=== PATIENT | male | born 1955 | race Caucasian/White ===

== ENCOUNTER 2023-09-10 14:43 | Outpatient (CLI) | payer MEDICARE, SELFPAY ==
[2023-09-10 15:08] LABS: Basophils Percent Auto 0.3 % (0.2-1.2); Eosinophils Absolute Auto 0.1 K/mm3 (0-0.3); Eosinophils Percent Auto 0.9 % (0-4.4); Hematocrit 44.5 % (42.0-52.0); Hemoglobin 13.8 g/dL (14.0-18.0); Immature Granulocyte Absolute 0.01 K/mm3 (0.00-0.031); Immature Granulocyte Percent A 0.1 % (0-0.5); Lymphocytes Absolute Auto 1.35 K/mm3 (0.9-3.2); Lymphocytes Percent Auto 20.2 % (18.3-44.2); Mean Corpuscular Hemoglobin 29.1 pg (26-34); Mean Corpuscular Volume 93.9 fl (80-100); Mean Platelet Volume 9.3 fl (7.4-10.4); Monocytes Absolute Auto 0.6 K/mm3 (0.1-0.6); Monocytes Percent Auto 9.6 % (2.6-8.5); Neutrophils Absolute Auto 4.6 K/mm3 (1.3-6.7); Neutrophils Percent Auto 68.9 % (45.5-73.1); Platelet Count Result 222 k/mm3 (150-375); Red Blood Count 4.74 M/mm3 (4.6-6.20); Red Cell Distribution Width 12.3 % (11.5-14.5); White Blood Count 6.7 K/mm3 (4.5-10.0)
[2023-09-10 17:04] LABS: Alanine Aminotransferase 23 U/L (6-50); Albumin Level 4.8 g/dL (3.5-5.1); Alkaline Phosphatase 83 U/L (38-126); Anion Gap 10 mmol/L (8-16); Aspartate Amino Transferase 23 U/L (17-59); Bilirubin,Total 0.6 mg/dL (0.2-1.3); Blood Urea Nitrogen 23 mg/dL (9-20); Calcium 9.6 mg/dL (8.4-10.2); Carbon Dioxide 36 mmol/L (22-30); Chloride 92 mmol/L (98-107); Cholesterol 255 mg/dL (0-200); Estimated Glomerular Filt Rate 60; Glucose 109 mg/dL (65-110); HDL Direct 47 mg/dL; Potassium 3.9 mmol/L (3.4-5.0); Sodium 138 mmol/L (137-145); Triglycerides 116 mg/dL (<150)
[2023-09-10 17:15] LABS: LDL Cholesterol Direct 166 mg/dL
[2023-09-10 17:29] LABS: Free T4 Free Thyroxine 0.94 ng/mL (0.78-2.19)
[2023-09-10 17:37] LABS: Prostate Specific Antigen 2.4 ng/mL (< OR = 4.0); Total Triiodothyronine (T3) 1.56 NG/ML (0.97-1.69)
[2023-09-10 21:04] LABS: Vitamin D 25 Hydroxy < 12.8 ng/mL
== END 2023-09-10 14:44 | disposition home or self-care (01) ==
PROVIDERS: PCP Family Medicine; Visit Provider Internal Medicine Hematology & Oncology
DX: Z12.5 Encounter for screening for malignant neoplasm of prostate (principal); I10 Essential (primary) hypertension; R73.01 Impaired fasting glucose; E78.2 Mixed hyperlipidemia; R80.9 Proteinuria, unspecified; E55.9 Vitamin D deficiency, unspecified; R53.83 Other fatigue; Z13.0 Encounter for screening for diseases of the blood and blood-forming organs and certain disorders involving the immune mechanism; Z13.6 Encounter for screening for cardiovascular disorders; Z13.220 Encounter for screening for lipoid disorders; Z13.29 Encounter for screening for other suspected endocrine disorder; Z13.1 Encounter for screening for diabetes mellitus
CPT/HCPCS: 36415; 80053; 80061; 82306; 83036; 84153; 84439; 84443; 84480; 85025; G0103

== ENCOUNTER 2023-09-17 09:10 | Outpatient (CLI) | payer MEDICARE, SELFPAY ==
--- NOTE | 2023-09-17 17:08 | WPDPFTINT ---
PFT Procedure Performed PFT Procedure Performed Spirometry w/o Bronchodil PFT Interpretation This is a pulmonary function test with spirometry. The test was performed and results interpreted in accordance with the 2019 and 2005 ATS/ERS Task Force guidelines respectively using the Global Lung Function Initiative-2012 reference equations. Patient demonstrated good effort and cooperation. Reproducibility criteria were met. The quality of the spirometry maneuver was Grade A. Findings: Spirometry: There is decreased maximal expiratory airflow at all lung volumes with concave expiratory flow tracing. The FVC is 3.34 L, 72% predicted. The FEV1 is 0.92 L, 26% predicted. The FEV1: FVC ratio is 27%. Impression: There is a very severe obstructive abnormality. A concurrent restrictive ventilatory abnormality cannot be excluded as lung volumes were not measured. There are no prior studies for comparison
== END 2023-09-17 09:11 | disposition home or self-care (01) ==
LOC: ANHPFT 09:11
PROVIDERS: PCP Family Medicine; Visit Provider Family Medicine
DX: R06.00 Dyspnea, unspecified (principal); J44.9 Chronic obstructive pulmonary disease, unspecified; Z99.81 Dependence on supplemental oxygen; R94.2 Abnormal results of pulmonary function studies
CPT/HCPCS: 94375

== ENCOUNTER 2025-01-10 15:59 | Inpatient (IN) | payer MEDICARE, SELFPAY ==
[2025-01-10] VITALS (13 sets, daily range): BP systolic 108–152; BP diastolic 67–89; PULSE 90–103; RESP 20–32; TEMP 36.3–36.7; O2SAT 97–100; BMI 24.7
--- NOTE | ~2025-01-10 | CT_ITS ---
EXAMINATION: CTA chest PE protocol DATE: 01/10/2025 18:32 TRACTOR CRANE ENGINEER INDICATION: Shortness of breath TECHNIQUE: Computed tomographic angiography (CTA) of the chest was performed with 100 mL Omnipaque-35 0 intravenous contrast. The dose-length product was 534.89 mGy-cm. Maximum intensity projection 3D-re constructions of the aorta and other arteries were constructed by the technologist on a separate work station. COMPARISON: None. FINDINGS/OBSERVATIONS: PULMONARY ARTERIES: No filling defect is identified within the main or proximal pulmonary artery. The main pulmonary artery is borderline enlarged. THORACIC AORTA: No aneurysmal dilatation or dissection is present. The great vessels are intact LUNGS: Panlobular emphysematous disease is detected bilaterally with large bulla formation within the bilateral upper lobes, left greater than right. MEDIASTINUM: No morphologically suspicious or pathologically enlarged lymph nodes are identified with in the mediastinum or bilateral axilla. BONES OF THE CHEST: No acute fracture. No significant degenerative disease. No lytic or blastic lesions. HEART: The heart is of normal size, without pericardial effusion. IMPRESSION: No pulmonary embolus. No thoracic aortic dissection. Borderline enlargement of the main pulmonary artery. Severe panlobular emphysematous disease with large bulla formation within the bilateral upper lobes, left greater than right. Reviewed, dictated and finalized at location A. TOR CRANE ENGINEER IMPRESSION: No pulmonary embolus. No thoracic aortic dissection. Borderline enlargement of the main pulmonary artery. Severe panlobular emphysematous disease with large bulla formation within the b ilateral upper lobes, left greater than right.
--- NOTE | ~2025-01-10 | XR_ITS ---
CHEST RADIOGRAPH CLINICAL HISTORY: CP and SOB . COMPARISON: None available TECHNIQUE: Single portable view of the chest. FINDINGS The cardiomediastinal silhouette is unremarkable. Increased interstitial markings are identified within the left mid to lower lung field. The remainder of the lungs are clear. IMPRESSION: Left mid to lower lung scarring. No focal infiltrate or effusion. Reviewed, dictated and finalized at location A. VERIFICATION ENGINEER
--- OUTSIDE RECORDS SUMMARY | 2025-01-10 16:01 | XMS_ITS | Referral Summary ---
Author Organization [facility] Address [address] [place] [address] Care Team Providers Care Snow Remover Name Role Phone Unavailable Primary Care Provider Unavailabl e Source Comments [facility],non-owned Affiliates and Associated Physician Practices is amultiple site organization consisting of ambulatory clinics and hospital sitesin [place], [place], [place] and [place]. This disclosure is being madepursuant to the Care Everywhere program and may not contain all information available regarding this patient. Last updated 18.[facility] [employer] Allergies No known active allergies Medications * Be aware that medications may not be up to date on this document. Alwaysverify current medications with the patient. Medication Sig Dispensed Refills Start Date End Date Status HYDROcodone-acetami nophen ([place]) 10-325 MG tablet Take 1 (one) tablet to 2 (two) tablets by mouth every 4 hours as needed for Pain Active albuterol HFA (Proventil; Ventolin; Proair) 108 (90 Base) MCG/ACT inhaler Inhale 2 (two) puffs by mouth every 4 hours as needed for Shortness of Breath or Wheezing 05/19/2024 Active budesonide-formoter ol (Symbicort) 160-4.5 MCG/ACT inhaler Inhale 2 (two) puffs by mouth 2 times daily 05/19/2024 Active umeclidinium (Incruse Ellipta) 62.5 MCG/ACT inhaler Inhale 1 (one) puff by mouth once daily 05/20/2024 Active lidocaine (Lidoderm) 5 % patch Apply 1 (one) patch to skin every 24 hours Apply patch to most painful area and remove after 12 hours. May reapply a new patch 12 hours later. 05/20/2024 Active apixaban (Eliquis) 5 MG tablet TAKE ONE TABLET BY MOUTH 2 TIMES A DAY 180 tablet 3 05/19/2024 05/19/2025 Active atorvastatin (Lipitor) 80 MG tablet TAKE ONE TABLET BY MOUTH EVERY NIGHT AT BEDTIME 90 tablet 3 05/19/2024 05/19/2025 Active carvedilol (Coreg) 6.25 MG tablet TAKE ONE TABLET BY MOUTH TWO TIMES A DAY WITH MORNING AND EVENING MEAL 180 tablet 3 05/19/2024 05/19/2025 Active losartan (Cozaar) 25 MG tablet TAKE ONE TABLET BY MOUTH ONCE DAILY 90 tablet 3 05/19/2024 05/19/2025 Active clopidogrel (plaVIX) 75 MG tablet TAKE ONE TABLET BY MOUTH ONCE DAILY 90 tablet 2 05/19/2024 05/19/2025 Active aspirin (Aspirin) 81 MG chew tablet CHEW AND SWALLOW 1 TABLET BY MOUTH ONCE DAILY 90 tablet 3 05/19/2024 05/19/2025 Active isosorbide mononitrate CR 24hr (Imdur) 60 MG tablet TAKE ONE TABLET BY MOUTH ONCE DAILY 90 tablet 3 05/19/2024 05/19/2025 Active Active Problems Problem Noted Date Diagnosed Date CAD, multiple vessel 05/12/2024 Social History Tobacco Use Types Packs/Day Years Used Date Smoking Tobacco: Former Cigarettes 3 30 Smokeless Tobacco: Never Tobacco Cessation:Counseling Given: Not Answered Alcohol Use Standard Drinks/Week Comments Not Currently 0 (1 standard drink = 0.6 oz pur e alcohol) AUDIT-C Answer Date Recorded Q1: How often do you have a drink containing alcohol? Never 05/14/2024 Q2: How many drinks containi ng alcohol do you have on a typical day when you are drinking? Patient does not drink Q3: How often do you have si x or more drinks on one occasion? Never 05/14/2024 Overall Financial Resource Strain (CARDIA) Answe r Date Recorded How hard is it for you to pa y for the very basics like food, housing, medical care, and heating? Somewhat hard 05/14/2024 [facility] of Occupat ional Health - Occupational Stress Questionnaire Answer Date Recorded Do you feel stress - tense, restless, nervous, or anxious, or unable to sleep at night because your mind is troubled all the time - these days? Not at all 05/14/2024 Hunger Vital Sign Answer Date Recorded Within the past 12 months, y ou worried that your food would run out before you got the money to buy more. Never true 05/14/20 24 Within the past 12 months, t he food you bought just didn't last and you didn't have money to get more. Never true 05/14/2024 PRAPARE - Transportation Answer Date Re corded In the past 12 months, has l ack of transportation kept you from medical appointments or from getting medications? No 04/19 In the past 12 months, has l ack of transportation kept you from meetings, work, or from getting things needed for daily living? No 05/14/2024 Housing Stability Vital Sign Answer Rodrigo e Recorded In the last 12 months, was t here a time when you were not able to pay the mortgage or rent on time? No 05/14/2024 In the last 12 months, how many places have you lived? 1 05/14/2024 In the last 12 months, was t here a time when you did not have a steady place to sleep or slept in a longterm (including now)? No 05/14/2024 Sex and Gender Information Value Date Recorded Sex Assigned at Not on file Gender Identity Not on file Sexual Orientation Not on file Last Filed Vital Signs Vital Sign Reading Time Taken Comments Blood Pressure 144/86 05/20/2024 7:19 AM CDT Pulse 74 05/20/2024 9:30 AM CDT Temperature 36.8 C (98.2 F) 05/20/2024 7:19 AM CDT Respiratory Rate 16 05/20/2024 9:30 AM CDT Oxygen Saturation 100% 05/20/2024 9:30 AM CDT Inhaled Oxygen Concentration - - Weight 89.4 kg (197 lb) 05/15/2024 8:55 AM CDT Height 185.4 cm (6' 1 ) 05/15/2024 8:55 AM CDT Body Mass Index 25.99 05/15/2024 8:55 AM CDT Functional Status Functional Status Response Date of Assess ment Is person deaf or have serious hearing difficult y? Yes 05/14/2024 Is person blind or have serious difficulty seein g? No 05/14/2024 Does person have serious dif ficulty walking/climbing stairs? Yes 05/14/2024 Does person have difficulty dressing/bathing? No 05/14/2024 Does person have difficulty doing errands alone? No 05/14/2024 Cognitive Status Response Date of Assess ent Does person have difficulty concentrating/remembering/making decisions? No 05/14/2024 Plan of Treatment Not on file Medical Devices Implanted Type Area Draw Frame Operator Device Identifier Shelf Expiration Date Model / Serial / Lot Sys Cor Stent Sng Xd Mr 3mm 20mm Dlv Sys - [id number] Implanted:Qty: 1 on 05/18/2024 by Michaela Reddy MD at [facility] [employer] [id number] 01/01/2026 [id number] / [id number] / [id number] Sys Cor Stent Sng Xd Mr 3mm 16mm Dlv Sys - [id number] Implanted:Qty: 1 on 05/18/2024 by Michaela Reddy MD at [facility] [employer] [id number] 08/19/2024 [id number] / [id number] / [id number] Sys Cor Stent Sng Xd Mr 3.5mm 38mm Dlv - [id number] Implanted:Qty: 1 on 05/18/2024 by Michaela Reddy MD at [facility] [employer] [id number] 10/06/2025 [id number] / [id number] / [id number] Procedures Procedure Name Priority Date/Time Associated Diagnosis Comments RENAL FUNCTION PANEL Routine 05/20/2024 3:38 AM CDT from Last 3 Months or Most Recently Relevant to Health Maintenance Results * (ABNORMAL) RENAL FUNCTION PANEL (05/20/2024 3:38 AM CDT) BUN 14 7 - 26 mg/dL 05/20/2024 4:49 AM CDT [facility] Creatinine 0.91 0.71 - 1.16 mg/dL 05/20/2024 4:49 AM CDT [facility] Sodium 142 136 - 145 mmol/L 05/20/2024 4:49 AM CDT [facility] Potassium 5.0(H) 3.5 - 4.5 mmol/L 05/20/2024 4:49 AM [facility] Chloride 100 98 - 107 mmol/L 05/20/2024 4:49 AM [facility] CO2 35(H) 22 - 29 mmol/L 05/20/2024 4:49 AM [facility] Glucose 106 70 - 115 mg/dL 05/20/2024 4:49 AM [facility] Albumin 2.8(L) 3.4 - 5.0 g/dL 05/20/2024 4:49 AM [facility] Calcium 8.8 8.4 - 10.2 mg/dL 05/20/2024 4:49 AM [facility] Phosphorus 3.8 2.8 - 5.1 mg/dL 05/20/2024 4:49 AM [facility] Anion Gap 7 6 - 16 05/20/2024 4:49 AM [facility] BUN/Creatinine Ratio 15 7 - 23 05/20/2024 4:49 AM [facility] Osmolality Calculated 295 275 - 295 mOsm/kg 05/20/2024 4:49 AM [facility] eGFR by CKD-EPI >90 >=90 mL/min/1.7 3 m2 05/20/2024 4:49 AM [facility] Blood BLOOD SPECIMEN / Unknown Lab Venipuncture / Unknown 05/20/2024 3:38 AM CDT 05/20/2024 4:16 AM [facility] Woo Aj MD LAB - CHEMISTRY YT BHAGAT [facility] Organization Address [facility]/State/ZIP Co de Phone Number [facility] [address] [place] [address], [facility] [phone] from Last 3 Months or Most Recently Relevant to Health Maintenance Advance Directives * Full Code (Latest Code Status on File) Date Activated Date Inactivated Comments 05/14/2024 4:44 PM 05/20/2024 3:42 PM
--- OUTSIDE RECORDS SUMMARY | 2025-01-10 16:01 | XMS_ITS | Patient Health Summary ---
Author Organization [facility] Address [address] [place] [address] Care Team Providers Care Appetizer Packer Name Role Phone Unavailable Primary Care Provider Unavailabl e Note from [facility] [place][note 2],non-owned Affiliates and Associated Physician Practices is amultiple site organization consisting of ambulatory clinics and hospital sitesin [place], [place], [place] and [place]. This disclosure is being madepursuant to the Care Everywhere program and may not contain all information available regarding this patient. Last updated 18.[facility] Allergies No known active allergies Medications * Be aware that medications may not be up to date on this document. Alwaysverify current medications with the patient. * HYDROcodone-acetaminophen (Goodwin) 10-325 MG tablet Take 1 (one) tablet to 2 (two) tablets by mouth every 4 hours as needed for Pain * albuterol HFA (Proventil; Ventolin; Proair) 108 (90 Base) MCG/ACT inhaler (Started 05/19/2024) Inhale 2 (two) puffs by mouth every 4 hours as needed for Shortness of Breath or Wheezing * budesonide-formoterol (Symbicort) 160-4.5 MCG/ACT inhaler(Started 05/19/2024) Inhale 2 (two) puffs by mouth 2 times daily * umeclidinium (Incruse Ellipta) 62.5 MCG/ACT inhaler(Started 05/20/2024) Inhale 1 (one) puff by mouth once daily * lidocaine (Lidoderm) 5 % patch(Started 05/20/2024) Apply 1 (one) patch to skin every 24 hours Apply patch to most painful area and remove after 12 hours. May reapply a new patch 12 hours later. * apixaban (Eliquis) 5 MG tablet(Started 05/19/2024) TAKE ONE TABLET BY MOUTH 2 TIMES A DAY 3 refills by 05/19/2025 * atorvastatin (Lipitor) 80 MG tablet(Started 05/19/2024) TAKE ONE TABLET BY MOUTH EVERY NIGHT AT BEDTIME 3 refills by 05/19/2025 * carvedilol (Coreg) 6.25 MG tablet(Started 05/19/2024) TAKE ONE TABLET BY MOUTH TWO TIMES A DAY WITH MORNING AND EVENING MEAL 3 refills by 05/19/2025 * losartan (Cozaar) 25 MG tablet(Started 05/19/2024) TAKE ONE TABLET BY MOUTH ONCE DAILY 3 refills by 05/19/2025 * clopidogrel (plaVIX) 75 MG tablet(Started 05/19/2024) TAKE ONE TABLET BY MOUTH ONCE DAILY 3 refills by 05/19/2025 * aspirin (Aspirin) 81 MG chew tablet(Started 05/19/2024) CHEW AND SWALLOW 1 TABLET BY MOUTH ONCE DAILY 3 refills by 05/19/2025 * isosorbide mononitrate CR 24hr (Imdur) 60 MG tablet(Started 05/19/2024) TAKE ONE TABLET BY MOUTH ONCE DAILY 3 refills by 05/19/2025 Active Problems Problem Noted Date Diagnosed Date [...] medical care, and heating? Somewhat hard 05/14/2024 [facility] [facility] Occup[facility] - Occupational Stress [...] place to sleep or slept in a fdc (including now)? No 05/14/2024 Sex and Gender [...] Mass Index 25.99 05/15/2024 8:55 AM CDT Medical Devices Implanted Type Area Academy Director Device Identifier Shelf Expiration Date Model / Serial / Lot Sys Cor Stent Sng Xd Mr 3mm 20mm Dlv Sys - [id number] Implanted:Qty: 1 on 05/18/2024 by Michaela Reddy MD at [facility] [employer] [id number] 01/01/2026 [id number] / [id number] / [id number] Sys Cor Stent Sng Xd Mr 3mm 16mm Dlv Sys - [id number] Implanted:Qty: 1 on 05/18/2024 by Michaela Reddy MD at [facility] [employer] [id number] 08/19/2024 [id number] / [id number] / [id number] Sys Cor Stent Sng Xd Mr 3.5mm 38mm Dlv - [id number] Implanted:Qty: 1 on 05/18/2024 by Michaela Reddy MD at [facility] [employer] [id number] 10/06/2025 [id number] / [id number] / [id number] Procedures * BASIC METABOLIC PANEL (CALCIUM TOTAL)(Performed 05/20/2024) Performed for CAD, multiple vessel, Hyperkalemia * MAGNESIUM BLOOD(Performed 05/20/2024) * RENAL FUNCTION PANEL(Performed 05/20/2024) * CBC W/O DIFFERENTIAL(Performed 05/20/2024) * MAGNESIUM BLOOD(Performed 05/19/2024) * RENAL FUNCTION PANEL(Performed 05/19/2024) * CBC W/O DIFFERENTIAL(Performed 05/19/2024) * CCL CORONARY IVUS(Performed 05/18/2024) Performed for CAD, multiple vessel * CCL CORONARY STENT(Performed 05/18/2024) Performed for CAD, multiple vessel * CORONARY ANGIOGRAPHY(Performed 05/18/2024) Performed for CAD, multiple vessel * ACT LR - POCT ([facility])(Performed 05/18/2024) * ACT LR - POCT ([facility])(Performed 05/18/2024) * ACT LR - POCT ([facility])(Performed 05/18/2024) * ACT LR - POCT ([facility])(Performed 05/18/2024) * ACT LR - POCT ([facility])(Performed 05/18/2024) * ACT LR - POCT ([facility])(Performed 05/18/2024) * PERCUTANEOUS CORONARY INTERVENTION (PCI)(Performed 05/18/2024) Performed for CAD, multiple vessel * MAGNESIUM BLOOD(Performed 05/18/2024) * RENAL FUNCTION PANEL(Performed 05/18/2024) * CBC W/O DIFFERENTIAL(Performed 05/18/2024) * MAGNESIUM BLOOD(Performed 05/17/2024) * RENAL FUNCTION PANEL(Performed 05/17/2024) * CBC W/O DIFFERENTIAL(Performed 05/17/2024) * COMPLETE PFT W/WO BRONCHODILATOR(Performed 05/15/2024) * ECHO COMPLETE W CONTRAST(Performed 05/15/2024) Performed for CAD, multiple vessel * VAS BILATERAL VENOUS MAPPING(Performed 05/15/2024) Performed for CAD, multiple vessel * VAS CAROTID DUPLEX BILATERAL(Performed 05/15/2024) Performed for CAD, multiple vessel * CT CHEST WO CONTRAST(Performed 05/15/2024) Performed for CAD, multiple vessel * CULTURE MRSA(Performed 05/15/2024) * XR CHEST 1VW PORTABLE(Performed 05/15/2024) Performed for CAD, multiple vessel * TSH REFLEX FREE T4(Performed 05/15/2024) * HEMOGLOBIN A1C(Performed 05/15/2024) * MAGNESIUM BLOOD(Performed 05/15/2024) * RENAL FUNCTION PANEL(Performed 05/15/2024) * CBC W/O DIFFERENTIAL(Performed 05/15/2024) * EKG 12-LEAD(Performed 05/14/2024) Performed for CAD, multiple vessel * TROPONIN-I HIGH SENSITIVE(Performed 05/14/2024) * PHOSPHORUS BLOOD(Performed 05/14/2024) * MAGNESIUM BLOOD(Performed 05/14/2024) * COMPREHENSIVE METABOLIC PANEL(Performed 05/14/2024) * CBC W/O DIFFERENTIAL(Performed 05/14/2024) * CATH OUTSIDE STUDY(Performed 05/12/2024) Performed for CAD, multiple vessel Results * (ABNORMAL) BASIC METABOLIC PANEL (CALCIUM TOTAL) (05/20/2024 11:14 AM [facility]) BUN 12 7 - 26 mg/dL 05/20/2024 11:54 AM [facility] Creatinine 0.76 0.71 - 1.16 mg/dL 05/20/2024 11:54 AM [facility] Sodium 140 136 - 145 mmol/L 05/20/2024 11:54 AM [facility] Potassium 4.3 3.5 - 4.5 mmol/L 05/20/2024 11:54 AM [facility] Chloride 102 98 - 107 mmol/L 05/20/2024 11:54 AM [facility] CO2 32(H) 22 - 29 mmol/L 05/20/2024 11:54 AM [facility] Glucose 317(H) 70 - 115 mg/dL 05/20/2024 11:54 AM [facility] Calcium 8.7 8.4 - 10.2 mg/dL 05/20/2024 11:54 AM [facility] Anion Gap 6 6 - 16 05/20/2024 11:54 AM [facility] BUN/Creatinine Ratio 16 7 - 23 05/20/2024 11:54 AM [facility] Osmolality Calculated 302(H) 275 - 295 mOsm/kg 05/20/2024 11:54 AM [facility] eGFR by CKD-EPI >90 >=90 mL/min/1.7 3 m2 05/20/2024 11:54 AM [facility] Blood BLOOD SPECIMEN / Unknown Venipuncture / Unknown 05/20/2024 11:14 AM CDT 05/20/2024 11:23 AM CDT Monique Ray ELASTIC TAPE INSERTER-DOG OR HORSE RACING OFFICIAL LAB - CHEMIS TRY ORDERABLES [facility] [address] [place] [phone], [facility] [phone] * (ABNORMAL) CBC W/O DIFFERENTIAL (05/20/2024 3:38 AM CDT) Only the most recent of6 resultswithin the time period is included. WBC 9.4 4.0 - 10.7 x10E9/L 05/20/2024 4:30 AM [facility] RBC Count 4.18(L) 4.30 - 5.80 x10E12/L 05/20/2024 4:30 AM [facility] Hemoglobin 11.8(L) 13.3 - 17.5 g/dL 05/20/2024 4:30 AM [facility] Hematocrit 38.8 38.7 - 51.1 % 05/20/2024 4:30 AM [facility] MCV 92.8 80.0 - 98.0 fL 05/20/2024 4:30 AM [facility] MCH 28.2 26.7 - 33.6 pg 05/20/2024 4:30 AM [facility] MCHC 30.4(L) 31.7 - 36.3 g/dL 05/20/2024 4:30 AM [facility] RDW-CV 14.1 11.3 - 14.8 % 05/20/2024 4:30 AM [facility] Platelet Count 287 150 - 420 x10E9/L 05/20/2024 4:30 AM [facility] MPV 9.8 7.8 - 11.4 fL 05/20/2024 4:30 AM [facility] Blood BLOOD SPECIMEN / Unknown Lab Venipuncture / Unknown 05/20/2024 3:38 AM CDT 05/20/2024 4:16 AM CDT Woo Aj MD LAB - HEMATOLOGY ORD ERABLES [facility] [address] [place] [address], [facility] [phone] * (ABNORMAL) RENAL FUNCTION PANEL (05/20/2024 3:38 AM CDT) Only the most recent of5 resultswithin the time period is included. BUN 14 7 - 26 mg/dL 05/20/2024 4:49 AM [facility] Creatinine 0.91 0.71 - 1.16 mg/dL 05/20/2024 4:49 AM [facility] Sodium 142 136 - 145 mmol/L 05/20/2024 4:49 AM [facility] Potassium 5.0(H) 3.5 - 4.5 mmol/L 05/20/2024 4:49 AM [facility] Chloride 100 98 - 107 mmol/L 05/20/2024 4:49 AM [facility] CO2 35(H) 22 - 29 mmol/L 05/20/2024 4:49 AM [facility] Glucose 106 70 - 115 mg/dL 05/20/2024 4:49 AM [facility] Albumin 2.8(L) 3.4 - 5.0 g/dL 05/20/2024 4:49 AM [facility] Calcium 8.8 8.4 - 10.2 mg/dL 05/20/2024 4:49 AM [facility] Phosphorus 3.8 2.8 - 5.1 mg/dL 05/20/2024 4:49 AM [facility] Anion Gap 7 6 - 16 05/20/2024 4:49 AM [facility] BUN/Creatinine Ratio 15 7 - 23 05/20/2024 4:49 AM [facility] Osmolality Calculated 295 275 - 295 mOsm/kg 05/20/2024 4:49 AM [facility] eGFR by CKD-EPI >90 >=90 mL/min/1.7 3 m2 05/20/2024 4:49 AM [facility] Blood BLOOD SPECIMEN / Unknown Lab Venipuncture / Unknown 05/20/2024 3:38 AM CDT 05/20/2024 4:16 AM CDT Woo Aj MD LAB - CHEMISTRY TY [facility] Organization Address City/State/ZIP Co de Phone Number [facility] [address] [place] [phone], [facility] [phone] * MAGNESIUM BLOOD (05/20/2024 3:38 AM CDT) Only the most recent of6 resultswithin the time period is included. Magnesium 2.1 1.6 - 2.6 mg/dL 05/20/2024 4:49 AM [facility] Blood BLOOD SPECIMEN / Unknown Lab Venipuncture / Unknown 05/20/2024 3:38 AM CDT 05/20/2024 4:16 AM CDT Woo Aj MD LAB - CHEMISTRY TY [facility] [address] [place] [address], [facility] [phone] * CORONARY ANGIOGRAPHY, CCL CORONARY STENT, CCL CORONARY IVUS (05/18/2024 1:40 PM CDT) Anatomical Region Laterality Modality X-Ray Angiograph y Narrative 05/18/2024 10:56 PM CDT 70% left main stenosis contiguous with 90% proximal/mid LAD in-stent/klaudia-stent stenosis status post successful IVUS guided implant of 3.5 x 30 mm Synergy HUY (proximally dilated to 4.5 mm); SUSHMA-3 flow 0% residual stenosis. 70% proximal LCx stenosis status post IVUS guided implant of 3 x 16 mm Synergy HUY using DK crush technique; 0% residual stenosis SUSHMA-3 flow. Prox Cx to Mid Cx lesion is 40% stenosed . Residual 80% stenosis in branch of OM2 as well as 95% stenosis in a small OM1 Known RCA mild/moderate stenosis, not injected Right radial artery access; hemostasis by TR band. Reason for Procedure 68 male with HTN, HLD, CAD s/p PCI (RCA & LAD, 2019), pAFib, COPD (on 4L), HTN, HLD. Initially presented to [facility] in [place], [place] due to symptomatology of exertional chest pain or shortness of breath. Underwent cardiac catheterization there which demonstrated severe left main stenosis and LAD ISR. He was transferred to [facility] for cardiac surgery evaluation. After evaluation, he turndown surgery. Therefore, presents today for PCI. Procedure Details Estimated Blood Loss: 20 mL Procedure Details and Comments: Informed consent was obtained after discussion with the patient regarding indication, risks, benefits, and alternatives. Patient was brought to the cardiac catheterization lab, placed on the table, prepped and draped in usual sterile fashion. Timeout was performed. IV sedation given including fentanyl and midazolam. See MAR for details. 1% lidocaine given subcutaneously for local anesthesia. Access was obtained using ultrasound guidance, micro-puncture needle and modified Seldinger technique. A 7 Cymro sheath inserted to right radial artery. Intra-arterial nicardipine and nitroglycerin given to prevent spasm. Intravenous heparin given to prevent occlusion and for therapeutic anticoagulation with ACT monitored 250-350. A 7 Cymro EBU 3.75 guide catheter used to cannulate the left coronary artery. Initial angiography taken in orthogonal views redemonstrated known distal left main bifurcation stenosis. Additionally, there is a small OM1 that is subtotally occluded. In a branch of OM2 which is a reasonably sized vessel there was 80% stenosis. In proximal/mid LAD, there was 90% in-stent restenosis as well as klaudia-stent stenosis. Intervention ensued. A 0.014 inch Terumo run-through guidewire was advanced into circumflex with mild difficulty. A 0.014 inch [employer] guidewire was advanced into distal LAD with mild difficulty. Initially, we thought we will be able to get away with provisional stenting strategy from left main to LAD. Therefore, we performed predilation of in-stent restenosis using a 2.5 x 20 mm AngioSculpt Silverio scoring balloon, at 20- 22 mima for multiple inflations from mid LAD back to proximal LAD. The expanded reasonably well. We performed IVUS using [place] eye catheter down the left main/LAD. Beyond the existing stent, vessel diameter was 2.75 mm. Therefore, the existing 2.5 mm stent appears to be somewhat undersized. Additionally, in the body of the stent there was some underexpansion. In the proximal part of the stent, there was neointima formation concordant with angiographic in-stent restenosis. The proximal LAD is fairly disease-free although further proximally in the distal left main, the MLA was 6 mm , therefore needs to be treated. It would be prudent to stent from LAD all the way back to the left main. Therefore, a plaque free proximal landing zone identified in proximal left main with diameter 4.5 mm. We then performed IVUS down the LCx. There was impressive bulky plaque, mostly fatty, in the proximal vessel despite angiographically it appears not as severe as it was on IVUS. The proximal/mid LCx is diffusely diseased without a clear plaque free landing zone. Therefore we decided to angiographically lended. Vessel diameter was 3 mm throughout. Given the IVUS finding, we decided to switch to an upfront 2-stent strategy using the DK crush method. Predilation of proximal LCx performed with a 3 mm NC Emerge balloon, at 14 mima. This expanded well. We attempted to deliver a 3 x 20 mm Synergy HUY to LCx alongside a 4 mm NC Emerge balloon in the left main/LAD, but the stent was slightly too long. Therefore, we removed the 3 x 20 mm Synergy HUY and inserted a 3 x 16 mm Synergy HUY instead. The stent was positioned in the ostium with slight protrusion into the left main, and deployed at 14 mima. After stent balloon removal, the 4 mm NC Emerge balloon was inflated to crush the stent at 14 mima. Another run-through guidewire was advanced into LCx with mild difficulty. The the first run-through guidewire, which was now jailed, was removed. A 1.2 mm Emerge balloon was used to open up the struts. A 3 x 15 mm NC Emerge balloon was positioned in the LCx alongside a 4 x 15 mm NC Emerge balloon in the left main/LAD. Using the [id number] sequence, the balloons were inflated to 20 mima individually followed by 12 mima for kissing balloon inflation. Both balloons were removed. The run-through guidewire was removed from LCx. Given the IVUS finding of LAD, further dilation of the existing LAD stent performed with a 3 x 30 mm NC Emerge balloon, at 15-22 mima throughout proximal/mid LAD. This expanded reasonably well. A 3.5 x 38 mm Synergy HUY was positioned from proximal left main into mid LAD with slight overlap of the existing 2.5 mm stent, and deployed at 10 mima. Proximal optimization performed with a 4.5 x 15 mm NC Emerge balloon, at 12-14 mysterious throughout the left main especially on the LCx bifurcation. With great difficulty, another run-through guidewire was maneuvered into LCx. To confirm the LCx wire was within left main stent, repeat IVUS performed down IVUS/LAD. This confirmed the LCx wire was indeed within the left main stent. IVUS also found the left main stent to be adequately expanded and apposed. A 1.2 x 15 mm Emerge balloon was used to struts into LCx. A 3 x 15 mm NC Emerge balloon was placed in the LCx alongside a 4.0 x 15 mm NC Emerge balloon in the LM/LAD. Using the [id number] sequence, the balloons were inflated to 20 mm individually, followed by kissing balloon inflation at 12 mima. Final proximal optimization performed with a 4.5 x 8 mm NC Emerge balloon, at 12 mima. Final angiogram now demonstrated 0% residual stenosis, SUSHMA-3 flow, no dissection, no no reflow phenomenon. The coronary wires were removed. The guide catheter removed over a J-wire. Right radial artery sheath removed with hemostasis by TR band. Patient transported to hospital room in stable condition. Referring physician updated. Lesions treated: Left main. 70% pre-, 0% post. 15 mm pre and post. SUSHMA-3 pre and post. ACC/AHA type C. Not culprit. Proximal/mid LAD. 90% pre-, 0% post. 25 mm pre and post. SUSHMA-3 pre and post. ACC/AHA type C. Not culprit. Proximal LCx. 70% pre-, 0% post. 15 mm pre and post. SUSHMA-3 pre and post. ACC/AHA type B2. Not cooperative. Residual syntax score low. Coronary Findings Diagnostic Dominance: Right Left Main: Ost LM to Dist LM lesion is 70% stenosed. Not the culprit lesion. Lesion length: 15 mm. SUSHMA flow is 0. Ultrasound (IVUS) was performed. Minimum lumen area: 6 mm . Dist LM to Mid LAD lesion is 90% stenosed. SUSHMA flow is 3. The lesion is type C. Ultrasound (IVUS) was performed. Left Anterior Descending: Mid LAD lesion is 90% stenosed. SUSHMA flow is 3. The lesion was previously treated using a stent of unknown type. The lesion has in-stent restenosis. Left Circumflex: Ost Cx to Prox Cx lesion is 70% stenosed. Not the culprit lesion. Lesion length: 15 mm. SUSHMA flow is 3. The lesion is not complex (non high-C). Ultrasound (IVUS) was performed. Prox Cx to Mid Cx lesion is 40% stenosed. First Obtuse Marginal Branch: 1st Mrg lesion is 95% stenosed. SUSHMA flow is 1. Lateral Second Obtuse Marginal Branch: Lat 2nd Mrg lesion is 80% stenosed. SUSHMA flow is 3. Right Coronary Artery: The vessel was not injected. Intervention Ost LM to Dist LM lesion: Angioplasty: Angioplasty was performed using a standard balloon prior to stent deployment. The balloon used was a Cath Balln Dil Nc Emerge Monrl 3Mm 143Cm. Stent: Drug-eluting stent was successfully placed. The stent used was a Sys Cor Stent Sng Xd Mr 3.5Mm 38Mm Dlv. Angioplasty: Angioplasty was performed using a standard balloon following stent deployment. The balloon used was a Cath Balln Dil Nc Emerge Monrl 4.5Mm 143. Angioplasty: Angioplasty was performed using a standard balloon following stent deployment. The balloon used was a Cath Balln Dil Nc Emerge Monrl 4Mm 143Cm. Angioplasty: Angioplasty was performed using a standard balloon following stent deployment. The balloon used was a Cath Balln Dil Nc Emerge Monrl 4.5Mm 143. Stent (Also treats lesions: Dist LM to Mid LAD, Mid LAD): Drug-eluting stent was successfully placed. The stent used was a Sys Cor Stent Sng Xd Mr 3.5Mm 38Mm Dlv. Post-Intervention Lesion Assessment: The intervention was successful. The guidewire crossed the lesion. Device was deployed. Post- intervention SUSHMA flow is 3. Lesion had 15 mm of its length treated. There were no complications. Post-PCI ultrasound (IVUS) was performed. The stent is fully expanded. The stent is fully opposed to the vessel wall. There is a 0% residual stenosis post intervention. Dist LM to Mid LAD lesion: Angioplasty: Angioplasty was performed using a scoring balloon prior to stent deployment. The balloon used was a Cath Balln Angiosculpt Silverio 2.5Mm 20Mm. Angioplasty: Angioplasty was performed using a standard balloon prior to stent deployment. The balloon used was a Cath Balln Dil Nc Emerge Monrl 3Mm 143Cm. Stent (Also treats lesions: Ost LM to Dist LM, Mid LAD): Drug-eluting stent was successfully placed. The stent used was a Sys Cor Stent Sng Xd Mr 3.5Mm 38Mm Dlv. Angioplasty: Angioplasty was performed using a standard balloon following stent deployment. The balloon used was a Cath Balln Dil Nc Emerge Monrl 3Mm 143Cm. Post-Intervention Lesion Assessment: The intervention was successful. The guidewire crossed the lesion. Device was deployed. Post-intervention SUSHMA flow is 3. Lesion had 38 mm of its length treated. There were no complications. Post-PCI ultrasound (IVUS) was performed. There is a 0% residual stenosis post intervention. Mid LAD lesion: Angioplasty: Angioplasty was performed using a scoring balloon without stent deployment. The balloon used was a Cath Balln Angiosculpt Silverio 2.5Mm 20Mm. Angioplasty: Angioplasty was performed using a standard balloon without stent deployment. The balloon used was a Cath Balln Dil Nc Emerge Monrl 3Mm 143Cm. Stent (Also treats lesions: Ost LM to Dist LM, Dist LM to Mid LAD): Drug-eluting stent was successfully placed. The stent used was a Sys Cor Stent Sng Xd Mr 3.5Mm 38Mm Dlv. Post-Intervention Lesion Assessment: The intervention was successful. The guidewire crossed the lesion. Device was not deployed. Post-intervention SUSHMA flow is 3. There is a 0% residual stenosis post intervention. Ost Cx to Prox Cx lesion: Angioplasty: Angioplasty was performed using a standard balloon prior to stent deployment. The balloon used was a Cath Balln Dil Nc Emerge Monrl 3Mm 143Cm. Stent: Stent: Drug-eluting stent was successfully placed. The stent used was a Sys Cor Stent Sng Xd Mr 3Mm 16Mm Dlv Sys. Angioplasty: Angioplasty was performed using a standard balloon following stent deployment. The balloon used was a Cath Balln Dil Emerge Monrl 1.2Mm 144Cm. Angioplasty: Angioplasty was performed using a standard balloon following stent deployment. The balloon used was a Cath Balln Dil Nc Emerge Monrl 3Mm 143Cm. Post-Intervention Lesion Assessment: The intervention was successful. The guidewire crossed the lesion. Device was deployed. Post- intervention SUSHMA flow is 3. Lesion had 15 mm of its length treated. There were no complications. There is a 0% residual stenosis post intervention. Recommendations - Follow maximal guideline directed medical therapy for stable coronary artery disease. - Recommend dual anti platelet therapy for at least 6 months. - Recommend high dose statin therapy and aspirin 81 mg by mouth daily indefinitely. - Consult cardiac rehab. - Plan for lifestyle intervention with diet, exercise, and weight loss. - If patient remains symptomatic, can consider PCI of OM 2 lateral branch. Woo Aj MD CV CARDIAC CATH CUPI D PROCS * ACT LR - POCT ([facility]) (05/18/2024 1:37 PM CDT) Only the most recent of6 resultswithin the time period is included. [facility] ACT LR 269 See result comments sec 05/25/2024 7:04 AM CDT [facility] Blood BLOOD SPECIMEN / Unknown 05/18/2024 1:37 PM CDT 05/25/2024 7:04 AM CDT Narrative [facility] - 05/25/2024 7:04 AM CDT ACT-LR Therapeutics ranges are: Cardiac shop laborer = 200-300 seconds Sheath pull = ACT less than 170 seconds EPS lab = 200-240 seconds Sheath pull = ACT less than 140 seconds Radiology : CT/Angio lab = 200-300 seconds Sheath pull = ACT less than 200 seconds Expected range of normal volunteers: ACT-LR = 113-149 seconds Expected range of a Non-heparin patients: ACT-LR = 89-169 seconds From established ranges from the company manual Woo Aj MD LAB - COAGULATION OR DERABLES [facility] [address] [place] [address], [facility] [phone] * COMPLETE PFT W/WO BRONCHODILATOR (05/15/2024 4:45 PM CDT) Impressions Guille Ramos MD - 05/15/2024 4:45 PM CDT [facility] DEPARTMENT OF PULMONARY, CRITICAL CARE, AND SLEEP MEDICINE PULMONARY FUNCTION TEST Please see technologist's comments mentioned in the report. TECHNIQUE LIMITED STUDY INTERPRETATION: SPIROMETRY: FVC: decreased. FEV1: decreased . FEV1/FVC ratio is decreased. BRONCHODILATOR RESPONSE: Not performed. FLOW-VOLUME LOOPS: Inspection of the flow-volume loops shows scooping of the expiratory limbs. IMPRESSION: TECHNIQUE LIMITED STUDY 1. Severe obstructive ventilatory limitation. 2. There is no previous study available for comparison. Celena Gil MD Pulmonary & Critical Care Fellow Division of Pulmonary, Critical Care and Sleep Medicine [facility] I have personally reviewed the fellow's interpretation of the test and made any necessary changes when needed. Guille Ramos MD Digital Marketing Coordinator of Internal Medicine Division of Pulmonary, Critical Care and Sleep Medicine [facility] Pager: [phone] Narrative Guille Ramos MD - 05/15/2024 4:45 PM CDT Celena Gil MD 05/15/2024 4:54 PM Procedure Note Celena Gil MD - 05/15/2024 4:45 PM CDT Images from the original note were not included. [facility] RESPIRATORY THERAPY ORDERABLES * ECHO COMPLETE W CONTRAST (05/15/2024 1:28 PM CDT) LA vol index 0.028 l/m SSM CV FUJI PACS IVSd 2D 0.915 cm SSM CV FUJ I PACS IVSd 2D 0.915 cm SSM CV FUJ I PACS LVIDd 4.442 cm SSM CV FUJ I PACS LVIDd 4.442 cm SSM CV FUJ I PACS LVIDs 3.309 cm SSM CV FUJ I PACS LVIDs 3.309 cm SSM CV FUJ I PACS LVOT diam 2.13 cm SSM CV FUJ I PACS LVOT diam 2.13 cm SSM CV FUJ I PACS LVPWd 0.836 cm SSM CV FUJ I PACS LVPWd 0.836 cm SSM CV FUJ I PACS LV biplane EF 55.86 % SSM CV FUJI PACS LV biplane EF 55.86 % SSM CV FUJI PACS LV biplane EF 55.86 % SSM CV FUJI PACS LV A2C EF 65.699 % SSM CV FUJ I PACS LV A2C EF 65.699 % SSM CV FUJ I PACS LV A2C EF 65.699 % SSM CV FUJ I PACS LV A4C EF 68.166 % SSM CV FUJ I PACS LV A4C EF 54.718 % SSM CV FUJ I PACS LV A4C EF 41.271 % SSM CV FUJ I PACS LV EDV A2C 56.916 ml SSM CV FU JI PACS LV EDV A2C 56.916 ml SSM CV FU JI PACS LV EDV A4C 77.263 ml SSM CV FU JI PACS LV EDV A4C 77.263 ml SSM CV FU JI PACS LV ESV A2C 19.523 ml SSM CV FU JI PACS LV ESV A2C 19.523 ml SSM CV FU JI PACS LV ESV A4C 34.986 ml SSM CV FU JI PACS LV ESV A4C 45.376 ml SSM CV FU JI PACS LV ESV A4C 24.596 ml SSM CV FU JI PACS LVOT pk lul 103.48 cm/s SSM CV F UJI PACS LVOT pk lul 103.48 cm/s SSM CV F UJI PACS LVOT VTI 20.209 cm SSM CV FUJ I PACS LVOT VTI 20.209 cm SSM CV FUJ I PACS RV-de basal diam 4.225 cm SSM CV FUJI PACS RV-de basal diam 4.225 cm SSM CV FUJI PACS RVIDd 3.249 cm SSM CV [facility] I PACS RVIDd 3.249 cm SSM CV [facility] I PACS RVOT diam Doppler 1.998 cm SSM CV FUJI PACS RVOT diam Doppler 1.998 cm SSM CV FUJI PACS RVOT pk lul 106.498 cm/s SSM CV F UJI PACS RVOT pk lul 106.498 cm/s SSM CV F UJI PACS RVOT VTI 19.652 cm SSM CV [facility] I PACS RVOT VTI 19.652 cm SSM CV [facility] I PACS LA size 4.03 cm SSM CV [facility] I PACS LA size 4.03 cm SSM CV [facility] I PACS LA vol BP 59.908 ml SSM CV [facility] I PACS LA vol BP 59.908 ml SSM CV [facility] I PACS RA area 19.381 cm S[facility] RA area 19.381 cm [facility] P[facility] AV mn grad 6.362 mmHg SSM CV FU JI PACS AV mn grad 6.362 mmHg SSM CV FU JI PACS AV pk lul 169.987 cm/s SSM CV [facility] I PACS AV pk lul 169.987 cm/s SSM CV [facility] I PACS AV VTI 26.197 cm SSM CV [facility] I PACS AV VTI 26.197 cm SSM CV [facility] I PACS MV A pk lul 73.998 cm/s SSM CV F UJI PACS MV A pk lul 73.998 cm/s SSM CV F UJI PACS MV decel slope 231.389 cm/s2 SSM C V FUJI PACS MV decel slope 231.389 cm/s2 SSM C V FUJI PACS MV E pk lul 61.305 cm/s SSM CV F UJI PACS MV E pk lul 61.305 cm/s SSM CV F UJI PACS MV E' lateral lul 6.244 cm/s SSM CV FUJI PACS MV E' lateral lul 6.244 cm/s SSM CV FUJI PACS MV mn grad 1.001 mmHg SSM CV FU JI PACS MV mn grad 1.001 mmHg SSM CV FU JI PACS MV VTI 28.452 cm SSM CV FUJ I PACS MV VTI 28.452 cm SSM CV FUJ I PACS PV pk lul 119.13 cm/s SSM CV FUJ I PACS PV pk lul 119.13 cm/s SSM CV FUJ I PACS PV VTI 21.04 cm SSM CV FUJ I PACS PV VTI 21.04 cm SSM CV FUJ I PACS TAPSE 2.061 cm SSM CV FUJ I PACS TAPSE 2.061 cm SSM CV FUJ I PACS TR pk lul 211.887 cm/s SSM CV FUJ I PACS TR pk lul 211.887 cm/s SSM CV FUJ I PACS IVC Diam Expiration 2.489 cm SSM CV FUJI PACS IVC Diam Expiration 2.489 cm SSM CV FUJI PACS Anatomical Region Laterality Modality Ultrasound 05/15/2024 11:5 4 AM CDT Narrative 05/15/2024 5:00 PM CDT Summary * Technically very difficult study. * Left ventricular systolic function is normal with an estimated ejection fraction of 56% by biplane method of disks. * There is normal geometry of the left ventricle. * Left ventricular segmental wall motion is normal. * Right ventricle is not well visualized. Likely normal in size and function on limited views. Patient Info Name: Robson Farr Age: 68 years : 1955 Gender: Male Ht: 73 in Wt: 197 lb BSA: 2.15 m2 HR: 212 bpm BP: 128 / 83 mmHg Heart Rhythm: Sinus Rhythm Exam Date: 05/15/2024 11:54 AM Patient Status: I/P Study Site: [facility] Primary Location: [facility] EStudy Info Technical Quality: Technically Difficult Exam Type: ECHO COMPLETE W CONTRAST Indications I25.10 - CAD, multiple vessel Procedure(s) * Complete color, Doppler, M-Mode and 2D transthoracic echocardiogram is performed. Contrast/Agitated Saline Contrast / Saline: Definity Amount: 2.00 ml Reason for Technically Difficult Study: lung interference Staff Referring Physician: Woo Aj Ordering Provider: Woo Aj Attending Physician: Woo Aj Security Operations Analyst: Hans De Oliveira Left Ventricle Left ventricular systolic function is normal with an estimated ejection fraction of 56% by biplane method of disks. There is normal geometry of the left ventricle. Left ventricular segmental wall motion is normal. The left ventricular diastolic function is indeterminate. Right Ventricle Right ventricle is not well visualized. Likely normal in size and function on limited views. Left Atrium The left atrium is likely normal in size. Left atrium was not well visualized. Right Atrium Right atrium was not well visualized. Aortic Valve The aortic valve is not well visualized. Pulmonic Valve The pulmonic valve is not well visualized. Mitral Valve The mitral valve is not well visualized. Tricuspid Valve The tricuspid valve is normal. Unable to assess pulmonary pressures due to a lack of tricuspid and pulmonic regurgitation. Inferior Vena Cava The inferior vena cava is dilated (> 2.1 cm). Not able to evaluate collapsibility. Pericardium/Pleural There is no pericardial effusion. Aorta The aortic root at the sinus of Valsalva is not well visualized. The ascending aorta is not well visualized. Measurements Left Ventricular Outflow Tract Name Value Normal LVOT 2D LVOT Diameter 2.1 cm LVOT Area 3.6 cm2 LVOT Doppler LVOT Peak Velocity 1.0 m/s LVOT Peak Gradient 4 mmHg LVOT Mean Velocity 71.52 cm/s LVOT Mean Gradient 2 mmHg LVOT VTI 20.2 cm LVOT VTI/AV VTI Ratio 0.8 LVOT Stroke Volume 72 ml LVOT Stroke Volume Index 33 ml/m2 35-58 LVOT CO 15.3 l/min LVOT CI 7.1 l/min/m2 Pulmonic Valve Name Value Normal PV 2D RVOT Diameter (2D) 2.0 cm 1.7-2.7 RVOT Doppler RVOT Peak Velocity 1.1 m/s RVOT Peak Gradient 5 mmHg RVOT Mean Gradient 3 mmHg PV Doppler PV Peak Velocity 1.2 m/s PV Peak Gradient 6 mmHg PV Mean Gradient 3 mmHg PV Area (Cont Eq VTI) 2.93 cm2 PV Area Index (Cont Eq VTI) 1.36 cm2/m2 PV Area (Cont Eq Lul) 2.8 cm2 PV Area Index (Cont Eq Lul) 1.30 cm2/m2 Mitral Valve Name Value Normal MV Doppler MV Peak Gradient 3 mmHg MV Mean Gradient 1 mmHg MV DI (VTI) 1.41 MV PHT 93 ms MV Area (PHT) 2.37 cm2 4.00-5.00 MV Area (Cont Eq VTI) 2.53 cm2 MV Diastolic Function MV E Peak Velocity 0.6 m/sec MV A Peak Velocity 0.7 m/sec MV E/A 0.8 MV Decel Time (PW) 265 ms MV A Wave Duration 143 ms MV Annular TDI MV Septal e' Velocity 7 cm/s >=8 MV E/e' (Septal) 9 <=8 MV Lateral e' Velocity 6 cm/s >=10 MV E/e' (Lateral) 10 <=8 MV e' Average 7 cm/s MV E/e' (Average) 9 Tricuspid Valve Name Value Normal TV Regurgitation Doppler TR Peak Velocity 2.1 m/s TR Peak Gradient 18 mmHg TV Annular TDI TV Lateral Sofía s' Velocity 14 cm/s 10-19 Septae/Shunt/Generic Name Value Normal Qp/Qs Qp/Qs 0.9 Venous Name Value Normal IVC/SVC IVC Diameter 2.5 cm <=2.1 Aortic Valve Name Value Normal AV Doppler AV Peak Velocity 1.70 m/s AV Peak Gradient 12 mmHg AV Mean Gradient 6 mmHg AV VTI 26 cm AV Area (Cont Eq VTI) 2.75 cm2 >=3.00 AV Area (Cont Eq Lul) 2.17 cm2 AV DI (Lul) 0.61 AV Regurgitation 2D LVOT Area 3.56 cm2 Ventricles Name Value Normal LV Dimensions 2D/MM IVS Diastolic Thickness (2D) 0.9 cm 0.6-1.0 LVID Diastole (2D) 4.4 cm 4.2-5.8 LVPW Diastolic Thickness (2D) 0.8 cm 0.6-1.0 IVS Systolic Thickness (2D) 1.2 cm LVID Systole (2D) 3.3 cm 2.5-4.0 LVPW Systolic Thickness (2D) 0.9 cm LV Mass (2D Cubed) 109 g 88-224 LV Mass Index (2D Cubed) 50 g/m2 49-115 Relative Wall Thickness (2D) 0.38 <=0.42 LV Fractional Shortening/Ejection Fraction 2D/MM LV Fractional Shortening (2D) 26 % 25-43 LV EF (2D Teicholz) 50 % 52-72 LV Diastolic Volume (4C MOD) 77 ml LV EF (4C MOD) 68 % LV Diastolic Volume (2C MOD) 57 ml LV EF (2C MOD) 66 % LV Diastolic Volume (BP MOD) 71 ml 62-150 LV Diastolic Volume Index (BP MOD) 33 ml/m2 34-74 LV Systolic Volume (BP MOD) 31 ml 21-61 LV Systolic Volume Index (BP MOD) 15 ml/m2 11-31 LV EF (BP MOD) 56 % 52-72 LV Diastolic Length (4C) 8.5 cm LV Systolic Length (4C) 6.4 cm LV Stroke Volume (4C MOD) 53 ml RV Dimensions 2D/MM RVID Diastole (2D) 3.2 cm 2.5-3.5 RVID Systole (2D) 2.9 cm RV Basal Diastolic Dimension 4.2 cm 2.5-4.1 RV Diastolic Length (4C) 4.9 cm 5.9-8.3 TAPSE 2.1 cm >=1.7 Atria Name Value Normal LA Dimensions LA Dimension (2D) 4.0 cm 3.0-4.1 LA Dimen Index (2D) 1.9 cm/m2 LA Volume (BP MOD) 60 ml LA Volume Index (BP MOD) 28 ml/m2 16-34 RA Dimensions RA Area (4C) 19 cm2 <=18 RA Area (4C) Index 9 cm2/m2 Report Signatures Finalized by Amita Isaac on 05/15/2024 05:00 PM Procedure Note Amita Isaac MD - 05/15/2024 Summary * Technically very difficult study. * Left ventricular systolic function is normal with an estimatedejection fraction of 56% by biplane method of disks. * There is normal geometry of the left ventricle. * Left ventricular segmental wall motion is normal. * Right ventricle is not well visualized. Likely normal in size and function on limited views. Patient Info Name: Robson Farr Age: 68 years : 1955 Gender: Male Ht: 73 in Wt: 197 lb BSA: 2.15 m2 HR: 212 bpm BP: 128 / 83 mmHg Heart Rhythm: Sinus Rhythm Exam Date: 05/15/2024 11:54 AM Patient Status: I/P Study Site: [facility] Primary Location: [facility] EStud Info Technical Quality: Technically Difficult Exam Type: ECHO COMPLETE W CONTRAST Indications I25.10 - CAD, multiple vessel Procedure(s) * Complete color, Doppler, M-Mode and 2D transthoracic echocardiogramis performed. Contrast/Agitated Saline Contrast / Saline: Definity Amount: 2.00 ml Reason for Technically Difficult Study: lung interference Staff Referring Physician: Woo Aj Ordering Provider: Woo Aj Attending Physician: Woo Aj Security Operations Analyst: Hans De Oliveira Left Ventricle Left ventricular systolic function is normal with an estimatedejection fraction of 56% by biplane method of disks. There is normal geometry ofthe left ventricle. Left ventricular segmental wall motion is normal. Theleft ventricular diastolic function is indeterminate. Right Ventricle Right ventricle is not well visualized. Likely normal in size andfunction on limited views. Left Atrium The left atrium is likely normal in size. Left atrium was not well visualized. Right Atrium Right atrium was not well visualized. Aortic Valve The aortic valve is not well visualized. Pulmonic Valve The pulmonic valve is not well visualized. Mitral Valve The mitral valve is not well visualized. Tricuspid Valve The tricuspid valve is normal. Unable to assess pulmonary pressures dueto a lack of tricuspid and pulmonic regurgitation. Inferior Vena Cava The inferior vena cava is dilated (> 2.1 cm). Not able to evaluate collapsibility. Pericardium/Pleural There is no pericardial effusion. Aorta The aortic root at the sinus of Valsalva is not well visualized. The ascending aorta is not well visualized. Measurements Left Ventricular Outflow Tract Name Value Normal LVOT 2D LVOT Diameter 2.1 cm LVOT Area 3.6 cm2 LVOT Doppler LVOT Peak Velocity 1.0 m/s LVOT Peak Gradient 4 mmHg LVOT Mean Velocity 71.52 cm/s LVOT Mean Gradient 2 mmHg LVOT VTI 20.2 cm LVOT VTI/AV VTI Ratio 0.8 LVOT Stroke Volume 72 ml LVOT Stroke Volume Index 33 ml/m2 35-58 LVOT CO 15.3 l/min LVOT CI 7.1 l/min/m2 Pulmonic Valve Name Value Normal PV 2D RVOT Diameter (2D) 2.0 cm 1.7-2.7 RVOT Doppler RVOT Peak Velocity 1.1 m/s RVOT Peak Gradient 5 mmHg RVOT Mean Gradient 3 mmHg PV Doppler PV Peak Velocity 1.2 m/s PV Peak Gradient 6 mmHg PV Mean Gradient 3 mmHg PV Area (Cont Eq VTI) 2.93 cm2 PV Area Index (Cont Eq VTI) 1.36 cm2/m2 PV Area (Cont Eq Lul) 2.8 cm2 PV Area Index (Cont Eq Lul) 1.30 cm2/m2 Mitral Valve Name Value Normal MV Doppler MV Peak Gradient 3 mmHg MV Mean Gradient 1 mmHg MV DI (VTI) 1.41 MV PHT 93 ms MV Area (PHT) 2.37 cm2 4.00-5.00 MV Area (Cont Eq VTI) 2.53 cm2 MV Diastolic Function MV E Peak Velocity 0.6 m/sec MV A Peak Velocity 0.7 m/sec MV E/A 0.8 MV Decel Time (PW) 265 ms MV A Wave Duration 143 ms MV Annular TDI MV Septal e' Velocity 7 cm/s >=8 MV E/e' (Septal) 9 <=8 MV Lateral e' Velocity 6 cm/s >=10 MV E/e' (Lateral) 10 <=8 MV e' Average 7 cm/s MV E/e' (Average) 9 Tricuspid Valve Name Value Normal TV Regurgitation Doppler TR Peak Velocity 2.1 m/s TR Peak Gradient 18 mmHg TV Annular TDI TV Lateral Sofía s' Velocity 14 cm/s 10-19 Septae/Shunt/Generic Name Value Normal Qp/Qs Qp/Qs 0.9 Venous Name Value Normal IVC/SVC IVC Diameter 2.5 cm <=2.1 Aortic Valve Name Value Normal AV Doppler AV Peak Velocity 1.70 m/s AV Peak Gradient 12 mmHg AV Mean Gradient 6 mmHg AV VTI 26 cm AV Area (Cont Eq VTI) 2.75 cm2 >=3.00 AV Area (Cont Eq Lul) 2.17 cm2 AV DI (Lul) 0.61 AV Regurgitation 2D LVOT Area 3.56 cm2 Ventricles Name Value Normal LV Dimensions 2D/MM IVS Diastolic Thickness (2D) 0.9 cm 0.6-1.0 LVID Diastole (2D) 4.4 cm 4.2-5.8 LVPW Diastolic Thickness (2D) 0.8 cm 0.6-1.0 IVS Systolic Thickness (2D) 1.2 cm LVID Systole (2D) 3.3 cm 2.5-4.0 LVPW Systolic Thickness (2D) 0.9 cm LV Mass (2D Cubed) 109 g 88-224 LV Mass Index (2D Cubed) 50 g/m2 49-115 Relative Wall Thickness (2D) 0.38 <=0.42 LV Fractional Shortening/Ejection Fraction 2D/MM LV Fractional Shortening (2D) 26 % 25-43 LV EF (2D Teicholz) 50 % 52-72 LV Diastolic Volume (4C MOD) 77 ml LV EF (4C MOD) 68 % LV Diastolic Volume (2C MOD) 57 ml LV EF (2C MOD) 66 % LV Diastolic Volume (BP MOD) 71 ml 62-150 LV Diastolic Volume Index (BP MOD) 33 ml/m2 34-74 LV Systolic Volume (BP MOD) 31 ml 21-61 LV Systolic Volume Index (BP MOD) 15 ml/m2 11-31 LV EF (BP MOD) 56 % 52-72 LV Diastolic Length (4C) 8.5 cm LV Systolic Length (4C) 6.4 cm LV Stroke Volume (4C MOD) 53 ml RV Dimensions 2D/MM RVID Diastole (2D) 3.2 cm 2.5-3.5 RVID Systole (2D) 2.9 cm RV Basal Diastolic Dimension 4.2 cm 2.5-4.1 RV Diastolic Length (4C) 4.9 cm 5.9-8.3 TAPSE 2.1 cm >=1.7 Atria Name Value Normal LA Dimensions LA Dimension (2D) 4.0 cm 3.0-4.1 LA Dimen Index (2D) 1.9 cm/m2 LA Volume (BP MOD) 60 ml LA Volume Index (BP MOD) 28 ml/m2 16-34 RA Dimensions RA Area (4C) 19 cm2 <=18 RA Area (4C) Index 9 cm2/m2 Report Signatures Finalized by Amita Isaac on 05/15/2024 05:00 PM Woo Aj MD ECHO CUPID * VAS BILATERAL VENOUS MAPPING (05/15/2024 1:25 PM CDT) Anatomical Region Laterality Modality Upper Extremity, Lower Extremity Intravascular Ultrasound 05/15/2024 12:1 1 PM CDT Narrative Procedure Note Rocio Camp MD - 05/15/2024 [facility] ORDERAB LES * VAS CAROTID DUPLEX BILATERAL (05/15/2024 1:25 PM CDT) Anatomical Region Laterality Modality Neck Intravascular Ul trasound 05/15/2024 11:5 3 AM CDT Narrative Procedure Note Rocio Camp MD - 05/15/2024 [facility] ORDERAB LES * CT CHEST WO CONTRAST (05/15/2024 11:37 AM CDT) Anatomical Region Laterality Modality Chest Computed Tomogra phy 05/15/2024 3:43 PM CDT Impressions 05/15/2024 3:49 PM CDT IMPRESSION: 1. Advanced emphysema in both lungs with bullous formation and aspiration in both lungs, right worse on left. 2. Multivessel coronary artery disease with no vascular structures directly abutting the sternum. > Interpreting Provider: Brian Sheth MD on 05/15/2024 3:49 PM Narrative 05/15/2024 3:49 PM CDT PROCEDURE: CT CHEST WO CONTRAST DATE/TIME OF EXAM: 05/15/2024 11:38 AM CLINICAL INFORMATION: None relevant/not provided if blank. Indication: I25.10: CAD, multiple vessel Additional History: COMPARISON: None. TECHNIQUE: CT of the chest was performed without intravenous contrast utilizing standard protocol. CT dose reduction technique was used, including Automated Exposure Control. FINDINGS: There is advanced emphysema in both lungs with bullous change. Tree-in-bud nodularity in the lung bases consistent with aspiration, right worse than left. Additional tree-in-bud nodularity in the lingula and the right upper lobe also likely infectious. No pneumothorax. No pleural effusion. Heart is normal in size. There is no pericardial effusion. Thoracic aorta is normal in caliber with calcification. There is multivessel coronary artery calcification. The left brachiocephalic vein is 3 cm posterior to the mid manubrium. The ascending thoracic aorta is 5 cm posterior to the sternomanubrial junction. The right ventricular free wall is 3.8 cm posterior to the mid sternal body. No chest lymphadenopathy. Visualized liver, spleen, adrenal glands and pancreas are normal. There is a nonobstructive 3 mm stone in the right kidney. The gallbladder is decompressed. There are chronic left rib deformities. Procedure Note Brian hSeth MD - 05/15/2024 PROCEDURE: CT CHEST WO CONTRAST DATE/TIME OF EXAM: 05/15/2024 11:38 AM CLINICAL INFORMATION: None relevant/not provided if blank. Indication: I25.10: CAD, multiple vessel Additional History: COMPARISON: None. TECHNIQUE: CT of the chest was performed without intravenous contrast utilizing standard protocol. CT dose reduction technique was used, including Automated ExposureControl. FINDINGS: There is advanced emphysema in both lungs with bullous change.Tree-in-bud nodularity in the lung bases consistent with aspiration, right worsethan left. Additional tree-in-bud nodularity in the lingula and the rightupper lobe also likely infectious. No pneumothorax. No pleural effusion. Heart is normal in size. There is no pericardial effusion. Thoracicaorta is normal in caliber with calcification. There is multivessel coronary artery calcification. The left brachiocephalic vein is 3 cm posterior to the mid manubrium.The ascending thoracic aorta is 5 cm posterior to the sternomanubrialjunction. The right ventricular free wall is 3.8 cm posterior to the mid sternal body. No chest lymphadenopathy. Visualized liver, spleen, adrenal glands and pancreas are normal. Thereis a nonobstructive 3 mm stone in the right kidney. The gallbladder is decompressed. There are chronic left rib deformities. IMPRESSION: 1. Advanced emphysema in both lungs with bullous formation andaspiration in both lungs, right worse on left. 2. Multivessel coronary artery disease with no vascular structuresdirectly abutting the sternum. > Interpreting Provider: Brian Sheth MD on 05/15/2024 3:[address] ORDERABLES * CULTURE MRSA (05/15/2024 11:24 AM CDT) Culture Negative for methicillin-resist ant Staphylococcus aureus (MRSA) TREY 05/16/2024 3:50 PM CDT [facility] MICROBIOLOGY Microbiology SPECIMEN FROM NASAL FOSSAE / Unknown Collection / Unknown 05/15/2024 11:24 AM CDT 05/15/2024 11:35 AM CDT [facility] - MICROBIOLOGY O RDERABLES [facility] MICROBIOLOGY [address] [place], [place] [address], [facility] [phone] * XR CHEST 1VW PORTABLE (05/15/2024 9:25 AM CDT) Anatomical Region Laterality Modality Chest Radiographic Arianna ging 05/16/2024 12:4 9 AM CDT Impressions 05/16/2024 12:49 AM CDT IMPRESSION: There is bullous emphysema in both lungs. No pleural effusion or pneumothorax. Heart size is normal. > Interpreting Provider: Brian Sheth MD on 05/16/2024 12:49 AM Narrative 05/16/2024 12:49 AM CDT PROCEDURE: XR CHEST 1VW PORTABLE DATE/TIME OF EXAM: 05/15/2024 9:26 AM CLINICAL INFORMATION: None relevant/not provided if blank. Indication: I25.10: CAD, multiple vessel Additional History: COMPARISON: None. Procedure Note Brian Sheth MD - 05/16/2024 PROCEDURE: XR CHEST 1VW PORTABLE DATE/TIME OF EXAM: 05/15/2024 9:26 AM CLINICAL INFORMATION: None relevant/not provided if blank. Indication: I25.10: CAD, multiple vessel Additional History: COMPARISON: None. IMPRESSION: There is bullous emphysema in both lungs. No pleural effusion or pneumothorax. Heart size is normal. > Interpreting Provider: Brian Sheth MD on 05/16/2024 12:49 AM [facility] O RDERABLES * TSH REFLEX FREE T4 (05/15/2024 4:32 AM CDT) Pathologist [facility] TSH 1.464 0.350 - 4.940 uIU/mL 05/15/2024 6:05 AM CDT [facility] Blood BLOOD SPECIMEN / Unknown Lab Venipuncture / Unknown 05/15/2024 4:32 AM CDT 05/15/2024 5:16 AM CDT Woo Aj MD LAB - CHEMISTRY TY BHAGAT [facility] [address] [place] [id number], [facility] [phone] * (ABNORMAL) HEMOGLOBIN A1C (05/15/2024 4:32 AM CDT) Hemoglobin A1c 6.0(H) <=5.6 % 05/15/2024 9:27 AM CDT [facility] Estimated Average Glucose 126 mg/dL 05/15/2024 9:27 AM CDT [facility] Comment: HbA1c Interpretation: Normal : < 5.7% Pre-diabetes: 5.7-6.4% Diabetes: Equal to or greater than 6.5% Test results diagnostic of diabetes should be repeated for confirmation. Treatment target values recommended by ADA and other clinical organizations should be used to evaluate metabolic control in patients. Reference: [place] [employer], Standards of Care in Diabetes -2020 In patients 70 years and older consider HbA1c target range of 7.0-7.5% (Reference: Mario Dee et al. JAMDA. 2012) The Sebia assay for the measurement of HbA1c is a National Glycohemoglobin Standardization Program (NGSP) certified method. Blood BLOOD SPECIMEN / Unknown Lab Venipuncture / Unknown 05/15/2024 4:32 AM CDT 05/15/2024 5:16 AM CDT Woo Aj MD LAB - CHEMISTRY ORDNancy BHAGAT Performing Organization Address [facility]/ZIP Co de Phone Number [address] [id number] [phone] * EKG 12-LEAD (05/14/2024 7:48 PM CDT) [facility] Ventricular Rate 73 BPM [facility] MUSE Atrial Rate 73 BPM [facility] MUSE P-R Interval 112 ms [facility] MUSE QRS Duration ms 100 ms [facility]USE Q-T Interval ms 388 ms [facility] MUSE QTC Calculation (Bezet) 427 ms [facility] MUSE Calculated P [place] 48 degrees SL MUSE Calculated R [place] 42 degrees SL MUSE Calculated T [place] 69 degrees [facility] MUSE Interpretation EKG NORMAL SINUS RHYTHM NORMAL ECG NO PREVIOUS ECGS AVAILABLE Confirmed by ALEXANDRA FREEMAN MD ([id number]) on 05/15/2024 11:15:56 AM [facility] MUSE 05/14/2024 7:48 PM CDT 05/15/2024 11:15 AM CDT Woo Aj MD ECG ORDERABLES Performing Organization Address [facility] Co de Phone Number [facility] * TROPONIN-I HIGH SENSITIVE (05/14/2024 6:49 PM CDT) [facility] Troponin I High Sensitive 6 <=35 ng/L 05/14/2024 7:49 PM [facility] Blood BLOOD SPECIMEN / Unknown Lab Venipuncture / Unknown 05/14/2024 6:49 PM CDT 05/14/2024 7:15 PM CDT Woo Aj MD LAB - CHEMISTRY TY BHAGAT [facility] Organization Address City/State/ZIP Co de Phone Number [facility] [address] [place] [address], [facility] [phone] * (ABNORMAL) COMPREHENSIVE METABOLIC PANEL (05/14/2024 4:47 PM CDT) [facility] BUN 17 7 - 26 mg/dL 05/14/2024 5:22 PM [facility] Creatinine 0.95 0.71 - 1.16 mg/dL 05/14/2024 5:22 PM [facility] Sodium 144 136 - 145 mmol/L 05/14/2024 5:22 PM [facility] Potassium 4.5 3.5 - 4.5 mmol/L 05/14/2024 5:22 PM [facility] Chloride 106 98 - 107 mmol/L 05/14/2024 5:22 PM [facility] CO2 33(H) 22 - 29 mmol/L 05/14/2024 5:22 PM [facility] Glucose 123(H) 70 - 115 mg/dL 05/14/2024 5:22 PM [facility] Calcium 8.9 8.4 - 10.2 mg/dL 05/14/2024 5:22 PM [facility] Protein Total 6.3 6.0 - 8.3 g/dL 05/14/2024 5:22 PM [facility] Albumin 2.6(L) 3.4 - 5.0 g/dL 05/14/2024 5:22 PM [facility] Bilirubin Total 0.2 0.2 - 1.2 mg/dL 05/14/2024 5:22 PM [facility] Alkaline Phosphatase 90 40 - 150 U/L 05/14/2024 5:22 PM CDT [facility] ALT 23 5 - 55 U/L 05/14/2024 5:22 PM T [facility] AST 12 5 - 34 U/L 05/14/2024 5:22 PM [facility] Anion Gap 5(L) 6 - 16 05/14/2024 5:22 PM [facility] BUN/Creatinine Ratio 18 7 - 23 05/14/2024 5:22 PM [facility] Osmolality Calculated 301(H) 275 - 295 mOsm/kg 05/14/2024 5:22 PM [facility] Albumin/Globulin Ratio 0.7(L) 1.1 - 2.3 05/14/2024 5:22 PM [facility] eGFR by CKD-EPI 87(L) >=90 mL/min/1.7 3 m2 05/14/2024 5:22 PM T [facility] Blood BLOOD SPECIMEN / Unknown Lab Venipuncture / Unknown 05/14/2024 4:47 PM CDT 05/14/2024 4:54 PM CDT Woo Aj MD LAB - CHEMISTRY TY BHAGAT [address] [address], [facility] [phone] * PHOSPHORUS BLOOD (05/14/2024 4:47 PM CDT) Phosphorus 3.5 2.8 - 5.1 mg/dL 05/14/2024 5:22 PM CDT [facility] Blood BLOOD SPECIMEN / Unknown Lab Venipuncture / Unknown 05/14/2024 4:47 PM CDT 05/14/2024 4:54 PM CDT Woo Aj MD LAB - CHEMISTRY TY BHAGAT [address] [address], [place] [phone] * CATH OUTSIDE STUDY (05/12/2024 12:00 AM CDT) Narrative [facility] PACS - 05/14/2024 3:25 PM CDT This is a study from an outside facility that has been uploaded into PACS. [facility] PACS
--- OUTSIDE RECORDS SUMMARY | 2025-01-10 16:01 | XMS_ITS | Clinical Summary ---
Author Organization [facility] Address [address] [place] [address] Care Team Providers Care Funeral Director/Embalmer Name Role Phone Unavailable Primary Care Provider Unavailabl e Source Comments [facility],non-owned Affiliates and Associated Physician Practices is amultiple site organization consisting of ambulatory clinics and hospital sitesin [place], [place], [place] and [place]. This disclosure is being madepursuant to the Care Everywhere program and may not contain all information available regarding this patient. Last updated 18.[facility] [employer] Allergies No known active allergies Medications * Be aware that medications may not be up to date on this document. Alwaysverify current medications with the patient. 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 Somewhat hard 05/14/2024 [facility] Occupat ional Health - Occupational Stress [...] place to sleep or slept in a alf (including now)? No 05/14/2024 Sex and Gender [...] Mass Index 25.99 05/15/2024 8:55 AM CDT Plan of Treatment Health Maintenance Due Date Last Done Comments COLOGUARD (AGES 45-75) - COLON CA SCREENING 1954 COLON MONITORING 1954 COLONOSCOPY - COLON CA SCREENING 1954 CT COLONOGRAPHY - COLON CA SCREENING 1954 Colorectal Cancer Screening 1954 FIT - COLON CA SCREENING 1954 FLEX SIG - COLON CA SCREENING 1954 HEPATITIS C SCREENING 10/29/1972 DTAP/TDAP/TD VACCINES (1 - Tdap) 1973 PNEUMOCOCCAL VACCINE 50+ (1 of 2 - PCV) 1973 ZOSTER VACCINE (1 of 2) 2004 Respiratory Syncytial Virus (RSV) Vaccine Pt: or over 60 yrs (1 - Risk 60-74 years 1-dose series) 2014 AAA SCREENING 2019 COVID-19 VACCINE ( - 2023- season) 2024 INFLUENZA VACCINE (#1) 2024 DEPRESSION SCREENING 11/18/2024 MEDICARE AWV CALENDAR YEAR 2024 SCREENING FOR DIABETES 05/20/2027 , 05/20/2024, 05/19/2024, Additional history exists HEPATITIS B VACCINE Aged Out No longe r eligible based on patient's age to complete this topic HIB VACCINE Aged Out No longer eligi ble based on patient's age to complete this topic HPV VACCINE Aged Out No longer eligi ble based on patient's age to complete this topic MENINGOCOCCAL (Group B) VACCINE Aged Out No longer eligible based on patient's age to complete this topic MENINGOCOCCAL VACCINE Aged Out No [place] eligible based on patient's age to complete this topic Medical Devices Implanted Type Area Active Directory Systems Administrator Device Identifier Shelf Expiration Date Model / Serial / Lot Sys Cor Stent Sng Xd Mr 3mm 20mm Dlv Sys - [id number] Implanted:Qty: 1 on 05/18/2024 by Michaela Reddy MD at [facility] [employer] [id number] 01/01/2026 [id number] / [id number] / [id number] Sys Cor Stent Sng Xd Mr 3mm 16mm Dlv Sys - [id number] Implanted:Qty: 1 on 05/18/2024 by Michaela Reddy MD at [facility] [employer] [id number] 08/19/2024 [id number] / [id number] / [id number] Sys Cor Stent Sng Xd Mr 3.5mm 38mm [facility] - [id number] Implanted:Qty: 1 on 05/18/2024 by Michaela Reddy MD at [facility] [employer] [facility] [id number] 10/06/2025 [id number] / [id number] / [id number] Procedures Procedure Name Priority Date/Time Associated Diagnosis Comments RENAL FUNCTION PANEL Routine 05/20/2024 3:38 AM CDT from Last 3 Months or Most Recently Relevant to Health Maintenance Results * (ABNORMAL) RENAL FUNCTION PANEL (05/20/2024 3:38 AM CDT) BUN 14 7 - 26 mg/dL 05/20/2024 4:[address] [facility] Creatinine 0.91 0.71 - 1.16 mg/dL 05/20/2024 4:[address] [facility] Sodium 142 136 - 145 mmol/L 05/20/2024 4:[address] [facility] Potassium 5.0(H) 3.5 - 4.5 mmol/L 05/20/2024 4:[address] [facility] Chloride 100 98 - 107 mmol/L 05/20/2024 4:[address] [facility] CO2 35(H) 22 - 29 mmol/L 05/20/2024 4:[address] [facility] Glucose 106 70 - 115 mg/dL 05/20/2024 4:[address] [facility] Albumin 2.8(L) 3.4 - 5.0 g/dL 05/20/2024 4:[address] [facility] Calcium 8.8 8.4 - 10.2 mg/dL 05/20/2024 4:[address] [facility] Phosphorus 3.8 2.8 - 5.1 mg/dL 05/20/2024 4:[address] [facility] Anion Gap 7 6 - 16 05/20/2024 4:[address] [facility] BUN/Creatinine Ratio 15 7 - 23 05/20/2024 4:49 AM [facility] Osmolality Calculated 295 275 - 295 mOsm/kg 05/20/2024 4:49 AM CDT [facility] eGFR by CKD-EPI >90 >=90 mL/min/1.7 3 m2 05/20/2024 4:49 AM CDT [facility] Blood BLOOD SPECIMEN / Unknown Lab Venipuncture / Unknown 05/20/2024 3:38 AM CDT 05/20/2024 4:16 AM CDT Woo Aj MD LAB - CHEMISTRY TY BHAGAT [facility] [address] [place] [address], [facility] [phone] from Last 3 Months or Most Recently Relevant to Health Maintenance Advance Directives * Full Code (Latest Code Status on File) Date Activated Date Inactivated Comments 05/14/2024 4:44 PM 05/20/2024 3:42 PM
--- OUTSIDE RECORDS SUMMARY | 2025-01-10 16:02 | XMS_ITS | Clinical Summary ---
Author Organization [facility] Address [address] [place] [address] Phone Care Team Providers Care Personal Care Assistant Name Role Phone Manny Martines MD Primary Care Provider [phone] Allergies No known active allergies Medications albuterol (PROVENTIL HFA, VENTOLIN HFA) 108 (90 BASE) MCG/ACT Aerosol Solution take 2 Puffs by inhalation every 4 hours as needed for Wheezing. Active HYDROcodone-ac etaminophen (NORCO) 10-325 MG Tablet Take 1-2 Tablets by mouth every 4 hours as needed for Moderate pain or more severe pain if patient requests. Active nitroGLYCERIN (NITROSTAT) 0.4 MG SL Tablet 1 Tab by Sublingual route every 5 minutes as needed for Chest pain. 10 Tab 9 Active Additional Information Patient not taking.Reported on 12/13/2024 atorvastatin (LIPITOR) 80 MG Tablet Take 1 Tab by mouth nightly. 90 Tab 3 9 Active Additional Information Patient not taking.Reported on 12/13/2024 losartan (COZAAR) 25 MG Tablet Take 1 Tab by mouth daily. 90 Tab 3 9 Active Additional Information Patient not taking.Reported on 12/13/2024 naloxone HCl (Narcan) 4 MG/0.1ML Liquid 1 [place] by Nasal route as needed for Opioid Reversal. Administer in one nostril for symptoms of overdose (severe sleepiness, breathing problems, not responsive). Call 911. May repeat 1 spray in alternate nostril in 2-3 minutes if needed. 2 Each 4 Active Additional Information Patient not taking.Reported on 12/13/2024 Budeson-Glycop yrrol-Formoter ol (Breztri Aerosphere) 160-9-4.8 MCG/ACT Aerosol take 2 Puffs by inhalation 2 times daily. Active Eliquis 5 MG Tablet Take 5 mg by mouth 2 times daily. 4 Active metoprolol Succinate (TOPROL-XL) 50 MG TABLET SR 24 HR Take 1 Tablet by mouth daily. 90 Tablet 4 Active Additional Information Patient not taking.Reported on 12/13/2024 clopidogrel (PLAVIX) 75 MG Tablet Take 1 Tablet by mouth daily. 90 Tablet 4 Active Additional Information Patient not taking.Reported on 12/13/2024 HYDROcodone Bitartrate ER 10 MG CAPSULE SR 12 HR Take 2 Tablets by mouth every 6 hours. Active ipratropium (ATROVENT) 0.02 % Solution 0.5 mg by Nebulization route every 6 hours. Active doxycycline hyclate (VIBRA-TABS) 100 MG TabletIndicati ons:COPD Take 1 Tablet by mouth 2 times daily for 4 days. Indications: COPD 8 Tablet 5 12/19/19 25 predniSONE (DELTASONE) 5 MG Tablet Take by mouth: 4 tabs on day 1, 3 tabs on day 2, 2 tabs on day 3, 1 tabs on day 4 10 Tablet 5 12/21/19 25 benzonatate (TESSALON) 100 MG Capsule Take 1 Capsule by mouth every 8 hours as needed for Cough for up to 10 days. 30 Capsule 5 12/25/19 25 Active Problems Problem Noted Date Diagnosed Date Acute metabolic encephalopathy 08/24/2024 Acute on chronic respiratory failure with hypoxia and hypercapnia 08/23/2024 Coronary artery disease 08/23/2024 History of coronary artery stent placement 08/23 Paroxysmal atrial fibrillation 08/23/2024 Tobacco dependence 08/23/2024 CAD in [place] artery 05/12/2024 Atrial flutter 04/15/2024 NSTEMI (non-ST elevated myocardial infarction) 0 11/24/2018 COPD without exacerbation 11/24/2018 Hypernatremia 11/24/2018 Elevated d-dimer 11/24/2018 Acute on chronic respiratory failure 11/24/2018 Noncompliance 03/11/2016 Chronic bilateral low back pain with sciatica Essential hypertension 12/29/2015 Tobacco abuse disorder 12/29/2015 On home O2 3L 12/29/2015 Supplemental oxygen dependent 12/06/2015 Resolved Problems Problem Noted Date Diagnosed Date Resolved Date Atrial flutter with rapid ve ntricular response 04/13/2024 04/13/2024 Respiratory distress 04/11/2024 024 COPD exacerbation 12/29/2015 12/15/2024 Encounters Date Type Department Care Team Description 12/16/2024 Post Discharge Follow[facility]up [facility] Nursing Services [address] [place] [address] Jessy Kate RN 12/13/2024 5:24 AM DRY JANITOR - 12/15/2024 11:44 AM DRY JANITOR Emergency [facility] Med Surg [address] [place] [phone] Evelyn Lackey MD Patel, Satyen V, MD COPD exacerbation ([facility]) Discharge Disposition: Home Health Care Svc 12/13/2024 Travel from Last 3 Months Immunizations Immunization Administration Dates Next Due Influenza, Trivalent, Adjuvanted, PF 08/26/2024( ) Pneumococcal Vaccine Adult - 23 Valent 5 Pneumococcal conjugate PCV20 , polysaccharide CLH628 conjugate, adjuvant, PF 08/26/2024() Family History Medical History Relation Name Comments Asthma Father Cancer Father throat? Chronic Obstructive Pulmonary Disease Father Emphysema Father Cancer Mother colon and liver Osteoarthritis Mother Relation Name Status Comments Father Mother Social History Tobacco Use Types Packs/Day Years Used Date Smoking Tobacco: Some Days Cigarettes Smokeless Tobacco: Never Tobacco Cessation:Ready to Q uit: Not Asked; Counseling Given: Not Answered Comments:Patient states that he smokes 1 cigarette a week. Alcohol Use Standard Drinks/Week Comments Yes 1 (1 standard drink = 0.6 oz pur e alcohol) occassionally [facility] Utilities Answer Date Recorded In the past 12 months has e electric, gas, oil, or water company threatened to shut off services in your home? Patient declined 12/13/2024 Social Connection and Isolation Panel [NHANES] A nswer Date Recorded In a typical week, how many times do you talk on the phone with family, friends, or neighbors? Patient declined 12/13/2024 How often do you get togethe r with friends or relatives? Patient declined 12/13/2024 How often do you attend orthodox or caodaism serv ices? Patient declined 12/13/2024 Do you belong to any clubs o r organizations such as orthodox groups, unions, fraternal or athletic groups, or school groups? Patient declined 12/13/2024 How often do you attend meet ings of the clubs or organizations you belong to? Patient declined 12/13/2024 Are you , , di vorced, , never , or living with a partner? Patient declined 12/13/2024 AUDIT-C Answer Date Recorded Q1: How often do you have a drink containing alc ohol? Patient declined 12/13/2024 Q2: How many drinks containi ng alcohol do you have on a typical day when you are drinking? Patient declined 12/13/2024 Q3: How often do you have si x or more drinks on one occasion? Patient declined 12/13/2024 Overall Financial Resource Strain (CARDIA) Answe r Date Recorded How hard is it for you to pa y for the very basics like food, housing, medical care, and heating? Patient declined 12/13/2024 [facility] - Occupational Stress Questionnaire Answer Date Recorded Do you feel stress - tense, restless, nervous, or anxious, or unable to sleep at night because your mind is troubled all the time - these days? Patient declined 12/13/2024 Exercise Vital Sign Answer Date Recorde d On average, how many days pe r week do you engage in moderate to strenuous exercise (like a brisk walk)? Patient declined On average, how many minutes do you engage in exercise at this level? Patient declined 12/13/2024 Hunger Vital Sign Answer Date Recorded Within the past 12 months, y ou worried that your food would run out before you got the money to buy more. Patient declined Within the past 12 months, t he food you bought just didn't last and you didn't have money to get more. Patient declined PRAPARE - Transportation Answer Date Re corded In the past 12 months, has l ack of transportation kept you from medical appointments or from getting medications? Patient declined 12/13/2024 In the past 12 months, has l ack of transportation kept you from meetings, work, or from getting things needed for daily living? Patient declined 12/13/2024 Housing Stability Vital Sign Answer Rodrigo e Recorded In the last 12 months, was t here a time when you were not able to pay the mortgage or rent on time? Yes 04/11/2024 In the last 12 months, how many places have you lived? 1 04/11/2024 In the last 12 months, was t here a time when you did not have a steady place to sleep or slept in a jail (including now)? No 04/11/2024 Housing Stability Vital Sign Answer Rodrigo e Recorded In the last 12 months, was t here a time when you were not able to pay the mortgage or rent on time? Patient declined 12/13/19 In the past 12 months, how m any times have you moved where you were living? 1 12/13/2024 At any time in the past 12 m [facility], were you homeless or living in a jail (including now)? Patient declined 12/13/2024 Sexually Active Control Partners Comments Yes Male Sex and Gender Information Value Date Recorded Sex Assigned at Not on file Legal Sex Male 9:09 PM CDT Gender Identity Not on file Sexual Orientation Not on file Last Filed Vital Signs Vital Sign Reading Time Taken Comments Blood Pressure 150/69 12/15/2024 8:12 AM DRY JANITOR Pulse 81 12/15/2024 8:12 AM DRY JANITOR Temperature 36.9 C (98.5 F) 12/15/2024 5:08 AM DRY JANITOR Respiratory Rate 18 12/15/2024 7:43 AM DRY JANITOR Oxygen Saturation 100% 12/15/2024 8:12 AM DRY JANITOR Inhaled Oxygen Concentration - - Weight 90.7 kg (200 lb) 12/13/2024 5:27 AM DRY JANITOR Height 182.9 cm (6') 12/13/2024 5:27 AM DRY JANITOR Body Mass Index 27.12 12/13/2024 5:27 AM DRY JANITOR Plan of Treatment Health Maintenance Due Date Last Done Comments Hepatitis C Virus (HCV) Screening 1954 Colonoscopy 1999 Colorectal Cancer Screening 1999 Cologuard 2004 Immunochemical Fecal Occult Blood 2004 Hepatitis B Immunization (1 of 3 - Risk 3-dose series) 2014 Respiratory Syncytial Virus (RSV) Immunization (Adult) (1 - Risk 60-74 years 1-dose series) 2014 Pneumococcal Immunization (5 0+ years) (2 of 2 - PCV) 11/13/2016 11/13/2015 Zoster Immunization (2 of 3) 12/10/2016 10/15/2016 AAA Screening Ultrasound 2019 Influenza Immunization (#1) 07/19/202409/19, 10/15/2016 SARS-COV-2 Immunization ( season) 2024 04/11/2021, 03/14/2021 DTaP/Tdap/Td Immunization Discontinued 10/05/2015 TdaP Immunization Completed 10/05/2015 Pneumococcal Immunization Combined Discontinued 11/13/2015 Meningococcal Immunization (ACWY) Aged Out No longer eligible based on patient's age to complete this topic Rotavirus Immunization Aged Out No lo nger eligible based on patient's age to complete this topic Interventions Community Resource Recommendations Community Resource Services Recommended Domains Addressed Status Status Reason/Outcome Date/Time [facility] Financial Resource Needs Financial Resource Strain Recommended 11/23/2024 12:28 PM DRY JANITOR [facility] Food Pantry Food Insecurity Recommended 11/23/2024 12:28 PM DRY JANITOR [facility] [employer] Detoxification, Substance Use Recovery Home, Substance Use Counseling, Substance Use Services Tobacco Use Recommended 11/23/2024 12:28 PM DRY JANITOR from Last 12 Months Medical Devices Implanted Type Area Cargo Agent Device Identifier Shelf Expiration Date Model / Serial / Lot Stent Coronary Faustina Xience Everolimus Eluting [id number] - [id number] Implanted:Qty: 1 on 11/25/2018 by Tiffanie Pimentel MD at [facility] IMPLANT N/A: Coronary [employer] 04/16/2019 [id number] Stent Coronary Faustina Xience Everolimus Eluting [id number] - [id number] Implanted:Qty: 1 on 11/25/2018 by Tiffanie Pimentel MD at [facility] IMPLANT N/A: Coronary [employer] 07/08/2019 [id number] / / [id number] Device Clsr 70cm 6fr Angio-Seal Vip .035in Vasc Collagen Valuelink Gw Insertion Jessica Gann - [id number] Implanted:Qty: 1 on 11/25/2018 by Tiffanie Pimentel MD at [facility] IMPLANT N/A: [employer] 08/17/2019 [id number] / / [id number] Procedures Procedure Name Priority Date/Time Associated Diagnosis Comments CBC WITH AUTO DIFFERENTIAL Routine 12/15/2024 5:43 AM DRY JANITOR BASIC METABOLIC PANEL W/ CALCIUM TOTAL Routine 12/15/2024 5:43 AM DRY JANITOR COMPLETE BLOOD COUNT (CBC) WITH DIFF Routine 12/15/2024 5:43 AM DRY JANITOR CBC WITH AUTO DIFFERENTIAL Routine 12/14/2024 4:02 AM DRY JANITOR BASIC METABOLIC PANEL W/ CALCIUM TOTAL Routine 12/14/2024 4:02 AM DRY JANITOR COMPLETE BLOOD COUNT (CBC) WITH DIFF Routine 12/14/2024 4:02 AM DRY JANITOR AEROSOL NEBULIZER-INITIAL Routine 12/13/2024 2:[address] ANGIO CHEST W/WO CONTRAST WITH PP (POST PROCESSING) Stat with Interpretation 12/13/2024 11:52 AM DRY JANITOR BLOOD GASES, ARTERIAL W/ O2 SATURATION STAT 12/13/2024 11:24 AM DRY JANITOR MAGNESIUM (MG) STAT 12/13/2024 6:35 AM DRY JANITOR BLOOD GASES, VENOUS W/ O2 SATURATION STAT 12/13/2024 6:35 AM DRY JANITOR TROPONIN I, HIGH SENSITIVITY (HSTRP) STAT 12/13/2024 6:35 AM DRY JANITOR XR CHEST SINGLE VIEW PORTABLE STAT 12/13/2024 6:29 AM DRY JANITOR RSV,SARS-COV-2,INF LUENZA A&B BY PCR STAT 12/13/2024 6:29 AM DRY JANITOR CBC WITH AUTO DIFFERENTIAL STAT 12/13/2024 5:38 AM DRY JANITOR B-TYPE NATRIURETIC PEPTIDE (BNP) STAT 12/13/2024 5:38 AM DRY JANITOR MAGNESIUM (MG) STAT 12/13/2024 5:38 AM DRY JANITOR TROPONIN I, HIGH SENSITIVITY (HSTRP) STAT 12/13/2024 5:38 AM DRY JANITOR CMP (COMPREHENSIVE METABOLIC PANEL) STAT 12/13/2024 5:38 AM DRY JANITOR COMPLETE BLOOD COUNT (CBC) WITH DIFF STAT 12/13/2024 5:38 AM DRY JANITOR EKG 12 LEAD STAT 12/13/2024 5:30 AM DRY JANITOR EKG SCAN 12/13/2024 12:00 AM DRY JANITOR from Last 3 Months Results * (ABNORMAL) CBC with Auto Differential (12/15/2024 5:43 AM DRY JANITOR) Only the most recent of3 resultswithin the time period is included. WBC 9.91 4.00 - 12.00 10(3)/mcL 12/15/2024 6:03 AM DRY JANITOR [facility] RBC 4.21(L) 4.40 - 5.80 10(6)/mcL 12/15/2024 6:03 AM DRY JANITOR [facility] HEMOGLOBIN (HGB) 12.1(L) 13.0 - 16.5 g/dL 12/15/2024 6:03 AM DRY JANITOR [facility] HEMATOCRIT (HCT) 39.5 38.0 - 50.0 % 12/15/2024 6:03 AM DRY JANITOR [facility] MCV 93.8 82.0 - 96.0 fL 12/15/2024 6:03 AM [facility] MCH 28.7 26.0 - 32.0 pg 12/15/2024 6:03 AM [facility] MCHC 30.6(L) 31.0 - 36.0 g/dL 12/15/2024 6:03 AM [facility] PLATELET COUNT 241 140 - 440 10(3)/mcL 12/15/2024 6:03 AM [facility] RDW 12.8 11.8 - 15.5 % 12/15/2024 6:03 AM [facility] MPV 9.8 8.0 - 12.6 fL 12/15/2024 6:03 AM [facility] NEUTROPHILS 75.9(H) 40.0 - 68.0 % 12/15/2024 6:03 AM [facility] LYMPHOCYTES 16.1(L) 19.0 - 49.0 % 12/15/2024 6:03 AM [facility] MONOCYTES 7.7 3.0 - 13.0 % 12/15/2024 6:03 AM [facility] EOSINOPHILS 0.1 0.0 - 8.0 % 12/15/2024 6:03 AM [facility] BASOPHILS 0.2 0.0 - 1.0 % 12/15/2024 6:03 AM [facility] ABSOLUTE NEUTROPHILS 7.52(H) 1.40 - 5.30 10(3)/mcL 12/15/2024 6:03 AM [facility] ABSOLUTE LYMPHOCYTES 1.60 0.90 - 3.30 10(3)/mcL 12/15/2024 6:03 AM [facility] ABSOLUTE MONOCYTES 0.76 0.10 - 0.90 10(3)/mcL 12/15/2024 6:03 AM [facility] ABSOLUTE EOSINOPHIL 0.01 0.00 - 0.50 10(3)/mcL 12/15/2024 6:03 AM [facility] ABSOLUTE BASOPHILS 0.02 0.00 - 0.10 10(3)/mcL 12/15/2024 6:03 AM [facility] NRBC PER 100 WBC 0 12/15/19 6:03 AM [facility] Blood Venipuncture / Unknown 12/15/2024 5:43 AM DRY JANITOR 12/15/2024 5:52 AM DRY JANITOR Erin Masterson DIE TECHNICIAN, MILLER APPRENTICE HEMATOLOGY ORDERABLES Final Result [facility] [address] [place] [address] * (ABNORMAL) Basic Metabolic Panel w/ Calcium Total (12/15/2024 5:43 AM DRY JANITOR) Only the most recent of2 resultswithin the time period is included. SODIUM 145 136 - 145 mmol/L 12/15/2024 6:18 AM [facility] POTASSIUM 4.1 3.5 - 5.1 mmol/L 12/15/2024 6:18 AM [facility] CHLORIDE 102 98 - 107 mmol/L 12/15/2024 6:18 AM [facility] CO2, VENOUS 35(H) 22 - 30 mmol/L 12/15/2024 6:18 AM [facility] ANION GAP 12.1 <18.0 mmol/L 12/15/2024 6:18 AM [facility] GLUCOSE 94 70 - 99 mg/dL 12/15/2024 6:18 AM [facility] BUN 21 8 - 26 mg/dL 12/15/2024 6:18 AM [facility] CREATININE, BLOOD 0.85 0.70 - 1.30 mg/dL 12/15/2024 6:18 AM [facility] BUN/CREATININE RATIO 25(H) 12 - 20 ratio 12/15/2024 6:18 AM [facility] CALCIUM 8.9 8.7 - 10.5 mg/dL 12/15/2024 6:18 AM DRY JANITOR [facility] GFR, ESTIMATED >60 >=60 12/15/2024 6:18 AM DRY JANITOR [facility] Comment: Creatinine Clearance is the preferred criteria for selecting drug dose adjustments in renally impaired patients. The GFR is provided as additional pertinent clinical information. GFR is reported in mL/min/1.73 sq m. Calculation based on the Chronic Kidney Disease Epidemiology Collaboration (CKD- EPI) equation refit without adjustment for race. GFR, EST. >60 >=60 025 6:18 AM DRY JANITOR [facility] GFR, EST. NONAFRICAN >60 >=60 12/15/2024 6:18 AM DRY JANITOR [facility] Blood Venipuncture / Unknown 12/15/2024 5:43 AM DRY JANITOR 12/15/2024 5:52 AM DRY JANITOR us Erin Masterson APRN, MILLER APPRENTICE CHEMISTRY ORDERABLES Final Result [facility] [place] [address] * CT ANGIO CHEST W/WO CONTRAST WITH PP (POST PROCESSING) (12/13/2024 11:52 AM DRY JANITOR) Anatomical Region Laterality Modality vascular N/A Computed Tomogra phy 12/13/2024 1:12 PM DRY JANITOR Impressions 12/13/2024 1:14 PM DRY JANITOR IMPRESSION: 1. No CT evidence of pulmonary embolism to segmental level. 2. Marked upper lobe predominant bilateral pulmonary emphysema with scattered regions of pulmonary parenchymal scarring as well as pulmonary bulla and blebs. Narrative 12/13/2024 1:14 PM DRY JANITOR EXAM DESCRIPTION: CT ANGIO CHEST W/WO CONTRAST WITH PP (POST PROCESSING) REASON FOR STUDY: Admitted 12/13/24 for SOB, mild cough x 1 day. Pt uses 5L of O2. Hx of Asthma, COPD, CAD, HTN, Afib TECHNIQUE: CT angiogram of the chest performed with intravenous contrast using helical scanning technique with dynamic intravenous contrast injection. Reconstructed coronal and sagittal MPR images reviewed. All images stored on PACS. 3D MIP images rendered on scanning unit and reviewed at time of interpretation. Automated exposure control was used as a dose optimization technique for this examination. CONTRAST TYPE/DOSE: 100mL of IOPAMIDOL 76 % IV SOLN injected COMPARISON: Radiographs 12/13/2024 and 11/25/2023 FINDINGS: VASCULATURE: No CT evidence of pulmonary embolism to segmental level. Evaluation for subsegmental pulmonary arteries is degraded due to phase of contrast opacification of pulmonary arterial system as well as motion artifact. No aortic aneurysm or aortic dissection. LUNGS: There is biapical pleuroparenchymal scarring. Marked upper lobe predominant bilateral pulmonary emphysema with scattered regions of pulmonary parenchymal scarring as well as pulmonary bulla and blebs. Bilateral bronchial wall thickening which could reflect chronic bronchitis in the setting of COPD. No suspicious pulmonary nodules. No pulmonary parenchymal consolidation or pulmonary edema. Left Nini fissural lymph nodes are present measuring up to 5 mm. PLEURA: No pleural effusion. No pneumothorax. MEDIASTINUM/MARSHAL: No identified masses or lymphadenopathy. No supraclavicular lymphadenopathy. The esophagus is within normal limits. HEART: Heart size is normal with no pericardial effusion. AXILLA: No adenopathy. CHEST WALL: No masses. No subcutaneous air. HARDWARE/LINES/TUBES: None. UPPER ABDOMEN: Reflux of contrast into the IVC and hepatic veins can be seen with tricuspid regurgitation or right heart dysfunction. There is a 3 mm nonobstructive right renal calculus. MUSCULOSKELETAL: No acute fractures or aggressive osseous lesions. Healed left rib fractures. THIS IS AN ELECTRONICALLY VERIFIED FINAL REPORT 12/13/2024 1:12 PM - Electronically signed by Kiki Suero M.D. AT: AT Report ID: [id number] Reading Location: [id number] Procedure Note Kiki Suero MD - 12/13/2024 EXAM DESCRIPTION: CT ANGIO CHEST W/WO CONTRAST WITH PP (POST PROCESSING) REASON FOR STUDY: Admitted 12/13/24 for SOB, mild cough x 1 day. Pt uses 5L of O2. Hx of Asthma, COPD, CAD, HTN, Afib TECHNIQUE: CT angiogram of the chest performed with intravenous contrast using helical scanning technique with dynamic intravenous contrast injection. Reconstructed coronal and sagittal MPR images reviewed. All images stored on PACS. 3D MIP images rendered on scanning unit and reviewed at time of interpretation. Automated exposure control was used as a dose optimization technique for this examination. CONTRAST TYPE/DOSE: 100mL of IOPAMIDOL 76 % IV SOLN injected COMPARISON: Radiographs 12/13/2024 and 11/25/2023 FINDINGS: VASCULATURE: No CT evidence of pulmonary embolism to segmental level. Evaluation for subsegmental pulmonary arteries is degraded due to phase of contrast opacification of pulmonary arterial system as well as motion artifact. No aortic aneurysm or aortic dissection. LUNGS: There is biapical pleuroparenchymal scarring. Marked upper lobe predominant bilateral pulmonary emphysema with scattered regions of pulmonary parenchymal scarring as well as pulmonary bulla and blebs. Bilateral bronchial wall thickening which could reflect chronic bronchitis in the setting of COPD. No suspicious pulmonary nodules. No pulmonary parenchymal consolidation or pulmonary edema. Left Nini fissural lymph nodes are present measuring up to 5 mm. PLEURA: No pleural effusion. No pneumothorax. MEDIASTINUM/MARSHAL: No identified masses or lymphadenopathy. No supraclavicular lymphadenopathy. The esophagus is within normal limits. HEART: Heart size is normal with no pericardial effusion. AXILLA: No adenopathy. CHEST WALL: No masses. No subcutaneous air. HARDWARE/LINES/TUBES: None. UPPER ABDOMEN: Reflux of contrast into the IVC and hepatic veins can be seen with tricuspid regurgitation or right heart dysfunction. There is a 3 mm nonobstructive right renal calculus. MUSCULOSKELETAL: No acute fractures or aggressive osseous lesions. Healed left rib fractures. THIS IS AN ELECTRONICALLY VERIFIED FINAL REPORT 12/13/2024 1:12 PM - Electronically signed by Kiki Suero M.D. AT: AT Report ID: [id number] Reading Location: [id number] IMPRESSION: 1. No CT evidence of pulmonary embolism to segmental level. 2. Marked upper lobe predominant bilateral pulmonary emphysema with scattered regions of pulmonary parenchymal scarring as well as pulmonary bulla and blebs. Gayle Munoz MD IMUlisses CT ORDERABLES Final Resul t * (ABNORMAL) Blood Gases, Arterial w/ O2 Saturation (12/13/2024 11:24 AM DRY JANITOR) O2 STATUS 3L 12/13/2024 11:31 AM DRY JANITOR [facility] PH ARTERIAL 7.45 7.35 - 7.45 12/13/2024 11:31 AM [facility] PC02 (ARTERIAL) 63(H) 35 - 45 mmHg 12/13/2024 11:31 AM [facility] PO2 (ARTERIAL) 86 75 - 100 mmHg 12/13/2024 11:31 AM [facility] O2 SAT ART, MEASURED 97 94 - 100 % 12/13/2024 11:31 AM [facility] BASE ARTERIAL 17.5(H) -2.0 - 2.0 mmol/L 12/13/2024 11:31 AM [facility] BICARBONATE 44.4(H) 22.0 - 26.0 mmol/L 12/13/2024 11:31 AM [facility] RENÉ'S TEST RESULTS Positive - Right Radial 12/13/2024 11:31 AM [facility] CARBOXYHEMOGLOBIN 1.6 0.0 - 5.0 % 12/13/2024 11:31 AM [facility] METHEMOGLOBIN 0.3 0.0 - 1.5 % 12/13/2024 11:31 AM [facility] ART Blood Gas Arterial Punctur e / Unknown 12/13/2024 11:24 AM DRY JANITOR 12/13/2024 11:24 AM [facility] [[email or web address]] us Gayle Munoz MD CHEMISTRY ORDERABLES Final Re sult [facility] [place] [address] * TROPONIN I, HIGH SENSITIVITY (HSTRP) (12/13/2024 6:35 AM DRY JANITOR) Only the most recent of2 resultswithin the time period is included. TROPONIN I, HIGH SENSITIVITY- [facility] 29 <=35 ng/L 12/13/2024 7:14 AM [facility] Comment: High-sensitivity troponin I results are reported in ng/L making the result appear to be 1,000 times higher than the contemporary troponin I value which is reported in ng/ml. Results from [facility]. Blood Venipuncture / Unknown 12/13/2024 6:35 AM DRY JANITOR 12/13/2024 6:47 AM DRY JANITOR us Mariano Soares MD CHEMISTRY ORDERABLES Mariam l Result [facility] [place] [address] * (ABNORMAL) Blood Gases, Venous w/ O2 Saturation (12/13/2024 6:35 AM DRY JANITOR) O2 STATUS 4lnc 12/13/2024 6:57 AM [facility] PH VENOUS 7.33(L) 7.34 - 7.43 12/13/2024 6:57 AM [facility] PCO2 (VENOUS) 89(H) 41 - 51 mmHg 12/13/2024 6:57 AM [facility] PO2 VENOUS 26(L) 30 - 50 mmHg 12/13/2024 6:57 AM [facility] O2 SAT DAV, MEASURED 36(L) 60 - 85 % 11/19 6:57 AM [facility] BICARBONATE 47.9(H) 22.0 - 26.0 mmol/L 12/13/2024 6:57 AM [facility] BASE VENOUS 17.7(H) -2.0 - 3.0 mmol/L 12/13/2024 6:57 AM [facility] CARBOXYHEMOGLOBIN 1.5 0.0 - 5.0 % 12/13/2024 6:57 AM [facility] METHEMOGLOBIN 0.4 0.0 - 1.5 % 12/13/2024 6:57 AM [facility] DAV Blood Gas Venipuncture / Unknown 12/13/2024 6:35 AM DRY JANITOR 12/13/2024 6:52 AM DRY JANITOR Narrative [facility] - 12/13/2024 6:57 AM DRY JANITOR Interpretation - The usual approach to interpreting a VBG consists of using the venous measurements to estimate the corresponding arterial values, then using these estimated values for clinical decision-making exactly as if an ABG had been performed. The difference between the venous measurements and the arterial measurements depends upon the site of venous sampling and varies among laboratories. Correlation with arterial blood gases - Although arterial blood gas analysis is more accurate than venous analysis for the assessment of oxygenation, measurement of PCO2, pH, and HCO3 are similar with some minor adjustments: The central venous pH is usually 0.03 to 0.05 pH units lower than the arterial pH and the PCO2 is usually 4 to 5 mmHg higher, with little or no increase in HCO3. Mixed venous blood (ie, SvO2 drawn from a pulmonary artery catheter) gives results similar to central venous blood (ie, ScvO2 drawn from a central venous catheter). The peripheral venous pH is approximately 0.02 to 0.04 pH units lower than the arterial pH, the venous serum HCO3 concentration is approximately 1 to 2 meq/L higher, and the venous PCO2 is approximately 3 to 8 mmHg higher. There are no venous to arterial conversions for ScvO2, SvO2, or peripheral venous oxyhemoglobin saturation (PvO2). Importantly, sufficient variability between arterial and venous blood gas values may exist such that periodic correlation between arterial and venous blood gas values is always prudent. Evelyn Lackey MD CHEMISTRY ORDERABLES Final Re sult [facility] [place] [address] * Magnesium (Mg) [id number] (12/13/2024 6:35 AM DRY JANITOR) Only the most recent of2 resultswithin the time period is included. MAGNESIUM 2.5 1.6 - 2.6 mg/dL 12/13/2024 7:08 AM DRY JANITOR [facility] Blood Venipuncture / Unknown 12/13/2024 6:35 AM DRY JANITOR 12/13/2024 6:47 AM DRY JANITOR Evelyn Lackey MD CHEMISTRY ORDERABLES Final Re sult [facility] [place] [address] * XR CHEST SINGLE VIEW PORTABLE (12/13/2024 6:29 AM DRY JANITOR) Anatomical Region Laterality Modality Chest N/A Digital Radiogra phy 12/13/2024 6:40 AM DRY JANITOR Impressions 12/13/2024 6:42 AM DRY JANITOR IMPRESSION: Chronic interstitial disease with new left pleural effusion. Narrative 12/13/2024 6:42 AM DRY JANITOR EXAM DESCRIPTION: XR CHEST SINGLE VIEW PORTABLE REASON FOR STUDY: short of breath and cough x 2 days. HX: Smoker, Asthma, CAD, COPD, HTN, Cardiac stent TECHNIQUE: Single radiographic view of the chest. COMPARISON: Chest x-ray of August 25, 2024. FINDINGS: LUNGS/PLEURA: Lungs are hypoventilatory with left lower lobe atelectasis and a small left pleural effusion, new from previous. Chronic interstitial changes are seen through out the lungs bilaterally. HEART/MEDIASTINUM: Cardiac silhouette is within normal limits. Remaining mediastinal silhouettes are unremarkable. HARDWARE/LINES/TUBES: None. BONES: No acute findings. THIS IS AN ELECTRONICALLY VERIFIED FINAL REPORT 12/13/2024 6:40 AM - Electronically signed by Hazel Mondragon M.D. SN: Report ID: [id number] Reading Location: [id number] Procedure Note Hazel Mondragon MD - 12/13/2024 EXAM DESCRIPTION: XR CHEST SINGLE VIEW PORTABLE REASON FOR STUDY: short of breath and cough x 2 days. HX: Smoker, Asthma, CAD, COPD, HTN, Cardiac stent TECHNIQUE: Single radiographic view of the chest. COMPARISON: Chest x-ray of August 25, 2024. FINDINGS: LUNGS/PLEURA: Lungs are hypoventilatory with left lower lobe atelectasis and a small left pleural effusion, new from previous. Chronic interstitial changes are seen through out the lungs bilaterally. HEART/MEDIASTINUM: Cardiac silhouette is within normal limits. Remaining mediastinal silhouettes are unremarkable. HARDWARE/LINES/TUBES: None. BONES: No acute findings. THIS IS AN ELECTRONICALLY VERIFIED FINAL REPORT 12/13/2024 6:40 AM - Electronically signed by Hazel Mondragon M.D. SN: SN Report ID: [id number] Reading Location: [id number] IMPRESSION: Chronic interstitial disease with new left pleural effusion. Evelyn Lackey MD IMG DIAGNOSTIC ORDERABLES Fin al Result * RSV,SARS-COV-2,INFLUENZA A&B BY PCR (12/13/2024 6:29 AM DRY JANITOR) FLU A Negative Negative, Error 12/13/2024 7:31 AM DRY JANITOR [facility] FLU B Negative Negative 12/13/2024 7:31 AM DRY JANITOR [facility] RESP SYNC VIRUS Negative Negative 7:31 AM DRY JANITOR [facility] SARSCOV2 NOT DETECTED (Reference Range for this test is Not Detected) 12/13/2024 7:31 AM DRY JANITOR [facility] Comment:This test was perfor med by a Reverse Baker Second PCR Method. Swab NASOPHARYNGEAL SWAB / Unknown Non-Phlebotomy Collection / Unknown 12/13/2024 6:29 AM DRY JANITOR 12/13/2024 6:47 AM DRY JANITOR Evelyn Lackey MD MICROBIOLOGY - GENERAL ORDERA BLES Final Result [facility] [place] [address] * (ABNORMAL) Comprehensive Metabolic Panel (Cmp) [id number] (12/13/2024 5:38 AM DRY JANITOR) Pathologist [facility] SODIUM 140 136 - 145 mmol/L 12/13/2024 6:06 AM [facility] POTASSIUM 4.4 3.5 - 5.1 mmol/L 12/13/2024 6:06 AM [facility] CHLORIDE 90(L) 98 - 107 mmol/L 12/13/2024 6:06 AM [facility] CO2, VENOUS 36(H) 22 - 30 mmol/L 12/13/2024 6:06 AM [facility] ANION GAP 18.4(H) <18.0 mmol/L 12/13/2024 6:06 AM [facility] GLUCOSE 107(H) 70 - 99 mg/dL 12/13/2024 6:06 AM [facility] BUN 14 8 - 26 mg/dL 12/13/2024 6:06 AM [facility] CREATININE, BLOOD 0.74 0.70 - 1.30 mg/dL 12/13/2024 6:06 AM [facility] BUN/CREATININE RATIO 19 12 - 20 ratio 12/13/2024 6:06 AM [facility] TOTAL PROTEIN 6.8 6.0 - 8.0 g/dL 12/13/2024 6:06 AM [facility] ALBUMIN 3.9 3.5 - 5.0 g/dL 12/13/2024 6:06 AM [facility] A/G RATIO 1.3 1.0 - 2.2 12/13/2024 6:06 AM [facility] CALCIUM 8.9 8.7 - 10.5 mg/dL 12/13/2024 6:06 AM [facility] T BILI 0.5 0.2 - 1.2 mg/dL 12/13/2024 6:06 AM [facility] SGOT (AST) 23 6 - 42 U/L 12/13/2024 6:06 AM [facility] SGPT (ALT) 12 6 - 55 U/L 12/13/2024 6:06 AM DRY JANITOR [facility] ALKALINE PHOSPHATASE 79 40 - 150 U/L 12/13/2024 6:06 AM DRY JANITOR [facility] GFR, ESTIMATED >60 >=60 12/13/2024 6:06 AM DRY JANITOR [facility] Comment: Creatinine Clearance is the preferred criteria for selecting drug dose adjustments in renally impaired patients. The GFR is provided as additional pertinent clinical information. GFR is reported in mL/min/1.73 sq m. Calculation based on the Chronic Kidney Disease Epidemiology Collaboration (CKD- EPI) equation refit without adjustment for race. GFR, EST. >60 >=60 025 6:06 AM DRY JANITOR [facility] GFR, EST. NONAFRICAN >60 >=60 12/13/2024 6:06 AM DRY JANITOR [facility] Blood Venipuncture / Unknown 12/13/2024 5:38 AM DRY JANITOR 12/13/2024 5:44 AM DRY JANITOR us Mariano Soares MD CHEMISTRY ORDERABLES Mariam l Result Performing Organization Address City/[facility]/ZIP Co de Phone Number [facility] [place] [address] * B-Type Natriuretic Peptide (BNP) (12/13/2024 5:38 AM DRY JANITOR) [facility] B TYPE NATRIURETIC PEPTIDE 92 <100 pg/mL 12/13/2024 8:35 AM DRY JANITOR [facility] Blood Venipuncture / Unknown 12/13/2024 5:38 AM DRY JANITOR 12/13/2024 5:44 AM DRY JANITOR Gayle Munoz MD CHEMISTRY ORDERABLES Final Re sult [facility] [place] [address] * EKG 12 LEAD (12/13/2024 5:30 AM DRY JANITOR) Ventricular Rate 93 BPM EXTERNAL EKG Atrial Rate 93 BPM EXTERNAL EKG P-R Interval 124 ms EXTERNAL EKG QRS Duration 94 ms EXTERNAL EKG Q-T Duration 360 ms EXTERNAL EKG QTC CALCULATION 447 ms EXTERNAL EKG P Loving 88 degrees EXTERNAL EKG R Loving 70 degrees EXTERNAL EKG T Loving 71 degrees EXTERNAL EKG 12/13/2024 5:30 AM DRY JANITOR Impressions EXTERNAL EKG - 12/14/2024 11:45 AM DRY JANITOR Normal sinus rhythm Normal ECG When compared with ECG of 25-AUG-2024 05:38, Sinus rhythm has replaced Atrial fibrillation Vent. rate has decreased BY 70 BPM QRS axis shifted right Borderline criteria for Inferior infarct are no longer present ST no longer depressed in Inferior leads ST no longer depressed in Anterolateral leads Confirmed by Chi Rodgers ([id number]) on 12/14/2024 11:45:44 AM Narrative Procedure Note Chi Rodgers MD - 12/14/2024 IMPRESSION: Normal sinus rhythm Normal ECG When compared with ECG of 25-AUG-2024 05:38, Sinus rhythm has replaced Atrial fibrillation Vent. rate has decreased BY 70 BPM QRS axis shifted right Borderline criteria for Inferior infarct are no longer present ST no longer depressed in Inferior leads ST no longer depressed in Anterolateral leads Confirmed by Chi Rodgers ([id number]) on 12/14/2024 11:45:44 AM Mariano Soares MD IMG ECG ORDERABLES Final Result Performing Organization Address City/[facility]/ZIP Co de Phone Number EXTERNAL EKG * EKG SCAN (12/13/2024 12:00 AM DRY JANITOR) 12/13/2024 us Provider Scan IMG ECG ORDERABLES Final Result RESULTING AGENCY from Last 3 Months Insurance MEDICARE C [employer] Advance Directives * Full Code (Latest Code Status on File) Date Activated Date Inactivated Comments 12/13/2024 10:54 AM CPR-Full Skyla tment: FULL ARREST: Attempt Resuscitation/CPR wit intubation and mechanical ventilation. PRE-ARREST: Use entire range of life support measures to stabilize the patient. * Full Code Date Activated Date Inactivated Comments 08/23/2024 10:31 PM 12/13/2024 10:54 AM CPR-Full T reatment: FULL ARREST: Attempt Resuscitation/CPR wit intubation and mechanical ventilation. PRE-ARREST: Use entire range of life support measures to stabilize the patient. * Full Code Date Activated Date Inactivated Comments 05/13/2024 6:59 PM 05/14/2024 4:03 PM CPR-Full Josef atment: FULL ARREST: Attempt Resuscitation/CPR wit intubation and mechanical ventilation. PRE-ARREST: Use entire range of life support measures to stabilize the patient. * No CPR-Selective Treatment Date Activated Date Inactivated Comments 04/11/2024 1:06 PM 04/13/2024 3:19 PM No CPR - Kira ective Treatment: FULL ARREST: Do Not Attempt Resuscitation. PRE-ARREST: DO NOT USE INTUBATION OR MECHANICAL VENTILATION, but may use basic medical treatment like CPAP or BiPAP, antibiotics, IV fluids, oxygen, etc. Avoid care in ICU setting. Question Answer Comments Physician documentation made in notes? Yes * Full Code Date Activated Date Inactivated Comments 11/24/2018 9:54 AM 11/26/2018 7:39 PM CPR-Full Treat ment: FULL ARREST: Attempt Resuscitation/CPR wit intubation and mechanical ventilation. PRE-ARREST: Use entire range of life support measures to stabilize the patient. Care Teams Personal Care Assistant Relationship Specialty Start Date End Date Manny Martines MD [id number] [place] [address] PCP - General Family Medicine 10/01/15
--- OUTSIDE RECORDS SUMMARY | 2025-01-10 16:02 | XMS_ITS | Referral Summary ---
Author Organization [facility] Address [address] [place] [id number] Care Team Providers Care High Pressure Firer Name Role Phone No, Physician Primary Care Provider [phone] Manny Martines MD Unavailable [phone] Fariba Lozoya MD Unavailable Encounters Date Type Department Care Team Description 12/20/2024 2:47 PM CORE PASTER - 12/23/2024 1:49 PM CORE PASTER Hospital Encounter [facility] [address] [place] [address] Alexei Lambert MD Sargsyan, Narine, MD Masetti, Paolo, MD Nations, Matthew Austin, Disorientation (Primary Dx); Tachycardia; Acute respiratory failure with hypercapnia (CMS/HCC) (HCC) Discharge Disposition: Discharge to home or self care 12/20/2024 2:30 PM CORE PASTER - 12/20/2024 11:59 PM CORE PASTER Hospital Encounter [facility] Emergency, Room R Discharge Disposition: Discharge to home or self care 12/13/2024 5:09 AM CORE PASTER - 12/13/2024 11:59 PM CORE PASTER Hospital Encounter [facility] Emergency, Room R Discharge Disposition: Discharge to home or self care from Last 3 Months Allergies No known active allergies Medications albuterol HFA (PROVENTIL HFA,VENTOLIN HFA,PROAIR HFA) 90 mcg/actuation inhaler Inhale 2 puffs every 6 (six) hours as needed for wheezing or shortness of breath 12/07/19 25 Active Breztri Aerosphere 160-9-4.8 mcg/actuation inhaler Inhale 2 puffs 2 (two) times a day 12/07/19 25 Active HYDROcodone-acet aminophen (NORCO) 10-325 mg per tablet Take 2 tablets by mouth every 6 (six) hours as needed for pain 12/07/19 25 Active ipratropium-albu teroL (DUO-NEB) 0.5-2.5 mg/3 mL nebulizer solution Take 3 mL by nebulization 4 (four) times a day 12/07/19 25 Active traMADoL (ULTRAM) 50 mg tablet Take 1-2 tablets (50-100 mg total) by mouth every 8 (eight) hours as needed (for breakthrough pain) 12/11/19 25 Active amiodarone (PACERONE) 200 mg tablet Take 1 tablet (200 mg total) by mouth 2 (two) times a day for 26 doses 26 tablet 12/23/19 25 Active amiodarone (PACERONE) 200 mg tablet Take 1 tablet (200 mg total) by mouth daily 30 tablet 01/06/20 25 026 Active apixaban (ELIQUIS) 5 mg tabletIndication s:atrial fibrillation Take 1 tablet (5 mg total) by mouth every 12 (twelve) hours 60 tablet 12/23/19 25 026 Active atorvastatin (LIPITOR) 40 mg tablet Take 1 tablet (40 mg total) by mouth daily 30 tablet 12/24/19 25 026 Active dilTIAZem XR (CARDIZEM CD,DILACOR XR) 240 mg 24 hr capsule Take 1 capsule (240 mg total) by mouth daily 30 capsule 12/24/19 25 026 Active methylPREDNISolo ne (MEDROL DOSEPACK) 4 mg Dosepack follow package directions 21 tablet 12/24/19 25 Active cefdinir (OMNICEF) 300 mg capsule Take 1 capsule (300 mg total) by mouth 2 (two) times a day for 2 days 4 capsule 12/23/19 25 025 Active Problems Problem Noted Date Diagnosed Date Disorientation 12/20/2024 Chronic obstructive pulmonary disease 10/21/2015 Overview (02/21/2017): COPD Social History Tobacco Use Types Packs/Day Years Used Date Smoking Tobacco: Never Smokeless Tobacco: Never Tobacco Cessation:Counseling Given: Not Answered [facility] Utilities Answer Date Recorded In the past 12 months has th e electric, gas, oil, or water [email or web address] threatened to shut off services in your home? No 12/22/2024 Social Connection and Isolation Panel [NHANES] A nswer Date Recorded In a typical week, how many times do you talk on the phone with family, friends, or neighbors? Twice a week 12/22/2024 How often do you get together with friends or re latives? Never 12/22/2024 How often do you attend muslim or scientologist serv ices? Never 12/22/2024 Do you belong to any clubs o r organizations such as muslim groups, unions, fraternal or athletic groups, or school groups? No 12/22/2024 How often do you attend meet ings of the clubs or organizations you belong to? Never 12/22/2024 Are you , , di vorced, , never , or living with a partner? Never 12/22/2024 Overall Financial Resource Strain (CARDIA) Answe r Date Recorded How hard is it for you to pa y for the very basics like food, housing, medical care, and heating? Very hard 12/22/2024 Hunger Vital Sign Answer Date Recorded Within the past 12 months, y ou worried that your food would run out before you got the money to buy more. Often true 12/22/19 25 Within the past 12 months, t he food you bought just didn't last and you didn't have money to get more. Often true 12/22/2024 PRAPARE - Transportation Answer Date Re corded In the past 12 months, has l ack of transportation kept you from medical appointments or from getting medications? No 02/2025 In the past 12 months, has l ack of transportation kept you from meetings, work, or from getting things needed for daily living? No 12/22/2024 Housing Stability Vital Sign Answer Rodrigo e Recorded In the last 12 months, was t here a time when you were not able to pay the mortgage or rent on time? Yes 12/22/2024 In the past 12 months, how m any times have you moved where you were living? 0 12/22/2024 At any time in the past 12 m [facility], were you homeless or living in a long-term (including now)? No 12/22/2024 Personal Safety Answer Date Recorded Have you ever been in or are you currently in a harmful physical or emotional relationship or is someone making you feel afraid or unsafe? Denies 12/20/2024 Sex and Gender Information Value Date Recorded Sex Assigned at Not on file Legal Sex Male 9:00 AM CDT Gender Identity Not on file Sexual Orientation Not on file Last Filed Vital Signs Vital Sign Reading Time Taken Comments Blood Pressure 139/77 12/23/2024 7:10 AM CORE PASTER Pulse 63 12/23/2024 7:50 AM CORE PASTER Temperature 36.4 C (97.5 F) 12/23/2024 7:10 AM CORE PASTER Respiratory Rate 18 12/23/2024 7:10 AM CORE PASTER Oxygen Saturation 100% 12/23/2024 7:40 AM CORE PASTER Inhaled Oxygen Concentration - - Weight 85.3 kg (188 lb) 12/22/2024 4:08 PM CORE PASTER Height 185.4 cm (6' 1 ) 12/22/2024 4:08 PM CORE PASTER Body Mass Index 24.8 12/22/2024 4:08 PM CORE PASTER Plan of Treatment Not on file Procedures Procedure Name Priority Date/Time Associated Diagnosis Comments POCT GLUCOSE DEVICE Routine 12/23/2024 1 2:04 PM CORE PASTER POCT GLUCOSE DEVICE Routine 12/23/2024 8 :00 AM CORE PASTER MD CRITICAL CARE ILL/INJURED PATIENT INIT 30-74 MIN Routine 12/23/2024 2:34 AM CORE PASTER POCT GLUCOSE DEVICE Routine 12/23/2024 2 :25 AM CORE PASTER EGFR Routine 12/23/2024 1:39 AM CORE PASTER COMPREHENSIVE METABOLIC PANEL Routine 12/23/2024 1:39 AM CORE PASTER POCT GLUCOSE DEVICE Routine 12/22/2024 8 :09 PM CORE PASTER POCT GLUCOSE DEVICE Routine 12/22/2024 4 :43 PM CORE PASTER POCT GLUCOSE DEVICE Routine 12/22/2024 1 2:[address] CHEST PE W CONTRAST IP Routine 12/22/2024 11:56 AM CORE PASTER POCT GLUCOSE DEVICE Routine 12/22/2024 8 :14 AM CORE PASTER EGFR Routine 12/22/2024 4:55 AM CORE PASTER MAGNESIUM Routine 12/22/2024 4:55 AM CORE PASTER COMPREHENSIVE METABOLIC PANEL Routine 12/22/2024 4:55 AM CORE PASTER POCT GLUCOSE DEVICE Routine 12/21/2024 8 :52 PM CORE PASTER INFECTION PREVENTION MRSA ONLY (STAPHYLOCOCCUS AUREUS) PCR Routine 12/21/2024 6:09 PM CORE PASTER TRANSTHORACIC ECHO (TTE) COMPLETE W DOPPLER/CF W CONTRAST Routine 12/21/2024 10:06 AM CORE PASTER EGFR Routine 12/21/2024 6:10 AM CORE PASTER DIFFERENTIAL AUTO Routine 12/21/2024 6:1 0 AM CORE PASTER MAGNESIUM Routine 12/21/2024 6:10 AM CORE PASTER COMPREHENSIVE METABOLIC PANEL Routine 12/21/2024 6:10 AM CORE PASTER CBC WITH AUTO DIFFERENTIAL Routine 12/21/2024 6:10 AM CORE PASTER CBC WITHOUT DIFFERENTIAL STAT 12/21/2024 12:54 AM CORE PASTER THYROID FUNCTION CASCADE Routine 12/21/2024 12:54 AM CORE PASTER ECG 12-LEAD Routine 12/21/2024 12:10 AM CORE PASTER ECG 12-LEAD Routine 12/20/2024 11:33 PM CORE PASTER INFLUENZA A/B, RSV, AND COVID-19 PCR Routine 12/20/2024 11:03 PM CORE PASTER EGFR STAT 12/20/2024 10:47 PM CORE PASTER CREATININE STAT 12/20/2024 10:47 PM CORE PASTER HEPATIC FUNCTION PANEL STAT 12/20/2024 10:47 PM CORE PASTER PROTIME-INR STAT 12/20/2024 10:47 PM CORE PASTER URINALYSIS, MICROSCOPIC ONLY STAT 12/20/2024 10:47 PM CORE PASTER DRUGS OF ABUSE SCREEN, URINE WITH REFLEX CONFIRMATION Routine 12/20/2024 10:47 PM CORE PASTER PRO B-TYPE NATRIURETIC PEPTIDE STAT 12/20/2024 10:47 PM CORE PASTER BLOOD GAS, VENOUS STAT 12/20/2024 10: 47 PM CORE PASTER D-DIMER, QUANTITATIVE Routine 12/20/2024 10:47 PM CORE PASTER URINALYSIS AND REFLEX TO MICROSCOPIC AND CULTURE STAT 12/20/2024 10:47 PM CORE PASTER TROPONIN T HIGH-SENSITIVITY 4-HR Timed 12/20/2024 7:04 PM CORE PASTER TROPONIN T HIGH-SENSITIVITY 2-HOUR Timed 12/20/2024 4:[address] HEAD WO CONTRAST ED 12/20/2024 4 :53 PM CORE PASTER EGFR STAT 12/20/2024 3:03 PM CORE PASTER DIFFERENTIAL AUTO STAT 12/20/2024 3:0 3 PM CORE PASTER TROPONIN T HIGH-SENSITIVITY SERIES (BASELINE, 2HR, 4HR, 6HR) STAT 12/20/2024 3:03 PM CORE PASTER COMPREHENSIVE METABOLIC PANEL STAT 12/20/2024 3:03 PM CORE PASTER CBC WITH AUTO DIFFERENTIAL STAT 12/20/2024 3:03 PM CORE PASTER XR CHEST 1 VIEW ED 12/20/2024 3:02 PM CORE PASTER ECG 12-LEAD Routine 12/20/2024 2:51 PM CORE PASTER from Last 3 Months Results * POCT glucose (12/23/2024 12:04 PM CORE PASTER) Glucose, POC 89 70 - 199 mg/dL Blood 12/23/2024 12:0 4 PM CORE PASTER 12/23/2024 12:04 PM CORE PASTER us Oma Escalona MD LAB POCT ORDERABLES - DEVICE Final Result Performing Organization Address [facility] Co de Phone Number [facility] ([facility]) [address] [place] [address] [place] [address] * POCT glucose (12/23/2024 8:00 AM CORE PASTER) Glucose, POC 135 70 - 199 mg/dL Blood 12/23/2024 8:00 AM CORE PASTER 12/23/2024 8:00 AM CORE PASTER us Oma Escalona MD LAB POCT ORDERABLES - DEVICE Final Result Performing Organization Address City/[facility] Co de Phone Number [facility] ([facility]) [address] [place] [address] [place] [address] * MD CRITICAL CARE ILL/INJURED PATIENT INIT 30-74 MIN (12/23/2024 2:34 AM CORE PASTER) Narrative Alexei Lambert MD - 12/23/2024 2:34 AM CORE PASTER Alexei Lambert MD 12/23/2024 2:34 AM Critical Care Performed by: Alexei Lambert MD Authorized by: Alexei Lambert MD Critical care provider statement: As reflected in the history, physical exam, orders, notes, and/or MDM, I was personally present while the patient was critically ill and provided critical care services for 45 minutes, excluding time involved in separately billable procedures. Critical care was necessary to treat or prevent imminent or life-threatening deterioration of the following condition(s): hypoxic respiratory failure Critical care was time spent by me providing the following: continuous pulse oximetry and continuous telemetry non-invasive positive pressure ventilator management I provided emergent necessary critical care medicine services to this patient. I ordered and reviewed test results and/or imaging studies. Alexei Lambert MD IN CLINIC/BEDSIDE ORDERABLES F inal Result * POCT glucose (12/23/2024 2:25 AM CORE PASTER) Glucose, POC 142 70 - 199 mg/dL Blood 12/23/2024 2:25 AM CORE PASTER 12/23/2024 2:25 AM CORE PASTER Sixto De La Cruz DO LAB POCT ORDERABLES - DEVICE Final Result [facility] Department of Laboratories [place], [place] [id number] * eGFR (12/23/2024 1:39 AM CORE PASTER) eGFR 72 >=60 mL/min/1. 73 m2 Comment: Interpretive Data Reference Interval Normal >/= 90 mL/min/1.73m2 Mildly decreased* 60 - 89 mL/min/1.73m2 Mildly to moderately decreased 45 - 59 mL/min/1.73m2 Moderately to severely decreased 30 - 44 mL/min/1.73m2 Severely decreased 15 - 29 mL/min/1.73m2 Kidney Failure < 15 mL/min/1.73m2 *Relative to young adult level Estimated glomerular filtration rate is determined by the 2020 CKD-EPI equation recommended by the National Kidney Foundation (A Unifying Approach to GFR Estimation: Recommendations of the NKF-ASK Task Force on Reassessing the Inclusion of Race in Diagnosing Kidney Disease, JASN 2020). The CKD-EPI equation should not be used for patients with unstable renal function and has not been validated in children and those over 70. Current interpretive data was last reviewed 2021. Blood 12/23/2024 1:39 AM CORE PASTER 12/23/2024 3:04 AM CORE PASTER us Chago Cervantes MD LAB BLOOD ORDERABLES Fi nal Result [facility] (ANG) 1 [facility] [place] [address] * (ABNORMAL) Comprehensive metabolic panel (12/23/2024 1:39 AM CORE PASTER) Sodium 138 135 - 145 mmol/L Potassium, pl 3.9 3.3 - 4.9 mmol/L [facility] ([facility]) Chloride 98 97 - 110 mmol/L [facility] ([facility]) CO2 28 22 - 32 mmol/L [facility] ([facility]) Anion gap 12 2 - 15 mmol/L [facility] ([facility]) BUN 30(H) 6 - 25 mg/dL [facility] ([facility]) Creatinine 1.10 0.80 - 1.30 mg/dL [facility] ([facility]) Glucose 146 70 - 199 mg/dL [facility] ([facility]) Comment: Interpretive Data Fasting glucose >/= 126 mg/dl is diagnostic for diabetes. Fasting is defined as no caloric intake for at least 8 hours. Fasting glucose between 100 mg/dl to 125 mg/dl is diagnostic of prediabetes. In a patient with classic symptoms of hyperglycemia or hyperglycemic crisis, a random glucose >/= 200 mg/dl is diagnostic for diabetes. In the absence of unequivocal hyperglycemia, results should be confirmed by repeat testing. The classification and Diagnosis of Diabetes Diabetes Care 2021; 46: S19-S40. Current interpretive data was last revised 2022. Calcium 8.8 8.5 - 10.3 mg/dL [facility] ([facility]) Bilirubin, total <0.2 0.1 - 1.2 mg/dL [facility] ([facility]) Protein, pl 5.9(L) 6.5 - 8.5 g/dL [facility] ([facility]) Albumin 3.9 3.5 - 5.0 g/dL [facility] ([facility]) Alk phos 72 40 - 130 Units/L [facility] ([facility]) ALT 11 7 - 55 Units/L [facility] ([facility]) AST 11 10 - 50 Units/L [facility] ([facility]) Blood 12/23/2024 1:39 AM CORE PASTER 12/23/2024 3:04 AM CORE PASTER Chago Cervantes MD LAB BLOOD ORDERABLES Fi nal Result Performing Organization Address City/[facility]/ZIP Co de Phone Number [facility] (ANG) [address] [facility] [place] [address] * POCT glucose (12/22/2024 8:09 PM CORE PASTER) Glucose, POC 124 70 - 199 mg/dL Blood 12/22/2024 8:09 PM CORE PASTER 12/22/2024 8:09 PM CORE PASTER Sixto De La Cruz LAB POCT ORDERABLES - DEVICE Final Result Performing Organization Address [facility] Co de Phone Number [facility] ([facility]AD[facility]) [address] [facility] [place] [address] * POCT glucose (12/22/2024 4:43 PM CORE PASTER) Glucose, POC 167 70 - 199 mg/dL Blood 12/22/2024 4:43 PM CORE PASTER 12/22/2024 4:43 PM CORE PASTER Sixto Malik [facility] LAB POCT ORDERABLES - DEVICE Final Result Performing Organization Address City/[facility]/ZIP Co de Phone Number [facility] (GRADY) [address] [facility] [place] [address] * (ABNORMAL) POCT glucose (12/22/2024 12:05 PM CORE PASTER) Glucose, POC 205(H) 70 - 199 mg/dL Blood 12/22/2024 12:0 5 PM CORE PASTER 12/22/2024 12:05 PM CORE PASTER us Sixto De La Cruz DO LAB POCT ORDERABLES - DEVICE Final Result [facility] 1 [facility] [place] [address] * CT Chest PE (CTA) W Contrast (12/22/2024 11:56 AM CORE PASTER) Anatomical Region Laterality Modality Body N/A Computed Tomogra phy 12/22/2024 2:36 PM CORE PASTER Narrative 12/22/2024 2:45 PM CORE PASTER EXAM DESCRIPTION: CT CHEST PE (CTA) W CONTRAST REASON FOR STUDY: Chest pain, PE suspected, low/intermediate prob, positive D-dimer Positive D-dimer Shortness of breath Patient is on oxygen TECHNIQUE: CT angiogram of the chest performed with intravenous contrast using helical scanning technique with dynamic intravenous contrast injection. Reconstructed coronal and sagittal MPR images reviewed. All images stored on PACS. 3D MIP images rendered on scanning unit and reviewed at time of interpretation. Automated exposure control was used as a dose optimization technique for this examination. CONTRAST TYPE/DOSE: 75mL of IOVERSOL 350 MG IODINE/ML INTRAVENOUS SYRINGE injected via intravenous COMPARISON: 12/20/2023 REFERENCE: Per ACR white paper recommendations, unless otherwise specified no follow-up imaging is recommended for incidental renal and adrenal lesions per consensus recommendations based on imaging criteria. Further lab evaluation could be pursued based on clinical findings. FINDINGS: HARDWARE/LINES/TUBES: None. VASCULATURE: Examination is diagnostic to the subsegmental pulmonary arterial level. No acute pulmonary embolism. Main pulmonary artery measures within normal limits. Multifocal atherosclerotic changes of the thoracic aorta and its major branches. MEDIASTINUM/HEART: Heart size within normal limits. No significant pericardial effusion. Esophagus is unremarkable. CORONARY ARTERY CALCIFICATION: Advanced multivessel atherosclerotic calcifications. Coronary stents noted. LYMPH NODES: No pathologically enlarged thoracic lymphadenopathy. AIRWAY: Secretions/debris within the trachea. Mild diffuse bronchial wall thickening which is nonspecific but can be seen with chronic bronchitis. LUNGS: Background of severe emphysematous changes prominent bullous emphysematous changes of the lung apices and medial left upper lobe. No focal consolidation, pneumothorax, or pleural effusion. Biapical pleural-parenchymal scarring. Multiple pulmonary nodules, includin mm right apical pulmonary nodule (8; 48). Small perifissural nodules which likely reflect fissural lymph nodes including a ovoid 4 mm perifissural nodule along the left oblique fissure (8; 129). 5 mm lateral right middle lobe pulmonary nodule (8; 189). UPPER ABDOMEN: No acute abnormality of the visualized abdomen. BONES/SOFT TISSUES: Multiple chronic nondisplaced left posterolateral rib fractures. Multilevel degenerative changes of the visualized spine. Multilevel prominent Schmorl's nodes. No aggressive appearing osseous lesions. No acute osseous abnormality. Normal-appearing thyroid. IMPRESSION: No evidence of pulmonary embolism. No acute findings of the chest. Severe emphysematous changes of the lungs. Multiple pulmonary nodules measuring up to 6 mm. Per Fleischner Society Guidelines, non-contrast chest CT at 3-6 months is recommended. If the nodules are stable at time of repeat CT, then future CT at 18-24 months (from today's scan) is considered optional for low-risk patients, but is recommended for high-risk patients. Incidental and chronic findings as above. THIS IS AN ELECTRONICALLY VERIFIED FINAL REPORT 12/22/2024 2:45 PM - Electronically signed by Rickey Woody M.D. NS: NS Report ID: [id number] Reading Location: [id number] Procedure Note Rickey Woody MD - 12/22/2024 EXAM DESCRIPTION: CT CHEST PE (CTA) W CONTRAST REASON FOR STUDY: Chest pain, PE suspected, low/intermediate prob,positive D-dimer Positive D-dimer Shortness of breath Patient is on oxygen TECHNIQUE: CT angiogram of the chest performed with intravenous contrastusing helical scanning technique with dynamic intravenous contrast injection. Reconstructed coronal and sagittal MPR images reviewed. All images storedon PACS. 3D MIP images rendered on scanning unit and reviewed at time of interpretation. Automated exposure control was used as a doseoptimization technique for this examination. CONTRAST TYPE/DOSE: 75mL of IOVERSOL 350 MG IODINE/ML INTRAVENOUSSYRINGE injected via intravenous COMPARISON: 12/20/2023 REFERENCE: Per ACR white paper recommendations, unless otherwise specifiedno follow-up imaging is recommended for incidental renal and adrenal lesionsper consensus recommendations based on imaging criteria. Further labevaluation could be pursued based on clinical findings. FINDINGS: HARDWARE/LINES/TUBES: None. VASCULATURE: Examination is diagnostic to the subsegmental pulmonaryarterial level. No acute pulmonary embolism. Main pulmonary artery measureswithin normal limits. Multifocal atherosclerotic changes of the thoracic aortaand its major branches. MEDIASTINUM/HEART: Heart size within normal limits. No significant pericardial effusion. Esophagus is unremarkable. CORONARY ARTERY CALCIFICATION: Advanced multivessel atherosclerotic calcifications. Coronary stents noted. LYMPH NODES: No pathologically enlarged thoracic lymphadenopathy. AIRWAY: Secretions/debris within the trachea. Mild diffuse bronchialwall thickening which is nonspecific but can be seen with chronic bronchitis. LUNGS: Background of severe emphysematous changes prominent bullous emphysematous changes of the lung apices and medial left upper lobe. Nofocal consolidation, pneumothorax, or pleural effusion. Biapical pleural-parenchymal scarring. Multiple pulmonary nodules, includin mm right apical pulmonary nodule (8; 48). Small perifissural nodules which likely reflect fissural lymph nodesincluding a ovoid 4 mm perifissural nodule along the left oblique fissure (8; 129). 5 mm lateral right middle lobe pulmonary nodule (8; 189). UPPER ABDOMEN: No acute abnormality of the visualized abdomen. BONES/SOFT TISSUES: Multiple chronic nondisplaced left posterolateral rib fractures. Multilevel degenerative changes of the visualized spine. Multilevel prominent Schmorl's nodes. No aggressive appearing osseous lesions. No acute osseous abnormality. Normal-appearing thyroid. IMPRESSION: No evidence of pulmonary embolism. No acute findings of the chest. Severe emphysematous changes of the lungs. Multiple pulmonary nodules measuring up to 6 mm. Per Fleischner Society Guidelines, non-contrast chest CT at 3-6 months is recommended. If thenodules are stable at time of repeat CT, then future CT at 18-24 months (fromtoday's scan) is considered optional for low-risk patients, but is recommended for high-risk patients. Incidental and chronic findings as above. THIS IS AN ELECTRONICALLY VERIFIED FINAL REPORT 12/22/2024 2:45 PM - Electronically signed by Rickey Woody M.D. NS: NS Report ID: [id number] Reading Location: [id number] Sixto Malik [facility] DO IMG CT PROCEDURES Mariam l Result * POCT glucose (12/22/2024 8:14 AM CORE PASTER) Glucose, POC 148 70 - 199 mg/dL Blood 12/22/2024 8:14 AM CORE PASTER 12/22/2024 8:14 AM CORE PASTER William Beatty MD LAB POCT ORDERABLES - DEVICE Fi nal Result [facility] ([facility]) [address] [facility] [place] [address] * eGFR (12/22/2024 4:55 AM CORE PASTER) eGFR >90 >=60 mL/min/1. 73 m2 Comment: Interpretive Data Reference Interval Normal >/= 90 mL/min/1.73m2 Mildly decreased* 60 - 89 mL/min/1.73m2 Mildly to moderately decreased 45 - 59 mL/min/1.73m2 Moderately to severely decreased 30 - 44 mL/min/1.73m2 Severely decreased 15 - 29 mL/min/1.73m2 Kidney Failure < 15 mL/min/1.73m2 *Relative to young adult level Estimated glomerular filtration rate is determined by the 2020 CKD-EPI equation recommended by the National Kidney Foundation (A Unifying Approach to GFR Estimation: Recommendations of the NKF-ASK Task Force on Reassessing the Inclusion of Race in Diagnosing Kidney Disease, JASN 2020). The CKD-EPI equation should not be used for patients with unstable renal function and has not been validated in children and those over 70. Current interpretive data was last reviewed 2021. Blood 12/22/2024 4:55 AM CORE PASTER 12/22/2024 5:07 AM CORE PASTER us Chago Cervantes MD LAB BLOOD ORDERABLES Fi nal Result [facility] ([facility]) [address] [facility] [place] [address] * Magnesium (12/22/2024 4:55 AM CORE PASTER) Magnesium 2.3 1.4 - 2.5 mg/dL Blood 12/22/2024 4:55 AM CORE PASTER 12/22/2024 5:07 AM CORE PASTER us William Beatty MD LAB BLOOD ORDERABLES Final Resu lt [facility] ([facility]) 1 [facility] [place] [address] * (ABNORMAL) Comprehensive metabolic panel (12/22/2024 4:55 AM CORE PASTER) Sodium 137 135 - 145 mmol/L Potassium, pl 5.7(H) 3.3 - 4.9 mmol/L [facility] ([facility]) Comment:Hemolysis present. R esults may be affected. Chloride 97 97 - 110 mmol/L [facility] ([facility]) CO2 28 22 - 32 mmol/L [facility] ([facility]) Anion gap 12 2 - 15 mmol/L [facility] ([facility]) BUN 18 6 - 25 mg/dL [facility] ([facility]) Creatinine 0.77(L) 0.80 - 1.30 mg/dL [facility] ([facility]) Glucose 160 70 - 199 mg/dL [facility] ([facility]) Comment: Interpretive Data Fasting glucose >/= 126 mg/dl is diagnostic for diabetes. Fasting is defined as no caloric intake for at least 8 hours. Fasting glucose between 100 mg/dl to 125 mg/dl is diagnostic of prediabetes. In a patient with classic symptoms of hyperglycemia or hyperglycemic crisis, a random glucose >/= 200 mg/dl is diagnostic for diabetes. In the absence of unequivocal hyperglycemia, results should be confirmed by repeat testing. The classification and Diagnosis of Diabetes Diabetes Care 2021; 46: S19-S40. Current interpretive data was last revised 2022. Calcium 8.9 8.5 - 10.3 mg/dL [facility] ([facility]) Bilirubin, total <0.2 0.1 - 1.2 mg/dL [facility] ([facility]) Protein, pl 6.8 6.5 - 8.5 g/dL [facility] ([facility]) Albumin 3.9 3.5 - 5.0 g/dL [facility] ([facility]) Alk phos 72 40 - 130 Units/L [facility] ([facility]) Comment:Hemolysis present. R esults may be affected. ALT 16 7 - 55 Units/L [facility] ([facility]) Comment:Hemolysis present. R esults may be affected. AST 39 10 - 50 Units/L [facility] ([facility]) Comment:Hemolysis present. R esults may be affected. Blood 12/22/2024 4:55 AM CORE PASTER 12/22/2024 5:07 AM CORE PASTER Chago Cervantes MD LAB BLOOD ORDERABLES Fi nal Result Performing Organization Address City/[facility]/ZIP Co de Phone Number [facility] ([facility]) [address] [place] [id number] * POCT glucose (12/21/2024 8:52 PM CORE PASTER) Glucose, POC 117 70 - 199 mg/dL Blood 12/21/2024 8:52 PM CORE PASTER 12/21/2024 8:52 PM CORE PASTER William Beatty MD LAB POCT ORDERABLES - DEVICE Fi nal Result Performing Organization Address City/[facility] Co de Phone Number [facility] ([facility]) [address] [place] [id number] * Infection Prevention MRSA Only (Staphylococcus aureus) PCR Nasal (12/21/2024 6:09 PM CORE PASTER) PCR Scrn, Methicillin resistant Staphylococcus aureus (MRSA) Not Detected Not Detected Comment: Interpretive Data Testing performed using Nucleic Acid Amplification with the Craft Dragon Xpert MRSA NxG Assay. This assay detects target DNA from mecA, mecC and the SCCmec insertion site of Staphylococcus aureus using Real-Time PCR and has been cleared by the FDA. Performance characteristics have been verified by the [facility]. Current Interpretive Data was last revised on 2023 Nasal 12/21/2024 6:09 PM CORE PASTER 12/21/2024 6:11 PM CORE PASTER us William Beatty MD LAB MICROBIOLOGY - GENERAL TY BHAGAT Final Result [facility]) [address] [place] [address] [place] [address] * TRANSTHORACIC ECHO (TTE) COMPLETE W DOPPLER/CF W CONTRAST (12/21/2024 10:06 AM CORE PASTER) LV EF >70 % CONS SCIMAGE Anatomical Region Laterality Modality Ultrasound 12/21/2024 9:31 AM CORE PASTER Narrative 12/21/2024 11:22 AM CORE PASTER [address] [address] Echocardiogram Report Patient Name: ROBSON RODRIGUEZ : 1955 Study Date: 12/21/2024 9:31:10 AM Gender: M Tech: KAI Location: ED03 Ref Provider: CHAGO CERVANTES Height(Cm): BSA: Weight(Kg): Quality: Technically Difficult Study Order Provider: CHAGO CERVANTES PROCEDURES: Echocardiographic Report: Transthoracic echocardiogram with complete 2D, M-Mode, color Doppler examination and contrast. Technically difficult study with limited views. INDICATIONS: SVT. MEASUREMENTS: 2D/MM Value Range Doppler Value Range Estimated EF >70 % COOKIE Vmax 0.99 cm2 AV Mean PG 8 mmHg AV Peak Lul 2.08 m/s [ 1.00 - 1.70 ] AV VTI 35.18 cm LVOT Diam 2.39 cm LVOT Peak Lul 0.46 m/s [ 0.70 - 1.10 ] LVOT VTI 10.68 cm MV E Peak Lul 0.63 m/s [ 0.60 - 1.30 ] MV A Peak Lul 1.29 m/s [ 1.00 - 1.20 ] MV Mean PG 3 mmHg MV PHT 42 msec [ 20 - 100 ] MVA 5.20 MV Decel Time 146 msec [ 104 - 258 ] TR Peak Lul 1.73 m/s [ 1.00 - 2.80 ] TR Peak PG 12 mmHg RVSP 20.00 mmHg [ 10.00 - 36.00 ] PA Pressure 20.00 mmHg [ 10.00 - 36.00 ] 2D/MM Value Range Doppler Value Range - FINDINGS: Atrial Septum: Normal atrial septum. Left Ventricle: Reduced left ventricular cavity size. Ejection Fraction is estimated to be >70 %. Left Atrium: The left atrium is normal in size. Right Ventricle: Normal right ventricular size. Normal right ventricular systolic function. Right Atrium: The right atrium is normal in size. Aortic Valve: No evidence of hemodynamically significant aortic stenosis by Doppler. Mitral Valve: Mitral valve is not well visualized. Pulmonic Valve: Pulmonic valve not well visualized. Tricuspid Valve: Normal structure of the tricuspid valve. Normal right ventricular systolic pressure. Tricuspid valve not well visualized. Trivial regurgitation in the tricuspid valve. Pericardium: Normal pericardium with no significant pericardial effusion. Aorta: Aortic root not well visualized. IVC: The IVC is not well visualized. Pulmonary Artery: Pulmonary artery not well visualized. CONCLUSIONS: Reduced left ventricular cavity size. Ejection Fraction is estimated to be >70 %. Normal right ventricular size. Normal right ventricular systolic function. Normal pericardium with no significant pericardial effusion. Technically difficult study with seriously limited visualization. Optison contrast utilized. Valves are not visualized enough to interpret. Suggest LUIS E for optimal assessment of intracardiac anatomy if clinically relevant. Electronically Signed By: Bailee Molina MD 12/21/2024 11:21:05 AM CORE PASTER Procedure Note Bailee Molina MD - 12/21/[address] [place] [address] Echocardiogram Report Patient Name: ROBSON RODRIGUEZ : 1955 Study Date: 12/21/2024 9:31:10 AM Gender: M Tech: KAI Location: ED03 Ref Provider: CHAGO CERVANTES Height(Cm): BSA: Weight(Kg): Quality: Technically Difficult Study Order Provider: CHAGO CERVANTES PROCEDURES: Echocardiographic Report: Transthoracic echocardiogram with complete 2D, M-Mode, color Dopplerexamination and contrast. Technically difficult study with limited views. INDICATIONS: SVT. MEASUREMENTS: 2D/MM Value Range Doppler Value Range Estimated EF >70 % COOKIE Vmax 0.99 cm2 AV Mean PG 8 mmHg AV Peak Lul 2.08 m/s [ 1.00 - 1.70 ] AV VTI 35.18 cm LVOT Diam 2.39 cm LVOT Peak Lul 0.46 m/s [ 0.70 - 1.10 ] LVOT VTI 10.68 cm MV E Peak Lul 0.63 m/s [ 0.60 - 1.30 ] MV A Peak Lul 1.29 m/s [ 1.00 - 1.20 ] MV Mean PG 3 mmHg MV PHT 42 msec [ 20 - 100 ] MVA 5.20 MV Decel Time 146 msec [ 104 - 258 ] TR Peak Lul 1.73 m/s [ 1.00 - 2.80 ] TR Peak PG 12 mmHg RVSP 20.00 mmHg [ 10.00 - 36.00 ] PA Pressure 20.00 mmHg [ 10.00 - 36.00 ] 2D/MM Value Range Doppler Value Range - FINDINGS: Atrial Septum: Normal atrial septum. Left Ventricle: Reduced left ventricular cavity size. Ejection Fraction is estimated to be>70 %. Left Atrium: The left atrium is normal in size. Right Ventricle: Normal right ventricular size. Normal right ventricular systolicfunction. Right Atrium: The right atrium is normal in size. Aortic Valve: No evidence of hemodynamically significant aortic stenosis by Doppler. Mitral Valve: Mitral valve is not well visualized. Pulmonic Valve: Pulmonic valve not well visualized. Tricuspid Valve: Normal structure of the tricuspid valve. Normal right ventricular systolicpressure. Tricuspid valve not well visualized. Trivial regurgitation in thetricuspid valve. Pericardium: Normal pericardium with no significant pericardial effusion. Aorta: Aortic root not well visualized. IVC: The IVC is not well visualized. Pulmonary Artery: Pulmonary artery not well visualized. CONCLUSIONS: Reduced left ventricular cavity size. Ejection Fraction is estimated to be>70 %. Normal right ventricular size. Normal right ventricular systolicfunction. Normal pericardium with no significant pericardial effusion. Technically difficult study with seriously limited visualization. Optisoncontrast utilized. Valves are not visualized enough to interpret. Suggest LUIS E for optimal assessment of intracardiac anatomy if clinicallyrelevant. Electronically Signed By: Bailee Molina MD 12/21/2024 11:21:05 AM CORE PASTER us Ekisabela Cervantes MD CV ECHO PROCEDURES Mariam l Result * eGFR (12/21/2024 6:10 AM CORE PASTER) eGFR >90 >=60 mL/min/1. 73 m2 Comment: Interpretive Data Reference Interval Normal >/= 90 mL/min/1.73m2 Mildly decreased* 60 - 89 mL/min/1.73m2 Mildly to moderately decreased 45 - 59 mL/min/1.73m2 Moderately to severely decreased 30 - 44 mL/min/1.73m2 Severely decreased 15 - 29 mL/min/1.73m2 Kidney Failure < 15 mL/min/1.73m2 *Relative to young adult level Estimated glomerular filtration rate is determined by the 2020 CKD-EPI equation recommended by the National Kidney Foundation (A Unifying Approach to GFR Estimation: Recommendations of the NKF-ASK Task Force on Reassessing the Inclusion of Race in Diagnosing Kidney Disease, JASN 2020). The CKD-EPI equation should not be used for patients with unstable renal function and has not been validated in children and those over 70. Current interpretive data was last reviewed 2021. Blood 12/21/2024 6:10 AM CORE PASTER 12/21/2024 6:14 AM CORE PASTER us Chago Cervantes MD LAB BLOOD ORDERABLES Fi nal Result [facility] ([facility]) 1 [facility] [place] [address] * (ABNORMAL) Differential, auto (12/21/2024 6:10 AM CORE PASTER) Neutrophil abs 5.0 1.5 - 6.5 K/cumm Imm gran abs 0.1 0.0 - 0.1 K/cumm [facility] ([facility]) Lymphocyte abs 0.5(L) 0.8 - 3.3 K/cumm [facility] ([facility]) Monocyte abs 0.1(L) 0.2 - 0.8 K/cumm [facility] ([facility]) Eosinophil abs 0.0 0.0 - 0.5 K/cumm [facility] ([facility]) Basophil abs 0.0 0.0 - 0.1 K/cumm [facility] ([facility]) Neutrophil pct 89.0 % [facility] ([facility]) Comment: Interpretive Data Percent cell count reference ranges are not reported, since discordance with absolute values may lead to misinterpretation of CBC data. Current Interpretive Data was last revised on 2018. Imm gran pct 1.1 % [facility] ([facility]) Comment: Interpretive Data Percent cell count reference ranges are not reported, since discordance with absolute values may lead to misinterpretation of CBC data. Current Interpretive Data was last revised on 2018. Lymphocyte pct 8.1 % [facility] ([facility]) Comment: Interpretive Data Percent cell count reference ranges are not reported, since discordance with absolute values may lead to misinterpretation of CBC data. Current Interpretive Data was last revised on 2018. Monocyte pct 1.4 % [facility] ([facility]) Comment: Interpretive Data Percent cell count reference ranges are not reported, since discordance with absolute values may lead to misinterpretation of CBC data. Current Interpretive Data was last revised on 2018. Eosinophil pct 0.2 % [facility] ([facility]) Comment: Interpretive Data Percent cell count reference ranges are not reported, since discordance with absolute values may lead to misinterpretation of CBC data. Current Interpretive Data was last revised on 2018. Basophil pct 0.2 % [facility] ([facility]) Comment: Interpretive Data Percent cell count reference ranges are not reported, since discordance with absolute values may lead to misinterpretation of CBC data. Current Interpretive Data was last revised on 2018. Blood 12/21/2024 6:10 AM CORE PASTER 12/21/2024 6:14 AM CORE PASTER us Alexei Lambert MD LAB BLOOD ORDERABLES Final Res ult [facility] ([facility]) 1 [facility] [place] [address] * (ABNORMAL) CBC with auto differential (12/21/2024 6:10 AM CORE PASTER) WBC 5.7 3.8 - 9.9 K/cumm Hgb 13.4 13.0 - 17.5 g/dL [facility] ([facility]) Hct 44.6 38.9 - 50.3 % [facility] ([facility]) Plt 158 150 - 400 K/cumm [facility] ([facility]) MPV 10.0 9.1 - 12.3 fL [facility] ([facility]) RBC 4.68 4.30 - 5.80 M/cumm [facility] ([facility]) MCV 95.3 81.3 - 96.4 fL [facility] ([facility]) MCH 28.6 27.1 - 33.3 pg [facility] ([facility]) MCHC 30.0(L) 32.3 - 35.7 g/dL [facility] ([facility]) RDW CV 12.2 11.1 - 14.9 % [facility] ([facility]) RDW SD 43.2 35.7 - 48.1 fL [facility] ([facility]) NRBC abs 0.00 0.00 - 0.01 K/cumm [facility] ([facility]) Blood 12/21/2024 6:10 AM CORE PASTER 12/21/2024 6:14 AM CORE PASTER Chago Cervantes MD LAB BLOOD ORDERABLES Fi nal Result [facility] ([facility]) 1 [place] [address] * Magnesium (12/21/2024 6:10 AM CORE PASTER) Pathologist [facility] Magnesium 2.0 1.4 - 2.5 mg/dL Blood 12/21/2024 6:10 AM CORE PASTER 12/21/2024 6:14 AM CORE PASTER Chago Cervantes MD LAB BLOOD ORDERABLES Fi nal Result Performing Organization Address [facility] de Phone Number [facility] (ANG) 1 [facility] [place] [address] * (ABNORMAL) Comprehensive metabolic panel (12/21/2024 6:10 AM CORE PASTER) Sodium 141 135 - 145 mmol/L Potassium, pl 4.2 3.3 - 4.9 mmol/L [facility] ([facility]) Chloride 91(L) 97 - 110 mmol/L [facility] ([facility]) CO2 35(H) 22 - 32 mmol/L [facility] ([facility]) Anion gap 16(H) 2 - 15 mmol/L [facility] ([facility]) BUN 12 6 - 25 mg/dL [facility] Creatinine 0.56(L) 0.80 - 1.30 mg/dL [facility] ([facility]) Glucose 155 70 - 199 mg/dL [facility] (ANG) Comment: Interpretive Data Fasting glucose >/= 126 mg/dl is diagnostic for diabetes. Fasting is defined as no caloric intake for at least 8 hours. Fasting glucose between 100 mg/dl to 125 mg/dl is diagnostic of prediabetes. In a patient with classic symptoms of hyperglycemia or hyperglycemic crisis, a random glucose >/= 200 mg/dl is diagnostic for diabetes. In the absence of unequivocal hyperglycemia, results should be confirmed by repeat testing. The classification and Diagnosis of Diabetes Diabetes Care 2021; 46: S19-S40. Current interpretive data was last revised 2022. Calcium 9.4 8.5 - 10.3 mg/dL [facility] ([facility]) Bilirubin, total 0.4 0.1 - 1.2 mg/dL [facility] ([facility]) Protein, pl 6.8 6.5 - 8.5 g/dL [facility] ([facility]) Albumin 4.2 3.5 - 5.0 g/dL [facility] ([facility]) Alk phos 84 40 - 130 Units/L [facility] ([facility]) ALT 13 7 - 55 Units/L [facility] ([facility]) AST 15 10 - 50 Units/L [facility] ([facility]) Blood 12/21/2024 6:10 AM CORE PASTER 12/21/2024 6:14 AM CORE PASTER Chago Cervantes MD LAB BLOOD ORDERABLES Fi nal Result Performing Organization Address City/[facility]/ZIP Co de Phone Number [facility] (ANG) 1 [facility] [place] [address] * Thyroid Function Antelope (12/21/2024 12:54 AM CORE PASTER) TSH 0.70 0.30 - 4.20 mcIUnit/mL Blood 12/21/2024 12:5 4 AM CORE PASTER 12/21/2024 12:57 AM CORE PASTER Chago Cervantes MD LAB BLOOD ORDERABLES Fi nal Result Performing Organization Address City/[facility]/ZIP Co de Phone Number [facility] (ANG) 1 [facility] [place] [address] * (ABNORMAL) CBC without differential (12/21/2024 12:54 AM CORE PASTER) WBC 9.3 3.8 - 9.9 K/cumm Hgb 13.0 13.0 - 17.5 g/dL [facility] ([facility]) Hct 43.3 38.9 - 50.3 % [facility] ([facility]) Plt 168 150 - 400 K/cumm [facility] ([facility]) MPV 10.2 9.1 - 12.3 fL [facility] ([facility]) RBC 4.57 4.30 - 5.80 M/cumm [facility] ([facility]) MCV 94.7 81.3 - 96.4 fL [facility] ([facility]) MCH 28.4 27.1 - 33.3 pg [facility] ([facility]) MCHC 30.0(L) 32.3 - 35.7 g/dL [facility] ([facility]) RDW CV 12.1 11.1 - 14.9 % [facility] ([facility]) RDW SD 42.4 35.7 - 48.1 fL [facility] ([facility]) NRBC abs 0.00 0.00 - 0.01 K/cumm [facility] ([facility]) Blood 12/21/2024 12:5 4 AM CORE PASTER 12/21/2024 12:57 AM CORE PASTER Narrative [facility] ([facility]) - 12/21/2024 12:59 AM CORE PASTER Baseline prior to apixaban initiation. us Chago Cervantes MD LAB BLOOD ORDERABLES Fi nal Result Performing Organization Address City/State/[facility] Co de Phone Number [facility] (ANG) 1 [facility] [place] [address] * ECG 12 lead (12/21/2024 12:10 AM CORE PASTER) 12/21/2024 12:1 0 AM CORE PASTER Narrative [facility] - 12/21/2024 6:42 AM CORE PASTER Vent Rate: 83 bpm RR Interval: 717 msec MD Interval: 122 msec QRS Duration: 115 msec QT Interval: 362 msec QTC Interval: 402 msec P-R-T [place]: 80 - 53 - 71 degrees IMPRESSION: SINUS RHYTHM MODERATE INTRAVENTRICULAR CONDUCTION DELAY [110+ ms QRS DURATION] BORDERLINE ECG Compared to prior EKG, heart rate has decreased Sinus rhythm replaced atrial flutter Electronically Signed By: Bryant Cavanaugh MD us Oma Escalona MD ECG ORDERABLES Final Result Performing Organization Address City/State/[facility] Co de Phone Number [facility] * ECG 12 lead (12/20/2024 11:33 PM CORE PASTER) 12/20/2024 11:3 3 PM CORE PASTER Narrative [facility] - 12/21/2024 6:43 AM CORE PASTER Vent Rate: 170 bpm RR Interval: 352 msec MD Interval: 0 msec QRS Duration: 136 msec QT Interval: 267 msec QTC Interval: 359 msec P-R-T [place]: [id number] - -27 - 38 degrees IMPRESSION: ATRIAL flutter WITH RAPID VENTRICULAR RESPONSE BORDERLINE LEFT AXIS DEVIATION [QRS AXIS < -20] INTRAVENTRICULAR CONDUCTION DELAY [130+ ms QRS DURATION] CRITICAL TEST RESULT Compared to prior EKG, heart rate has increased Atrial flutter replaced sinus rhythm Electronically Signed By: Bryant Cavanaugh MD Oma Escalona MD ECG ORDERABLES Final Result Performing Organization Address [facility] de Phone Number [facility] * Influenza A/B, RSV, and COVID-19 PCR Nasopharyngeal (12/20/2024 11:03 PM CORE PASTER) COVID-19 RNA Negative Negative Influenza A RNA Negative Negative [facility] ([facility]) Influenza B RNA Negative Negative [facility] (ANG) RSV RNA Negative Negative [facility] (ANG) Comment: Interpretive data: Testing performed by [facility]. This test is performed using the Craft Dragon Xpert Xpress CoV-2/Flu/RSV plus assay. This is a multiplex, real- time reverse transcriptase PCR assay intended for the qualitative detection of nucleic acid from SARS-CoV-2, influenza A, influenza B, and respiratory syncytial virus. This assay has been cleared by the [place] Food and Drug administration. The performance characteristics have been verified by the [facility]. Results must be considered in the clinical context, and a negative result does not rule out infection. Interpretive Data last revised 2023 Nasopharyngeal 12/20/2024 11 :03 PM CORE PASTER 12/20/2024 11:07 PM CORE PASTER Narrative [facility] ([facility]) - 12/21/2024 12:11 AM CORE PASTER Is the Patient experiencing symptoms consistent with COVID?->Yes us Chago Cervantes MD LAB MICROBIOLOGY - [facility] ORDERABLES Final Result [facility] (ANG) 1 [facility] [place] [address] * (ABNORMAL) Drugs of Abuse Screen, Urine with Reflex Confirmation (12/20/2024 10:47 PM CORE PASTER) Amphetamine, ur Not Detected CutOff 500ng/mL Comment: Interpretive Data - Amphetamines: Samples containing greater than 500 ng/mL d-methamphetamine or other cross-reacting amphetamine compounds are reported as positive. Amphetamine immunoassays are subject to significant false positive rates due to cross-reactivity of non-amphetamine drugs. Confirmatory testing required for definitive results. Current Interpretive Data was last reviewed 2023. Barbiturates, ur Not Detected CutOff 200ng/mL [facility] ([facility]) Comment: Interpretive Data - Barbiturates: Samples containing greater than 200 ng/mL secobarbital or other cross-reacting barbiturate compounds are reported as positive. False positive and false negative results are possible. Confirmatory testing required for definitive results. Current Interpretive Data was last reviewed 2023. Benzodiazepines, ur Screen Positive, presumptive (A) CutOff 100ng/mL [facility] (ANG) Comment: Interpretive Data - Benzodiazepines: Samples containing greater than 100 ng/mL nordiazepam or other cross-reacting compounds are reported as positive. False positive and false negative results are possible. Confirmatory testing required for definitive results. Current Interpretive Data was last reviewed 2023. Cannabinoids, ur Not Detected CutOff 50 ng/mL [facility] (ANG) Comment: Interpretive Data - Cannabinoids: Samples containing greater than 50 ng/mL delta-9 THC -COOH or other cross- reacting compounds are reported as positive. False positive and false negative results are possible. Confirmatory testing required for definitive results. Current Interpretive Data was last reviewed 2023. Cocaine, ur Not Detected CutOff 150ng/mL [facility] (ANG) Comment: Interpretive Data - Cocaine: Samples containing greater than 150 ng/mL benzoylecgonine or other cross- reacting compounds are reported as positive. False positive and false negative results are possible. Confirmatory testing required for definitive results. Current Interpretive Data was last reviewed 2023. Fentanyl, Ur Not Detected CutOff 5 ng/mL [facility] ([facility]) Comment: Interpretive Data - Fentanyl: Samples containing greater than 5 ng/mL norfentanyl, fentanyl, or other cross-reacting fentanyl compounds are reported as positive. False positive and false negative results are possible. Confirmatory testing required for definitive results. Current Interpretive Data was last reviewed 2023. Methadone, ur Not Detected CutOff 300ng/mL [facility] (ANG) Comment: Interpretive Data - Methadone: Samples containing greater than 300 ng/mL d,l-methadone or other cross-reacting compounds are reported as positive. False positive and false negative results are possible. Confirmatory testing required for definitive results. Current Interpretive Data was last reviewed 2023. Opiates, ur Not Detected CutOff 300ng/mL [facility] (ANG) Comment: Interpretive Data - Opiates: Samples containing greater than 300 ng/mL morphine or other cross-reacting compounds are reported as positive. False positive and false negative results are possible. Confirmatory testing required for definitive results. Current Interpretive Data was last reviewed 2023. Oxycodone, ur Not Detected CutOff 100ng/mL [facility] (ANG) Comment: Interpretive Data - Oxycodone: Samples containing greater than 100 ng/mL oxycodone or other cross-reacting compounds are reported as positive. False positive and false negative results are possible. Confirmatory testing required for definitive results. Current Interpretive Data was last reviewed 2023. Phencyclidine, ur Not Detected CutOff 25 ng/mL [facility] ([facility]) Comment: Interpretive Data - Phencyclidine: Samples containing greater than 25 ng/mL phencyclidine or other cross-reacting compounds are reported as positive. False positive and false negative results are possible. Confirmatory testing required for definitive results. Current Interpretive Data was last reviewed 2023. Urine Creatinine 78 mg/dL [facility] (ANG) Comment: Interpretive Data Urine Creatinine: < 10 mg/dL is extremely dilute = or > 10 but < 20 mg/dL is dilute = or > 20 mg/dL is normal Current Interpretive Data was last revised on 2018. Urine 12/20/2024 10:4 7 PM CORE PASTER 12/20/2024 10:50 PM CORE PASTER Narrative [facility]) - 12/20/2024 11:43 PM CORE PASTER Drug of Abuse screening is performed by immunoassay for medical purposes only. This is not to be used for Pain Management purposes. If Detected, confirmation testing will be performed for Amphetamines, Cocaine, Fentanyl, Methadone, Opiates, Oxycodone or Phencyclidine. us Chago Cervantes MD LAB URINE ORDERABLES Fi nal Result [facility] (ANG) 1 [facility] [place] [address] * eGFR (12/20/2024 10:47 PM CORE PASTER) eGFR >90 >=60 mL/min/1. 73 m2 Comment: Interpretive Data Reference Interval Normal >/= 90 mL/min/1.73m2 Mildly decreased* 60 - 89 mL/min/1.73m2 Mildly to moderately decreased 45 - 59 mL/min/1.73m2 Moderately to severely decreased 30 - 44 mL/min/1.73m2 Severely decreased 15 - 29 mL/min/1.73m2 Kidney Failure < 15 mL/min/1.73m2 *Relative to young adult level Estimated glomerular filtration rate is determined by the 2020 CKD-EPI equation recommended by the National Kidney Foundation (A Unifying Approach to GFR Estimation: Recommendations of the NKF-ASK Task Force on Reassessing the Inclusion of Race in Diagnosing Kidney Disease, JASN 2020). The CKD-EPI equation should not be used for patients with unstable renal function and has not been validated in children and those over 70. Current interpretive data was last reviewed 2021. Blood 12/20/2024 10:4 7 PM CORE PASTER 12/21/2024 12:15 AM CORE PASTER Chago Cervantes MD LAB BLOOD ORDERABLES Fi nal Result ANNIE NEVES (ANG) 1 [facility] [place] [address] * (ABNORMAL) Pro B-type natriuretic peptide (12/20/2024 10:47 PM CORE PASTER) NT-proBNP 762(H) <=300 pg/mL Comment: Interpretive Comments: A. Dyspnea in Acute Care Setting All Ages: < 300 pg/ml, acute heart failure unlikely. < 50 yrs: 300 - 450 pg/ml, further investigation warranted. > 450 pg/ml, acute heart failure likely. 50 - 74 yrs: 300 - 900 pg/ml, further investigation warranted. > 900 pg/ml, acute heart failure likely . > or = 75 yrs: 450 - 1800 pg/ml, further investigation warranted. > 1800 pg/ml, acute heart failure likely. B. Non-acute Setting < 75 yrs < 125 pg/ml, rules out heart failure. > or = 125 pg/ml, further investigation warranted. > or = 75 yrs < 450 pg/ml, rules out heart failure. > or = 450 pg/ml, further investigation warranted. - Knowledge of each individual patient's NT-proBNP range may be more useful than using similar cut-points for every patient. Please note that marked elevations in NT-proBNP levels may be observed in state other than Left Ventricular Congestive Failure, including: acute coronary syndromes, right heart strain/failure (including pulmonary embolism and cor pulmonale), critical illness, renal failure, as well as advanced age. - References: 1. May THOMPSON et.al. Eur Heart J. 2006:27:330-337. 2. Vicky RW, Lorne AM. J. AM Sera Cardiol: Cardiovasc Imag. 2009;2: 216- 225. Interpretive Data Last Revised Date: 2018. Blood 12/20/2024 10:4 7 PM CORE PASTER 12/20/2024 10:52 PM CORE PASTER us Chago Cervantes MD LAB BLOOD ORDERABLES Fi nal Result ANNIE [facility] (GRADY) 1 [facility] [place] [address] * (ABNORMAL) Urinalysis reflex to microscopic and culture Urine (12/20/2024 10:47 PM CORE PASTER) Color, ur Yellow Yellow Clarity, ur Clear Clear [facility] (ANG) Specific gravity, ur 1.013 1.003 - 1.030 [facility] (ANG) pH, urine 6.0 [facility] (ANG) Comment: Interpretive Data U rine pH is affected by diet, medications, systemic acid-base disturbances, and renal tubular function. pH may affect urinary stone formation. For example, urine pH below 6.0 may help reduce the tendency for calcium phosphate stones and pH greater than 6.0 may reduce the tendency for uric acid stone formation. Source: [facility] Current Interpretive Data was last revised on 2017 Protein, ur ql 1+(A) Negative [facility] (ANG) Glucose, ur ql Negative Negative [facility] (ANG) Ketones, ur 3+(A) Negative [facility] (ANG) Bilirubin, ur Negative Negative [facility] (ANG) Blood, ur Trace(A) Negative [facility] (ANG) Urobilinogen, ur <2.0 <2.0 mg/dL [facility] (ANG) Nitrite, ur Negative Negative [facility] (ANG) Leukocyte esterase, ur Negative Negative [facility] (ANG) UA reflex comment Reflex to microscopic UA will be performed. [facility] (ANG) Urine 12/20/2024 10:4 7 PM CORE PASTER 12/20/2024 10:51 PM CORE PASTER us Chago Cervantes MD LAB MICROBIOLOGY - [facility] ORDERABLES Final Result ANNIE [facility] (ANG) 1 [facility] [place] [address] * (ABNORMAL) Urinalysis, microscopic only (12/20/2024 10:47 PM CORE PASTER) WBC, ur 0-5 0 - 5 /HPF RBC, ur 0-2 0 - 2 /HPF [facility] (ANG) Mucous, ur Present(A) [facility] (ANG) Hyaline casts, ur 1-5 0 - 10 /LPF ANNIE NEVES (ANG) Culture Reflex Comment Reflex conditions for urine culture (WBC >10) not met. ANNIE NEVES (ANG) Urine 12/20/2024 10:4 7 PM CORE PASTER 12/20/2024 10:51 PM CORE PASTER Chago Cervantes MD LAB URINE ORDERABLES Fi nal Result Performing Organization Address City/[facility]/ZIP Co de Phone Number ANNIE NEVES (ANG) 1 [facility] [place] [address] * Protime-INR (12/20/2024 10:47 PM CORE PASTER) PT 10.7 9.7 - 13.0 sec ANNIE NEVES (ANG) INR 0.99 0.90 - 1.20 ANNIE NEVES (ANG) Comment: Interpretive data Oral anticoagulant therapeutic ranges: Venous thromboembolism prophylaxis or treatment: 2.0-3.0 CARDIOLOGY Standard range: 2.0-3.0 High-intensity range: 2.5-3.5 Refer to indication-specific guidelines for appropriate target ranges for prosthetic heart valve replacement. Current interpretive data was last revised on 2019. Blood 12/20/2024 10:4 7 PM CORE PASTER 12/20/2024 11:52 PM CORE PASTER Narrative ANNIE NEVES (ANG) - 12/20/2024 11:56 PM CORE PASTER Baseline prior to apixaban initiation. Chago Cervantes MD LAB BLOOD ORDERABLES Fi nal Result Performing Organization Address City/[facility]/ZIP Co de Phone Number ANNIE PURA (ANG) 1 [facility] [place] [address] * (ABNORMAL) D-dimer, quantitative (12/20/2024 10:47 PM CORE PASTER) D-Dimer 851(H) <=499 ng/mL FEU ANNIE NEVES (ANG) Comment: Interpretive data FDA approved the D-dimer, in conjunction with a low or moderate pretest probability score, to exclude venous thromboembolic events (VTE) (PE and DVT) in outpatients when the D-dimer result is < 500 ng/ml FEU. Evidence supports using an age-adjusted D-dimer cut-off for outpatients older than 50 (age x 10) to improve specificity without sacrificing sensitivity. Example: age 68, VTE cut-off 680 ng/ml FEU. References; Jeana HT et al. Brit Med J. 2013;346:f2492. Cornell et al. Annals Int Med. 2015;163:701-11. Current interpretive data was last revised on 2019. Blood 12/20/2024 10:4 7 PM CORE PASTER 12/20/2024 10:52 PM CORE PASTER Chago Cervantes MD LAB BLOOD ORDERABLES Fi nal Result Performing Organization Address [facility] Co de Phone Number ANNIE NEVES (GRADY) 1 [facility] [place] [address] * (ABNORMAL) Blood gas, venous (12/20/2024 10:47 PM CORE PASTER) pH, Venous 7.32 7.32 - 7.43 PCO2, Venous 91(C) 40 - 50 mmHg [facility]IE [facility] (ANG) Comment:Critical result call ed to and read back by billy hawkins (er) on 12/20/2024 23:09:00 CORE PASTER to kavya wilkinson. PO2, Venous 46 mmHg [facility] (ANG) HCO3 Venous, Calculated 45(H) 20 - 30 mmol/L [facility] (ANG) BE, venous 15 mmol/L [facility] (ANG) Comment: Interpretive Data No Reference Range Established Current Interpretive Data was last revised on 2018. Blood 12/20/2024 10:4 7 PM CORE PASTER 12/20/2024 10:52 PM CORE PASTER Chago Cervantes MD LAB BLOOD ORDERABLES Fi nal Result Performing Organization Address [facility]/ZIP Co de Phone Number ANNIE NEVES (GRADY) 1 [facility] [place] [address] * (ABNORMAL) Creatinine (12/20/2024 10:47 PM CORE PASTER) Creatinine 0.61(L) 0.80 - 1.30 mg/dL Blood 12/20/2024 10:4 7 PM CORE PASTER 12/21/2024 12:15 AM CORE PASTER Narrative [facility] (ANG) - 12/21/2024 12:33 AM CORE PASTER Baseline prior to apixaban initiation. Chago Cervantes MD LAB BLOOD ORDERABLES Fi nal Result ANNIE NEVES (ANG) [address] [place] [address] [place] [address] * Hepatic function panel (12/20/2024 10:47 PM CORE PASTER) Bilirubin, total 0.4 0.1 - 1.2 mg/dL Bilirubin, direct <0.1 0.1 - 0.3 mg/dL [facility] (ANG) Protein, pl 6.7 6.5 - 8.5 g/dL [facility] (ANG) Albumin 4.0 3.5 - 5.0 g/dL [facility] (ANG) Alk phos 82 40 - 130 Units/L [facility] (ANG) ALT 12 7 - 55 Units/L [facility] (ANG) AST 21 10 - 50 Units/L [facility] (ANG) Blood 12/20/2024 10:4 7 PM CORE PASTER 12/21/2024 12:15 AM CORE PASTER Narrative [facility] (ANG) - 12/21/2024 12:33 AM CORE PASTER Baseline prior to apixaban initiation. Chago Cervantes MD LAB BLOOD ORDERABLES Fi nal Result ANNIE NEVES (ANG) 1 [facility] [place] [address] * (ABNORMAL) Troponin T high-sensitivity 4-hour (12/20/2024 7:04 PM CORE PASTER) Trop T hs 32(H) <=22 ng/L Comment: Interpretive Data For further hscTnT resources including the diagnostic algorithm and an aid in interpretation, copy and paste this link: https://nrl.testcatWayger.org/show/hsTrop Current Interpretive Data last revised 2020. Trop T hs delta 0 ng/L [facility] (ANG) Trop T hs interp Insignificant [facility] (ANG) Blood 12/20/2024 7:04 PM CORE PASTER 12/20/2024 7:06 PM CORE PASTER Alexei Lambert MD LAB BLOOD ORDERABLES Final Res ult Performing Organization Address City/[facility]/ZIP Co de Phone Number [facility] (ANG) 1 [facility] [place] [address] * (ABNORMAL) Troponin T high-sensitivity 2-hour (12/20/2024 4:57 PM CORE PASTER) Pathologist [facility] Trop T hs 38(H) <=22 ng/L Comment: Interpretive Data For further hscTnT resources including the diagnostic algorithm and an aid in interpretation, copy and paste this link: https://nrl.[employer]org/show/hsTrop Current Interpretive Data last revised 2020. Trop T hs delta 6 ng/L [facility] (ANG) Trop T hs interp Equivocal [facility] (ANG) Blood 12/20/2024 4:57 PM CORE PASTER 12/20/2024 5:05 PM CORE PASTER Alexei Lambert MD LAB BLOOD ORDERABLES Final Res ult [facility] (ANG) 1 [facility] [place] [address] * CT Head WO Contrast (12/20/2024 4:53 PM CORE PASTER) Anatomical Region Laterality Modality Head and Neck N/A Computed Tomogra phy 12/20/2024 4:55 PM CORE PASTER Narrative 12/20/2024 4:56 PM CORE PASTER EXAM DESCRIPTION: CT HEAD WO CONTRAST REASON FOR STUDY: Memory Loss Pt to Ed via EMS from home with complaint of rapid heart rate (178bpm) Copd, very short of breath confused TECHNIQUE: Axial images acquired through the brain without intravenous contrast. Images stored on PACS. Automated exposure control was used as a dose optimization technique for this examination. COMPARISON: None FINDINGS: BRAIN: No hemorrhage, edema or mass effect. No recent infarct. Patchy hypodensity of the cerebral white matter suggests chronic small-vessel ischemic changes. Diffuse atrophy of the brain is noted. EXTRA-AXIAL SPACES: No fluid collections. No masses. CALVARIUM: No fracture. SINUSES/MASTOIDS: No fluid or mucosal thickening. ORBITS: No significant abnormality. OTHER: No other significant abnormality. IMPRESSION: No acute intracranial findings. THIS IS AN ELECTRONICALLY VERIFIED FINAL REPORT 12/20/2024 4:56 PM - Electronically signed by Talha Landa M.D. KH: SARAHI Report ID: [id number] Reading Location: [place] [address] Procedure Note Talha Landa MD - 12/20/2024 EXAM DESCRIPTION: CT HEAD WO CONTRAST REASON FOR STUDY: Memory Loss Pt to Ed via EMS from home with complaint of rapid heart rate (178bpm) Copd, very short of breath confused TECHNIQUE: Axial images acquired through the brain without intravenous contrast. Images stored on PACS. Automated exposure control was used asa dose optimization technique for this examination. COMPARISON: None FINDINGS: BRAIN: No hemorrhage, edema or mass effect. No recent infarct.Patchy hypodensity of the cerebral white matter suggests chronic small-vessel ischemic changes. Diffuse atrophy of the brain is noted. EXTRA-AXIAL SPACES: No fluid collections. No masses. CALVARIUM: No fracture. SINUSES/MASTOIDS: No fluid or mucosal thickening. ORBITS: No significant abnormality. OTHER: No other significant abnormality. IMPRESSION: No acute intracranial findings. THIS IS AN ELECTRONICALLY VERIFIED FINAL REPORT 12/20/2024 4:56 PM - Electronically signed by Talha MCCLAIN: SARAHI Report ID: [id number] Reading Location: [id number] Alexei Lambert MD IMG CT PROCEDURES Final Result * (ABNORMAL) Troponin T high-sensitivity series (baseline, 2hr, 4hr, 6hr) (12/20/2024 3:03 PM CORE PASTER) Trop T hs 32(H) <=22 ng/L Comment: Interpretive Data For further hscTnT resources including the diagnostic algorithm and an aid in interpretation, copy and paste this link: https://nrl.testcatalog.org/show/hsTrop Current Interpretive Data last revised 2020. Blood 12/20/2024 3:03 PM CORE PASTER 12/20/2024 3:07 PM CORE PASTER Alexei Lambert MD LAB BLOOD ORDERABLES Final Res ult [facility]IE [facility] GRADY 1 [facility] [place] [address] * eGFR (12/20/2024 3:03 PM CORE PASTER) eGFR >90 >=60 mL/min/1. 73 m2 Comment: Interpretive Data Reference Interval Normal >/= 90 mL/min/1.73m2 Mildly decreased* 60 - 89 mL/min/1.73m2 Mildly to moderately decreased 45 - 59 mL/min/1.73m2 Moderately to severely decreased 30 - 44 mL/min/1.73m2 Severely decreased 15 - 29 mL/min/1.73m2 Kidney Failure < 15 mL/min/1.73m2 *Relative to young adult level Estimated glomerular filtration rate is determined by the 2020 CKD-EPI equation recommended by the National Kidney Foundation (A Unifying Approach to GFR Estimation: Recommendations of the NKF-ASK Task Force on Reassessing the Inclusion of Race in Diagnosing Kidney Disease, JASN 202). The CKD-EPI equation should not be used for patients with unstable renal function and has not been validated in children and those over 70. Current interpretive data was last reviewed 2021. Blood 12/20/2024 3:03 PM CORE PASTER 12/20/2024 3:07 PM CORE PASTER us Alexei Lambert MD LAB BLOOD ORDERABLES Final Res ult [facility] (GRADY) 1 [facility] [place] [address] * (ABNORMAL) Differential, auto (12/20/2024 3:03 PM CORE PASTER) Neutrophil abs 8.0(H) 1.5 - 6.5 K/cumm Imm gran abs 0.1 0.0 - 0.1 K/cumm [facility] (ANG) Lymphocyte abs 1.1 0.8 - 3.3 K/cumm [facility] (ANG) Monocyte abs 0.5 0.2 - 0.8 K/cumm [facility] (ANG) Eosinophil abs 0.0 0.0 - 0.5 K/cumm [facility] (ANG) Basophil abs 0.0 0.0 - 0.1 K/cumm [facility] (ANG) Neutrophil pct 82.3 % [facility] (ANG) Comment: Interpretive Data Percent cell count reference ranges are not reported, since discordance with absolute values may lead to misinterpretation of CBC data. Current Interpretive Data was last revised on 2018. Imm gran pct 0.7 % [facility] (ANG) Comment: Interpretive Data Percent cell count reference ranges are not reported, since discordance with absolute values may lead to misinterpretation of CBC data. Current Interpretive Data was last revised on 2018. Lymphocyte pct 10.9 % [facility] (ANG) Comment: Interpretive Data Percent cell count reference ranges are not reported, since discordance with absolute values may lead to misinterpretation of CBC data. Current Interpretive Data was last revised on 2018. Monocyte pct 5.3 % [facility] (ANG) Comment: Interpretive Data Percent cell count reference ranges are not reported, since discordance with absolute values may lead to misinterpretation of CBC data. Current Interpretive Data was last revised on 2018. Eosinophil pct 0.4 % [facility] (ANG) Comment: Interpretive Data Percent cell count reference ranges are not reported, since discordance with absolute values may lead to misinterpretation of CBC data. Current Interpretive Data was last revised on 2018. Basophil pct 0.4 % [facility] (ANG) Comment: Interpretive Data Percent cell count reference ranges are not reported, since discordance with absolute values may lead to misinterpretation of CBC data. Current Interpretive Data was last revised on 2018. Blood 12/20/2024 3:03 PM CORE PASTER 12/20/2024 3:07 PM CORE PASTER us Alexei Lambert MD LAB BLOOD ORDERABLES Final Res ult [facility] (ANG) 1 [facility] [place] [address] * (ABNORMAL) CBC with auto differential (12/20/2024 3:03 PM CORE PASTER) WBC 9.8 3.8 - 9.9 K/cumm Hgb 12.7(L) 13.0 - 17.5 g/dL [facility] (ANG) Hct 43.2 38.9 - 50.3 % [facility] (ANG) Plt 163 150 - 400 K/cumm [facility] (ANG) MPV 10.6 9.1 - 12.3 fL [facility] (ANG) RBC 4.46 4.30 - 5.80 M/cumm [facility] (ANG) MCV 96.9(H) 81.3 - 96.4 fL [facility] (ANG) MCH 28.5 27.1 - 33.3 pg [facility] (ANG) MCHC 29.4(L) 32.3 - 35.7 g/dL [facility] (ANG) RDW CV 12.0 11.1 - 14.9 % [facility] (ANG) RDW SD 42.9 35.7 - 48.1 fL [facility] (ANG) NRBC abs 0.00 0.00 - 0.01 K/cumm [facility] (ANG) Blood 12/20/2024 3:03 PM CORE PASTER 12/20/2024 3:07 PM CORE PASTER us Alexei Lambert MD LAB BLOOD ORDERABLES Final Res ult [facility]IE [facility] (ANG) 1 [facility] [place] [address] * (ABNORMAL) Comprehensive metabolic panel (12/20/2024 3:03 PM CORE PASTER) Sodium 138 135 - 145 mmol/L Potassium, pl 4.1 3.3 - 4.9 mmol/L [facility] (ANG) Chloride 88(L) 97 - 110 mmol/L [facility] (ANG) CO2 36(H) 22 - 32 mmol/L [facility] (ANG) Anion gap 14 2 - 15 mmol/L [facility] (ANG) BUN 14 6 - 25 mg/dL [facility] (ANG) Creatinine 0.67(L) 0.80 - 1.30 mg/dL [facility] (ANG) Glucose 122 70 - 199 mg/dL [facility] (ANG) Comment: Interpretive Data Fasting glucose >/= 126 mg/dl is diagnostic for diabetes. Fasting is defined as no caloric intake for at least 8 hours. Fasting glucose between 100 mg/dl to 125 mg/dl is diagnostic of prediabetes. In a patient with classic symptoms of hyperglycemia or hyperglycemic crisis, a random glucose >/= 200 mg/dl is diagnostic for diabetes. In the absence of unequivocal hyperglycemia, results should be confirmed by repeat testing. The classification and Diagnosis of Diabetes Diabetes Care 2021; 46: S19-S40. Current interpretive data was last revised 2022. Calcium 8.5 8.5 - 10.3 mg/dL [facility] (ANG) Bilirubin, total 0.5 0.1 - 1.2 mg/dL [facility] (ANG) Protein, pl 6.2(L) 6.5 - 8.5 g/dL [facility] (ANG) Albumin 4.1 3.5 - 5.0 g/dL [facility] (ANG) Alk phos 84 40 - 130 Units/L [facility] (ANG) ALT 14 7 - 55 Units/L [facility] (ANG) AST 16 10 - 50 Units/L [facility] (ANG) Comment:Slightly Hemolyzed S pecimen Blood 12/20/2024 3:03 PM CORE PASTER 12/20/2024 3:07 PM CORE PASTER us Alexei Lambert MD LAB BLOOD ORDERABLES Final Res ult [facility]IE [facility] (ANG) 1 [facility] [place] [address] * XR Chest 1 Vw Portable (12/20/2024 3:02 PM CORE PASTER) Anatomical Region Laterality Modality Body, Chest N/A Computed Radiogr aphy 12/20/2024 3:08 PM CORE PASTER Narrative 12/20/2024 3:09 PM CORE PASTER EXAM DESCRIPTION: XR CHEST 1 VIEW REASON FOR STUDY: Other (type) Pt to Ed via EMS from home with complaint of rapid heart rate (178bpm). Pt treated with Adenosine 6mg and 12mg [employer]. Pt Given Versed 2mg and Cardioverted [employer]. Pt alert and oriented x4 VSS upon arrival. TECHNIQUE: Single frontal radiographic view(s) of the chest. COMPARISON: None FINDINGS: There is cardiomegaly. There is mild prominence of the pulmonary vasculature. There are patchy bibasilar airspace opacities. There is suggestion of a small left pleural effusion. There is no definite evidence of a pneumothorax. There are postsurgical changes noted involving the left lung. The osseous structures are acutely grossly unremarkable. IMPRESSION: Cardiomegaly with mild prominence of pulmonary vasculature and suggestion of a small left pleural effusion. Patchy bibasilar airspace opacities, which may be related to subsegmental atelectasis/scarring versus developing airspace disease. THIS IS AN ELECTRONICALLY VERIFIED FINAL REPORT 12/20/2024 3:09 PM - Electronically signed by Lucrecia Fink D.O. PS: PS Report ID: [id number] Reading Location: [id number] Procedure Note Lucrecia Fink, DO - 12/20/2024 EXAM DESCRIPTION: XR CHEST 1 VIEW REASON FOR STUDY: Other (type) Pt to Ed via EMS from home with complaint of rapid heart rate (178bpm). Pt treated with Adenosine 6mg and 12mg [employer]. Pt Given Versed 2mg andCardioverted [employer]. Pt alert and oriented x4 VSS upon arrival. TECHNIQUE: Single frontal radiographic view(s) of the chest. COMPARISON: None FINDINGS: There is cardiomegaly. There is mild prominence of the pulmonaryvasculature. There are patchy bibasilar airspace opacities. There is suggestion of a small left pleural effusion. There is no definite evidence of apneumothorax. There are postsurgical changes noted involving the left lung. The osseous structures are acutely grossly unremarkable. IMPRESSION: Cardiomegaly with mild prominence of pulmonary vasculature and suggestionof a small left pleural effusion. Patchy bibasilar airspace opacities, which may be related to subsegmental atelectasis/scarring versus developing airspace disease. THIS IS AN ELECTRONICALLY VERIFIED FINAL REPORT 12/20/2024 3:09 PM - Electronically signed by Lucrecia Fink D.O. PS: PS Report ID: [id number] Reading Location: [id number] Alexei Lambert MD IMG XR PROCEDURES Final Result * ECG 12 lead (12/20/2024 2:51 PM CORE PASTER) 12/20/2024 2:51 PM CORE PASTER Narrative [facility] - 12/21/2024 6:43 AM CORE PASTER Vent Rate: 105 bpm RR Interval: 570 msec MD Interval: 128 msec QRS Duration: 96 msec QT Interval: 340 msec QTC Interval: 401 msec P-R-T [place]: 79 - 14 - 64 degrees IMPRESSION: SINUS TACHYCARDIA POSSIBLE LEFT ATRIAL ENLARGEMENT [-0.1mV P-WAVE IN V1/V2] ABNORMAL RHYTHM ECG Compared to prior EKG, heart rate has decreased Sinus rhythm replaced atrial flutter Electronically Signed By: Bryant Cavanaugh MD Alexei Lambert MD ECG ORDERABLES Final Result [facility] from Last 3 Months Insurance [employer] [facility] MED[facility] Address: [facility] [address] [place] [address] [employer] [facility] [employer] Address: [address] [address] [place] [address] Advance Directives For more information, please contact: [phone] * Full Code (Latest Code Status on File) Date Activated Date Inactivated Comments 12/20/2024 5:33 PM 12/23/2024 5:54 PM Care Teams High Pressure Firer Relationship Specialty Start Date End Date No, Physician PCP - General 08/18/24 Manny Martines MD 08/18/24 Fariba Lozoya MD [address] [place] [address] DR RIVERA [address] [place] [address] Consulting Physician Sleep Medicine 12/23/24
--- OUTSIDE RECORDS SUMMARY | 2025-01-10 16:02 | XMS_ITS | Clinical Summary ---
Author Organization [facility] Address [address] [place] [id number] Care Team Providers Care Steel Estimator Name Role Phone No, Physician Primary Care Provider [phone] Manny Martines MD Unavailable [phone] Fariba Lozoya MD Unavailable Allergies No known active allergies Medications albuterol [...] mg total) by mouth daily 30 tablet 11 01/06/20 25 026 Active apixaban (ELIQUIS) 5 mg tabletIndication s:atrial fibrillation Take 1 tablet (5 mg total) by mouth every 12 (twelve) hours 60 tablet 12/23/19 026 Active atorvastatin (LIPITOR) 40 mg tablet Take 1 tablet (40 mg total) by mouth daily 30 tablet 12/24/19 026 Active dilTIAZem XR (CARDIZEM CD,DILACOR XR) 240 mg 24 hr capsule Take 1 capsule (240 mg total) by mouth daily 30 capsule 12/24/19 026 Active methylPREDNISolo ne (MEDROL DOSEPACK) 4 mg Dosepack follow package directions 21 tablet 12/24/19 25 Active cefdinir (OMNICEF) 300 mg capsule Take 1 capsule (300 mg total) by mouth 2 (two) times a day for 2 days 4 capsule 12/23/19 025 Active Problems Problem Noted Date Diagnosed Date Disorientation 12/20/2024 Chronic obstructive pulmonary disease 10/21/2015 Overview (02/21/2017): COPD Encounters Date Type Department Care Team Description 12/20/2024 2:47 PM BATTING MACHINE OPERATOR - 12/23/2024 1:49 PM BATTING MACHINE OPERATOR Hospital Encounter [facility] [address] [id number] Alexei Lambert MD Sargsyan, Narine, MD Masetti, Paolo, MD Nations, Sixto Malik, Disorientation (Primary Dx); Tachycardia; Acute respiratory failure with hypercapnia (CMS/HCC) ([facility]) Discharge Disposition: Discharge to home or self care 12/20/2024 2:30 PM BATTING MACHINE OPERATOR - 12/20/2024 11:59 PM BATTING MACHINE OPERATOR Hospital Encounter [facility] Emergency, Room R Discharge Disposition: Discharge to home or self care 12/13/2024 5:09 AM BATTING MACHINE OPERATOR - 12/13/2024 11:59 PM BATTING MACHINE OPERATOR Hospital Encounter [facility] Emergency, Room R Discharge Disposition: Discharge to home or self care from Last 3 Months Medical History Medical History Date Comments Hx Other Medical Hypertension Hx Other Medical Hearing impairm ent Family History Medical History Relation Name Comments Other Other 1 Family history of Hypertension father; Other Other 2 Family history of Asthma father; Other Other 3 Family history of COPD father; Other Other 4 Family history of Cancer father; Relation Name Status Comments Other 1 Other 2 Other 3 Other 4 Social History Tobacco Use Types Packs/Day Years Used Date Smoking Tobacco: Never Smokeless Tobacco: Never Tobacco Cessation:Counseling Given: Not Answered [facility] Utilities Answer Date Recorded In the past 12 months has th e electric, gas, oil, or water company [...] Never 12/22/2024 How often do you attend rastafari or rastafarian serv ices? Never 12/22/2024 Do you belong to any clubs o r organizations such as rastafari groups, unions, fraternal or athletic groups, or [...] any time in the past 12 m [facility], were you homeless or living in a prison (including now)? No 12/22/2024 Personal Safety Answer [...] on file Sexual Orientation Not on file Obstetrics History Last Filed Vital Signs Vital Sign Reading Time Taken Comments Blood Pressure 139/77 12/23/2024 7:10 AM BATTING MACHINE OPERATOR Pulse 63 12/23/2024 7:50 AM BATTING MACHINE OPERATOR Temperature 36.4 C (97.5 F) 12/23/2024 7:10 AM BATTING MACHINE OPERATOR Respiratory Rate 18 12/23/2024 7:10 AM BATTING MACHINE OPERATOR Oxygen Saturation 100% 12/23/2024 7:40 AM BATTING MACHINE OPERATOR Inhaled Oxygen Concentration - - Weight 85.3 kg (188 lb) 12/22/2024 4:08 PM BATTING MACHINE OPERATOR Height 185.4 cm (6' 1 ) 12/22/2024 4:08 PM BATTING MACHINE OPERATOR Body Mass Index 24.8 12/22/2024 4:08 PM BATTING MACHINE OPERATOR Plan of Treatment Health Maintenance Due Date Last Done Comments Colon Cancer Screening-Colonoscopy 1955 Depression Screening 1955 Hepatitis C Screening 1955 Hepatitis B Screening 1972 Pneumococcal vaccine 65+ (2 of 2 - PCV) 11/13/2016 11/13/2015 Zoster Vaccine (2 of 3) 12/10/2016 10/15/2016 Well Visit 65+ 2019 Covid-19 Vaccine (3 - 2023-2 5 season) 2024 04/11/2021, 03/14/2021 Influenza Vaccine (#1) 2024 7, 10/15/2016, 10/05/2015, Additional history exists DTaP/Tdap/Td Vaccine (2 - Td or Tdap) 10/05/2025 10/05/2015 Fall Risk Assessment 12/23/2025 12/23/2024 Procedures Procedure Name Priority Date/Time Associated Diagnosis Comments POCT GLUCOSE DEVICE Routine 12/23/2024 1 2:04 PM BATTING MACHINE OPERATOR POCT GLUCOSE DEVICE Routine 12/23/2024 8 :00 AM BATTING MACHINE OPERATOR [facility]/INJURED PATIENT INIT 30-74 MIN Routine 12/23/2024 2:34 AM BATTING MACHINE OPERATOR POCT GLUCOSE DEVICE Routine 12/23/2024 2:25 AM BATTING MACHINE OPERATOR EGFR Routine 12/23/2024 1:39 AM BATTING MACHINE OPERATOR COMPREHENSIVE METABOLIC PANEL Routine 12/23/2024 1:39 AM BATTING MACHINE OPERATOR POCT GLUCOSE DEVICE Routine 12/22/2024 8 :09 PM BATTING MACHINE OPERATOR POCT GLUCOSE DEVICE Routine 12/22/2024 4 :43 PM BATTING MACHINE OPERATOR POCT GLUCOSE DEVICE Routine 12/22/2024 1 2:05 PM BATTING MACHINE OPERATOR CT CHEST PE W CONTRAST IP Routine 12/22/2024 11:56 AM BATTING MACHINE OPERATOR POCT GLUCOSE DEVICE Routine 12/22/2024 8 :14 AM BATTING MACHINE OPERATOR EGFR Routine 12/22/2024 4:55 AM BATTING MACHINE OPERATOR MAGNESIUM Routine 12/22/2024 4:55 AM BATTING MACHINE OPERATOR COMPREHENSIVE METABOLIC PANEL Routine 12/22/2024 4:55 AM BATTING MACHINE OPERATOR POCT GLUCOSE DEVICE Routine 12/21/2024 8 :52 PM BATTING MACHINE OPERATOR INFECTION PREVENTION MRSA ONLY (STAPHYLOCOCCUS AUREUS) PCR Routine 12/21/2024 6:09 PM BATTING MACHINE OPERATOR TRANSTHORACIC ECHO (TTE) COMPLETE W DOPPLER/CF W CONTRAST Routine 12/21/2024 10:06 AM BATTING MACHINE OPERATOR EGFR Routine 12/21/2024 6:10 AM BATTING MACHINE OPERATOR DIFFERENTIAL AUTO Routine 12/21/2024 6:1 0 AM BATTING MACHINE OPERATOR MAGNESIUM Routine 12/21/2024 6:10 AM BATTING MACHINE OPERATOR COMPREHENSIVE METABOLIC PANEL Routine 12/21/2024 6:10 AM BATTING MACHINE OPERATOR CBC WITH AUTO DIFFERENTIAL Routine 12/21/2024 6:10 AM BATTING MACHINE OPERATOR CBC WITHOUT DIFFERENTIAL STAT 12/21/2024 12:54 AM BATTING MACHINE OPERATOR THYROID FUNCTION CASCADE Routine 12/21/2024 12:54 AM BATTING MACHINE OPERATOR ECG 12-LEAD Routine 12/21/2024 12:10 AM BATTING MACHINE OPERATOR ECG 12-LEAD Routine 12/20/2024 11:33 PM BATTING MACHINE OPERATOR INFLUENZA A/B, RSV, AND COVID-19 PCR Routine 12/20/2024 11:03 PM BATTING MACHINE OPERATOR EGFR STAT 12/20/2024 10:47 PM BATTING MACHINE OPERATOR CREATININE STAT 12/20/2024 10:47 PM BATTING MACHINE OPERATOR HEPATIC FUNCTION PANEL STAT 12/20/2024 10:47 PM BATTING MACHINE OPERATOR PROTIME-INR STAT 12/20/2024 10:47 PM BATTING MACHINE OPERATOR URINALYSIS, MICROSCOPIC ONLY STAT 12/20/2024 10:47 PM BATTING MACHINE OPERATOR DRUGS OF ABUSE SCREEN, URINE WITH REFLEX CONFIRMATION Routine 12/20/2024 10:47 PM BATTING MACHINE OPERATOR PRO B-TYPE NATRIURETIC PEPTIDE STAT 12/20/2024 10:47 PM BATTING MACHINE OPERATOR BLOOD GAS, VENOUS STAT 12/20/2024 10: 47 PM BATTING MACHINE OPERATOR D-DIMER, QUANTITATIVE Routine 12/20/2024 10:47 PM BATTING MACHINE OPERATOR URINALYSIS AND REFLEX TO MICROSCOPIC AND CULTURE STAT 12/20/2024 10:47 PM BATTING MACHINE OPERATOR TROPONIN T HIGH-SENSITIVITY 4-HR Timed 12/20/2024 7:04 PM BATTING MACHINE OPERATOR TROPONIN T HIGH-SENSITIVITY 2-HOUR Timed 12/20/2024 4:57 PM BATTING MACHINE OPERATOR CT HEAD WO CONTRAST ED 12/20/2024 4 :53 PM BATTING MACHINE OPERATOR EGFR STAT 12/20/2024 3:03 PM BATTING MACHINE OPERATOR DIFFERENTIAL AUTO STAT 12/20/2024 3:0 3 PM BATTING MACHINE OPERATOR TROPONIN T HIGH-SENSITIVITY SERIES (BASELINE, 2HR, 4HR, 6HR) STAT 12/20/2024 3:03 PM BATTING MACHINE OPERATOR COMPREHENSIVE METABOLIC PANEL STAT 12/20/2024 3:03 PM BATTING MACHINE OPERATOR CBC WITH AUTO DIFFERENTIAL STAT 12/20/2024 3:03 PM BATTING MACHINE OPERATOR XR CHEST 1 VIEW ED 12/20/2024 3:02 PM BATTING MACHINE OPERATOR ECG 12-LEAD Routine 12/20/2024 2:51 PM BATTING MACHINE OPERATOR from Last 3 Months Results * POCT glucose (12/23/2024 12:04 PM BATTING MACHINE OPERATOR) Glucose, POC 89 70 - 199 mg/dL Blood 12/23/2024 12:0 4 PM BATTING MACHINE OPERATOR 12/23/2024 12:04 PM BATTING MACHINE OPERATOR us Oma Escalona MD LAB POCT ORDERABLES - DEVICE Final Result ANNIE NEVES (ELY) 1 [facility] Department [place] [address] * POCT glucose (12/23/2024 8:00 AM BATTING MACHINE OPERATOR) Glucose, POC 135 70 - 199 mg/dL Blood 12/23/2024 8:00 AM BATTING MACHINE OPERATOR 12/23/2024 8:00 AM BATTING MACHINE OPERATOR Oma Escalona MD LAB POCT ORDERABLES - DEVICE Final Result ANNIE NEVES (ELY) 1 [facility] [place] [address] * [facility]/INJURED PATIENT INIT 30-74 MIN (12/23/2024 2:34 AM BATTING MACHINE OPERATOR) Narrative Alexei Lambert MD - 12/23/2024 2:34 AM BATTING MACHINE OPERATOR Alexei Lambert MD 12/23/2024 2:34 AM Critical [...] and reviewed test results and/or imaging studies. us Alexei Lambert MD IN CLINIC/BEDSIDE ORDERABLES F inal Result * POCT glucose (12/23/2024 2:25 AM BATTING MACHINE OPERATOR) Glucose, POC 142 70 - 199 mg/dL Blood 12/23/2024 2:25 AM BATTING MACHINE OPERATOR 12/23/2024 2:25 AM BATTING MACHINE OPERATOR Sixto Malik [facility] LAB POCT ORDERABLES - DEVICE Final Result Performing Organization Address City/[facility]/ZIP Co de Phone Number ANNIE NEVES (ANG) 1 [facility] Department [place] [address] * eGFR (12/23/2024 1:39 AM BATTING MACHINE OPERATOR) eGFR 72 >=60 mL/min/1. 73 m2 Comment: [...] last reviewed 2021. Blood 12/23/2024 1:39 AM BATTING MACHINE OPERATOR 12/23/2024 3:04 AM BATTING MACHINE OPERATOR us Chago Cervantes MD LAB BLOOD ORDERABLES Fi nal Result Performing Organization Address City/[facility]/ZIP Co de Phone Number ANNIE N[facility]ES (ANG) 1 [facility] Department [place] [address] * (ABNORMAL) Comprehensive metabolic panel (12/23/2024 1:39 AM BATTING MACHINE OPERATOR) Sodium 138 135 - 145 mmol/L Potassium, [...] [facility] (ANG) Blood 12/23/2024 1:39 AM BATTING MACHINE OPERATOR 12/23/2024 3:04 AM BATTING MACHINE OPERATOR us Chago Cervantes MD LAB BLOOD ORDERABLES Fi nal Result [facility] (ANG) 1 [facility] Department [place] [address] * POCT glucose (12/22/2024 8:09 PM BATTING MACHINE OPERATOR) Glucose, POC 124 70 - 199 mg/dL Blood 12/22/2024 8:09 PM BATTING MACHINE OPERATOR 12/22/2024 8:09 PM BATTING MACHINE OPERATOR us Sixto De La Cruz DO LAB POCT ORDERABLES - DEVICE Final Result Performing Organization Address City/[facility]/ZIP Co de Phone Number ANNIE NEVES (ANG) 1 [facility] [place] [address] * POCT glucose (12/22/2024 4:43 PM BATTING MACHINE OPERATOR) Glucose, POC 167 70 - 199 mg/dL Blood 12/22/2024 4:43 PM BATTING MACHINE OPERATOR 12/22/2024 4:43 PM BATTING MACHINE OPERATOR us Sixto De La Cruz DO LAB POCT ORDERABLES - DEVICE Final Result Performing Organization Address [facility] Co de Phone Number ANNIE NEVES (ANG) 1 [facility] [place] [address] * (ABNORMAL) POCT glucose (12/22/2024 12:05 PM BATTING MACHINE OPERATOR) Glucose, POC 205(H) 70 - 199 mg/dL Blood 12/22/2024 12:0 5 PM BATTING MACHINE OPERATOR 12/22/2024 12:05 PM BATTING MACHINE OPERATOR us Sixto De La Cruz DO LAB POCT ORDERABLES - DEVICE Final Result Performing Organization Address [facility] de Phone Number ANNIE NEVES (ANG) 1 [facility] [place] [address] * CT Chest PE (CTA) W Contrast (12/22/2024 11:56 AM BATTING MACHINE OPERATOR) Anatomical Region Laterality Modality Body N/A Computed Tomogra phy 12/22/2024 2:36 PM BATTING MACHINE OPERATOR Narrative 12/22/2024 2:45 PM BATTING MACHINE OPERATOR EXAM DESCRIPTION: CT CHEST PE (CTA) W [...] Rickey Woody M.D. NS: NS Report ID: [id number] Reading Location: [id number] Procedure Note Rickey Woody MD - 12/22/2024 [...] Rickey Woody M.D. NS: NS Report ID: [id number] Reading Location: [id number] Sixto Malik [facility] DO IMG CT PROCEDURES Mariam l Result * POCT glucose (12/22/2024 8:14 AM BATTING MACHINE OPERATOR) Pathologist [facility] Glucose, POC 148 70 - 199 mg/dL Blood 12/22/2024 8:14 AM BATTING MACHINE OPERATOR 12/22/2024 8:14 AM BATTING MACHINE OPERATOR William Beatty MD LAB POCT ORDERABLES - DEVICE Fi nal Result ANNIE NEVES ELY 1 [facility] Department [place] [address] * eGFR (12/22/2024 4:55 AM BATTING MACHINE OPERATOR) Pathologist [facility] eGFR >90 >=60 mL/min/1. 73 m2 Comment: [...] last reviewed 2021. Blood 12/22/2024 4:55 AM BATTING MACHINE OPERATOR 12/22/2024 5:07 AM BATTING MACHINE OPERATOR us Chago Cervantes MD LAB BLOOD ORDERABLES Fi nal Result Performing Organization Address [facility]/ZIP Co de Phone Number ANNIE NEVES (ELY) 1 [facility] [place] [address] * Magnesium (12/22/2024 4:55 AM BATTING MACHINE OPERATOR) Magnesium 2.3 1.4 - 2.5 mg/dL Blood 12/22/2024 4:55 AM BATTING MACHINE OPERATOR 12/22/2024 5:07 AM BATTING MACHINE OPERATOR us William Beatty MD LAB BLOOD ORDERABLES Final Resu lt Performing Organization Address City/[facility]/ZIP Co de Phone Number ANNIE NEVES (ANG) 1 [facility] [place] [address] * (ABNORMAL) Comprehensive metabolic panel (12/22/2024 4:55 AM BATTING MACHINE OPERATOR) Sodium 137 135 - 145 mmol/L Potassium, pl 5.7(H) 3.3 - 4.9 mmol/L ANNIE NEVES (ANG) Comment:Hemolysis present. R esults may be [...] Bilirubin, total <0.2 0.1 - 1.2 mg/dL [facility] Protein, pl 6.8 6.5 - 8.5 g/dL [facility] (ANG) Albumin 3.9 3.5 - 5.0 g/dL [facility] (ANG) Alk phos 72 40 - 130 Units/L [facility] (ANG) Comment:Hemolysis present. R esults may be affected. ALT 16 7 - 55 Units/L [facility] (ANG) Comment:Hemolysis present. R esults may be affected. AST 39 10 - 50 Units/L [facility] (ANG) Comment:Hemolysis present. R esults may be affected. Blood 12/22/2024 4:55 AM BATTING MACHINE OPERATOR 12/22/2024 5:07 AM BATTING MACHINE OPERATOR us Chago Cervantes MD LAB BLOOD ORDERABLES Fi nal Result [facility] (ELY) 1 [facility] Department [place] [address] * POCT glucose (12/21/2024 8:52 PM BATTING MACHINE OPERATOR) Pathologist [facility] Glucose, POC 117 70 - 199 mg/dL Blood 12/21/2024 8:52 PM BATTING MACHINE OPERATOR 12/21/2024 8:52 PM BATTING MACHINE OPERATOR William Beatty MD LAB POCT ORDERABLES - DEVICE Fi nal Result Performing Organization Address [facility] Co de Phone Number ANNIE NEVES (ELY) [address] [place] [address] * Infection Prevention MRSA Only (Staphylococcus aureus) PCR Nasal (12/21/2024 6:09 PM BATTING MACHINE OPERATOR) [facility] PCR Scrn, Methicillin resistant Staphylococcus aureus (MRSA) Not Detected Not Detected Comment: Interpretive Data Testing performed using Nucleic Acid Amplification with the [employer] Xpert MRSA NxG Assay. This assay detects target DNA from mecA, mecC and the SCCmec insertion site of Staphylococcus aureus using Real-Time PCR and has been cleared by the FDA. Performance characteristics have been verified by the [facility]. Current Interpretive Data was last revised on 2023 Nasal 12/21/2024 6:09 PM BATTING MACHINE OPERATOR 12/21/2024 6:11 PM BATTING MACHINE OPERATOR William Beatty MD LAB MICROBIOLOGY - GENERAL ORDE RABLES Final Result Performing Organization Address [facility] Co de Phone Number ANNIE NEVES (ELY) [address] [place] [address] Department [place] [address] * TRANSTHORACIC ECHO (TTE) COMPLETE W DOPPLER/CF W CONTRAST (12/21/2024 10:06 AM BATTING MACHINE OPERATOR) [facility] LV EF >70 % CONS SCIMAGE Anatomical Region Laterality Modality Ultrasound 12/21/2024 9:31 AM BATTING MACHINE OPERATOR Narrative 12/21/2024 11:22 AM BATTING MACHINE OPERATOR [address] [id number] Echocardiogram Report Patient Name: ROBSON RODRIGUEZ : [...] By: Bailee Molina MD 12/21/2024 11:21:05 AM BATTING MACHINE OPERATOR Procedure Note Bailee Molina MD - 12/21/[address] [address] Echocardiogram Report Patient Name: ROBSON RODRIGUEZ : 1955 Study Date: 12/21/2024 9:31:10 AM Gender: M Tech: Location: [address] Provider: CHAGO CERVANTES Height(Cm): BSA: Weight(Kg): Quality: [...] By: Bailee Molina MD 12/21/2024 11:21:05 AM BATTING MACHINE OPERATOR us Chago Cervantes MD CV ECHO PROCEDURES Mariam l Result * eGFR (12/21/2024 6:10 AM BATTING MACHINE OPERATOR) eGFR >90 >=60 mL/min/1. 73 m2 Comment: [...] last reviewed 2021. Blood 12/21/2024 6:10 AM BATTING MACHINE OPERATOR 12/21/2024 6:14 AM BATTING MACHINE OPERATOR us Chago Cervantes MD LAB BLOOD ORDERABLES Fi nal Result [facility] (ELY) 1 [facility] Department of Laboratories [place], [place] [id number] * (ABNORMAL) Differential, auto (12/21/2024 6:10 AM BATTING MACHINE OPERATOR) Neutrophil abs 5.0 1.5 - 6.5 K/cumm [...] revised on 2018. Blood 12/21/2024 6:10 AM BATTING MACHINE OPERATOR 12/21/2024 6:14 AM BATTING MACHINE OPERATOR us Alexei Lambert MD LAB BLOOD ORDERABLES Final Res ult ANNIE NEVES (ELY) 1 [facility] Department [place] [address] * (ABNORMAL) CBC with auto differential (12/21/2024 6:10 AM BATTING MACHINE OPERATOR) WBC 5.7 3.8 - 9.9 K/cumm Hgb [...] [facility] (ANG) Blood 12/21/2024 6:10 AM BATTING MACHINE OPERATOR 12/21/2024 6:14 AM BATTING MACHINE OPERATOR Chago Cervantes MD LAB BLOOD ORDERABLES Fi nal Result Performing Organization Address City/[facility] Co de Phone Number ANNIE NEVES (ANG) 1 [facility] [place] [address] * Magnesium (12/21/2024 6:10 AM BATTING MACHINE OPERATOR) Magnesium 2.0 1.4 - 2.5 mg/dL Blood 12/21/2024 6:10 AM BATTING MACHINE OPERATOR 12/21/2024 6:14 AM BATTING MACHINE OPERATOR Chago Cervantes MD LAB BLOOD ORDERABLES Fi nal Result ANNIE NEVES (ANG) 1 [facility] [place] [address] * (ABNORMAL) Comprehensive metabolic panel (12/21/2024 6:10 AM BATTING MACHINE OPERATOR) Sodium 141 135 - 145 mmol/L Potassium, pl 4.2 3.3 - 4.9 mmol/L [facility] (ANG) Chloride 91(L) 97 - 110 mmol/L [facility] (ANG) CO2 35(H) 22 - 32 mmol/L [facility] (ANG) Anion gap 16(H) 2 - 15 mmol/L [facility] (ANG) BUN 12 6 - 25 mg/dL [facility] (ANG) Creatinine 0.56(L) 0.80 - 1.30 mg/dL [facility] (ANG) Glucose 155 70 - 199 mg/dL [facility] (ANG) [...] classification and Diagnosis of Diabetes Diabetes Care 202; 46: S19-S40. Current interpretive data was last [...] [facility] (ANG) Blood 12/21/2024 6:10 AM BATTING MACHINE OPERATOR 12/21/2024 6:14 AM BATTING MACHINE OPERATOR Chago Cervantes MD LAB BLOOD ORDERABLES Fi nal Result ANNIE NEVES (ANG) 1 [facility] [place] [address] * Thyroid Function [place] (12/21/2024 12:54 AM BATTING MACHINE OPERATOR) Pathologist [facility] TSH 0.70 0.30 - 4.20 mcIUnit/mL Blood 12/21/2024 12:5 4 AM BATTING MACHINE OPERATOR 12/21/2024 12:57 AM BATTING MACHINE OPERATOR us Chago Cervantes MD LAB BLOOD ORDERABLES Fi nal Result Performing Organization Address City/[facility]/ZIP Co de Phone Number ANNIE NEVES (ANG) 1 [facility] [place] [address] * (ABNORMAL) CBC without differential (12/21/2024 12:54 AM BATTING MACHINE OPERATOR) Pathologist [facility] WBC 9.3 3.8 - 9.9 K/cumm Hgb 13.0 13.0 - 17.5 g/dL [facility] (ANG) Hct 43.3 38.9 - 50.3 % [facility] (ANG) Plt 168 150 - 400 K/cumm [facility] (ANG) MPV 10.2 9.1 - 12.3 fL [facility] (ANG) RBC 4.57 4.30 - 5.80 M/cumm [facility] (ANG) MCV 94.7 81.3 - 96.4 fL [facility] (ANG) MCH 28.4 27.1 - 33.3 pg [facility] (ANG) MCHC 30.0(L) 32.3 - 35.7 g/dL [facility] (ANG) RDW CV 12.1 11.1 - 14.9 % [facility] (ANG) RDW SD 42.4 35.7 - 48.1 fL [facility] (ANG) NRBC abs 0.00 0.00 - 0.01 K/cumm [facility] (ANG) Blood 12/21/2024 12:5 4 AM BATTING MACHINE OPERATOR 12/21/2024 12:57 AM BATTING MACHINE OPERATOR Narrative [facility] (ANG) - 12/21/2024 12:59 AM BATTING MACHINE OPERATOR Baseline prior to apixaban initiation. Chago Cervantes MD LAB BLOOD ORDERABLES Fi nal Result Performing Organization Address City/[facility] Co de Phone Number ANNIE NEVES (ANG) 1 [facility] Department [place] [address] * ECG 12 lead (12/21/2024 12:10 AM BATTING MACHINE OPERATOR) 12/21/2024 12:1 0 AM BATTING MACHINE OPERATOR Narrative [facility] - 12/21/2024 6:42 AM BATTING MACHINE OPERATOR Vent Rate: 83 bpm RR Interval: 717 msec VA Interval: 122 msec QRS Duration: 115 msec QT Interval: 362 msec QTC Interval: 402 msec P-R-T [place]: 80 - 53 - 71 degrees IMPRESSION: SINUS RHYTHM MODERATE INTRAVENTRICULAR CONDUCTION DELAY [110+ ms QRS DURATION] BORDERLINE ECG Compared to prior EKG, heart rate has decreased Sinus rhythm replaced atrial flutter Electronically Signed By: Bryant Cavanaugh MD Oma Escalona MD ECG ORDERABLES Final Result Performing Organization Address [facility] Phone Number [facility] Atticous [facility] * ECG 12 lead (12/20/2024 11:33 PM BATTING MACHINE OPERATOR) 12/20/2024 11:3 3 PM BATTING MACHINE OPERATOR Narrative [facility] - 12/21/2024 6:43 AM BATTING MACHINE OPERATOR Vent Rate: 170 bpm RR Interval: 352 msec VA Interval: 0 msec QRS Duration: 136 msec QT Interval: 267 msec QTC Interval: 359 msec P-R-T [place]: [id number] - -27 - 38 degrees IMPRESSION: ATRIAL flutter WITH RAPID VENTRICULAR RESPONSE BORDERLINE LEFT AXIS DEVIATION [QRS AXIS < -20] INTRAVENTRICULAR CONDUCTION DELAY [130+ ms QRS DURATION] CRITICAL TEST RESULT Compared to prior EKG, heart rate has increased Atrial flutter replaced sinus rhythm Electronically Signed By: Bryant Cavanaugh MD Oma Escalona MD ECG ORDERABLES Final Result Performing Organization Address [facility] Co de Phone Number [facility] * Influenza A/B, RSV, and COVID-19 PCR Nasopharyngeal (12/20/2024 11:03 PM BATTING MACHINE OPERATOR) COVID-19 RNA Negative Negative Influenza A RNA Negative Negative [facility] (ANG) Influenza B RNA Negative Negative [facility] (ANG) RSV RNA Negative Negative [facility] (ANG) Comment: Interpretive data: Testing performed by [facility]. This test is performed using the [employer] Xpert Xpress CoV-2/Flu/RSV plus assay. This is a multiplex, real- time reverse transcriptase PCR assay intended for the qualitative detection of nucleic acid from SARS-CoV-2, influenza A, influenza B, and respiratory syncytial virus. This assay has been cleared by the [place] Food and Drug administration. The performance characteristics have been verified by the [facility]. Results must be considered in the clinical context, and a negative result does not rule out infection. Interpretive Data last revised 2023 Nasopharyngeal 12/20/2024 11 :03 PM BATTING MACHINE OPERATOR 12/20/2024 11:07 PM BATTING MACHINE OPERATOR Narrative [facility] (ELY) - 12/21/2024 12:11 AM BATTING MACHINE OPERATOR Is the Patient experiencing symptoms consistent with COVID?->Yes us Chago Cervantes MD LAB MICROBIOLOGY - GENE [facility] ORDERABLES Final Result [facility] (ELY) 1 [facility] Department [place] [address] * (ABNORMAL) Drugs of Abuse Screen, Urine with Reflex Confirmation (12/20/2024 10:47 PM BATTING MACHINE OPERATOR) Amphetamine, ur Not Detected CutOff 500ng/mL Comment: Interpretive Data - Amphetamines: Samples containing greater than 500 ng/mL d-methamphetamine or other cross-reacting amphetamine compounds are reported as positive. Amphetamine immunoassays are subject to significant false positive rates due to cross-reactivity of non-amphetamine drugs. Confirmatory testing required for definitive results. Current Interpretive Data was last reviewed 2023. Barbiturates, ur Not Detected CutOff 200ng/mL [facility] (ANG) Comment: Interpretive Data - Barbiturates: Samples [...] 2023. Oxycodone, ur Not Detected CutOff 100ng/mL [facility] (ANG) Comment: Interpretive Data - Oxycodone: Samples containing greater than 100 ng/mL oxycodone or other cross-reacting compounds are reported as positive. False positive and false negative results are possible. Confirmatory testing required for definitive results. Current Interpretive Data was last reviewed 2023. Phencyclidine, ur Not Detected CutOff 25 ng/mL [facility] (ANG) Comment: Interpretive Data - Phencyclidine: Samples containing greater than 25 ng/mL phencyclidine or other cross-reacting compounds are reported as positive. False positive and false negative results are possible. Confirmatory testing required for definitive results. Current Interpretive Data was last reviewed 2023. Urine Creatinine 78 mg/dL [facility] (ANG) Comment: Interpretive Data Urine Creatinine: < 10 mg/dL is extremely dilute = or > 10 but < 20 mg/dL is dilute = or > 20 mg/dL is normal Current Interpretive Data was last revised on 2018. Urine 12/20/2024 10:4 7 PM BATTING MACHINE OPERATOR 12/20/2024 10:50 PM BATTING MACHINE OPERATOR Narrative [facility] (ANG) - 12/20/2024 11:43 PM BATTING MACHINE OPERATOR Drug of Abuse screening is performed by immunoassay for medical purposes only. This is not to be used for Pain Management purposes. If Detected, confirmation testing will be performed for Amphetamines, Cocaine, Fentanyl, Methadone, Opiates, Oxycodone or Phencyclidine. us Chago Cervantes MD LAB URINE ORDERABLES [facility] Result ANNIE HICKS) 1 [facility] Department [place] [address] * eGFR (12/20/2024 10:47 PM BATTING MACHINE OPERATOR) eGFR >90 >=60 mL/min/1. 73 m2 Comment: [...] reviewed 2021. Blood 12/20/2024 10:4 7 PM BATTING MACHINE OPERATOR 12/21/2024 12:15 AM BATTING MACHINE OPERATOR us Chago Cervantes MD LAB BLOOD ORDERABLES Fi nal Result [facility] 1 [facility] Department [place] [address] * (ABNORMAL) Pro B-type natriuretic peptide (12/20/2024 10:47 PM BATTING MACHINE OPERATOR) NT-proBNP 762(H) <=300 pg/mL Comment: Interpretive Comments: [...] et.al. Eur Heart J. 2006:27:330-337. 2. Vicky YANEZ, Lorne BEJARANO. J. AM Sera Cardiol: Cardiovasc Imag. 2009;2: 216- 225. Interpretive Data Last Revised Date: 2018. Blood 12/20/2024 10:4 7 PM BATTING MACHINE OPERATOR 12/20/2024 10:52 PM BATTING MACHINE OPERATOR us Chago Cervantes MD LAB BLOOD ORDERABLES Fi nal Result [facility] (ELY) 1 [facility] Department [place] [address] * (ABNORMAL) Urinalysis reflex to microscopic and culture Urine (12/20/2024 10:47 PM BATTING MACHINE OPERATOR) Color, ur Yellow Yellow Clarity, ur Clear Clear [facility] (ANG) Specific gravity, ur 1.013 1.003 - 1.030 [facility] (ANG) pH, urine 6.0 [facility] (ANG) Comment: Interpretive Data U rine pH is affected by diet, medications, systemic acid-base disturbances, and renal tubular function. pH may affect urinary stone formation. For example, urine pH below 6.0 may help reduce the tendency for calcium phosphate stones and pH greater than 6.0 may reduce the tendency for uric acid stone formation. Source: [employer] Current Interpretive Data was last revised on 2017 Protein, ur ql 1+(A) Negative [facility] (ANG) Glucose, ur ql Negative Negative [facility] (ANG) Ketones, ur 3+(A) Negative [facility] (ANG) Bilirubin, ur Negative Negative [facility] (ANG) Blood, ur Trace(A) Negative [facility] (ANG) Urobilinogen, ur <2.0 <2.0 mg/dL [facility] (ANG) Nitrite, ur Negative Negative [facility] (ANG) Leukocyte esterase, ur Negative Negative [facility] (ANG) UA reflex comment Reflex to microscopic UA will be performed. [facility] (ANG) Urine 12/20/2024 10:4 7 PM BATTING MACHINE OPERATOR 12/20/2024 10:51 PM BATTING MACHINE OPERATOR Chago Cervantes MD LAB MICROBIOLOGY - GENE RAL ORDERABLES Final Result Performing Organization Address [facility] Co de Phone Number [facility] (ELY) 1 [facility] [place] [address] * (ABNORMAL) Urinalysis, microscopic only (12/20/2024 10:47 PM BATTING MACHINE OPERATOR) WBC, ur 0-5 0 - 5 /HPF RBC, ur 0-2 0 - 2 /HPF [facility] (ANG) Mucous, ur Present(A) [facility] (ANG) Hyaline casts, ur 1-5 0 - 10 /LPF [facility] (ANG) Culture Reflex Comment Reflex conditions for urine culture (WBC >10) not met. [facility] (ANG) Urine 12/20/2024 10:4 7 PM BATTING MACHINE OPERATOR 12/20/2024 10:51 PM BATTING MACHINE OPERATOR Chago Cervantes MD LAB URINE ORDERABLES Fi nal Result [facility] (ANG) 1 [facility] [place] [address] * Protime-INR (12/20/2024 10:47 PM BATTING MACHINE OPERATOR) PT 10.7 9.7 - 13.0 sec [facility] (ANG) INR 0.99 0.90 - 1.20 [facility] (ANG) Comment: Interpretive data Oral anticoagulant therapeutic ranges: Venous thromboembolism prophylaxis or treatment: 2.0-3.0 CARDIOLOGY Standard range: 2.0-3.0 High-intensity range: 2.5-3.5 Refer to indication-specific guidelines for appropriate target ranges for prosthetic heart valve replacement. Current interpretive data was last revised on 2019. Blood 12/20/2024 10:4 7 PM BATTING MACHINE OPERATOR 12/20/2024 11:52 PM BATTING MACHINE OPERATOR Narrative [facility] (ANG) - 12/20/2024 11:56 PM BATTING MACHINE OPERATOR Baseline prior to apixaban initiation. Chago Cervantes MD LAB BLOOD ORDERABLES Fi nal Result Performing Organization Address City/[facility]/ZIP Co de Phone Number [facility] (ELY) 1 [facility] [place] [address] * (ABNORMAL) D-dimer, quantitative (12/20/2024 10:47 PM BATTING MACHINE OPERATOR) D-Dimer 851(H) <=499 ng/mL FEU [facility] (ELY) Comment: Interpretive data FDA approved the D-dimer, [...] 68, VTE cut-off 680 ng/ml FEU. References; Schoutroverto HT et al. Brit Med J. 2013;346:f2492. Cornell CRANE et al. Annals Int Med. 2015;163:701-11. Current interpretive data was last revised on 2019. Blood 12/20/2024 10:4 7 PM BATTING MACHINE OPERATOR 12/20/2024 10:52 PM BATTING MACHINE OPERATOR Chago Cervantes MD LAB BLOOD ORDERABLES Fi nal Result Performing Organization Address City/[facility]/ZIP Co de Phone Number [facility] (ELY) 1 [facility] [place] [address] * (ABNORMAL) Blood gas, venous (12/20/2024 10:47 PM BATTING MACHINE OPERATOR) pH, Venous 7.32 7.32 - 7.43 PCO2, Venous 91(C) 40 - 50 mmHg [facility] (ANG) Comment:Critical result call ed to and read back by billy hawkins (er) on 12/20/2024 23:09:00 BATTING MACHINE OPERATOR to kavya wilkinson. PO2, Venous 46 mmHg [facility] (ANG) HCO3 Venous, Calculated 45(H) 20 - 30 mmol/L [facility] (ANG) BE, venous 15 mmol/L [facility] (ANG) Comment: Interpretive Data No Reference Range Established Current Interpretive Data was last revised on 2018. Blood 12/20/2024 10:4 7 PM BATTING MACHINE OPERATOR 12/20/2024 10:52 PM BATTING MACHINE OPERATOR Chago Cervantes MD LAB BLOOD ORDERABLES Fi nal Result Performing Organization Address City/[facility]/ZIP Co de Phone Number [facility] (ELY) 1 [facility] [place] [place] [address] * (ABNORMAL) Creatinine (12/20/2024 10:47 PM BATTING MACHINE OPERATOR) Pathologist [facility] Creatinine 0.61(L) 0.80 - 1.30 mg/dL Blood 12/20/2024 10:4 7 PM BATTING MACHINE OPERATOR 12/21/2024 12:15 AM BATTING MACHINE OPERATOR Narrative [facility] - 12/21/2024 12:33 AM BATTING MACHINE OPERATOR Baseline prior to apixaban initiation. Chago Cervantes MD LAB BLOOD ORDERABLES Fi nal Result [facility] (ELY) 1 [facility] [place] [address] * Hepatic function panel (12/20/2024 10:47 PM BATTING MACHINE OPERATOR) Bilirubin, total 0.4 0.1 - 1.2 mg/dL [...] [facility] (ANG) Blood 12/20/2024 10:4 7 PM BATTING MACHINE OPERATOR 12/21/2024 12:15 AM BATTING MACHINE OPERATOR Narrative [facility] (ANG) - 12/21/2024 12:33 AM BATTING MACHINE OPERATOR Baseline prior to apixaban initiation. us Chago Cervantes MD LAB BLOOD ORDERABLES Fi nal Result Performing Organization Address City/[facility]/ZIP Co de Phone Number [facility] (ANG) [address] [place] [address] [place] [address] * (ABNORMAL) Troponin T high-sensitivity 4-hour (12/20/2024 7:04 PM BATTING MACHINE OPERATOR) Trop T hs 32(H) <=22 ng/L Comment: Interpretive Data For further hscTnT resources including the diagnostic algorithm and an aid in interpretation, copy and paste this link: https://nrl.testcatalog.org/show/hsTrop Current Interpretive Data last revised 2020. Trop T hs delta 0 ng/L [facility] (ANG) Trop T hs interp Insignificant [facility] (ANG) Blood 12/20/2024 7:0 4 PM BATTING MACHINE OPERATOR 12/20/2024 7:06 PM BATTING MACHINE OPERATOR us Alexei Lambert MD LAB BLOOD ORDERABLES Final Res ult [facility] (ANG) 1 [facility] [place] [address] * (ABNORMAL) Troponin T high-sensitivity 2-hour (12/20/2024 4:57 PM BATTING MACHINE OPERATOR) Trop T hs 38(H) <=22 ng/L Comment: Interpretive Data For further hscTnT resources including the diagnostic algorithm and an aid in interpretation, copy and paste this link: https://nrl.testcatalog.org/show/hsTrop Current Interpretive Data last revised 2020. Trop T hs delta 6 ng/L [facility] (ANG) Trop T hs interp Equivocal [facility] (ANG) Blood 12/20/2024 4:57 PM BATTING MACHINE OPERATOR 12/20/2024 5:05 PM BATTING MACHINE OPERATOR Alexei Lambert MD LAB BLOOD ORDERABLES Final Res ult [facility] (ANG) 1 [facility] Department [place] [address] * CT Head WO Contrast (12/20/2024 4:53 PM BATTING MACHINE OPERATOR) Anatomical Region Laterality Modality Head and Neck N/A Computed Tomogra phy 12/20/2024 4:55 PM BATTING MACHINE OPERATOR Narrative 12/20/2024 4:56 PM BATTING MACHINE OPERATOR EXAM DESCRIPTION: CT HEAD WO CONTRAST REASON [...] Talha Landa M.D. KH: SARAHI Report ID: [id number] Reading Location: [id number] Procedure Note Talha Landa MD - 12/20/2024 [...] Talha Landa M.D. KH: SARAHI Report ID: [id number] Reading Location: [id number] us Alexei Lambert MD IMG CT PROCEDURES Final Result * (ABNORMAL) Troponin T high-sensitivity series (baseline, 2hr, 4hr, 6hr) (12/20/2024 3:03 PM BATTING MACHINE OPERATOR) Trop T hs 32(H) <=22 ng/L Comment: Interpretive Data For further hscTnT resources including the diagnostic algorithm and an aid in interpretation, copy and paste this link: https://nrl.testcatalog.org/show/hsTrop Current Interpretive Data last revised 2020. Blood 12/20/2024 3:03 PM BATTING MACHINE OPERATOR 12/20/2024 3:07 PM BATTING MACHINE OPERATOR us Alexei Lambert MD LAB BLOOD ORDERABLES Final Res ult [facility] (ELY) 1 [facility] [place] [address] * eGFR (12/20/2024 3:03 PM BATTING MACHINE OPERATOR) eGFR >90 >=60 mL/min/1. 73 m2 Comment: [...] last reviewed 2021. Blood 12/20/2024 3:03 PM BATTING MACHINE OPERATOR 12/20/2024 3:07 PM BATTING MACHINE OPERATOR Alexei Lambert MD LAB BLOOD ORDERABLES Final Res ult [facility] (ANG) 1 [facility] [place] [address] * (ABNORMAL) Differential, auto (12/20/2024 3:03 PM BATTING MACHINE OPERATOR) Neutrophil abs 8.0(H) 1.5 - 6.5 K/cumm Imm gran abs 0.1 0.0 - 0.1 K/cumm [facility] (ANG) Lymphocyte abs 1.1 0.8 - 3.3 K/cumm [facility] (ELY) Monocyte abs 0.5 0.2 - 0.8 K/cumm [facility] (ANG) Eosinophil abs 0.0 0.0 - 0.5 K/cumm [facility] (NAG) Basophil abs 0.0 0.0 - 0.1 K/cumm [...] revised on 2018. Blood 12/20/2024 3:03 PM BATTING MACHINE OPERATOR 12/20/2024 3:07 PM BATTING MACHINE OPERATOR us Alexei Lambert MD LAB BLOOD ORDERABLES Final Res ult [facility] (ELY) 1 [facility] Department [place] [address] * (ABNORMAL) CBC with auto differential (12/20/2024 3:03 PM BATTING MACHINE OPERATOR) WBC 9.8 3.8 - 9.9 K/cumm Hgb 12.7(L) 13.0 - 17.5 g/dL [facility] (ANG) Hct 43.2 38.9 - 50.3 % [facility] (ANG) Plt 163 150 - 400 K/cumm [facility] (AGN) MPV 10.6 9.1 - 12.3 fL CERNER [...] [facility] (ANG) Blood 12/20/2024 3:03 PM BATTING MACHINE OPERATOR 12/20/2024 3:07 PM BATTING MACHINE OPERATOR us Alexei Lambert MD LAB BLOOD ORDERABLES Final Res ult [facility] (ANG) 1 [facility] Department [place] [address] * (ABNORMAL) Comprehensive metabolic panel (12/20/2024 3:03 PM BATTING MACHINE OPERATOR) Sodium 138 135 - 145 mmol/L Potassium, [...] Hemolyzed S pecimen Blood 12/20/2024 3:03 PM BATTING MACHINE OPERATOR 12/20/2024 3:07 PM BATTING MACHINE OPERATOR us Alexei Lambert MD LAB BLOOD ORDERABLES Final Res ult [facility] 1 [facility] Department [place] [address] * XR Chest 1 Vw Portable (12/20/2024 3:02 PM BATTING MACHINE OPERATOR) Anatomical Region Laterality Modality Body, Chest N/A Computed Radiogr aphy 12/20/2024 3:08 PM BATTING MACHINE OPERATOR Narrative 12/20/2024 3:09 PM BATTING MACHINE OPERATOR EXAM DESCRIPTION: XR CHEST 1 VIEW REASON FOR STUDY: Other (type) Pt to Ed via EMS from home with complaint of rapid heart rate (178bpm). Pt treated with Adenosine 6mg and 12mg RECRUITING OPERATIONS CONSULTANT. Pt Given Versed 2mg and Cardioverted RECRUITING OPERATIONS CONSULTANT. Pt alert and oriented x4 VSS upon [...] Lucrecia Fink D.O. PS: PS Report ID: [id number] Reading Location: [id number] Procedure Note Lucrecia Fink, DO - 12/20/2024 EXAM DESCRIPTION: XR CHEST 1 VIEW REASON FOR STUDY: Other (type) Pt to Ed via EMS from home with complaint of rapid heart rate (178bpm). Pt treated with Adenosine 6mg and 12mg RECRUITING OPERATIONS CONSULTANT. Pt Given Versed 2mg andCardioverted RECRUITING OPERATIONS CONSULTANT. Pt alert and oriented x4 VSS upon [...] Lucrecia Fink D.O. PS: PS Report ID: [id number] Reading Location: [id number] Alexei Lambert MD IMG XR PROCEDURES Final Result * ECG 12 lead (12/20/2024 2:51 PM BATTING MACHINE OPERATOR) 12/20/2024 2:51 PM BATTING MACHINE OPERATOR Narrative [facility] - 12/21/2024 6:43 AM BATTING MACHINE OPERATOR Vent Rate: 105 bpm RR Interval: 570 msec VA Interval: 128 msec QRS Duration: 96 msec QT Interval: 340 msec QTC Interval: 401 msec P-R-T [place]: 79 - 14 - 64 degrees IMPRESSION: SINUS TACHYCARDIA POSSIBLE LEFT ATRIAL ENLARGEMENT [-0.1mV P-WAVE IN V1/V2] ABNORMAL RHYTHM ECG Compared to prior EKG, heart rate has decreased Sinus rhythm replaced atrial flutter Electronically Signed By: Bryant Cavanaugh MD Alexei Lambert MD ECG ORDERABLES Final Result [facility] from Last 3 Months Insurance MED[employer]ARE [employer] MED[employer]ARE [employer] Advance Directives For more information, please contact: [phone] * Full Code (Latest Code Status on File) Date Activated Date Inactivated Comments 12/20/2024 5:33 PM 12/23/2024 5:54 PM Care Teams Steel Estimator Relationship Specialty Start Date End Date No, Physician PCP - General 08/18/24 Manny Martines MD 08/18/24 Fariba Lozoya MD [address] [place] [address] [place] [address] Consulting Physician Sleep Medicine 12/23/24
--- NOTE | 2025-01-10 16:15 | ECG_ITS ---
Test Date: 2025-01-10 16:23:20 Measurements Intervals [place] Rate: 98 P: 70 [place]: 124 QRS: 55 QRSD: 98 T: 74 QT: 337 QTc: 431 Interpretive Statements SINUS RHYTHM BASELINE ARTIFACT- I, II, III, AVR, AVL, AVF NORMAL ECG No previous ECG available for comparison Electronically Signed On 01-10-2025 16:36:37 AN/SQQ 89(V)15 SONAR SYSTEM JOURNEYMAN by Cleveland Busby D.O.
--- NOTE | 2025-01-10 16:24 | ED_ITS ---
HPI - SOB/Dyspnea General Chief Complaint: Shortness of Breath/Dyspnea <Naty Wu PA-C - Last Filed: 01/11/25 01:27> Stated Complaint: sob <Naty Wu PA-C - Last Filed: 01/11/25 01:27> Time Seen by Provider: 01/10/25 16:24 <Naty Wu PA-C - Last Filed: 01/11/25 01:27> Focused HPI: This is a 69 year old male that presents to the ER for chest pain and shortness of breath. Reports he has been to 2 of the [facility] for this. Unsure of his diagnosis. Reports he chronically wears oxygen due to history of COPD. Reports lower extremity edema. Denies fever, cough. GENERAL: Elderly, well-nourished, and in no acute distress. HEAD: Normocephalic, atraumatic. CHEST: No respiratory distress. Lung sounds diminished with diffuse wheezing HEART: Regular rate and rhythm.? NEURO: ?Alert and oriented x3. Patient screened in triage and initial orders placed.? ?Additional care and disposition to be based upon?diagnostic testing and treatment. <Naty Wu PA-C - Last Filed: 01/11/25 01:27> History of Present Illness HPI Narrative: Patient is a 69-year-old gentleman who presents emergency department with chief complaint of shortness of breath and chest pain patient reports that he was just discharged from the [facility] patient has history COPD and wears oxygen all the time patient states that he was wheezing more than normal and reports that he wants something to eat <Adán Storey MD - Last Filed: 01/10/25 19:17> Related Data Home Medications: Home Medications ?Medication ?Instructions ?Recorded ?Confirmed ?Last Taken ?Type apixaban 5 mg tablet (Eliquis) 5 mg PO Q12H 01/10/25 01/10/25 01/10/25 History atorvastatin 40 mg tablet 40 mg PO DAILY 01/10/25 01/10/25 Unknown History diltiazem HCl 240 mg 240 mg PO Q24H 01/10/25 01/10/25 Unknown History capsule,extended release 24 hr hydrocodone 10 mg-acetaminophen 1 tablet PO Q6H PRN pain (scale 01/10/25 01/10/25 Unknown History 325 mg tablet score 7-10) <Naty Wu PA-C - Last Filed: 01/11/25 01:27> Allergies/Adverse Reactions: Allergies Allergy/AdvReac Type Severity Reaction Status Date / Time No Known Allergies Allergy Verified 01/10/25 17:00 <Naty Wu PA-C - Last Filed: 01/11/25 01:27> Review of Systems 2 Review of Systems: A 10 system review of systems was completed on the patient and is negative except for what is stated in the HPI. Nursing and ancillary documentation was reviewed. <Adán Storey MD - Last Filed: 01/10/25 19:17> PMFSH Family History Family History: Family History Father Hypertension Cerebrovascular accident Family history of heart disease in male family member before age 55 <Naty Wu PA-C - Last Filed: 01/11/25 01:27> Social History Social History: Social History Smoking status: Current some day smoker Alcohol intake: never Substance use type: does not use Do You Feel Safe in your Home?: Yes Lack of Transportation: No Lack of Food: Never True Current Housing: I Have Housing Concerned About Future Housing: No Difficulty Paying Gas/Electric Bills: No Difficulty Paying for Meds: No Currently Unemployed: No Education: High School Diploma/GED Difficulty w/ Childcare or Family Care: No Spiritual care concerns: No <Naty Wu PA-C - Last Filed: 01/11/25 01:27> Exam 2 Narrative: GENERAL: Well-appearing, well-nourished, and in no acute distress. HEAD: Normocephalic, atraumatic. EYES: PERRLA and EOMI. ENT: Nares clear, no rhinorrhea or epistaxis. Mucous membranes moist. NECK: Supple. CHEST: Clear to auscultation. No respiratory distress. HEART: Regular rate and rhythm. No murmur heard. Normal peripheral pulses. ABDOMEN: Soft, nontender, nondistended, normal active bowel sounds. EXTREMITIES: Normal range of motion. No edema. SKIN: Warm, dry, no rash. NEURO: No focal deficits. Alert and oriented x3. PSYCH: Normal mood and affect. <Adán Storey MD - Last Filed: 01/10/25 19:17> Course Vital Signs Vital signs: Vital Signs Temperature 98.0 F 01/10/25 16:03 Pulse Rate 90 01/10/25 16:03 Respiratory Rate 20 01/10/25 16:03 Blood Pressure 126/76 01/10/25 16:03 Pulse Oximetry 100 01/10/25 16:03 Oxygen Delivery Nasal Cannula 01/10/25 16:03 Oxygen Flow Rate 4 01/10/25 16:03 Temperature 97.3 F L 01/11/25 00:08 Pulse Rate 100 01/11/25 01:10 Respiratory Rate 22 H 01/11/25 01:10 Blood Pressure 150/88 H 01/11/25 00:08 Pulse Oximetry 97 01/11/25 00:08 Oxygen Delivery Nasal Cannula 01/10/25 23:43 Oxygen Flow Rate 4 01/10/25 23:43 Fraction of Inspired Oxygen 01/10/25 20:34 <Naty Wu PA-C - Last Filed: 01/11/25 01:27> Vital Signs Temperature 98.0 F 01/10/25 16:03 Pulse Rate 90 01/10/25 16:03 Respiratory Rate 20 01/10/25 16:03 Blood Pressure 126/76 01/10/25 16:03 Pulse Oximetry 100 01/10/25 16:03 Oxygen Delivery Nasal Cannula 01/10/25 16:03 Oxygen Flow Rate 4 01/10/25 16:03 Temperature 97.3 F L 01/11/25 00:08 Pulse Rate 100 01/11/25 01:10 Respiratory Rate 22 H 01/11/25 01:10 Blood Pressure 150/88 H 01/11/25 00:08 Pulse Oximetry 97 01/11/25 00:08 Oxygen Delivery Nasal Cannula 01/10/25 23:43 Oxygen Flow Rate 4 01/10/25 23:43 Fraction of Inspired Oxygen 01/10/25 20:34 <Adán Storey MD - Last Filed: 01/10/25 19:17> MDM - SOB/Dyspnea MDM Narrative Medical decision making narrative: Differential diagnosis includes pneumonia, COPD exacerbation, pulmonary embolism, acute hypercapnic respiratory failure Laboratory studies were obtained on the patient which showed a white count of 5.8 hemoglobin was 11.9 electrolytes showed a CO2 of greater than 40 initial troponin was 0.110 BNP was 899 Chest x-ray showed no focal infiltrate ABG was ordered and CTA of the chest has been ordered as well <Adán Storey MD - Last Filed: 01/10/25 19:17> Lab Data Result diagrams: 01/10/25 16:21 01/10/25 16:21 <Naty Wu PA-C - Last Filed: 01/11/25 01:27> Labs: Lab Results 01/10/25 Range/Units 16:21 WBC 5.8 (4.5-10.0) K/mm3 RBC 4.27 L (4.6-6.20) M/mm3 Hgb 11.9 L (14.0-18.0) g/dL Hct 41.7 L (42.0-52.0) % MCV 97.7 (80-100) fl MCH 27.9 (26-34) pg MCHC 28.5 L (32-36) g/dl RDW 12.3 (11.5-14.5) % Plt Count 164 (150-375) k/mm3 MPV 9.5 (7.4-10.4) fl Immature Gran % (Auto) 0.3 (0-0.5) % Neut % (Auto) 70.6 (45.5-73.1) % Lymph % (Auto) 18.0 L (18.3-44.2) % [place] % (Auto) 7.7 (2.6-8.5) % Eos % (Auto) 2.7 (0-4.4) % Baso % (Auto) 0.7 (0.2-1.2) % Lymph # (Auto) 1.05 (0.9-3.2) K/mm3 [place] # (Auto) 0.5 (0.1-0.6) K/mm3 Eos # (Auto) 0.2 (0-0.3) K/mm3 Baso # (Auto) 0.0 (0.0-0.1) K/mm3 Abs Immat Gran (auto) 0.02 (0.00-0.031) K/mm3 Absolute Neuts (auto) 4.1 (1.3-6.7) K/mm3 Absolute Nucleated RBC 0.000 (0.0-0.012) K/mm3 Nucleated RBC % 0.0 (0.0-0.2) % PT 12.4 (11.1-14.7) Seconds INR 0.9 APTT 32.1 (22.3-36.8) Seconds Sodium 140 (137-145) mmol/L Potassium 4.0 (3.4-5.0) mmol/L Chloride 89 L (98-107) mmol/L Carbon Dioxide > 40 H (22-30) mmol/L Anion Gap (4-12) mmol/L BUN 15 D (9-20) mg/dL Creatinine 0.70 (0.7-1.3) mg/dL Estim Creat Clear Calc 96 ml/min Estimated GFR > 60 (59 - ) Glucose 118 H (65-110) mg/dL Calcium 8.8 (8.4-10.2) mg/dL Total Bilirubin 0.7 (0.2-1.3) mg/dL AST 22 (17-59) U/L ALT 39 (6-50) U/L Alkaline Phosphatase 86 (38-126) U/L Troponin I 0.110 H* (0.000-0.034) ng/mL NT-Pro-B Natriuret Pep 899 H (19.9-100) pg/mL Total Protein 7.0 (6.3-8.2) g/dL Albumin 3.9 (3.5-5.1) g/dL Lipase 22 L (23-300) U/L <Naty Wu PA-C - Last Filed: 01/11/25 01:27> Lab Results 01/10/25 Range/Units 16:21 WBC 5.8 (4.5-10.0) K/mm3 RBC 4.27 L (4.6-6.20) M/mm3 Hgb 11.9 L (14.0-18.0) g/dL Hct 41.7 L (42.0-52.0) % MCV 97.7 (80-100) fl MCH 27.9 (26-34) pg MCHC 28.5 L (32-36) g/dl RDW 12.3 (11.5-14.5) % Plt Count 164 (150-375) k/mm3 MPV 9.5 (7.4-10.4) fl Immature Gran % (Auto) 0.3 (0-0.5) % Neut % (Auto) 70.6 (45.5-73.1) % Lymph % (Auto) 18.0 L (18.3-44.2) % [place] % (Auto) 7.7 (2.6-8.5) % Eos % (Auto) 2.7 (0-4.4) % Baso % (Auto) 0.7 (0.2-1.2) % Lymph # (Auto) 1.05 (0.9-3.2) K/mm3 [place] # (Auto) 0.5 (0.1-0.6) K/mm3 Eos # (Auto) 0.2 (0-0.3) K/mm3 Baso # (Auto) 0.0 (0.0-0.1) K/mm3 Abs Immat Gran (auto) 0.02 (0.00-0.031) K/mm3 Absolute Neuts (auto) 4.1 (1.3-6.7) K/mm3 Absolute Nucleated RBC 0.000 (0.0-0.012) K/mm3 Nucleated RBC % 0.0 (0.0-0.2) % PT 12.4 (11.1-14.7) Seconds INR 0.9 APTT 32.1 (22.3-36.8) Seconds Sodium 140 (137-145) mmol/L Potassium 4.0 (3.4-5.0) mmol/L Chloride 89 L (98-107) mmol/L Carbon Dioxide > 40 H (22-30) mmol/L Anion Gap (4-12) mmol/L BUN 15 D (9-20) mg/dL Creatinine 0.70 (0.7-1.3) mg/dL Estim Creat Clear Calc 96 ml/min Estimated GFR > 60 (59 - ) Glucose 118 H (65-110) mg/dL Calcium 8.8 (8.4-10.2) mg/dL Total Bilirubin 0.7 (0.2-1.3) mg/dL AST 22 (17-59) U/L ALT 39 (6-50) U/L Alkaline Phosphatase 86 (38-126) U/L Troponin I 0.110 H* (0.000-0.034) ng/mL NT-Pro-B Natriuret Pep 899 H (19.9-100) pg/mL Total Protein 7.0 (6.3-8.2) g/dL Albumin 3.9 (3.5-5.1) g/dL Lipase 22 L (23-300) U/L <Adán Storey MD - Last Filed: 01/10/25 19:17> ABG Data ABG results: 01/10/25 18:09 Puncture Site Left brachial ABG pH 7.387 ABG pCO2 66.8 H* ABG pO2 88.2 ABG PO2/FiO2 Ratio 2.45 ABG HCO3 39.3 H ABG O2 Saturation 96.3 ABG O2 Content 15.7 L ABG Base Excess 11.8 A-a Gradient 91.0 Oxyhemoglobin 95.4 Total Hemoglobin 11.6 L O2 Delivery Device Nasal cannula O2 Liters/Min 4.0 FiO2 36 <Naty Wu PA-C - Last Filed: 01/11/25 01:27> 01/10/25 18:09 Puncture Site Left brachial ABG pH 7.387 ABG pCO2 66.8 H* ABG pO2 88.2 ABG PO2/FiO2 Ratio 2.45 ABG HCO3 39.3 H ABG O2 Saturation 96.3 ABG O2 Content 15.7 L ABG Base Excess 11.8 A-a Gradient 91.0 Oxyhemoglobin 95.4 Total Hemoglobin 11.6 L O2 Delivery Device Nasal cannula O2 Liters/Min 4.0 FiO2 36 <Adán Storey MD - Last Filed: 01/10/25 19:17> Imaging Data Radiologist's impression: ITS Impressions Chest X-Ray 01/10/25 16:58 IMPRESSION: Left mid to lower lung scarring. No focal infiltrate or effusion. Chest CTA 01/10/25 18:29 IMPRESSION: No pulmonary embolus. No thoracic aortic dissection. Borderline enlargement of the main pulmonary artery. Severe panlobular emphysematous disease with large bulla formation within the bilateral upper lobes, left greater than right. <Naty Wu PA-C - Last Filed: 01/11/25 01:27> Critical Care Time Critical Care Time Critical Care Time: No <Naty Wu PA-C - Last Filed: 01/11/25 01:27> Discharge Plan Discharge Clinical Impression: Acute exacerbation of chronic obstructive pulmonary disease, Elevated troponin <Naty Wu PA-C - Last Filed: 01/11/25 01:27> Patient Disposition: Still a Patient <Naty Wu PA-C - Last Filed: 01/11/25 01:27> Condition: Stable <Naty Wu PA-C - Last Filed: 01/11/25 01:27> Time of Disposition: 19:17 <Naty Wu PA-C - Last Filed: 01/11/25 01:27> 19:17 <Adán Storey MD - Last Filed: 01/10/25 19:17>
[2025-01-10 16:27] LABS: Basophils Percent Auto 0.7 % (0.2-1.2); Eosinophils Absolute Auto 0.2 K/mm3 (0-0.3); Eosinophils Percent Auto 2.7 % (0-4.4); Hematocrit 41.7 % (42.0-52.0); Hemoglobin 11.9 g/dL (14.0-18.0); Immature Granulocyte Absolute 0.02 K/mm3 (0.00-0.031); Immature Granulocyte Percent A 0.3 % (0-0.5); Lymphocytes Absolute Auto 1.05 K/mm3 (0.9-3.2); Mean Corpuscular HGB Conc 28.5 g/dl (32-36); Mean Corpuscular Hemoglobin 27.9 pg (26-34); Mean Corpuscular Volume 97.7 fl (80-100); Mean Platelet Volume 9.5 fl (7.4-10.4); Monocytes Absolute Auto 0.5 K/mm3 (0.1-0.6); Monocytes Percent Auto 7.7 % (2.6-8.5); Neutrophils Absolute Auto 4.1 K/mm3 (1.3-6.7); Neutrophils Percent Auto 70.6 % (45.5-73.1); Platelet Count Result 164 k/mm3 (150-375); Red Blood Count 4.27 M/mm3 (4.6-6.20); Red Cell Distribution Width 12.3 % (11.5-14.5); White Blood Count 5.8 K/mm3 (4.5-10.0)
[2025-01-10 16:37] LABS: Alanine Aminotransferase 39 U/L (6-50); Albumin Level 3.9 g/dL (3.5-5.1); Alkaline Phosphatase 86 U/L (38-126); Aspartate Amino Transferase 22 U/L (17-59); Bilirubin,Total 0.7 mg/dL (0.2-1.3); Blood Urea Nitrogen 15 mg/dL (9-20); Calcium 8.8 mg/dL (8.4-10.2); Carbon Dioxide > 40 mmol/L (22-30); Chloride 89 mmol/L (98-107); Estimated CRCL calculation 96 ml/min; Estimated Glomerular Filt Rate > 60; Glucose 118 mg/dL (65-110); INR 0.9; Lipase 22 U/L (23-300); Prothrombin Time 12.4 Seconds (11.1-14.7); Sodium 140 mmol/L (137-145)
[2025-01-10 16:38] LABS: Partial Thromboplastin Time 32.1 Seconds (22.3-36.8)
[2025-01-10] MEDS: IPRATROPIUM 0.5 MG/ALBUTEROL SULFATE 2.5 MG AMPUL.NEB 3 ML INHALATION ×2 (16:41→20:32)
[2025-01-10] MEDS: ASPIRIN 81 MG CHEWABLE TABLET 324 MG PO (17:01)
[2025-01-10] MEDS: methylPREDNISolone SOD SUCC 125 MG VIAL IV PUSH (17:01)
[2025-01-10] MEDS: MAGNESIUM SULF 1 GM/D5W 100 ML 1 GM/100 ML BAG IVPB (17:01)
[2025-01-10] MEDS: Please add drug allergy info to patient profile. 1 EACH XX (17:08)
--- OUTSIDE RECORDS SUMMARY | 2025-01-10 17:17 | XMS_ITS | Patient Health Summary ---
Author Organization [facility] Address [address] [place] [address] Care Team Providers Care Rouge Sifter Name Role Phone Unavailable Primary Care Provider Unavailabl e Note from [facility],non-owned Affiliates and Associated Physician Practices is amultiple site organization consisting of ambulatory clinics and hospital sitesin [place], [place], [place] and [place]. This disclosure is being madepursuant to the Care Everywhere program and may not contain all information available regarding this patient. Last updated 18.[facility] Allergies No known active allergies Medications * Be aware that medications may not be up to date on this document. Alwaysverify current medications with the patient. * HYDROcodone-acetaminophen ([place]) 10-325 MG tablet Take 1 (one) tablet [...] medical care, and heating? Somewhat hard 05/14/2024 [facility] [place] of Occupat ional Health - Occupational Stress [...] place to sleep or slept in a skilled nursing (including now)? No 05/14/2024 Sex and Gender [...] AM CDT Medical Devices Implanted Type Area Sterilisation Technician Device Identifier Shelf Expiration Date Model / Serial / Lot Sys Cor Stent Sng Xd Mr 3mm 20mm Dlv Sys - [id number] Implanted:Qty: 1 on 05/18/2024 by Michaela Reddy MD at [facility] [employer] [id number] 01/01/2026 [id number] / [id number] / [id number] Sys Cor Stent Sng Xd Mr 3mm 16mm Dlv Sys - [id number] Implanted:Qty: 1 on 05/18/2024 by Michaela Reddy MD at [facility] [employer] [id number] 08/19/2024 [id number] / [id number] / [id number] Sys Cor Stent Sng Xd Mr 3.5mm 38mm Dlv - [id number] Implanted:Qty: 1 on 05/18/2024 by Michaela Reddy MD at [facility] [employer] [id number] 10/06/2025 [id number] / [id number] / [id number] Procedures * BASIC METABOLIC PANEL (CALCIUM TOTAL)(Performed [...] METABOLIC PANEL (CALCIUM TOTAL) (05/20/2024 11:14 AM [facility]) BUN 12 7 - 26 mg/dL 05/20/2024 11:54 AM [facility] Creatinine 0.76 0.71 - 1.16 mg/dL 05/20/2024 11:54 AM [facility] Sodium 140 136 - 145 mmol/L 05/20/2024 11:54 AM [facility] Potassium 4.3 3.5 - 4.5 mmol/L 05/20/2024 11:54 AM [facility] Chloride 102 98 - 107 mmol/L 05/20/2024 11:54 AM [facility] CO2 32(H) 22 - 29 mmol/L 05/20/2024 11:54 AM [facility] Glucose 317(H) 70 - 115 mg/dL 05/20/2024 11:54 AM [facility] Calcium 8.7 8.4 - 10.2 mg/dL 05/20/2024 11:54 AM [facility] Anion Gap 6 6 - 16 05/20/2024 11:54 AM [facility] BUN/Creatinine Ratio 16 7 - 23 05/20/2024 11:54 AM [facility] Osmolality Calculated 302(H) 275 - 295 mOsm/kg 05/20/2024 11:54 AM [facility] eGFR by CKD-EPI >90 >=90 mL/min/1.7 3 m2 05/20/2024 11:54 AM [facility] Blood BLOOD SPECIMEN / Unknown Venipuncture / Unknown 05/20/2024 11:14 AM CDT 05/20/2024 11:23 AM CDT Monique Ray CLIENT ACCOUNT REPRESENTATIVE-CUSTOMER INSIGHT ANALYST LAB - CHEMIS TRY ORDERABLES [facility] [address] [place] [phone], [facility] [phone] * (ABNORMAL) CBC W/O DIFFERENTIAL (05/20/2024 3:38 AM CDT) Only the most recent of6 resultswithin the time period is included. WBC 9.4 4.0 - 10.7 x10E9/L 05/20/2024 4:30 AM [facility] RBC Count 4.18(L) 4.30 - 5.80 x10E12/L 05/20/2024 4:30 AM [facility] Hemoglobin 11.8(L) 13.3 - 17.5 g/dL 05/20/2024 4:30 AM [facility] Hematocrit 38.8 38.7 - 51.1 % 05/20/2024 4:30 AM [facility] MCV 92.8 80.0 - 98.0 fL 05/20/2024 4:30 AM [facility] MCH 28.2 26.7 - 33.6 pg 05/20/2024 4:30 AM [facility] MCHC 30.4(L) 31.7 - 36.3 g/dL 05/20/2024 4:30 AM [facility] RDW-CV 14.1 11.3 - 14.8 % 05/20/2024 4:30 AM [facility] Platelet Count 287 150 - 420 x10E9/L 05/20/2024 4:30 AM [facility] MPV 9.8 7.8 - 11.4 fL 05/20/2024 4:30 AM [facility] Blood BLOOD SPECIMEN / Unknown Lab Venipuncture / Unknown 05/20/2024 3:38 AM CDT 05/20/2024 4:16 AM CDT Woo Aj MD LAB - HEMATOLOGY ORD ERABLES [facility] [address] [place] [address], [facility] [phone] * (ABNORMAL) RENAL FUNCTION PANEL (05/20/2024 3:38 AM CDT) Only the most recent of5 resultswithin the time period is included. BUN 14 7 - 26 mg/dL 05/20/2024 4:49 AM [facility] Creatinine 0.91 0.71 - 1.16 mg/dL 05/20/2024 4:49 AM [facility] Sodium 142 136 - 145 mmol/L 05/20/2024 4:49 AM [facility] Potassium 5.0(H) 3.5 - 4.5 mmol/L 05/20/2024 4:49 AM [facility] Chloride 100 98 - 107 mmol/L 05/20/2024 4:49 AM [facility] CO2 35(H) 22 - 29 mmol/L 05/20/2024 4:49 AM [facility] Glucose 106 70 - 115 mg/dL 05/20/2024 4:49 AM [facility] Albumin 2.8(L) 3.4 - 5.0 g/dL 05/20/2024 4:49 AM [facility] Calcium 8.8 8.4 - 10.2 mg/dL 05/20/2024 4:49 AM [facility] Phosphorus 3.8 2.8 - 5.1 mg/dL 05/20/2024 4:49 AM [facility] Anion Gap 7 6 - 16 05/20/2024 4:49 AM [facility] BUN/Creatinine Ratio 15 7 - 23 05/20/2024 4:49 AM [facility] Osmolality Calculated 295 275 - 295 mOsm/kg 05/20/2024 4:49 AM [facility] eGFR by CKD-EPI >90 >=90 mL/min/1.7 3 m2 05/20/2024 4:49 AM [facility] Blood BLOOD SPECIMEN / Unknown Lab Venipuncture / Unknown 05/20/2024 3:38 AM CDT 05/20/2024 4:16 AM CDT oWo Aj MD LAB - CHEMISTRY TY [facility] Organization Address City/State/ZIP Co de Phone Number [facility] [address] [place] [phone], [facility] [phone] * MAGNESIUM BLOOD (05/20/2024 3:38 AM CDT) Only the most recent of6 resultswithin the time period is included. Magnesium 2.1 1.6 - 2.6 mg/dL 05/20/2024 4:49 AM [facility] Blood BLOOD SPECIMEN / Unknown Lab Venipuncture / Unknown 05/20/2024 3:38 AM CDT 05/20/2024 4:16 AM CDT Woo Aj MD LAB - CHEMISTRY TY BHAGAT [facility] [address] [place] [address], [facility] [phone] * CORONARY ANGIOGRAPHY, CCL CORONARY STENT, CCL [...] (on 4L), HTN, HLD. Initially presented to [facility] in [place], [place] due to symptomatology of exertional chest [...] needle and modified Seldinger technique. A 7 [place] sheath inserted to right radial artery. Intra-arterial nicardipine and nitroglycerin given to prevent spasm. Intravenous heparin given to prevent occlusion and for therapeutic anticoagulation with ACT monitored 250-350. A 7 [place] EBU 3.75 guide catheter used to cannulate [...] circumflex with mild difficulty. A 0.014 inch [employer] [place] guidewire was advanced into distal LAD [...] expanded reasonably well. We performed IVUS using Sheridan eye catheter down the left main/LAD. Beyond [...] balloon in the left main/LAD. Using the [id number] sequence, the balloons were inflated to 20 [...] Emerge balloon in the LM/LAD. Using the hfho-[id number] sequence, the balloons were inflated to 20 [...] D PROCS * ACT LR - POCT ([facility]) (05/18/2024 1:37 PM CDT) Only the most recent of6 resultswithin the time period is included. [facility] ACT LR 269 See result comments sec 05/25/2024 7:04 AM CDT [facility] Blood BLOOD SPECIMEN / Unknown 05/18/2024 1:37 PM CDT 05/25/2024 7:04 AM CDT Narrative [facility] - 05/25/2024 7:04 AM CDT ACT-LR Therapeutics ranges are: Cardiac film laboratory technician = 200-300 seconds Sheath pull = ACT [...] Aj MD LAB - COAGULATION OR DERABLES [facility] [address] [place] [address], [facility] [phone] * COMPLETE PFT W/WO BRONCHODILATOR (05/15/2024 4:45 PM CDT) Impressions Guille Ramos MD - 05/15/2024 4:45 PM CDT [facility] DEPARTMENT OF PULMONARY, CRITICAL CARE, AND SLEEP [...] of Pulmonary, Critical Care and Sleep Medicine [facility] I have personally reviewed the fellow's interpretation of the test and made any necessary changes when needed. Guille Ramos MD Director Of Hospitality of Internal Medicine Division of Pulmonary, Critical Care and Sleep Medicine [facility] Pager: [phone] Narrative Guille Ramos MD - 05/15/2024 4:45 [...] FUJI PACS RVIDd 3.249 cm SSM CV RUST I PACS RVIDd 3.249 cm SSM CV RUST I PACS RVOT diam Doppler 1.998 cm SSM CV FUJI PACS RVOT diam Doppler 1.998 cm SSM CV FUJI PACS RVOT pk lul 106.498 cm/s SSM CV F UJI PACS RVOT pk lul 106.498 cm/s SSM CV F UJI PACS RVOT VTI 19.652 cm SSM CV RUST I PACS RVOT VTI 19.652 cm SSM CV RUST I PACS LA size 4.03 cm SSM CV RUST I PACS LA size 4.03 cm SSM CV RUST I PACS LA vol BP 59.908 ml SSM CV RUST I PACS LA vol BP 59.908 ml SSM CV RUST I PACS RA area 19.381 cm SSM CV RUSTI PACS RA area 19.381 cm SSM CV RUSTI PACS AV mn grad 6.362 mmHg SSM CV FU JI PACS AV mn grad 6.362 mmHg SSM CV FU JI PACS AV pk lul 169.987 cm/s SSM CV RUST I PACS AV pk lul 169.987 cm/s SSM CV RUST I PACS AV VTI 26.197 cm SSM CV RUST I PACS AV VTI 26.197 cm SSM CV RUST I PACS MV A pk lul 73.998 [...] 11:54 AM Patient Status: I/P Study Site: [facility] Primary Location: [facility] EStudy Info Technical Quality: Technically Difficult Exam Type: ECHO COMPLETE W CONTRAST Indications I25.10 - CAD, multiple vessel Procedure(s) * Complete color, Doppler, M-Mode and 2D transthoracic echocardiogram is performed. Contrast/Agitated Saline Contrast / Saline: Definity Amount: 2.00 ml Reason for Technically Difficult Study: lung interference Staff Referring Physician: Woo Aj Ordering Provider: Woo Aj Attending Physician: Woo Aj Community Youth Secretary: Hans De Oliveira Left Ventricle Left ventricular [...] 11:54 AM Patient Status: I/P Study Site: [facility] Primary Location: [facility] EStud Info Technical Quality: Technically Difficult Exam Type: ECHO COMPLETE W CONTRAST Indications I25.10 - CAD, multiple vessel Procedure(s) * Complete color, Doppler, M-Mode and 2D transthoracic echocardiogramis performed. Contrast/Agitated Saline Contrast / Saline: Definity Amount: 2.00 ml Reason for Technically Difficult Study: lung interference Staff Referring Physician: Woo Aj Ordering Provider: Woo Aj Attending Physician: Woo Aj Community Youth Secretary: Hans De Oliveira Left Ventricle Left ventricular [...] chronic left rib deformities. Procedure Note Brian Sheth MD - 05/15/2024 PROCEDURE: CT CHEST WO [...] aureus (MRSA) TREY 05/16/2024 3:50 PM CDT [facility]CRO[facility] Microbiology SPECIMEN FROM NASAL FOSSAE / Unknown Collection / Unknown 05/15/2024 11:24 AM CDT 05/15/2024 11:35 AM CDT Marcelle PRINCE LAB - MICROBIOLOGY O RDERABLES [facility] [address] [place], [place] [address], [facility] [phone] * XR CHEST 1VW PORTABLE (05/15/2024 9:25 [...] FREE T4 (05/15/2024 4:32 AM CDT) Pathologist [facility] TSH 1.464 0.350 - 4.940 uIU/mL 05/15/2024 6:05 AM CDT [facility] Blood BLOOD SPECIMEN / Unknown Lab Venipuncture / Unknown 05/15/2024 4:32 AM CDT 05/15/2024 5:16 AM CDT Woo Aj MD LAB - CHEMISTRY TY BHAGAT [facility] [address] [place] [phone], [facility] [phone] * (ABNORMAL) HEMOGLOBIN A1C (05/15/2024 4:32 AM CDT) Hemoglobin A1c 6.0(H) <=5.6 % 05/15/2024 9:27 AM CDT [facility] Estimated Average Glucose 126 mg/dL 05/15/2024 9:27 AM CDT [facility] Comment: HbA1c Interpretation: Normal : < 5.7% Pre-diabetes: 5.7-6.4% Diabetes: Equal to or greater than 6.5% Test results diagnostic of diabetes should be repeated for confirmation. Treatment target values recommended by ADA and other clinical organizations should be used to evaluate metabolic control in patients. Reference: [place] [employer], Standards of Care in Diabetes [...] - CHEMISTRY ORDNancy BHAGAT Performing Organization Address [facility]/ZIP Co de Phone Number [address] [address] [phone] * EKG 12-LEAD (05/14/2024 7:48 PM CDT) [facility] Ventricular Rate 73 BPM [facility] MUSE Atrial Rate 73 BPM [facility] MUSE P-R Interval 112 ms [facility] MUSE QRS Duration ms 100 ms [facility] MUSE Q-T Interval ms 388 ms [facility] MUSE QTC Calculation (Bezet) 427 ms [facility] MUSE Calculated P [place] 48 degrees SL MUSE Calculated R [place] 42 degrees SL MUSE Calculated T [place] 69 degrees [facility] MUSE Interpretation EKG NORMAL SINUS RHYTHM NORMAL ECG NO PREVIOUS ECGS AVAILABLE Confirmed by ALEXANDRA FREEMAN MD ([id number]) on 05/15/2024 11:15:56 AM [facility] MUSE 05/14/2024 7:48 PM CDT 05/15/2024 11:15 AM CDT Woo Aj MD ECG ORDERABLES Performing Organization Address [facility] Co de Phone Number [facility] * TROPONIN-I HIGH SENSITIVE (05/14/2024 6:49 PM CDT) [facility] Troponin I High Sensitive 6 <=35 ng/L 05/14/2024 7:49 PM [facility] Blood BLOOD SPECIMEN / Unknown Lab Venipuncture / Unknown 05/14/2024 6:49 PM CDT 05/14/2024 7:15 PM CDT Woo Aj MD LAB - CHEMISTRY TY BHAGAT [facility] Organization Address City/State/ZIP Co de Phone Number [facility] [address] [place] [address], [facility] [phone] * (ABNORMAL) COMPREHENSIVE METABOLIC PANEL (05/14/2024 4:47 PM CDT) [facility] BUN 17 7 - 26 mg/dL 05/14/2024 5:22 PM [facility] Creatinine 0.95 0.71 - 1.16 mg/dL 05/14/2024 5:22 PM [facility] Sodium 144 136 - 145 mmol/L 05/14/2024 5:22 PM [facility] Potassium 4.5 3.5 - 4.5 mmol/L 05/14/2024 5:22 PM [facility] Chloride 106 98 - 107 mmol/L 05/14/2024 5:22 PM [facility] CO2 33(H) 22 - 29 mmol/L 05/14/2024 5:22 PM [facility] Glucose 123(H) 70 - 115 mg/dL 05/14/2024 5:22 PM [facility] Calcium 8.9 8.4 - 10.2 mg/dL 05/14/2024 5:22 PM [facility] Protein Total 6.3 6.0 - 8.3 g/dL 05/14/2024 5:22 PM [facility] Albumin 2.6(L) 3.4 - 5.0 g/dL 05/14/2024 5:22 PM [facility] Bilirubin Total 0.2 0.2 - 1.2 mg/dL 05/14/2024 5:22 PM [facility] Alkaline Phosphatase 90 40 - 150 U/L 05/14/2024 5:22 PM CDT [facility] ALT 23 5 - 55 U/L 05/14/2024 5:22 PM T [facility] AST 12 5 - 34 U/L 05/14/2024 5:22 PM [facility] Anion Gap 5(L) 6 - 16 05/14/2024 5:22 PM [facility] BUN/Creatinine Ratio 18 7 - 23 05/14/2024 5:22 PM [facility] Osmolality Calculated 301(H) 275 - 295 mOsm/kg 05/14/2024 5:22 PM [facility] Albumin/Globulin Ratio 0.7(L) 1.1 - 2.3 05/14/2024 5:22 PM [facility] eGFR by CKD-EPI 87(L) >=90 mL/min/1.7 3 m2 05/14/2024 5:22 PM T [facility] Blood BLOOD SPECIMEN / Unknown Lab Venipuncture / Unknown 05/14/2024 4:47 PM CDT 05/14/2024 4:54 PM CDT Woo Aj MD LAB - CHEMISTRY TY BHAGAT [address] [address], [facility] [phone] * PHOSPHORUS BLOOD (05/14/2024 4:47 PM CDT) Phosphorus 3.5 2.8 - 5.1 mg/dL 05/14/2024 5:22 PM CDT [facility] Blood BLOOD SPECIMEN / Unknown Lab Venipuncture / Unknown 05/14/2024 4:47 PM CDT 05/14/2024 4:54 PM CDT Woo Aj MD LAB - CHEMISTRY TY BHAG[facility] [address] [address], [place] [phone] * CATH OUTSIDE STUDY (05/12/2024 12:00 AM CDT) Narrative [facility] PACS - 05/14/2024 3:25 PM CDT This is a study from an outside facility that has been uploaded into PACS. Woo [facility] PACS
--- OUTSIDE RECORDS SUMMARY | 2025-01-10 17:17 | XMS_ITS | Clinical Summary ---
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 Atrial flutter 04/15/2024 NSTEMI (non-ST [...] Description 12/16/2024 Post Discharge Follow-up [facility] Nursing Services [address] [place] [address] Jessy Kate RN 12/13/2024 5:24 AM DISABILITY SERVICES COORDINATOR - 12/15/2024 11:44 AM DISABILITY SERVICES COORDINATOR Emergency [facility] Med Surg [address] [place] [phone] Evelyn Lackey MD Patel, Satyen V, MD COPD exacerbation ([facility]) Discharge Disposition: Home Health Care Svc 12/13/2024 Travel from Last 3 Months Immunizations Immunization Administration Dates Next Due Influenza, Trivalent, Adjuvanted, PF 08/26/2024( ) Pneumococcal Vaccine Adult - 23 Valent 5 Pneumococcal conjugate PCV20 , polysaccharide [id number] conjugate, adjuvant, PF 08/26/2024() Family History Medical [...] = 0.6 oz pur e alcohol) occassionally [facility] Utilities Answer Date Recorded In the [...] declined 12/13/2024 How often do you attend moravian or alevism serv ices? Patient declined 12/13/2024 Do you belong to any clubs o r organizations such as moravian groups, unions, fraternal or athletic groups, or [...] medical care, and heating? Patient declined 12/13/2024 [facility] of Occupat ional Health - Occupational Stress [...] place to sleep or slept in a care home (including now)? No 04/11/2024 Housing Stability Vital [...] any time in the past 12 m [facility], were you homeless or living in a care home (including now)? Patient declined 12/13/2024 Sexually Active Control Partners Comments Yes Male Sex and Gender Information Value Date Recorded Sex Assigned at Not on file Legal Sex Male 9:09 PM CDT Gender Identity Not on file Sexual Orientation Not on file Last Filed Vital Signs Vital Sign Reading Time Taken Comments Blood Pressure 150/69 12/15/2024 8:12 AM DISABILITY SERVICES COORDINATOR Pulse 81 12/15/2024 8:12 AM DISABILITY SERVICES COORDINATOR Temperature 36.9 C (98.5 F) 12/15/2024 5:08 AM DISABILITY SERVICES COORDINATOR Respiratory Rate 18 12/15/2024 7:43 AM DISABILITY SERVICES COORDINATOR Oxygen Saturation 100% 12/15/2024 8:12 AM DISABILITY SERVICES COORDINATOR Inhaled Oxygen Concentration - - Weight 90.7 kg (200 lb) 12/13/2024 5:27 AM DISABILITY SERVICES COORDINATOR Height 182.9 cm (6') 12/13/2024 5:27 AM DISABILITY SERVICES COORDINATOR Body Mass Index 27.12 12/13/2024 5:27 AM DISABILITY SERVICES COORDINATOR Plan of Treatment Health Maintenance Due Date [...] Recommended Domains Addressed Status Status Reason/Outcome Date/Time [facility] Financial Resource Needs Financial Resource Strain Recommended 11/23/2024 12:28 PM DISABILITY SERVICES COORDINATOR [facility] Food Pantry Food Insecurity Recommended 11/23/2024 12:28 PM DISABILITY SERVICES COORDINATOR [facility] [employer] Detoxification, Substance Use Recovery Home, Substance Use Counseling, Substance Use Services Tobacco Use Recommended 11/23/2024 12:28 PM DISABILITY SERVICES COORDINATOR from Last 12 Months Medical Devices Implanted Type Area Dock Superintendent Device Identifier Shelf Expiration Date Model / Serial / Lot Stent Coronary Faustina Xience Everolimus Eluting [id number] - [id number] Implanted:Qty: 1 on 11/25/2018 by Tiffanie Pimentel MD at [facility] IMPLANT N/A: Coronary [employer] 04/16/2019 [id number] Stent Coronary Faustina Xience Everolimus Eluting [id number] - [id number] Implanted:Qty: 1 on 11/25/2018 by Tiffanie Pimentel MD at [facility] IMPLANT N/A: Coronary [employer] 07/08/2019 [id number] / / [id number] Device Clsr 70cm 6fr Angio-Seal Vip .035in Vasc Collagen Valuelink Gw Insertion Jessica Gann - [id number] Implanted:Qty: 1 on 11/25/2018 by Tiffanie Pimentel MD at [facility] IMPLANT N/A: [employer] 08/17/2019 [id number] / / [id number] Procedures Procedure Name Priority Date/Time Associated Diagnosis Comments CBC WITH AUTO DIFFERENTIAL Routine 12/15/2024 5:43 AM DISABILITY SERVICES COORDINATOR BASIC METABOLIC PANEL W/ CALCIUM TOTAL Routine 12/15/2024 5:43 AM DISABILITY SERVICES COORDINATOR COMPLETE BLOOD COUNT (CBC) WITH DIFF Routine 12/15/2024 5:43 AM DISABILITY SERVICES COORDINATOR CBC WITH AUTO DIFFERENTIAL Routine 12/14/2024 4:02 AM DISABILITY SERVICES COORDINATOR BASIC METABOLIC PANEL W/ CALCIUM TOTAL Routine 12/14/2024 4:02 AM DISABILITY SERVICES COORDINATOR COMPLETE BLOOD COUNT (CBC) WITH DIFF Routine 12/14/2024 4:02 AM DISABILITY SERVICES COORDINATOR AEROSOL NEBULIZER-INITIAL Routine 12/13/2024 2:34 PM DISABILITY SERVICES COORDINATOR CT ANGIO CHEST W/WO CONTRAST WITH PP (POST PROCESSING) Stat with Interpretation 12/13/2024 11:52 AM DISABILITY SERVICES COORDINATOR BLOOD GASES, ARTERIAL W/ O2 SATURATION STAT 12/13/2024 11:24 AM DISABILITY SERVICES COORDINATOR MAGNESIUM (MG) STAT 12/13/2024 6:35 AM DISABILITY SERVICES COORDINATOR BLOOD GASES, VENOUS W/ O2 SATURATION STAT 12/13/2024 6:35 AM DISABILITY SERVICES COORDINATOR TROPONIN I, HIGH SENSITIVITY (HSTRP) STAT 12/13/2024 6:35 AM DISABILITY SERVICES COORDINATOR XR CHEST SINGLE VIEW PORTABLE STAT 12/13/2024 6:29 AM DISABILITY SERVICES COORDINATOR RSV,SARS-COV-2,INF LUENZA A&B BY PCR STAT 12/13/2024 6:29 AM DISABILITY SERVICES COORDINATOR CBC WITH AUTO DIFFERENTIAL STAT 12/13/2024 5:38 AM DISABILITY SERVICES COORDINATOR B-TYPE NATRIURETIC PEPTIDE (BNP) STAT 12/13/2024 5:38 AM DISABILITY SERVICES COORDINATOR MAGNESIUM (MG) STAT 12/13/2024 5:38 AM DISABILITY SERVICES COORDINATOR TROPONIN I, HIGH SENSITIVITY (HSTRP) STAT 12/13/2024 5:38 AM DISABILITY SERVICES COORDINATOR CMP (COMPREHENSIVE METABOLIC PANEL) STAT 12/13/2024 5:38 AM DISABILITY SERVICES COORDINATOR COMPLETE BLOOD COUNT (CBC) WITH DIFF STAT 12/13/2024 5:38 AM DISABILITY SERVICES COORDINATOR EKG 12 LEAD STAT 12/13/2024 5:30 AM DISABILITY SERVICES COORDINATOR EKG SCAN 12/13/2024 12:00 AM DISABILITY SERVICES COORDINATOR from Last 3 Months Results * (ABNORMAL) CBC with Auto Differential (12/15/2024 5:43 AM DISABILITY SERVICES COORDINATOR) Only the most recent of3 resultswithin the time period is included. WBC 9.91 4.00 - 12.00 10(3)/mcL 12/15/2024 6:03 AM DISABILITY SERVICES COORDINATOR [facility] RBC 4.21(L) 4.40 - 5.80 10(6)/mcL 12/15/2024 6:03 AM DISABILITY SERVICES COORDINATOR [facility] HEMOGLOBIN (HGB) 12.1(L) 13.0 - 16.5 g/dL 12/15/2024 6:03 AM DISABILITY SERVICES COORDINATOR [facility] HEMATOCRIT (HCT) 39.5 38.0 - 50.0 % 12/15/2024 6:03 AM DISABILITY SERVICES COORDINATOR [facility] MCV 93.8 82.0 - 96.0 fL 12/15/2024 6:03 AM [facility] MCH 28.7 26.0 - 32.0 pg 12/15/2024 6:03 AM [facility] MCHC 30.6(L) 31.0 - 36.0 g/dL 12/15/2024 6:03 AM [facility] PLATELET COUNT 241 140 - 440 10(3)/mcL 12/15/2024 6:03 AM [facility] RDW 12.8 11.8 - 15.5 % 12/15/2024 6:03 AM [facility] MPV 9.8 8.0 - 12.6 fL 12/15/2024 6:03 AM [facility] NEUTROPHILS 75.9(H) 40.0 - 68.0 % 12/15/2024 6:03 AM [facility] LYMPHOCYTES 16.1(L) 19.0 - 49.0 % 12/15/2024 6:03 AM [facility] MONOCYTES 7.7 3.0 - 13.0 % 12/15/2024 6:03 AM [facility] EOSINOPHILS 0.1 0.0 - 8.0 % 12/15/2024 6:03 AM [facility] BASOPHILS 0.2 0.0 - 1.0 % 12/15/2024 6:03 AM [facility] ABSOLUTE NEUTROPHILS 7.52(H) 1.40 - 5.30 10(3)/mcL 12/15/2024 6:03 AM [facility] ABSOLUTE LYMPHOCYTES 1.60 0.90 - 3.30 10(3)/mcL 12/15/2024 6:03 AM [facility] ABSOLUTE MONOCYTES 0.76 0.10 - 0.90 10(3)/mcL 12/15/2024 6:03 AM [facility] ABSOLUTE EOSINOPHIL 0.01 0.00 - 0.50 10(3)/mcL 12/15/2024 6:03 AM [facility] ABSOLUTE BASOPHILS 0.02 0.00 - 0.10 10(3)/mcL 12/15/2024 6:03 AM [facility] NRBC PER 100 WBC 0 12/15/19 6:03 AM [facility] Blood Venipuncture / Unknown 12/15/2024 5:43 AM DISABILITY SERVICES COORDINATOR 12/15/2024 5:52 AM DISABILITY SERVICES COORDINATOR Erin Masterson PROJECT DEVELOPMENT ENGINEER, DRUG SAFETY ASSOCIATE HEMATOLOGY ORDERABLES Final Result [facility] [address] [place] [address] * (ABNORMAL) Basic Metabolic Panel w/ Calcium Total (12/15/2024 5:43 AM DISABILITY SERVICES COORDINATOR) Only the most recent of2 resultswithin the time period is included. SODIUM 145 136 - 145 mmol/L 12/15/2024 6:18 AM [facility] POTASSIUM 4.1 3.5 - 5.1 mmol/L 12/15/2024 6:18 AM [facility] CHLORIDE 102 98 - 107 mmol/L 12/15/2024 6:18 AM [facility] CO2, VENOUS 35(H) 22 - 30 mmol/L 12/15/2024 6:18 AM [facility] ANION GAP 12.1 <18.0 mmol/L 12/15/2024 6:18 AM [facility] GLUCOSE 94 70 - 99 mg/dL 12/15/2024 6:18 AM [facility] BUN 21 8 - 26 mg/dL 12/15/2024 6:18 AM [facility] CREATININE, BLOOD 0.85 0.70 - 1.30 mg/dL 12/15/2024 6:18 AM [facility] BUN/CREATININE RATIO 25(H) 12 - 20 ratio 12/15/2024 6:18 AM [facility] CALCIUM 8.9 8.7 - 10.5 mg/dL 12/15/2024 6:18 AM DISABILITY SERVICES COORDINATOR [facility] GFR, ESTIMATED >60 >=60 12/15/2024 6:18 AM DISABILITY SERVICES COORDINATOR [facility] Comment: Creatinine Clearance is the preferred criteria for selecting drug dose adjustments in renally impaired patients. The GFR is provided as additional pertinent clinical information. GFR is reported in mL/min/1.73 sq m. Calculation based on the Chronic Kidney Disease Epidemiology Collaboration (CKD- EPI) equation refit without adjustment for race. GFR, EST. >60 >=60 025 6:18 AM DISABILITY SERVICES COORDINATOR [facility] GFR, EST. NONAFRICAN >60 >=60 12/15/2024 6:18 AM DISABILITY SERVICES COORDINATOR [facility] Blood Venipuncture / Unknown 12/15/2024 5:43 AM DISABILITY SERVICES COORDINATOR 12/15/2024 5:52 AM DISABILITY SERVICES COORDINATOR us Erin Masterson APRN, DRUG SAFETY ASSOCIATE CHEMISTRY ORDERABLES Final Result [facility] [address] [place] [address] * CT ANGIO CHEST W/WO CONTRAST WITH PP (POST PROCESSING) (12/13/2024 11:52 AM DISABILITY SERVICES COORDINATOR) Anatomical Region Laterality Modality vascular N/A Computed Tomogra phy 12/13/2024 1:12 PM DISABILITY SERVICES COORDINATOR Impressions 12/13/2024 1:14 PM DISABILITY SERVICES COORDINATOR IMPRESSION: 1. No CT evidence of pulmonary embolism to segmental level. 2. Marked upper lobe predominant bilateral pulmonary emphysema with scattered regions of pulmonary parenchymal scarring as well as pulmonary bulla and blebs. Narrative 12/13/2024 1:14 PM DISABILITY SERVICES COORDINATOR EXAM DESCRIPTION: CT ANGIO CHEST W/WO CONTRAST [...] Kiki Suero M.D. AT: AT Report ID: [id number] Reading Location: [id number] Procedure Note Kiki Suero MD - 12/13/2024 [...] Kiki Suero M.D. AT: AT Report ID: [id number] Reading Location: [id number] IMPRESSION: 1. No CT evidence of pulmonary embolism to segmental level. 2. Marked upper lobe predominant bilateral pulmonary emphysema with scattered regions of pulmonary parenchymal scarring as well as pulmonary bulla and blebs. Gayle Munoz MD IMUlisses CT ORDERABLES Final Resul t * (ABNORMAL) Blood Gases, Arterial w/ O2 Saturation (12/13/2024 11:24 AM DISABILITY SERVICES COORDINATOR) O2 STATUS 3L 12/13/2024 11:31 AM DISABILITY SERVICES COORDINATOR [facility] PH ARTERIAL 7.45 7.35 - 7.45 12/13/2024 11:31 AM [facility] PC02 (ARTERIAL) 63(H) 35 - 45 mmHg 12/13/2024 11:31 AM [facility] PO2 (ARTERIAL) 86 75 - 100 mmHg 12/13/2024 11:31 AM [facility] O2 SAT ART, MEASURED 97 94 - 100 % 12/13/2024 11:31 AM [facility] BASE ARTERIAL 17.5(H) -2.0 - 2.0 mmol/L 12/13/2024 11:31 AM [facility] BICARBONATE 44.4(H) 22.0 - 26.0 mmol/L 12/13/2024 11:31 AM [facility] RENÉ'S TEST RESULTS Positive - Right Radial 12/13/2024 11:31 AM [facility] CARBOXYHEMOGLOBIN 1.6 0.0 - 5.0 % 12/13/2024 11:31 AM [facility] METHEMOGLOBIN 0.3 0.0 - 1.5 % 12/13/2024 11:31 AM [facility] ART Blood Gas Arterial Punctur e / Unknown 12/13/2024 11:24 AM DISABILITY SERVICES COORDINATOR 12/13/2024 11:24 AM [facility] us Gayle Munoz MD CHEMISTRY ORDERABLES Final Re sult [facility] [address] [place] [address] * TROPONIN I, HIGH SENSITIVITY (HSTRP) (12/13/2024 6:35 AM DISABILITY SERVICES COORDINATOR) Only the most recent of2 resultswithin the time period is included. TROPONIN I, HIGH SENSITIVITY- [facility] 29 <=35 ng/L 12/13/2024 7:14 AM [facility] Comment: High-sensitivity troponin I results are reported in ng/L making the result appear to be 1,000 times higher than the contemporary troponin I value which is reported in ng/ml. Results from [facility]. Blood Venipuncture / Unknown 12/13/2024 6:35 AM DISABILITY SERVICES COORDINATOR 12/13/2024 6:47 AM DISABILITY SERVICES COORDINATOR us Mariano Soares MD CHEMISTRY ORDERABLES Mariam l Result [facility] [address] [place] [address] * (ABNORMAL) Blood Gases, Venous w/ O2 Saturation (12/13/2024 6:35 AM DISABILITY SERVICES COORDINATOR) O2 STATUS 4lnc 12/13/2024 6:57 AM [facility] PH VENOUS 7.33(L) 7.34 - 7.43 12/13/2024 6:57 AM [facility] PCO2 (VENOUS) 89(H) 41 - 51 mmHg 12/13/2024 6:57 AM [facility] PO2 VENOUS 26(L) 30 - 50 mmHg 12/13/2024 6:57 AM [facility] O2 SAT DAV, MEASURED 36(L) 60 - 85 % 11/19 6:57 AM [facility] BICARBONATE 47.9(H) 22.0 - 26.0 mmol/L 12/13/2024 6:57 AM [facility] BASE VENOUS 17.7(H) -2.0 - 3.0 mmol/L 12/13/2024 6:57 AM [facility] CARBOXYHEMOGLOBIN 1.5 0.0 - 5.0 % 12/13/2024 6:57 AM [facility] METHEMOGLOBIN 0.4 0.0 - 1.5 % 12/13/2024 6:57 AM [facility] DAV Blood Gas Venipuncture / Unknown 12/13/2024 6:35 AM DISABILITY SERVICES COORDINATOR 12/13/2024 6:52 AM DISABILITY SERVICES COORDINATOR Narrative [facility] - 12/13/2024 6:57 AM DISABILITY SERVICES COORDINATOR Interpretation - The usual approach to interpreting [...] Lackey MD CHEMISTRY ORDERABLES Final Re sult [facility] [address] [place] [address] * Magnesium (Mg) [id number] (12/13/2024 6:35 AM DISABILITY SERVICES COORDINATOR) Only the most recent of2 resultswithin the time period is included. MAGNESIUM 2.5 1.6 - 2.6 mg/dL 12/13/2024 7:08 AM DISABILITY SERVICES COORDINATOR [facility] Blood Venipuncture / Unknown 12/13/2024 6:35 AM DISABILITY SERVICES COORDINATOR 12/13/2024 6:47 AM DISABILITY SERVICES COORDINATOR Evelyn Lackey MD CHEMISTRY ORDERABLES Final Re sult [facility] [address] [facility] [address] * XR CHEST SINGLE VIEW PORTABLE (12/13/2024 6:29 AM DISABILITY SERVICES COORDINATOR) Anatomical Region Laterality Modality Chest N/A Digital Radiogra phy 12/13/2024 6:40 AM DISABILITY SERVICES COORDINATOR Impressions 12/13/2024 6:42 AM DISABILITY SERVICES COORDINATOR IMPRESSION: Chronic interstitial disease with new left pleural effusion. Narrative 12/13/2024 6:42 AM DISABILITY SERVICES COORDINATOR EXAM DESCRIPTION: XR CHEST SINGLE VIEW PORTABLE [...] by Hazel Mondragon M.D. SN: Report ID: [id number] Reading Location: [id number] Procedure Note Hazel Mondragon MD - 12/13/2024 [...] Hazel Mondragon M.D. SN: SN Report ID: [id number] Reading Location: [id number] IMPRESSION: Chronic interstitial disease with new left pleural effusion. Evelyn Lackey MD IMG DIAGNOSTIC ORDERABLES Fin al Result * RSV,SARS-COV-2,INFLUENZA A&B BY PCR (12/13/2024 6:29 AM DISABILITY SERVICES COORDINATOR) FLU A Negative Negative, Error 12/13/2024 7:31 AM DISABILITY SERVICES COORDINATOR [facility] FLU B Negative Negative 12/13/2024 7:31 AM DISABILITY SERVICES COORDINATOR [facility] RESP SYNC VIRUS Negative Negative 7:31 AM DISABILITY SERVICES COORDINATOR [facility] SARSCOV2 NOT DETECTED (Reference Range for this test is Not Detected) 12/13/2024 7:31 AM DISABILITY SERVICES COORDINATOR [facility] Comment:This test was perfor med by a Reverse Tin Dipper PCR Method. Swab NASOPHARYNGEAL SWAB / Unknown Non-Phlebotomy Collection / Unknown 12/13/2024 6:29 AM DISABILITY SERVICES COORDINATOR 12/13/2024 6:47 AM DISABILITY SERVICES COORDINATOR Evelyn Lackey MD MICROBIOLOGY - GENERAL ORDERA BLES Final Result [facility] [place] [address] * (ABNORMAL) Comprehensive Metabolic Panel (Cmp) [id number] (12/13/2024 5:38 AM DISABILITY SERVICES COORDINATOR) Pathologist [facility] SODIUM 140 136 - 145 mmol/L 12/13/2024 6:06 AM [facility] POTASSIUM 4.4 3.5 - 5.1 mmol/L 12/13/2024 6:06 AM [facility] CHLORIDE 90(L) 98 - 107 mmol/L 12/13/2024 6:06 AM [facility] CO2, VENOUS 36(H) 22 - 30 mmol/L 12/13/2024 6:06 AM [facility] ANION GAP 18.4(H) <18.0 mmol/L 12/13/2024 6:06 AM [facility] GLUCOSE 107(H) 70 - 99 mg/dL 12/13/2024 6:06 AM [facility] BUN 14 8 - 26 mg/dL 12/13/2024 6:06 AM [facility] CREATININE, BLOOD 0.74 0.70 - 1.30 mg/dL 12/13/2024 6:06 AM [facility] BUN/CREATININE RATIO 19 12 - 20 ratio 12/13/2024 6:06 AM [facility] TOTAL PROTEIN 6.8 6.0 - 8.0 g/dL 12/13/2024 6:06 AM [facility] ALBUMIN 3.9 3.5 - 5.0 g/dL 12/13/2024 6:06 AM [facility] A/G RATIO 1.3 1.0 - 2.2 12/13/2024 6:06 AM [facility] CALCIUM 8.9 8.7 - 10.5 mg/dL 12/13/2024 6:06 AM [facility] T BILI 0.5 0.2 - 1.2 mg/dL 12/13/2024 6:06 AM [facility] SGOT (AST) 23 6 - 42 U/L 12/13/2024 6:06 AM [facility] SGPT (ALT) 12 6 - 55 U/L 12/13/2024 6:06 AM DISABILITY SERVICES COORDINATOR [facility] ALKALINE PHOSPHATASE 79 40 - 150 U/L 12/13/2024 6:06 AM DISABILITY SERVICES COORDINATOR [facility] GFR, ESTIMATED >60 >=60 12/13/2024 6:06 AM DISABILITY SERVICES COORDINATOR [facility] Comment: Creatinine Clearance is the preferred criteria for selecting drug dose adjustments in renally impaired patients. The GFR is provided as additional pertinent clinical information. GFR is reported in mL/min/1.73 sq m. Calculation based on the Chronic Kidney Disease Epidemiology Collaboration (CKD- EPI) equation refit without adjustment for race. GFR, EST. >60 >=60 025 6:06 AM DISABILITY SERVICES COORDINATOR [facility] GFR, EST. NONAFRICAN >60 >=60 12/13/2024 6:06 AM DISABILITY SERVICES COORDINATOR [facility] Blood Venipuncture / Unknown 12/13/2024 5:38 AM DISABILITY SERVICES COORDINATOR 12/13/2024 5:44 AM DISABILITY SERVICES COORDINATOR us Mariano Soares MD CHEMISTRY ORDERABLES Mariam l Result Performing Organization Address City/[facility]/ZIP Co de Phone Number [facility] [place] [address] * B-Type Natriuretic Peptide (BNP) (12/13/2024 5:38 AM DISABILITY SERVICES COORDINATOR) [facility] B TYPE NATRIURETIC PEPTIDE 92 <100 pg/mL 12/13/2024 8:35 AM DISABILITY SERVICES COORDINATOR [facility] Blood Venipuncture / Unknown 12/13/2024 5:38 AM DISABILITY SERVICES COORDINATOR 12/13/2024 5:44 AM DISABILITY SERVICES COORDINATOR Gayle Munoz MD CHEMISTRY ORDERABLES Final Re sult [facility] [place] [address] * EKG 12 LEAD (12/13/2024 5:30 AM DISABILITY SERVICES COORDINATOR) Ventricular Rate 93 BPM EXTERNAL EKG Atrial Rate 93 BPM EXTERNAL EKG P-R Interval 124 ms EXTERNAL EKG QRS Duration 94 ms EXTERNAL EKG Q-T Duration 360 ms EXTERNAL EKG QTC CALCULATION 447 ms EXTERNAL EKG P [place] 88 degrees EXTERNAL EKG R [place] 70 degrees EXTERNAL EKG T [place] 71 degrees EXTERNAL EKG 12/13/2024 5:30 AM DISABILITY SERVICES COORDINATOR Impressions EXTERNAL EKG - 12/14/2024 11:45 AM DISABILITY SERVICES COORDINATOR Normal sinus rhythm Normal ECG When compared with ECG of 25-AUG-2024 05:38, Sinus rhythm has replaced Atrial fibrillation Vent. rate has decreased BY 70 BPM QRS axis shifted right Borderline criteria for Inferior infarct are no longer present ST no longer depressed in Inferior leads ST no longer depressed in Anterolateral leads Confirmed by Chi Rodgers ([id number]) on 12/14/2024 11:45:44 AM Narrative Procedure Note [...] in Anterolateral leads Confirmed by Chi Rodgers ([id number]) on 12/14/2024 11:45:44 AM Mariano Soares MD IMG ECG ORDERABLES Final Result Performing Organization Address City/[facility]/ZIP Co de Phone Number EXTERNAL EKG * EKG SCAN (12/13/2024 12:00 AM DISABILITY SERVICES COORDINATOR) 12/13/2024 us Provider Scan IMG ECG ORDERABLES [...] measures to stabilize the patient. Care Teams Gas Meter Installer Relationship Specialty Start Date End Date Manny Martines MD [id number] [place] [address] PCP - General Family Medicine 10/01/15
--- OUTSIDE RECORDS SUMMARY | 2025-01-10 17:17 | XMS_ITS | Referral Summary ---
Author Organization [facility] Address [address] [place] [address] Care Team Providers Care Charting Clerk Name Role Phone Unavailable Primary Care Provider Unavailabl e Source Comments [facility],non-owned Affiliates and Associated Physician Practices is amultiple site organization consisting of ambulatory clinics and hospital sitesin [place], [place], [place] and [place]. This disclosure is being madepursuant to the Care Everywhere program and may not contain all information available regarding this patient. Last updated 18.[facility] [employer] Allergies No known active allergies Medications * Be aware that medications may not be up to date on this document. Alwaysverify current medications with the patient. Medication Sig Dispensed Refills Start Date End Date Status HYDROcodone-acetami nophen ([place]) 10-325 MG tablet Take 1 (one) tablet [...] medical care, and heating? Somewhat hard 05/14/2024 [facility] [place] of Occupat ional Health - Occupational Stress [...] place to sleep or slept in a correction (including now)? No 05/14/2024 Sex and Gender [...] on file Medical Devices Implanted Type Area Child Development Instructor Device Identifier Shelf Expiration Date Model / Serial / Lot Sys Cor Stent Sng Xd Mr 3mm 20mm Dlv Sys - [id number] Implanted:Qty: 1 on 05/18/2024 by Michaela Reddy MD at [facility] [email or web address] [id number] 01/01/2026 [id number] / [id number] / [id number] Sys Cor Stent Sng Xd Mr 3mm 16mm Dlv Sys - [id number] Implanted:Qty: 1 on 05/18/2024 by Michaela Reddy MD at [facility] [email or web address] [id number] 08/19/2024 [id number] / [id number] / [id number] Sys Cor Stent Sng Xd Mr 3.5mm 38mm Dlv - [id number] Implanted:Qty: 1 on 05/18/2024 by Michaela Reddy MD at [facility] [email or web address] [id number] 10/06/2025 [id number] / [id number] / [id number] Procedures Procedure Name Priority Date/Time Associated Diagnosis Comments RENAL FUNCTION PANEL Routine 05/20/2024 3:38 AM CDT from Last 3 Months or Most Recently Relevant to Health Maintenance Results * (ABNORMAL) RENAL FUNCTION PANEL (05/20/2024 3:38 AM CDT) BUN 14 7 - 26 mg/dL 05/20/2024 4:49 AM CDT [facility] Creatinine 0.91 0.71 - 1.16 mg/dL 05/20/2024 4:49 AM CDT [facility] Sodium 142 136 - 145 mmol/L 05/20/2024 4:49 AM CDT [facility] Potassium 5.0(H) 3.5 - 4.5 mmol/L 05/20/2024 4:49 AM [facility] Chloride 100 98 - 107 mmol/L 05/20/2024 4:49 AM [facility] CO2 35(H) 22 - 29 mmol/L 05/20/2024 4:49 AM [facility] Glucose 106 70 - 115 mg/dL 05/20/2024 4:49 AM [facility] Albumin 2.8(L) 3.4 - 5.0 g/dL 05/20/2024 4:49 AM [facility] Calcium 8.8 8.4 - 10.2 mg/dL 05/20/2024 4:49 AM [facility] Phosphorus 3.8 2.8 - 5.1 mg/dL 05/20/2024 4:49 AM [facility] Anion Gap 7 6 - 16 05/20/2024 4:49 AM [facility] BUN/Creatinine Ratio 15 7 - 23 05/20/2024 4:49 AM [facility] Osmolality Calculated 295 275 - 295 mOsm/kg 05/20/2024 4:49 AM [facility] eGFR by CKD-EPI >90 >=90 mL/min/1.7 3 m2 05/20/2024 4:49 AM [facility] Blood BLOOD SPECIMEN / Unknown Lab Venipuncture / Unknown 05/20/2024 3:38 AM CDT 05/20/2024 4:[address] [facility] Woo Aj MD LAB - CHEMISTRY TY BHAGAT [facility] Organization Address [facility]/State/ZIP Co de Phone Number [facility] [address] [place] [address], [facility] [phone] from Last 3 Months or Most Recently Relevant to Health Maintenance Advance Directives * Full Code (Latest Code Status on File) Date Activated Date Inactivated Comments 05/14/2024 4:44 PM 05/20/2024 3:42 PM
--- OUTSIDE RECORDS SUMMARY | 2025-01-10 17:17 | XMS_ITS | Clinical Summary ---
Author Organization [facility] Address [address] [place] [address] Care Team Providers Care Call Center Director Name Role Phone Unavailable Primary Care Provider Unavailabl e Source Comments [facility],non-owned Affiliates and Associated Physician Practices is amultiple site organization consisting of ambulatory clinics and hospital sitesin [place], [place], [place]. This disclosure is being madepursuant to the Care Everywhere program and may not contain all information available regarding this patient. Last updated 18.[facility] [employer] Allergies No known active allergies Medications * Be aware that medications may not be up to date on this document. Alwaysverify current medications with the patient. Medication Sig Dispensed Refills Start Date End Date Status HYDROcodone-acetami nophen ([place]) 10-325 MG tablet Take 1 (one) tablet [...] medical care, and heating? Somewhat hard 05/14/2024 [facility] [place] of Occupat ional Health - Occupational Stress [...] this topic Medical Devices Implanted Type Area Con[employer] Device Identifier Shelf Expiration Date Model / Serial / Lot Sys Cor Stent Sng Xd Mr 3mm 20mm Dlv Sys - [id number] Implanted:Qty: 1 on 05/18/2024 by Michaela Reddy MD at [facility] [employer] [id number] 01/01/2026 [id number] / [id number] / [id number] Sys Cor Stent Sng Xd Mr 3mm 16mm Dlv Sys - [id number] Implanted:Qty: 1 on 05/18/2024 by Michaela Reddy MD at [facility] [employer] [place] [id number] 08/19/2024 [id number] / [id number] / [id number] Sys Cor Stent Sng Xd Mr 3.5mm 38mm [facility] - [id number] Implanted:Qty: 1 on 05/18/2024 by Michaela Reddy MD at [facility] [employer] [facility] [id number] 10/06/2025 [id number] / [id number] / [id number] Procedures Procedure Name Priority Date/Time Associated Diagnosis Comments RENAL FUNCTION PANEL Routine 05/20/2024 3:38 AM CDT from Last 3 Months or Most Recently Relevant to Health Maintenance Results * (ABNORMAL) RENAL FUNCTION PANEL (05/20/2024 3:38 AM CDT) BUN 14 7 - 26 mg/dL 05/20/2024 4:49 AM [facility] Creatinine 0.91 0.71 - 1.16 mg/dL 05/20/2024 4:49 AM [facility] Sodium 142 136 - 145 mmol/L 05/20/2024 4:49 AM [facility] Potassium 5.0(H) 3.5 - 4.5 mmol/L 05/20/2024 4:49 AM [facility] Chloride 100 98 - 107 mmol/L 05/20/2024 4:49 AM [facility] CO2 35(H) 22 - 29 mmol/L 05/20/2024 4:49 AM [facility] Glucose 106 70 - 115 mg/dL 05/20/2024 4:49 AM [facility] Albumin 2.8(L) 3.4 - 5.0 g/dL 05/20/2024 4:49 AM [facility] Calcium 8.8 8.4 - 10.2 mg/dL 05/20/2024 4:49 AM [facility] Phosphorus 3.8 2.8 - 5.1 mg/dL 05/20/2024 4:49 AM [facility] Anion Gap 7 6 - 16 05/20/2024 4:49 AM [facility] BUN/Creatinine Ratio 15 7 - 23 05/20/2024 4:49 AM [facility] Osmolality Calculated 295 275 - 295 mOsm/kg 05/20/2024 4:49 AM CDT [facility] eGFR by CKD-EPI >90 >=90 mL/min/1.7 3 m2 05/20/2024 4:49 AM CDT [facility] Blood BLOOD SPECIMEN / Unknown Lab Venipuncture / Unknown 05/20/2024 3:38 AM CDT 05/20/2024 4:16 AM CDT Woo Aj MD LAB - CHEMISTRY TY BHAGAT [facility] [address] [place] [address], [facility] [phone] from Last 3 Months or Most Recently Relevant to Health Maintenance Advance Directives * Full Code (Latest Code Status on File) Date Activated Date Inactivated Comments 05/14/2024 4:44 PM 05/20/2024 3:42 PM
--- OUTSIDE RECORDS SUMMARY | 2025-01-10 17:17 | XMS_ITS | Referral Summary ---
Author Organization [facility] Address [address] [place] [id number] Care Team Providers Care Piece Dyer Name Role Phone No, Physician Primary Care Provider [phone] Manny Martines MD Unavailable [phone] Fariba Lozoya MD Unavailable Encounters Date Type Department Care Team Description 12/20/2024 2:47 PM UNEMPLOYMENT EXAMINER - 12/23/2024 1:49 PM UNEMPLOYMENT EXAMINER Hospital Encounter [facility] [address] [place] [address] Alexei Lambert MD Sargsyan, Narine, MD Masetti, Paolo, MD Nations, Matthew Austin, Disorientation (Primary Dx); Tachycardia; Acute respiratory failure with hypercapnia (CMS/HCC) (HCC) Discharge Disposition: Discharge to home or self care 12/20/2024 2:30 PM UNEMPLOYMENT EXAMINER - 12/20/2024 11:59 PM UNEMPLOYMENT EXAMINER Hospital Encounter [facility] Emergency, Room R Discharge Disposition: Discharge to home or self care 12/13/2024 5:09 AM UNEMPLOYMENT EXAMINER - 12/13/2024 11:59 PM UNEMPLOYMENT EXAMINER Hospital Encounter [facility] Emergency, Room R Discharge Disposition: [...] Tobacco: Never Tobacco Cessation:Counseling Given: Not Answered [facility] Utilities Answer Date Recorded In the past 12 months has th e electric, gas, oil, or water [employer] threatened to shut off services in your home? No 12/22/2024 Social Connection and Isolation Panel [NHANES] A nswer Date Recorded In a typical week, how many times do you talk on the phone with family, friends, or neighbors? Twice a week 12/22/2024 How often do you get together with friends or re latives? Never 12/22/2024 How often do you attend methodist or gnosticism serv ices? Never 12/22/2024 Do you belong to any clubs o r organizations such as methodist groups, unions, fraternal or athletic groups, or [...] any time in the past 12 m [facility], were you homeless or living in a alf (including now)? No 12/22/2024 Personal Safety Answer [...] Comments Blood Pressure 139/77 12/23/2024 7:10 AM UNEMPLOYMENT EXAMINER Pulse 63 12/23/2024 7:50 AM UNEMPLOYMENT EXAMINER Temperature 36.4 C (97.5 F) 12/23/2024 7:10 AM UNEMPLOYMENT EXAMINER Respiratory Rate 18 12/23/2024 7:10 AM UNEMPLOYMENT EXAMINER Oxygen Saturation 100% 12/23/2024 7:40 AM UNEMPLOYMENT EXAMINER Inhaled Oxygen Concentration - - Weight 85.3 kg (188 lb) 12/22/2024 4:08 PM UNEMPLOYMENT EXAMINER Height 185.4 cm (6' 1 ) 12/22/2024 4:08 PM UNEMPLOYMENT EXAMINER Body Mass Index 24.8 12/22/2024 4:08 PM UNEMPLOYMENT EXAMINER Plan of Treatment Not on file Procedures Procedure Name Priority Date/Time Associated Diagnosis Comments POCT GLUCOSE DEVICE Routine 12/23/2024 1 2:04 PM UNEMPLOYMENT EXAMINER POCT GLUCOSE DEVICE Routine 12/23/2024 8 :00 AM UNEMPLOYMENT EXAMINER ME CRITICAL CARE ILL/INJURED PATIENT INIT 30-74 MIN Routine 12/23/2024 2:34 AM UNEMPLOYMENT EXAMINER POCT GLUCOSE DEVICE Routine 12/23/2024 2 :25 AM UNEMPLOYMENT EXAMINER EGFR Routine 12/23/2024 1:39 AM UNEMPLOYMENT EXAMINER COMPREHENSIVE METABOLIC PANEL Routine 12/23/2024 1:39 AM UNEMPLOYMENT EXAMINER POCT GLUCOSE DEVICE Routine 12/22/2024 8 :09 PM UNEMPLOYMENT EXAMINER POCT GLUCOSE DEVICE Routine 12/22/2024 4 :43 PM UNEMPLOYMENT EXAMINER POCT GLUCOSE DEVICE Routine 12/22/2024 1 2:[address] CHEST PE W CONTRAST IP Routine 12/22/2024 11:56 AM UNEMPLOYMENT EXAMINER POCT GLUCOSE DEVICE Routine 12/22/2024 8 :14 AM UNEMPLOYMENT EXAMINER EGFR Routine 12/22/2024 4:55 AM UNEMPLOYMENT EXAMINER MAGNESIUM Routine 12/22/2024 4:55 AM UNEMPLOYMENT EXAMINER COMPREHENSIVE METABOLIC PANEL Routine 12/22/2024 4:55 AM UNEMPLOYMENT EXAMINER POCT GLUCOSE DEVICE Routine 12/21/2024 8 :52 PM UNEMPLOYMENT EXAMINER INFECTION PREVENTION MRSA ONLY (STAPHYLOCOCCUS AUREUS) PCR Routine 12/21/2024 6:09 PM UNEMPLOYMENT EXAMINER TRANSTHORACIC ECHO (TTE) COMPLETE W DOPPLER/CF W CONTRAST Routine 12/21/2024 10:06 AM UNEMPLOYMENT EXAMINER EGFR Routine 12/21/2024 6:10 AM UNEMPLOYMENT EXAMINER DIFFERENTIAL AUTO Routine 12/21/2024 6:1 0 AM UNEMPLOYMENT EXAMINER MAGNESIUM Routine 12/21/2024 6:10 AM UNEMPLOYMENT EXAMINER COMPREHENSIVE METABOLIC PANEL Routine 12/21/2024 6:10 AM UNEMPLOYMENT EXAMINER CBC WITH AUTO DIFFERENTIAL Routine 12/21/2024 6:10 AM UNEMPLOYMENT EXAMINER CBC WITHOUT DIFFERENTIAL STAT 12/21/2024 12:54 AM UNEMPLOYMENT EXAMINER THYROID FUNCTION CASCADE Routine 12/21/2024 12:54 AM UNEMPLOYMENT EXAMINER ECG 12-LEAD Routine 12/21/2024 12:10 AM UNEMPLOYMENT EXAMINER ECG 12-LEAD Routine 12/20/2024 11:33 PM UNEMPLOYMENT EXAMINER INFLUENZA A/B, RSV, AND COVID-19 PCR Routine 12/20/2024 11:03 PM UNEMPLOYMENT EXAMINER EGFR STAT 12/20/2024 10:47 PM UNEMPLOYMENT EXAMINER CREATININE STAT 12/20/2024 10:47 PM UNEMPLOYMENT EXAMINER HEPATIC FUNCTION PANEL STAT 12/20/2024 10:47 PM UNEMPLOYMENT EXAMINER PROTIME-INR STAT 12/20/2024 10:47 PM UNEMPLOYMENT EXAMINER URINALYSIS, MICROSCOPIC ONLY STAT 12/20/2024 10:47 PM UNEMPLOYMENT EXAMINER DRUGS OF ABUSE SCREEN, URINE WITH REFLEX CONFIRMATION Routine 12/20/2024 10:47 PM UNEMPLOYMENT EXAMINER PRO B-TYPE NATRIURETIC PEPTIDE STAT 12/20/2024 10:47 PM UNEMPLOYMENT EXAMINER BLOOD GAS, VENOUS STAT 12/20/2024 10: 47 PM UNEMPLOYMENT EXAMINER D-DIMER, QUANTITATIVE Routine 12/20/2024 10:47 PM UNEMPLOYMENT EXAMINER URINALYSIS AND REFLEX TO MICROSCOPIC AND CULTURE STAT 12/20/2024 10:47 PM UNEMPLOYMENT EXAMINER TROPONIN T HIGH-SENSITIVITY 4-HR Timed 12/20/2024 7:04 PM UNEMPLOYMENT EXAMINER TROPONIN T HIGH-SENSITIVITY 2-HOUR Timed 12/20/2024 4:[address] HEAD WO CONTRAST ED 12/20/2024 4 :53 PM UNEMPLOYMENT EXAMINER EGFR STAT 12/20/2024 3:03 PM UNEMPLOYMENT EXAMINER DIFFERENTIAL AUTO STAT 12/20/2024 3:0 3 PM UNEMPLOYMENT EXAMINER TROPONIN T HIGH-SENSITIVITY SERIES (BASELINE, 2HR, 4HR, 6HR) STAT 12/20/2024 3:03 PM UNEMPLOYMENT EXAMINER COMPREHENSIVE METABOLIC PANEL STAT 12/20/2024 3:03 PM UNEMPLOYMENT EXAMINER CBC WITH AUTO DIFFERENTIAL STAT 12/20/2024 3:03 PM UNEMPLOYMENT EXAMINER XR CHEST 1 VIEW ED 12/20/2024 3:02 PM UNEMPLOYMENT EXAMINER ECG 12-LEAD Routine 12/20/2024 2:51 PM UNEMPLOYMENT EXAMINER from Last 3 Months Results * POCT glucose (12/23/2024 12:04 PM UNEMPLOYMENT EXAMINER) Glucose, POC 89 70 - 199 mg/dL Blood 12/23/2024 12:0 4 PM UNEMPLOYMENT EXAMINER 12/23/2024 12:04 PM UNEMPLOYMENT EXAMINER us Oma Escalona MD LAB POCT ORDERABLES - DEVICE Final Result Performing Organization Address [facility] Co de Phone Number [facility] ([place]) [address] [place] [address] [place] [address] * POCT glucose (12/23/2024 8:00 AM UNEMPLOYMENT EXAMINER) Glucose, POC 135 70 - 199 mg/dL Blood 12/23/2024 8:00 AM UNEMPLOYMENT EXAMINER 12/23/2024 8:00 AM UNEMPLOYMENT EXAMINER us Oma Escalona MD LAB POCT ORDERABLES - DEVICE Final Result Performing Organization Address City/[facility] Co de Phone Number [facility] ([place]) [address] [place] [address] [place] [address] * ME CRITICAL CARE ILL/INJURED PATIENT INIT 30-74 MIN (12/23/2024 2:34 AM UNEMPLOYMENT EXAMINER) Narrative Alexei Lambert MD - 12/23/2024 2:34 AM UNEMPLOYMENT EXAMINER Alexei Lambert MD 12/23/2024 2:34 AM Critical [...] reviewed test results and/or imaging studies. Alexei Lambetr MD IN CLINIC/BEDSIDE ORDERABLES F inal Result * POCT glucose (12/23/2024 2:25 AM UNEMPLOYMENT EXAMINER) Glucose, POC 142 70 - 199 mg/dL Blood 12/23/2024 2:25 AM UNEMPLOYMENT EXAMINER 12/23/2024 2:25 AM UNEMPLOYMENT EXAMINER Sixto De La Cruz DO LAB POCT ORDERABLES - DEVICE Final Result [facility] [place] 1 [facility] Department of Laboratories [place], [place] [id number] * eGFR (12/23/2024 1:39 AM UNEMPLOYMENT EXAMINER) eGFR 72 >=60 mL/min/1. 73 m2 Comment: [...] last reviewed 2021. Blood 12/23/2024 1:39 AM UNEMPLOYMENT EXAMINER 12/23/2024 3:04 AM UNEMPLOYMENT EXAMINER us Chago Cervantes MD LAB BLOOD ORDERABLES Fi nal Result [facility] ([facility]) 1 [facility] [place] [address] * (ABNORMAL) Comprehensive metabolic panel (12/23/2024 1:39 AM UNEMPLOYMENT EXAMINER) Sodium 138 135 - 145 mmol/L Potassium, [...] [facility] ([facility]) Blood 12/23/2024 1:39 AM UNEMPLOYMENT EXAMINER 12/23/2024 3:04 AM UNEMPLOYMENT EXAMINER Chago Cervantes MD LAB BLOOD ORDERABLES Fi nal Result Performing Organization Address City/[facility]/ZIP Co de Phone Number [facility] ([facility]) 1 [facility] [place] [address] * POCT glucose (12/22/2024 8:09 PM UNEMPLOYMENT EXAMINER) Glucose, POC 124 70 - 199 mg/dL Blood 12/22/2024 8:09 PM UNEMPLOYMENT EXAMINER 12/22/2024 8:09 PM UNEMPLOYMENT EXAMINER Sixto De La Cruz LAB POCT ORDERABLES - DEVICE Final Result Performing Organization Address City/[facility] Co de Phone Number [facility] ([place]) 1 [facility] [place] [address] * POCT glucose (12/22/2024 4:43 PM UNEMPLOYMENT EXAMINER) Glucose, POC 167 70 - 199 mg/dL Blood 12/22/2024 4:43 PM UNEMPLOYMENT EXAMINER 12/22/2024 4:43 PM UNEMPLOYMENT EXAMINER Sixto Malik [facility] LAB POCT ORDERABLES - DEVICE Final Result Performing Organization Address City/[facility]/ZIP Co de Phone Number [facility] ([place]) 1 [facility] [place] [address] * (ABNORMAL) POCT glucose (12/22/2024 12:05 PM UNEMPLOYMENT EXAMINER) Glucose, POC 205(H) 70 - 199 mg/dL Blood 12/22/2024 12:0 5 PM UNEMPLOYMENT EXAMINER 12/22/2024 12:05 PM UNEMPLOYMENT EXAMINER us Sixto De La Cruz DO LAB POCT ORDERABLES - DEVICE Final Result [facility] 1 [facility] [place] [address] * CT Chest PE (CTA) W Contrast (12/22/2024 11:56 AM UNEMPLOYMENT EXAMINER) Anatomical Region Laterality Modality Body N/A Computed Tomogra phy 12/22/2024 2:36 PM UNEMPLOYMENT EXAMINER Narrative 12/22/2024 2:45 PM UNEMPLOYMENT EXAMINER EXAM DESCRIPTION: CT CHEST PE (CTA) W [...] Rickey Woody M.D. NS: NS Report ID: [id number] Reading Location: [id number] Procedure Note Rickey Woody MD - 12/22/2024 [...] Rickey Woody M.D. NS: NS Report ID: [id number] Reading Location: [id number] Sixto Malik [facility] DO IMG CT PROCEDURES Mariam l Result * POCT glucose (12/22/2024 8:14 AM UNEMPLOYMENT EXAMINER) Glucose, POC 148 70 - 199 mg/dL Blood 12/22/2024 8:14 AM UNEMPLOYMENT EXAMINER 12/22/2024 8:14 AM UNEMPLOYMENT EXAMINER William Beatty MD LAB POCT ORDERABLES - DEVICE Fi nal Result [facility] ([place]) 1 [facility] [place] [address] * eGFR (12/22/2024 4:55 AM UNEMPLOYMENT EXAMINER) eGFR >90 >=60 mL/min/1. 73 m2 Comment: [...] last reviewed 2021. Blood 12/22/2024 4:55 AM UNEMPLOYMENT EXAMINER 12/22/2024 5:07 AM UNEMPLOYMENT EXAMINER us Chago Cervantes MD LAB BLOOD ORDERABLES Fi nal Result [facility] ([place]) 1 [facility] [place] [address] * Magnesium (12/22/2024 4:55 AM UNEMPLOYMENT EXAMINER) Magnesium 2.3 1.4 - 2.5 mg/dL Blood 12/22/2024 4:55 AM UNEMPLOYMENT EXAMINER 12/22/2024 5:07 AM UNEMPLOYMENT EXAMINER us William Beatty MD LAB BLOOD ORDERABLES Final Resu lt [facility] ([facility]) 1 [facility] [place] [address] * (ABNORMAL) Comprehensive metabolic panel (12/22/2024 4:55 AM UNEMPLOYMENT EXAMINER) Sodium 137 135 - 145 mmol/L Potassium, [...] Protein, pl 6.8 6.5 - 8.5 g/dL [facility] ([place]) Albumin 3.9 3.5 - 5.0 g/dL [facility] ([place]) Alk phos 72 40 - 130 Units/L [facility] ([place]) Comment:Hemolysis present. R esults may be affected. ALT 16 7 - 55 Units/L [facility] ([place]) Comment:Hemolysis present. R esults may be affected. AST 39 10 - 50 Units/L [facility] ([place]) Comment:Hemolysis present. R esults may be affected. Blood 12/22/2024 4:55 AM UNEMPLOYMENT EXAMINER 12/22/2024 5:07 AM UNEMPLOYMENT EXAMINER Chago Cervantes MD LAB BLOOD ORDERABLES Fi nal Result Performing Organization Address City/[facility]/ZIP Co de Phone Number [facility] ([place]) [address] [place] [phone] * POCT glucose (12/21/2024 8:52 PM UNEMPLOYMENT EXAMINER) Glucose, POC 117 70 - 199 mg/dL Blood 12/21/2024 8:52 PM UNEMPLOYMENT EXAMINER 12/21/2024 8:52 PM UNEMPLOYMENT EXAMINER William Beatty MD LAB POCT ORDERABLES - DEVICE Fi nal Result Performing Organization Address City/[facility] Co de Phone Number [facility] ([place]) [address] [place] [phone] * Infection Prevention MRSA Only (Staphylococcus aureus) PCR Nasal (12/21/2024 6:09 PM UNEMPLOYMENT EXAMINER) PCR Scrn, Methicillin resistant Staphylococcus aureus (MRSA) Not Detected Not Detected Comment: Interpretive Data Testing performed using Nucleic Acid Amplification with the [employer] Xpert MRSA NxG Assay. This assay detects target DNA from mecA, mecC and the SCCmec insertion site of Staphylococcus aureus using Real-Time PCR and has been cleared by the FDA. Performance characteristics have been verified by the [facility]. Current Interpretive Data was last revised on 2023 Nasal 12/21/2024 6:09 PM UNEMPLOYMENT EXAMINER 12/21/2024 6:11 PM UNEMPLOYMENT EXAMINER us William Beatty MD LAB MICROBIOLOGY - GENERAL TY BHAGAT Final Result [facility] [place]) [address] [place] [address] Department [place] [address] * TRANSTHORACIC ECHO (TTE) COMPLETE W DOPPLER/CF W CONTRAST (12/21/2024 10:06 AM UNEMPLOYMENT EXAMINER) LV EF >70 % CONS SCIMAGE Anatomical Region Laterality Modality Ultrasound 12/21/2024 9:31 AM UNEMPLOYMENT EXAMINER Narrative 12/21/2024 11:22 AM UNEMPLOYMENT EXAMINER [address] [address] Echocardiogram Report Patient Name: ROBSON RODRIGUEZ : [...] By: Bailee Molina MD 12/21/2024 11:21:05 AM UNEMPLOYMENT EXAMINER Procedure Note Bailee Molian MD - 12/21/[address] [place] [address] Echocardiogram Report Patient Name: ROBSON RODRIGUEZ : [...] By: Bailee Molina MD 12/21/2024 11:21:05 AM UNEMPLOYMENT EXAMINER us Ekisabela Cervantes MD CV ECHO PROCEDURES Mariam l Result * eGFR (12/21/2024 6:10 AM UNEMPLOYMENT EXAMINER) eGFR >90 >=60 mL/min/1. 73 m2 Comment: [...] last reviewed 2021. Blood 12/21/2024 6:10 AM UNEMPLOYMENT EXAMINER 12/21/2024 6:14 AM UNEMPLOYMENT EXAMINER us Chago Cervantes MD LAB BLOOD ORDERABLES Fi nal Result [facility] ([place]) 1 [facility] [place] [address] * (ABNORMAL) Differential, auto (12/21/2024 6:10 AM UNEMPLOYMENT EXAMINER) Neutrophil abs 5.0 1.5 - 6.5 K/cumm [...] revised on 2018. Blood 12/21/2024 6:10 AM UNEMPLOYMENT EXAMINER 12/21/2024 6:14 AM UNEMPLOYMENT EXAMINER us Alexei Lambert MD LAB BLOOD ORDERABLES Final Res ult [facility] ([facility]) 1 [facility] [place] [address] * (ABNORMAL) CBC with auto differential (12/21/2024 6:10 AM UNEMPLOYMENT EXAMINER) WBC 5.7 3.8 - 9.9 K/cumm Hgb [...] [facility] ([facility]) Blood 12/21/2024 6:10 AM UNEMPLOYMENT EXAMINER 12/21/2024 6:14 AM UNEMPLOYMENT EXAMINER Chago Cervantes MD LAB BLOOD ORDERABLES Fi nal Result [facility] ([facility]) 1 [place] [address] * Magnesium (12/21/2024 6:10 AM UNEMPLOYMENT EXAMINER) Pathologist [facility] Magnesium 2.0 1.4 - 2.5 mg/dL Blood 12/21/2024 6:10 AM UNEMPLOYMENT EXAMINER 12/21/2024 6:14 AM UNEMPLOYMENT EXAMINER Chago Cervantes MD LAB BLOOD ORDERABLES Fi nal Result Performing Organization Address [facility] de Phone Number [facility] ([facility]) 1 [facility] [place] [address] * (ABNORMAL) Comprehensive metabolic panel (12/21/2024 6:10 AM UNEMPLOYMENT EXAMINER) Sodium 141 135 - 145 mmol/L Potassium, pl 4.2 3.3 - 4.9 mmol/L [facility] ([facility]) Chloride 91(L) 97 - 110 mmol/L [facility] ([facility]) CO2 35(H) 22 - 32 mmol/L [facility] ([facility]) Anion gap 16(H) 2 - 15 mmol/L [facility] ([facility]) BUN 12 6 - 25 mg/dL [facility] ([facility]) Creatinine 0.56(L) 0.80 - 1.30 mg/dL [facility] ([facility]) Glucose 155 70 - 199 mg/dL [facility] ([facility]) Comment: Interpretive Data [...] [facility] ([facility]) Blood 12/21/2024 6:10 AM UNEMPLOYMENT EXAMINER 12/21/2024 6:14 AM UNEMPLOYMENT EXAMINER Chago Cervantes MD LAB BLOOD ORDERABLES Fi nal Result Performing Organization Address City/[facility]/ZIP Co de Phone Number [facility] ([facility]) 1 [facility] [employer] [address] * Thyroid Function Armstrong (12/21/2024 12:54 AM UNEMPLOYMENT EXAMINER) TSH 0.70 0.30 - 4.20 mcIUnit/mL Blood 12/21/2024 12:5 4 AM UNEMPLOYMENT EXAMINER 12/21/2024 12:57 AM UNEMPLOYMENT EXAMINER Chago Cervantes MD LAB BLOOD ORDERABLES Fi nal Result Performing Organization Address City/[facility]/ZIP Co de Phone Number [facility] ([facility]) 1 [facility] [place] [address] * (ABNORMAL) CBC without differential (12/21/2024 12:54 AM UNEMPLOYMENT EXAMINER) WBC 9.3 3.8 - 9.9 K/cumm Hgb [...] [facility] ([facility]) Blood 12/21/2024 12:5 4 AM UNEMPLOYMENT EXAMINER 12/21/2024 12:57 AM UNEMPLOYMENT EXAMINER Narrative [facility] ([facility]) - 12/21/2024 12:59 AM UNEMPLOYMENT EXAMINER Baseline prior to apixaban initiation. us Chago Cervantes MD LAB BLOOD ORDERABLES Fi nal Result Performing Organization Address City/State/[facility] Co de Phone Number [facility] ([facility]) 1 [facility] [place] [address] * ECG 12 lead (12/21/2024 12:10 AM UNEMPLOYMENT EXAMINER) 12/21/2024 12:1 0 AM UNEMPLOYMENT EXAMINER Narrative [facility] - 12/21/2024 6:42 AM UNEMPLOYMENT EXAMINER Vent Rate: 83 bpm RR Interval: 717 msec ME Interval: 122 msec QRS Duration: 115 msec QT Interval: 362 msec QTC Interval: 402 msec P-R-T [place]: 80 - 53 - 71 degrees IMPRESSION: SINUS RHYTHM MODERATE INTRAVENTRICULAR CONDUCTION DELAY [110+ ms QRS DURATION] BORDERLINE ECG Compared to prior EKG, heart rate has decreased Sinus rhythm replaced atrial flutter Electronically Signed By: Bryant Cavanaugh MD us Oma Escalona MD ECG ORDERABLES Final Result Performing Organization Address City/State/[facility] Co de Phone Number [facility] * ECG 12 lead (12/20/2024 11:33 PM UNEMPLOYMENT EXAMINER) 12/20/2024 11:3 3 PM UNEMPLOYMENT EXAMINER Narrative [facility] - 12/21/2024 6:43 AM UNEMPLOYMENT EXAMINER Vent Rate: 170 bpm RR Interval: 352 msec ME Interval: 0 msec QRS Duration: 136 msec QT Interval: 267 msec QTC Interval: 359 msec P-R-T [place]: [id number] - -27 - 38 degrees IMPRESSION: ATRIAL flutter WITH RAPID VENTRICULAR RESPONSE BORDERLINE LEFT AXIS DEVIATION [QRS AXIS < -20] INTRAVENTRICULAR CONDUCTION DELAY [130+ ms QRS DURATION] CRITICAL TEST RESULT Compared to prior EKG, heart rate has increased Atrial flutter replaced sinus rhythm Electronically Signed By: Bryant Cavanaugh MD Oma Escalona MD ECG ORDERABLES Final Result Performing Organization Address [facility] de Phone Number [facility] * Influenza A/B, RSV, and COVID-19 PCR Nasopharyngeal (12/20/2024 11:03 PM UNEMPLOYMENT EXAMINER) COVID-19 RNA Negative Negative Influenza A RNA Negative Negative [facility] ([facility]) Influenza B RNA Negative Negative [facility] ([facility]) RSV RNA Negative Negative [facility] (ANG) Comment: Interpretive data: Testing performed by [facility]. This test is performed using the [employer] Xpert Xpress CoV-2/Flu/RSV plus assay. This is a multiplex, real- time reverse transcriptase PCR assay intended for the qualitative detection of nucleic acid from SARS-CoV-2, influenza A, influenza B, and respiratory syncytial virus. This assay has been cleared by the [place] Food and Drug administration. The performance characteristics have been verified by the [facility]. Results must be considered in the clinical context, and a negative result does not rule out infection. Interpretive Data last revised 2023 Nasopharyngeal 12/20/2024 11 :03 PM UNEMPLOYMENT EXAMINER 12/20/2024 11:07 PM UNEMPLOYMENT EXAMINER Narrative [facility] ([place]) - 12/21/2024 12:11 AM UNEMPLOYMENT EXAMINER Is the Patient experiencing symptoms consistent with COVID?->Yes us Chago Cervantes MD LAB MICROBIOLOGY - GENE [facility] ORDERABLES Final Result [facility] ([facility]) 1 [facility] [place] [address] * (ABNORMAL) Drugs of Abuse Screen, Urine with Reflex Confirmation (12/20/2024 10:47 PM UNEMPLOYMENT EXAMINER) Amphetamine, ur Not Detected CutOff 500ng/mL Comment: [...] on 2018. Urine 12/20/2024 10:4 7 PM UNEMPLOYMENT EXAMINER 12/20/2024 10:50 PM UNEMPLOYMENT EXAMINER Narrative [facility]) - 12/20/2024 11:43 PM UNEMPLOYMENT EXAMINER Drug of Abuse screening is performed by immunoassay for medical purposes only. This is not to be used for Pain Management purposes. If Detected, confirmation testing will be performed for Amphetamines, Cocaine, Fentanyl, Methadone, Opiates, Oxycodone or Phencyclidine. us Chago Cervantes MD LAB URINE ORDERABLES Fi nal Result [facility] ([facility]) 1 [facility] [place] [address] * eGFR (12/20/2024 10:47 PM UNEMPLOYMENT EXAMINER) eGFR >90 >=60 mL/min/1. 73 m2 Comment: [...] reviewed 2021. Blood 12/20/2024 10:4 7 PM UNEMPLOYMENT EXAMINER 12/21/2024 12:15 AM UNEMPLOYMENT EXAMINER Chago Cervantes MD LAB BLOOD ORDERABLES Fi nal Result [facility] ([facility]) 1 [facility] [place] [address] * (ABNORMAL) Pro B-type natriuretic peptide (12/20/2024 10:47 PM UNEMPLOYMENT EXAMINER) NT-proBNP 762(H) <=300 pg/mL Comment: Interpretive Comments: [...] Date: 2018. Blood 12/20/2024 10:4 7 PM UNEMPLOYMENT EXAMINER 12/20/2024 10:52 PM UNEMPLOYMENT EXAMINER us Chago Cervantes MD LAB BLOOD ORDERABLES Fi nal Result [facility] ([place]) 1 [facility] [place] [address] * (ABNORMAL) Urinalysis reflex to microscopic and culture Urine (12/20/2024 10:47 PM UNEMPLOYMENT EXAMINER) Color, ur Yellow Yellow Clarity, ur Clear Clear [facility] ([facility]) Specific gravity, ur 1.013 1.003 - 1.030 [facility] ([facility]) pH, urine 6.0 [facility] ([facility]) Comment: Interpretive Data U rine pH is affected by diet, medications, systemic acid-base disturbances, and renal tubular function. pH may affect urinary stone formation. For example, urine pH below 6.0 may help reduce the tendency for calcium phosphate stones and pH greater than 6.0 may reduce the tendency for uric acid stone formation. Source: [facility] [employer] Current Interpretive Data was last revised on [...] [facility] ([facility]) Urine 12/20/2024 10:4 7 PM UNEMPLOYMENT EXAMINER 12/20/2024 10:51 PM UNEMPLOYMENT EXAMINER us Chago Cervantes MD LAB MICROBIOLOGY - [facility] ORDERABLES Final Result [facility] ([facility]) 1 [facility] [place] [address] * (ABNORMAL) Urinalysis, microscopic only (12/20/2024 10:47 PM UNEMPLOYMENT EXAMINER) WBC, ur 0-5 0 - 5 /HPF RBC, ur 0-2 0 - 2 /HPF [facility] ([facility]) Mucous, ur Present(A) [facility] ([facility]) Hyaline casts, ur 1-5 0 - 10 /LPF [facility] ([facility]) Culture Reflex Comment Reflex conditions for urine culture (WBC >10) not met. [facility] NEVES (ANG) Urine 12/20/2024 10:4 7 PM UNEMPLOYMENT EXAMINER 12/20/2024 10:51 PM UNEMPLOYMENT EXAMINER Cahgo Cervantes MD LAB URINE ORDERABLES Fi nal Result Performing Organization Address City/[facility]/ZIP Co de Phone Number ANNIE NEVES (ANG) 1 [facility] [place] [address] * Protime-INR (12/20/2024 10:47 PM UNEMPLOYMENT EXAMINER) PT 10.7 9.7 - 13.0 sec ANNIE NEVES (ANG) INR 0.99 0.90 - 1.20 ANNIE NEVES (ANG) Comment: Interpretive data Oral anticoagulant therapeutic ranges: Venous thromboembolism prophylaxis or treatment: 2.0-3.0 CARDIOLOGY Standard range: 2.0-3.0 High-intensity range: 2.5-3.5 Refer to indication-specific guidelines for appropriate target ranges for prosthetic heart valve replacement. Current interpretive data was last revised on 2019. Blood 12/20/2024 10:4 7 PM UNEMPLOYMENT EXAMINER 12/20/2024 11:52 PM UNEMPLOYMENT EXAMINER Narrative ANNIE NEVES (ANG) - 12/20/2024 11:56 PM UNEMPLOYMENT EXAMINER Baseline prior to apixaban initiation. Chago Cervantes MD LAB BLOOD ORDERABLES Fi nal Result Performing Organization Address City/[facility]/ZIP Co de Phone Number ANNIE PURA (ANG) 1 [facility] [place] [address] * (ABNORMAL) D-dimer, quantitative (12/20/2024 10:47 PM UNEMPLOYMENT EXAMINER) D-Dimer 851(H) <=499 ng/mL FEU ANNIE NEVES [...] on 2019. Blood 12/20/2024 10:4 7 PM UNEMPLOYMENT EXAMINER 12/20/2024 10:52 PM UNEMPLOYMENT EXAMINER Chago Cervantes MD LAB BLOOD ORDERABLES Fi nal Result Performing Organization Address [facility] Co de Phone Number ANNIE NEVES ([place]) 1 [facility] [place] [address] * (ABNORMAL) Blood gas, venous (12/20/2024 10:47 PM UNEMPLOYMENT EXAMINER) pH, Venous 7.32 7.32 - 7.43 PCO2, Venous 91(C) 40 - 50 mmHg ANNIE [facility] (ANG) Comment:Critical result call ed to and read back by billy hawkins (er) on 12/20/2024 23:09:00 UNEMPLOYMENT EXAMINER to kavya wilkinson. PO2, Venous 46 mmHg [facility]ER [facility] (ANG) HCO3 Venous, Calculated 45(H) 20 - 30 mmol/L [facility] (ANG) BE, venous 15 mmol/L [facility] (ANG) Comment: Interpretive Data No Reference Range Established Current Interpretive Data was last revised on 2018. Blood 12/20/2024 10:4 7 PM UNEMPLOYMENT EXAMINER 12/20/2024 10:52 PM UNEMPLOYMENT EXAMINER Chago Cervantes MD LAB BLOOD ORDERABLES Fi nal Result Performing Organization Address [facility]/ZIP Co de Phone Number ANNIE NEVES ([place]) 1 [facility] [place] [address] * (ABNORMAL) Creatinine (12/20/2024 10:47 PM UNEMPLOYMENT EXAMINER) Creatinine 0.61(L) 0.80 - 1.30 mg/dL Blood 12/20/2024 10:4 7 PM UNEMPLOYMENT EXAMINER 12/21/2024 12:15 AM UNEMPLOYMENT EXAMINER Narrative [facility] (ANG) - 12/21/2024 12:33 AM UNEMPLOYMENT EXAMINER Baseline prior to apixaban initiation. Chago Cervantes MD LAB BLOOD ORDERABLES Fi nal Result ANNIE NEVES (ANG) [address] [place] [address] [place] [address] * Hepatic function panel (12/20/2024 10:47 PM UNEMPLOYMENT EXAMINER) Bilirubin, total 0.4 0.1 - 1.2 mg/dL [...] [facility] (ANG) Blood 12/20/2024 10:4 7 PM UNEMPLOYMENT EXAMINER 12/21/2024 12:15 AM UNEMPLOYMENT EXAMINER Narrative [facility] (ANG) - 12/21/2024 12:33 AM UNEMPLOYMENT EXAMINER Baseline prior to apixaban initiation. Chago Cervantes MD LAB BLOOD ORDERABLES Fi nal Result ANNIE NEVES (ANG) 1 [facility] [place] [address] * (ABNORMAL) Troponin T high-sensitivity 4-hour (12/20/2024 7:04 PM UNEMPLOYMENT EXAMINER) Trop T hs 32(H) <=22 ng/L Comment: Interpretive Data For further hscTnT resources including the diagnostic algorithm and an aid in interpretation, copy and paste this link: https://nrl.testcatUTILICASE.org/show/hsTrop Current Interpretive Data last revised 2020. Trop T hs delta 0 ng/L [facility] ER [facility] (ANG) Trop T hs interp Insignificant [facility] (ANG) Blood 12/20/2024 7:04 PM UNEMPLOYMENT EXAMINER 12/20/2024 7:06 PM UNEMPLOYMENT EXAMINER Alexei Lambert MD LAB BLOOD ORDERABLES Final Res ult Performing Organization Address City/[facility]/ZIP Co de Phone Number [facility]ER [facility] (ANG) 1 [facility] [place] [address] * (ABNORMAL) Troponin T high-sensitivity 2-hour (12/20/2024 4:57 PM UNEMPLOYMENT EXAMINER) Pathologist [facility] Trop T hs 38(H) <=22 ng/L Comment: Interpretive Data For further hscTnT resources including the diagnostic algorithm and an aid in interpretation, copy and paste this link: https://nrl.TopOPPS.org/show/hsTrop Current Interpretive Data last revised 2020. Trop T hs delta 6 ng/L [facility] (ANG) Trop T hs interp Equivocal CER NER [facility] (ANG) Blood 12/20/2024 4:57 PM UNEMPLOYMENT EXAMINER 12/20/2024 5:05 PM UNEMPLOYMENT EXAMINER Alexei Lambert MD LAB BLOOD ORDERABLES Final Res ult [facility] (ANG) 1 [facility] [place] [address] * CT Head WO Contrast (12/20/2024 4:53 PM UNEMPLOYMENT EXAMINER) Anatomical Region Laterality Modality Head and Neck N/A Computed Tomogra phy 12/20/2024 4:55 PM UNEMPLOYMENT EXAMINER Narrative 12/20/2024 4:56 PM UNEMPLOYMENT EXAMINER EXAM DESCRIPTION: CT HEAD WO CONTRAST REASON [...] Talha Landa M.D. KH: SARAHI Report ID: [id number] Reading Location: [place] [address] Procedure Note Talha Landa MD - 12/20/2024 [...] signed by Talha MCCLAIN: SARAHI Report ID: [id number] Reading Location: [id number] Alexei Lambert MD IMG CT PROCEDURES Final Result * (ABNORMAL) Troponin T high-sensitivity series (baseline, 2hr, 4hr, 6hr) (12/20/2024 3:03 PM UNEMPLOYMENT EXAMINER) Trop T hs 32(H) <=22 ng/L Comment: Interpretive Data For further hscTnT resources including the diagnostic algorithm and an aid in interpretation, copy and paste this link: https://nrl.testcatalog.org/show/hsTrop Current Interpretive Data last revised 2020. Blood 12/20/2024 3:03 PM UNEMPLOYMENT EXAMINER 12/20/2024 3:07 PM UNEMPLOYMENT EXAMINER Alexei Lambert MD LAB BLOOD ORDERABLES Final Res ult ANNIE [facility] [place] 1 [facility] [place] [address] * eGFR (12/20/2024 3:03 PM UNEMPLOYMENT EXAMINER) eGFR >90 >=60 mL/min/1. 73 m2 Comment: [...] last reviewed 2021. Blood 12/20/2024 3:03 PM UNEMPLOYMENT EXAMINER 12/20/2024 3:07 PM UNEMPLOYMENT EXAMINER us Alexei Lambert MD LAB BLOOD ORDERABLES Final Res ult [facility] ([place]) 1 [facility] [place] [address] * (ABNORMAL) Differential, auto (12/20/2024 3:03 PM UNEMPLOYMENT EXAMINER) Neutrophil abs 8.0(H) 1.5 - 6.5 K/cumm [...] revised on 2018. Blood 12/20/2024 3:03 PM UNEMPLOYMENT EXAMINER 12/20/2024 3:07 PM UNEMPLOYMENT EXAMINER us Alexei Lambert MD LAB BLOOD ORDERABLES Final Res ult [facility] (ANG) 1 [facility] [place] [address] * (ABNORMAL) CBC with auto differential (12/20/2024 3:03 PM UNEMPLOYMENT EXAMINER) WBC 9.8 3.8 - 9.9 K/cumm Hgb [...] [facility]ER [facility] (ANG) Blood 12/20/2024 3:03 PM UNEMPLOYMENT EXAMINER 12/20/2024 3:07 PM UNEMPLOYMENT EXAMINER us Alexei Lambert MD LAB BLOOD ORDERABLES Final Res ult ANNIE [facility] (ANG) 1 [facility] [place] [address] * (ABNORMAL) Comprehensive metabolic panel (12/20/2024 3:03 PM UNEMPLOYMENT EXAMINER) Sodium 138 135 - 145 mmol/L Potassium, [...] Hemolyzed S pecimen Blood 12/20/2024 3:03 PM UNEMPLOYMENT EXAMINER 12/20/2024 3:07 PM UNEMPLOYMENT EXAMINER us Alexei Lambert MD LAB BLOOD ORDERABLES Final Res ult ANNIE [facility] (ANG) 1 [facility] [place] [address] * XR Chest 1 Vw Portable (12/20/2024 3:02 PM UNEMPLOYMENT EXAMINER) Anatomical Region Laterality Modality Body, Chest N/A Computed Radiogr aphy 12/20/2024 3:08 PM UNEMPLOYMENT EXAMINER Narrative 12/20/2024 3:09 PM UNEMPLOYMENT EXAMINER EXAM DESCRIPTION: XR CHEST 1 VIEW REASON FOR STUDY: Other (type) Pt to Ed via EMS from home with complaint of rapid heart rate (178bpm). 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 Pt Given Versed 2mg and Cardioverted HEALTH ASSESSMENT AND TREATMENT TEACHER. Pt alert and oriented x4 VSS upon [...] Lucrecia Fink D.O. PS: PS Report ID: [id number] Reading Location: [id number] Procedure Note Lucrecia Fink, DO - 12/20/2024 EXAM DESCRIPTION: XR CHEST 1 VIEW REASON FOR STUDY: Other (type) Pt to Ed via EMS from home with complaint of rapid heart rate (178bpm). 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 Pt Given Versed 2mg andCardioverted HEALTH ASSESSMENT AND TREATMENT TEACHER. Pt alert and oriented x4 VSS upon [...] Lucrecia Fink D.O. PS: PS Report ID: [id number] Reading Location: [id number] Alexei Lambert MD IMG XR PROCEDURES Final Result * ECG 12 lead (12/20/2024 2:51 PM UNEMPLOYMENT EXAMINER) 12/20/2024 2:51 PM UNEMPLOYMENT EXAMINER Narrative [facility] - 12/21/2024 6:43 AM UNEMPLOYMENT EXAMINER Vent Rate: 105 bpm RR Interval: 570 msec ME Interval: 128 msec QRS Duration: 96 msec QT Interval: 340 msec QTC Interval: 401 msec P-R-T [place]: 79 - 14 - 64 degrees IMPRESSION: SINUS TACHYCARDIA POSSIBLE LEFT ATRIAL ENLARGEMENT [-0.1mV P-WAVE IN V1/V2] ABNORMAL RHYTHM ECG Compared to prior EKG, heart rate has decreased Sinus rhythm replaced atrial flutter Electronically Signed By: Bryant Cavanaugh MD Alexei Lambert MD ECG ORDERABLES Final Result [facility] from Last 3 Months Insurance MEDIC[employer] [facility] MEDIC[facility] Address: [facility] [address] [place] [address] [employer]ICARE [facility] MED[facility] Address: [address] [address] [place] [address] Advance Directives For more information, please contact: [phone] * Full Code (Latest Code Status on File) Date Activated Date Inactivated Comments 12/20/2024 5:33 PM 12/23/2024 5:54 PM Care Teams Piece Dyer Relationship Specialty Start Date End Date No, Physician PCP - General 08/18/24 Manny Martines MD 08/18/24 Fariba Lozoya MD [address] [place] [address] DR RIVERA [address] [place] [address] Consulting Physician Sleep Medicine 12/23/24
--- OUTSIDE RECORDS SUMMARY | 2025-01-10 17:17 | XMS_ITS | Clinical Summary ---
Author Organization [facility] Address [address] [place] [id number] Care Team Providers Care Charge Nurse Name Role Phone No, Physician Primary Care Provider [phone] Manny Martines MD Unavailable [phone] Fariba Lozoya MD Unavailable Allergies No known [...] Department Care Team Description 12/20/2024 2:47 PM ASSISTANT CENTER DIRECTOR - 12/23/2024 1:49 PM ASSISTANT CENTER DIRECTOR Hospital Encounter [facility] IM [address] [id number] Alexei Lambert MD Sargsyan, Narine, MD Masetti, Paolo, MD Nations, Sixto Malik, Disorientation (Primary Dx); Tachycardia; Acute respiratory failure with hypercapnia (CMS/HCC) ([facility]) Discharge Disposition: Discharge to home or self care 12/20/2024 2:30 PM ASSISTANT CENTER DIRECTOR - 12/20/2024 11:59 PM ASSISTANT CENTER DIRECTOR Hospital Encounter [facility] Emergency, Room R Discharge Disposition: Discharge to home or self care 12/13/2024 5:09 AM ASSISTANT CENTER DIRECTOR - 12/13/2024 11:59 PM ASSISTANT CENTER DIRECTOR Hospital Encounter [facility] Emergency, Room R Discharge Disposition: [...] Tobacco: Never Tobacco Cessation:Counseling Given: Not Answered [facility] Utilities Answer Date Recorded In the [...] Never 12/22/2024 How often do you attend alevism or mu-ism serv ices? Never 12/22/2024 Do you belong to any clubs o r organizations such as alevism groups, unions, fraternal or athletic groups, or [...] any time in the past 12 m [facility], were you homeless or living in a residential (including now)? No 12/22/2024 Personal Safety Answer [...] Comments Blood Pressure 139/77 12/23/2024 7:10 AM ASSISTANT CENTER DIRECTOR Pulse 63 12/23/2024 7:50 AM ASSISTANT CENTER DIRECTOR Temperature 36.4 C (97.5 F) 12/23/2024 7:10 AM ASSISTANT CENTER DIRECTOR Respiratory Rate 18 12/23/2024 7:10 AM ASSISTANT CENTER DIRECTOR Oxygen Saturation 100% 12/23/2024 7:40 AM ASSISTANT CENTER DIRECTOR Inhaled Oxygen Concentration - - Weight 85.3 kg (188 lb) 12/22/2024 4:08 PM ASSISTANT CENTER DIRECTOR Height 185.4 cm (6' 1 ) 12/22/2024 4:08 PM ASSISTANT CENTER DIRECTOR Body Mass Index 24.8 12/22/2024 4:08 PM ASSISTANT CENTER DIRECTOR Plan of Treatment Health Maintenance Due Date [...] GLUCOSE DEVICE Routine 12/23/2024 1 2:04 PM ASSISTANT CENTER DIRECTOR POCT GLUCOSE DEVICE Routine 12/23/2024 8 :00 AM ASSISTANT CENTER DIRECTOR RI CRITICAL CARE ILL/INJURED PATIENT INIT 30-74 MIN Routine 12/23/2024 2:34 AM ASSISTANT CENTER DIRECTOR POCT GLUCOSE DEVICE Routine 12/23/2024 2:25 AM ASSISTANT CENTER DIRECTOR EGFR Routine 12/23/2024 1:39 AM ASSISTANT CENTER DIRECTOR COMPREHENSIVE METABOLIC PANEL Routine 12/23/2024 1:39 AM ASSISTANT CENTER DIRECTOR POCT GLUCOSE DEVICE Routine 12/22/2024 8 :09 PM ASSISTANT CENTER DIRECTOR POCT GLUCOSE DEVICE Routine 12/22/2024 4 :43 PM ASSISTANT CENTER DIRECTOR POCT GLUCOSE DEVICE Routine 12/22/2024 1 2:[address] CHEST PE W CONTRAST IP Routine 12/22/2024 11:56 AM ASSISTANT CENTER DIRECTOR POCT GLUCOSE DEVICE Routine 12/22/2024 8 :14 AM ASSISTANT CENTER DIRECTOR EGFR Routine 12/22/2024 4:55 AM ASSISTANT CENTER DIRECTOR MAGNESIUM Routine 12/22/2024 4:55 AM ASSISTANT CENTER DIRECTOR COMPREHENSIVE METABOLIC PANEL Routine 12/22/2024 4:55 AM ASSISTANT CENTER DIRECTOR POCT GLUCOSE DEVICE Routine 12/21/2024 8 :52 PM ASSISTANT CENTER DIRECTOR INFECTION PREVENTION MRSA ONLY (STAPHYLOCOCCUS AUREUS) PCR Routine 12/21/2024 6:09 PM ASSISTANT CENTER DIRECTOR TRANSTHORACIC ECHO (TTE) COMPLETE W DOPPLER/CF W CONTRAST Routine 12/21/2024 10:06 AM ASSISTANT CENTER DIRECTOR EGFR Routine 12/21/2024 6:10 AM ASSISTANT CENTER DIRECTOR DIFFERENTIAL AUTO Routine 12/21/2024 6:1 0 AM ASSISTANT CENTER DIRECTOR MAGNESIUM Routine 12/21/2024 6:10 AM ASSISTANT CENTER DIRECTOR COMPREHENSIVE METABOLIC PANEL Routine 12/21/2024 6:10 AM ASSISTANT CENTER DIRECTOR CBC WITH AUTO DIFFERENTIAL Routine 12/21/2024 6:10 AM ASSISTANT CENTER DIRECTOR CBC WITHOUT DIFFERENTIAL STAT 12/21/2024 12:54 AM ASSISTANT CENTER DIRECTOR THYROID FUNCTION CASCADE Routine 12/21/2024 12:54 AM ASSISTANT CENTER DIRECTOR ECG 12-LEAD Routine 12/21/2024 12:10 AM ASSISTANT CENTER DIRECTOR ECG 12-LEAD Routine 12/20/2024 11:33 PM ASSISTANT CENTER DIRECTOR INFLUENZA A/B, RSV, AND COVID-19 PCR Routine 12/20/2024 11:03 PM ASSISTANT CENTER DIRECTOR EGFR STAT 12/20/2024 10:47 PM ASSISTANT CENTER DIRECTOR CREATININE STAT 12/20/2024 10:47 PM ASSISTANT CENTER DIRECTOR HEPATIC FUNCTION PANEL STAT 12/20/2024 10:47 PM ASSISTANT CENTER DIRECTOR PROTIME-INR STAT 12/20/2024 10:47 PM ASSISTANT CENTER DIRECTOR URINALYSIS, MICROSCOPIC ONLY STAT 12/20/2024 10:47 PM ASSISTANT CENTER DIRECTOR DRUGS OF ABUSE SCREEN, URINE WITH REFLEX CONFIRMATION Routine 12/20/2024 10:47 PM ASSISTANT CENTER DIRECTOR PRO B-TYPE NATRIURETIC PEPTIDE STAT 12/20/2024 10:47 PM ASSISTANT CENTER DIRECTOR BLOOD GAS, VENOUS STAT 12/20/2024 10: 47 PM ASSISTANT CENTER DIRECTOR D-DIMER, QUANTITATIVE Routine 12/20/2024 10:47 PM ASSISTANT CENTER DIRECTOR URINALYSIS AND REFLEX TO MICROSCOPIC AND CULTURE STAT 12/20/2024 10:47 PM ASSISTANT CENTER DIRECTOR TROPONIN T HIGH-SENSITIVITY 4-HR Timed 12/20/2024 7:04 PM ASSISTANT CENTER DIRECTOR TROPONIN T HIGH-SENSITIVITY 2-HOUR Timed 12/20/2024 4:57 [address] ASSISTANT CENTER [address] CT HEAD WO CONTRAST ED 12/20/2024 4 :53 PM ASSISTANT CENTER DIRECTOR EGFR STAT 12/20/2024 3:03 PM ASSISTANT CENTER DIRECTOR DIFFERENTIAL AUTO STAT 12/20/2024 3:0 3 PM ASSISTANT CENTER DIRECTOR TROPONIN T HIGH-SENSITIVITY SERIES (BASELINE, 2HR, 4HR, 6HR) STAT 12/20/2024 3:03 PM ASSISTANT CENTER DIRECTOR COMPREHENSIVE METABOLIC PANEL STAT 12/20/2024 3:03 PM ASSISTANT CENTER DIRECTOR CBC WITH AUTO DIFFERENTIAL STAT 12/20/2024 3:03 PM ASSISTANT CENTER DIRECTOR XR CHEST 1 VIEW ED 12/20/2024 3:02 PM ASSISTANT CENTER DIRECTOR ECG 12-LEAD Routine 12/20/2024 2:51 PM ASSISTANT CENTER DIRECTOR from Last 3 Months Results * POCT glucose (12/23/2024 12:04 PM ASSISTANT CENTER DIRECTOR) Glucose, POC 89 70 - 199 mg/dL Blood 12/23/2024 12:0 4 PM ASSISTANT CENTER DIRECTOR 12/23/2024 12:04 PM ASSISTANT CENTER DIRECTOR us Oma Escalona MD LAB POCT ORDERABLES - DEVICE Final Result ANNIE N[facility]ES ([place]) 1 [facility] [place] [address] * POCT glucose (12/23/2024 8:00 AM ASSISTANT CENTER DIRECTOR) Glucose, POC 135 70 - 199 mg/dL Blood 12/23/2024 8:00 AM ASSISTANT CENTER DIRECTOR 12/23/2024 8:00 AM ASSISTANT CENTER DIRECTOR Oma Escalona MD LAB POCT ORDERABLES - DEVICE Final Result ANNIE N[facility]ES ([place]) 1 [facility] [place] [address] * RI CRITICAL CARE ILL/INJURED PATIENT INIT 30-74 MIN (12/23/2024 2:34 AM ASSISTANT CENTER DIRECTOR) Narrative Alexei Lambert MD - 12/23/2024 2:34 AM ASSISTANT CENTER DIRECTOR Alexei Lambert MD 12/23/2024 2:34 AM Critical [...] Result * POCT glucose (12/23/2024 2:25 AM ASSISTANT CENTER DIRECTOR) Glucose, POC 142 70 - 199 mg/dL Blood 12/23/2024 2:25 AM ASSISTANT CENTER DIRECTOR 12/23/2024 2:25 AM ASSISTANT CENTER DIRECTOR Sixto Malik [facility] LAB POCT ORDERABLES - DEVICE Final Result Performing Organization Address City/[facility]/ZIP Co de Phone Number ANNIE NEVES ([place]) 1 [facility] Department [place] [address] * eGFR (12/23/2024 1:39 AM ASSISTANT CENTER DIRECTOR) eGFR 72 >=60 mL/min/1. 73 m2 Comment: [...] last reviewed 2021. Blood 12/23/2024 1:39 AM ASSISTANT CENTER DIRECTOR 12/23/2024 3:04 AM ASSISTANT CENTER DIRECTOR us Chago Cervantes MD LAB BLOOD ORDERABLES Fi nal Result Performing Organization Address City/[facility]/ZIP Co de Phone Number ANNIE NEVES ([place]) 1 [facility] [place] [address] * (ABNORMAL) Comprehensive metabolic panel (12/23/2024 1:39 AM ASSISTANT CENTER DIRECTOR) Sodium 138 135 - 145 mmol/L Potassium, [...] [facility] ([place]) Blood 12/23/2024 1:39 AM ASSISTANT CENTER DIRECTOR 12/23/2024 3:04 AM ASSISTANT CENTER DIRECTOR us Chago Cervantes MD LAB BLOOD ORDERABLES Fi nal Result [facility] ([place]) 1 [facility] [place] [address] * POCT glucose (12/22/2024 8:09 PM ASSISTANT CENTER DIRECTOR) Glucose, POC 124 70 - 199 mg/dL Blood 12/22/2024 8:09 PM ASSISTANT CENTER DIRECTOR 12/22/2024 8:09 PM ASSISTANT CENTER DIRECTOR us Sixto De La Cruz DO LAB POCT ORDERABLES - DEVICE Final Result Performing Organization Address City/[facility]/ZIP Co de Phone Number ANNIE NEVES ([place]) 1 [facility] [place] [address] * POCT glucose (12/22/2024 4:43 PM ASSISTANT CENTER DIRECTOR) Glucose, POC 167 70 - 199 mg/dL Blood 12/22/2024 4:43 PM ASSISTANT CENTER DIRECTOR 12/22/2024 4:43 PM ASSISTANT CENTER DIRECTOR us Sixto De La Cruz DO LAB POCT ORDERABLES - DEVICE Final Result Performing Organization Address [facility] Co de Phone Number ANNIE NEVES ([place]) 1 [facility] [place] [address] * (ABNORMAL) POCT glucose (12/22/2024 12:05 PM ASSISTANT CENTER DIRECTOR) Glucose, POC 205(H) 70 - 199 mg/dL Blood 12/22/2024 12:0 5 PM ASSISTANT CENTER DIRECTOR 12/22/2024 12:05 PM ASSISTANT CENTER DIRECTOR us Sixto De La Cruz DO LAB POCT ORDERABLES - DEVICE Final Result Performing Organization Address [facility] de Phone Number ANNIE NEVES ([place]) 1 [facility] [place] [address] * CT Chest PE (CTA) W Contrast (12/22/2024 11:56 AM ASSISTANT CENTER DIRECTOR) Anatomical Region Laterality Modality Body N/A Computed Tomogra phy 12/22/2024 2:36 PM ASSISTANT CENTER DIRECTOR Narrative 12/22/2024 2:45 PM ASSISTANT CENTER DIRECTOR EXAM DESCRIPTION: CT CHEST PE (CTA) W [...] Rickey Woody M.D. NS: NS Report ID: [id number] Reading Location: [id number] Procedure Note Rickey Woody MD - 12/22/2024 [...] Rickey Woody M.D. NS: NS Report ID: [id number] Reading Location: [id number] Sixto Malik [facility] DO IMG CT PROCEDURES Mariam l Result * POCT glucose (12/22/2024 8:14 AM ASSISTANT CENTER DIRECTOR) Pathologist [facility] Glucose, POC 148 70 - 199 mg/dL Blood 12/22/2024 8:14 AM ASSISTANT CENTER DIRECTOR 12/22/2024 8:14 AM ASSISTANT CENTER DIRECTOR William Beatty MD LAB POCT ORDERABLES - DEVICE Fi nal Result [facility]IE N[facility]ES [place] 1 [facility] [place] [address] * eGFR (12/22/2024 4:55 AM ASSISTANT CENTER DIRECTOR) Pathologist [facility] eGFR >90 >=60 mL/min/1. 73 m2 Comment: [...] last reviewed 2021. Blood 12/22/2024 4:55 AM ASSISTANT CENTER DIRECTOR 12/22/2024 5:07 AM ASSISTANT CENTER DIRECTOR us Chago Cervantes MD LAB BLOOD ORDERABLES Fi nal Result Performing Organization Address [facility]/ZIP Co de Phone Number ANNIE N[facility]ES ([place]) 1 [facility] [place] [address] * Magnesium (12/22/2024 4:55 AM ASSISTANT CENTER DIRECTOR) Magnesium 2.3 1.4 - 2.5 mg/dL Blood 12/22/2024 4:55 AM ASSISTANT CENTER DIRECTOR 12/22/2024 5:07 AM ASSISTANT CENTER DIRECTOR us William Beatty MD LAB BLOOD ORDERABLES Final Resu lt Performing Organization Address City/[facility]/ZIP Co de Phone Number ANNIE NEVES ([place]) 1 [facility] [place] [address] * (ABNORMAL) Comprehensive metabolic panel (12/22/2024 4:55 AM ASSISTANT CENTER DIRECTOR) Sodium 137 135 - 145 mmol/L Potassium, [...] Bilirubin, total <0.2 0.1 - 1.2 mg/dL [facility] ([place]) Protein, pl 6.8 [...] may be affected. Blood 12/22/2024 4:55 AM ASSISTANT CENTER DIRECTOR 12/22/2024 5:07 AM ASSISTANT CENTER DIRECTOR us Chago Cervantes MD LAB BLOOD ORDERABLES Fi nal Result [facility] ([place]) 1 [facility] Department [place] [address] * POCT glucose (12/21/2024 8:52 PM ASSISTANT CENTER DIRECTOR) Pathologist [facility] Glucose, POC 117 70 - 199 mg/dL Blood 12/21/2024 8:52 PM ASSISTANT CENTER DIRECTOR 12/21/2024 8:52 PM ASSISTANT CENTER DIRECTOR William Beatty MD LAB POCT ORDERABLES - DEVICE Fi nal Result Performing Organization Address [facility] Co de Phone Number ANNIE N[facility]ES ([place]) [address] [place] [phone] * Infection Prevention MRSA Only (Staphylococcus aureus) PCR Nasal (12/21/2024 6:09 PM ASSISTANT CENTER DIRECTOR) [facility] PCR Scrn, Methicillin resistant Staphylococcus aureus (MRSA) Not Detected Not Detected Comment: Interpretive Data Testing performed using Nucleic Acid Amplification with the Hortor Xpert MRSA NxG Assay. This assay detects target DNA from mecA, mecC and the SCCmec insertion site of Staphylococcus aureus using Real-Time PCR and has been cleared by the FDA. Performance characteristics have been verified by the [facility]. Current Interpretive Data was last revised on 2023 Nasal 12/21/2024 6:09 PM ASSISTANT CENTER DIRECTOR 12/21/2024 6:11 PM ASSISTANT CENTER DIRECTOR William Beatyt MD LAB MICROBIOLOGY - GENERAL ORDE RABLES Final Result Performing Organization Address [facility] Co de Phone Number ANNIE NEVES ([place]) [address] [place] [address] Department [place] [address] * TRANSTHORACIC ECHO (TTE) COMPLETE W DOPPLER/CF W CONTRAST (12/21/2024 10:06 AM ASSISTANT CENTER DIRECTOR) [facility] LV EF >70 % CONS SCIMAGE Anatomical Region Laterality Modality Ultrasound 12/21/2024 9:31 AM ASSISTANT CENTER DIRECTOR Narrative 12/21/2024 11:22 AM ASSISTANT CENTER DIRECTOR [address] [address] Echocardiogram Report Patient Name: ROBSON RODRIGUEZ : [...] By: Bailee Molina MD 12/21/2024 11:21:05 AM ASSISTANT CENTER DIRECTOR Procedure Note Bailee Molina MD - 12/21/[address] [address] Echocardiogram Report Patient Name: ROBSON RODRIGUEZ : 1955 Study Date: 12/21/2024 9:31:10 AM Gender: M Tech: Location: [address] Provider: CHAGO CERVANTES Height(Cm): BSA: Weight(Kg): [...] By: Bailee Molina MD 12/21/2024 11:21:05 AM ASSISTANT CENTER DIRECTOR us Chago Cervantes MD CV ECHO PROCEDURES Mariam l Result * eGFR (12/21/2024 6:10 AM ASSISTANT CENTER DIRECTOR) eGFR >90 >=60 mL/min/1. 73 m2 Comment: [...] last reviewed 2021. Blood 12/21/2024 6:10 AM ASSISTANT CENTER DIRECTOR 12/21/2024 6:14 AM ASSISTANT CENTER DIRECTOR us Chago Cervantes MD LAB BLOOD ORDERABLES Fi nal Result [facility] ([place]) 1 [facility] Department of Laboratories [place], [place] [id number] * (ABNORMAL) Differential, auto (12/21/2024 6:10 AM ASSISTANT CENTER DIRECTOR) Neutrophil abs 5.0 1.5 - 6.5 K/cumm [...] revised on 2018. Blood 12/21/2024 6:10 AM ASSISTANT CENTER DIRECTOR 12/21/2024 6:14 AM ASSISTANT CENTER DIRECTOR us Alexei Lambert MD LAB BLOOD ORDERABLES Final Res ult ANNIE N[facility]ES ([place]) 1 [facility] [place] [address] * (ABNORMAL) CBC with auto differential (12/21/2024 6:10 AM ASSISTANT CENTER DIRECTOR) WBC 5.7 3.8 - 9.9 K/cumm Hgb [...] [facility] ([place]) Blood 12/21/2024 6:10 AM ASSISTANT CENTER DIRECTOR 12/21/2024 6:14 AM ASSISTANT CENTER DIRECTOR Chago Cervantes MD LAB BLOOD ORDERABLES Fi nal Result Performing Organization Address City/[facility] Co de Phone Number ANNIE NEVES ([place]) 1 [facility] [place] [address] * Magnesium (12/21/2024 6:10 AM ASSISTANT CENTER DIRECTOR) Magnesium 2.0 1.4 - 2.5 mg/dL Blood 12/21/2024 6:10 AM ASSISTANT CENTER DIRECTOR 12/21/2024 6:14 AM ASSISTANT CENTER DIRECTOR Chago Cervantes MD LAB BLOOD ORDERABLES Fi nal Result ANNIE NEVES ([place]) 1 [facility] [place] [address] * (ABNORMAL) Comprehensive metabolic panel (12/21/2024 6:10 AM ASSISTANT CENTER DIRECTOR) Sodium 141 135 - 145 mmol/L Potassium, [...] [facility] ([place]) Blood 12/21/2024 6:10 AM ASSISTANT CENTER DIRECTOR 12/21/2024 6:14 AM ASSISTANT CENTER DIRECTOR Chago Cervantes MD LAB BLOOD ORDERABLES Fi nal Result ANNIE NEVES ([place]) 1 [facility] [place] [address] * Thyroid Function [place] (12/21/2024 12:54 AM ASSISTANT CENTER DIRECTOR) Pathologist [facility] TSH 0.70 0.30 - 4.20 mcIUnit/mL Blood 12/21/2024 12:5 4 AM ASSISTANT CENTER DIRECTOR 12/21/2024 12:57 AM ASSISTANT CENTER DIRECTOR us Chago Cervantes MD LAB BLOOD ORDERABLES Fi nal Result Performing Organization Address City/[facility]/ZIP Co de Phone Number ANNIE NEVES ([place]) 1 [facility] [place] [address] * (ABNORMAL) CBC without differential (12/21/2024 12:54 AM ASSISTANT CENTER DIRECTOR) Pathologist [facility] WBC 9.3 3.8 - 9.9 K/cumm Hgb [...] [facility] ([facility]) Blood 12/21/2024 12:5 4 AM ASSISTANT CENTER DIRECTOR 12/21/2024 12:57 AM ASSISTANT CENTER DIRECTOR Narrative [facility] ([place]) - 12/21/2024 12:59 AM ASSISTANT CENTER DIRECTOR Baseline prior to apixaban initiation. Chago Cervantes MD LAB BLOOD ORDERABLES Fi nal Result Performing Organization Address City/[facility] Co de Phone Number ANNIE NEVES ([place]) 1 [facility] [place] [address] * ECG 12 lead (12/21/2024 12:10 AM ASSISTANT CENTER DIRECTOR) 12/21/2024 12:1 0 AM ASSISTANT CENTER DIRECTOR Narrative [facility] - 12/21/2024 6:42 AM ASSISTANT CENTER DIRECTOR Vent Rate: 83 bpm RR Interval: 717 msec RI Interval: 122 msec QRS Duration: 115 msec QT Interval: 362 msec QTC Interval: 402 msec P-R-T [place]: 80 - 53 - 71 degrees IMPRESSION: SINUS RHYTHM MODERATE INTRAVENTRICULAR CONDUCTION DELAY [110+ ms QRS DURATION] BORDERLINE ECG Compared to prior EKG, heart rate has decreased Sinus rhythm replaced atrial flutter Electronically Signed By: Bryant Cavanaugh MD Oma Escalona MD ECG ORDERABLES Final Result Performing Organization Address [facility] Phone Number [facility] [employer] [facility] * ECG 12 lead (12/20/2024 11:33 PM ASSISTANT CENTER DIRECTOR) 12/20/2024 11:3 3 PM ASSISTANT CENTER DIRECTOR Narrative [facility] - 12/21/2024 6:43 AM ASSISTANT CENTER DIRECTOR Vent Rate: 170 bpm RR Interval: 352 msec RI Interval: 0 msec QRS Duration: 136 msec QT Interval: 267 msec QTC Interval: 359 msec P-R-T [place]: [address] - -27 - 38 degrees IMPRESSION: ATRIAL flutter WITH RAPID VENTRICULAR RESPONSE BORDERLINE LEFT AXIS DEVIATION [QRS AXIS < -20] INTRAVENTRICULAR CONDUCTION DELAY [130+ ms QRS DURATION] CRITICAL TEST RESULT Compared to prior EKG, heart rate has increased Atrial flutter replaced sinus rhythm Electronically Signed By: Bryant Cavanaugh MD Oma Escalona MD ECG ORDERABLES Final Result Performing Organization Address [facility] Co de Phone Number [facility] * Influenza A/B, RSV, and COVID-19 PCR Nasopharyngeal (12/20/2024 11:03 PM ASSISTANT CENTER DIRECTOR) COVID-19 RNA Negative Negative Influenza A RNA Negative Negative [facility] ([place]) Influenza B RNA Negative Negative [facility] ([place]) RSV RNA Negative Negative [facility] ([facility]) Comment: Interpretive data: Testing performed by [facility]. This test is performed using the Hortor Xpert Xpress CoV-2/Flu/RSV plus assay. This is a multiplex, real- time reverse transcriptase PCR assay intended for the qualitative detection of nucleic acid from SARS-CoV-2, influenza A, influenza B, and respiratory syncytial virus. This assay has been cleared by the [place] Food and Drug administration. The performance characteristics have been verified by the [facility]. Results must be considered in the clinical context, and a negative result does not rule out infection. Interpretive Data last revised 2023 Nasopharyngeal 12/20/2024 11 :03 PM ASSISTANT CENTER DIRECTOR 12/20/2024 11:07 PM ASSISTANT CENTER DIRECTOR Narrative [facility] ([place]) - 12/21/2024 12:11 AM ASSISTANT CENTER DIRECTOR Is the Patient experiencing symptoms consistent with COVID?->Yes us Chago Cervantes MD LAB MICROBIOLOGY - [facility]ENE [facility] ORDERABLES Final Result [facility] ([place]) 1 [facility] [place] [address] * (ABNORMAL) Drugs of Abuse Screen, Urine with Reflex Confirmation (12/20/2024 10:47 PM ASSISTANT CENTER DIRECTOR) Amphetamine, ur Not Detected CutOff 500ng/mL Comment: Interpretive Data - Amphetamines: Samples containing greater than 500 ng/mL d-methamphetamine or other cross-reacting amphetamine compounds are reported as positive. Amphetamine immunoassays are subject to significant false positive rates due to cross-reactivity of non-amphetamine drugs. Confirmatory testing required for definitive results. Current Interpretive Data was last reviewed 2023. Barbiturates, ur Not Detected CutOff 200ng/mL [facility] ([place]) Comment: Interpretive Data - Barbiturates: [...] on 2018. Urine 12/20/2024 10:4 7 PM ASSISTANT CENTER DIRECTOR 12/20/2024 10:50 PM ASSISTANT CENTER DIRECTOR Narrative ANNIE NEVES ([place]) - 12/20/2024 11:43 PM ASSISTANT CENTER DIRECTOR Drug of Abuse screening is performed by immunoassay for medical purposes only. This is not to be used for Pain Management purposes. If Detected, confirmation testing will be performed for Amphetamines, Cocaine, Fentanyl, Methadone, Opiates, Oxycodone or Phencyclidine. us Chago Cervantes MD LAB URINE ORDERABLES [facility] Result ANNIE [place]IC[place]) 1 [facility] [place] [address] * eGFR (12/20/2024 10:47 PM ASSISTANT CENTER DIRECTOR) eGFR >90 >=60 mL/min/1. 73 m2 Comment: [...] reviewed 2021. Blood 12/20/2024 10:4 7 PM ASSISTANT CENTER DIRECTOR 12/21/2024 12:15 AM ASSISTANT CENTER DIRECTOR us Chago Cervantes MD LAB BLOOD ORDERABLES Fi nal Result [facility] [place] 1 [facility] [place] [address] * (ABNORMAL) Pro B-type natriuretic peptide (12/20/2024 10:47 PM ASSISTANT CENTER DIRECTOR) NT-proBNP 762(H) <=300 pg/mL Comment: Interpretive Comments: [...] Date: 2018. Blood 12/20/2024 10:4 7 PM ASSISTANT CENTER DIRECTOR 12/20/2024 10:52 PM ASSISTANT CENTER DIRECTOR us Chago Cervantes MD LAB BLOOD ORDERABLES Fi nal Result ANNIE NEVES ([place]) 1 [facility] [place] [address] * (ABNORMAL) Urinalysis reflex to microscopic and culture Urine (12/20/2024 10:47 PM ASSISTANT CENTER DIRECTOR) Color, ur Yellow Yellow Clarity, ur Clear [...] tendency for uric acid stone formation. Source: [place] [facility] Current Interpretive Data was last revised on 2017 Protein, ur ql 1+(A) Negative [facility] ([place]) Glucose, ur ql Negative Negative [facility] ([place]) Ketones, ur 3+(A) Negative [facility] ([place]) Bilirubin, ur Negative Negative [facility] ([place]) Blood, ur Trace(A) Negative [facility] ([place]) Urobilinogen, ur <2.0 <2.0 mg/dL [facility] ([place]) Nitrite, ur Negative Negative [facility] ([place]) Leukocyte esterase, ur Negative Negative [facility] ([place]) UA reflex comment Reflex to microscopic UA will be performed. [facility] ([place]) Urine 12/20/2024 10:4 7 PM ASSISTANT CENTER DIRECTOR 12/20/2024 10:51 PM ASSISTANT CENTER DIRECTOR Chago Cervantes MD LAB MICROBIOLOGY - GENE RAL ORDERABLES Final Result Performing Organization Address [facility] Center/[facility] Co de Phone Number [facility] ([place] 1 [facility] [place] [address] * (ABNORMAL) Urinalysis, microscopic only (12/20/2024 10:47 PM ASSISTANT CENTER DIRECTOR) WBC, ur 0-5 0 - 5 /HPF RBC, ur 0-2 0 - 2 /HPF [facility] ([place]) Mucous, ur Present(A) ANNIE [facility] ([place]) Hyaline casts, ur 1-5 0 - 10 /LPF [facility] ([place]) Culture Reflex Comment Reflex conditions for urine culture (WBC >10) not met. [facility] ([place]) Urine 12/20/2024 10:4 7 PM ASSISTANT CENTER DIRECTOR 12/20/2024 10:51 PM ASSISTANT CENTER DIRECTOR Chago Cervantes MD LAB URINE ORDERABLES Fi nal Result [facility] ([place]) [address] [facility] [place] [address] * Protime-INR (12/20/2024 10:47 PM ASSISTANT CENTER DIRECTOR) PT 10.7 9.7 - 13.0 sec [facility] ([place]) INR 0.99 0.90 - 1.20 [facility] ([place]) Comment: Interpretive data Oral anticoagulant therapeutic ranges: Venous thromboembolism prophylaxis or treatment: 2.0-3.0 CARDIOLOGY Standard range: 2.0-3.0 High-intensity range: 2.5-3.5 Refer to indication-specific guidelines for appropriate target ranges for prosthetic heart valve replacement. Current interpretive data was last revised on 2019. Blood 12/20/2024 10:4 7 PM ASSISTANT CENTER DIRECTOR 12/20/2024 11:52 PM ASSISTANT CENTER DIRECTOR Narrative [facility] ([place]) - 12/20/2024 11:56 PM ASSISTANT CENTER DIRECTOR Baseline prior to apixaban initiation. Chago Cervantes MD LAB BLOOD ORDERABLES Fi nal Result Performing Organization Address City/[facility]/ZIP Co de Phone Number [facility] ([place]) [address] [facility] [place] [address] * (ABNORMAL) D-dimer, quantitative (12/20/2024 10:47 PM ASSISTANT CENTER DIRECTOR) D-Dimer 851(H) <=499 ng/mL FEU [facility] ([place]) Comment: Interpretive data FDA approved the D-dimer, [...] on 2019. Blood 12/20/2024 10:4 7 PM ASSISTANT CENTER DIRECTOR 12/20/2024 10:52 PM ASSISTANT CENTER DIRECTOR Chago Cervantes MD LAB BLOOD ORDERABLES Fi nal Result Performing Organization Address City/[facility]/ZIP Co de Phone Number [facility] ([place]) 1 [facility] [place] [address] * (ABNORMAL) Blood gas, venous (12/20/2024 10:47 PM ASSISTANT CENTER DIRECTOR) pH, Venous 7.32 7.32 - 7.43 PCO2, Venous 91(C) 40 - 50 mmHg [facility] ([place]) Comment:Critical result call ed to and read back by billy hawkins (er) on 12/20/2024 23:09:00 ASSISTANT CENTER DIRECTOR to kavya wilkinson. PO2, Venous 46 mmHg [facility] ([place]) HCO3 Venous, Calculated 45(H) 20 - 30 mmol/L [facility] ([place]) BE, venous 15 mmol/L [facility] ([place]) Comment: Interpretive Data No Reference Range Established Current Interpretive Data was last revised on 2018. Blood 12/20/2024 10:4 7 PM ASSISTANT CENTER DIRECTOR 12/20/2024 10:52 PM ASSISTANT CENTER DIRECTOR Chago Cervantes MD LAB BLOOD ORDERABLES Fi nal Result Performing Organization Address City/[facility]/ZIP Co de Phone Number [facility] ([place] 1 [facility] [place] [address] * (ABNORMAL) Creatinine (12/20/2024 10:47 PM ASSISTANT CENTER DIRECTOR) Pathologist [facility] Creatinine 0.61(L) 0.80 - 1.30 mg/dL Blood 12/20/2024 10:4 7 PM ASSISTANT CENTER DIRECTOR 12/21/2024 12:15 AM ASSISTANT CENTER DIRECTOR Narrative [facility] - 12/21/2024 12:33 AM ASSISTANT CENTER DIRECTOR Baseline prior to apixaban initiation. Chago Cervantes MD LAB BLOOD ORDERABLES Fi nal Result [facility] ([place] [facility] [place] [address] * Hepatic function panel (12/20/2024 10:47 PM ASSISTANT CENTER DIRECTOR) Bilirubin, total 0.4 0.1 - 1.2 mg/dL [...] [facility] ([place]) Blood 12/20/2024 10:4 7 PM ASSISTANT CENTER DIRECTOR 12/21/2024 12:15 AM ASSISTANT CENTER DIRECTOR Narrative [facility] ([place]) - 12/21/2024 12:33 AM ASSISTANT CENTER DIRECTOR Baseline prior to apixaban initiation. us Chago Cervantes MD LAB BLOOD ORDERABLES Fi nal Result Performing Organization Address City/[facility]/ZIP Co de Phone Number ANNIE [facility] ([place]) [address] [place] [address] [place] [address] * (ABNORMAL) Troponin T high-sensitivity 4-hour (12/20/2024 7:04 PM ASSISTANT CENTER DIRECTOR) Trop T hs 32(H) <=22 ng/L Comment: Interpretive Data For further hscTnT resources including the diagnostic algorithm and an aid in interpretation, copy and paste this link: https://nrl.testcatalog.org/show/hsTrop Current Interpretive Data last revised 2020. Trop T hs delta 0 ng/L [facility] ([place]) Trop T hs interp Insignificant [facility] ([place]) Blood 12/20/2024 7:0 4 PM ASSISTANT CENTER DIRECTOR 12/20/2024 7:06 PM ASSISTANT CENTER DIRECTOR us Alexei Lambert MD LAB BLOOD ORDERABLES Final Res ult [facility] ([place]) 1 [facility] [place] [address] * (ABNORMAL) Troponin T high-sensitivity 2-hour (12/20/2024 4:57 PM ASSISTANT CENTER DIRECTOR) Trop T hs 38(H) <=22 ng/L Comment: Interpretive Data For further hscTnT resources including the diagnostic algorithm and an aid in interpretation, copy and paste this link: https://nrl.testcatalog.org/show/hsTrop Current Interpretive Data last revised 2020. Trop T hs delta 6 ng/L [facility] ([place]) Trop T hs interp Equivocal [facility] ([place]) Blood 12/20/2024 4:57 PM ASSISTANT CENTER DIRECTOR 12/20/2024 5:05 PM ASSISTANT CENTER DIRECTOR Alexei Lambert MD LAB BLOOD ORDERABLES Final Res ult [facility] ([place]) 1 [facility] [place] [address] * CT Head WO Contrast (12/20/2024 4:53 PM ASSISTANT CENTER DIRECTOR) Anatomical Region Laterality Modality Head and Neck N/A Computed Tomogra phy 12/20/2024 4:55 PM ASSISTANT CENTER DIRECTOR Narrative 12/20/2024 4:56 PM ASSISTANT CENTER DIRECTOR EXAM DESCRIPTION: CT HEAD WO CONTRAST REASON [...] Talha Landa M.D. KH: SARAHI Report ID: [id number] Reading Location: [id number] Procedure Note Talha Landa MD - 12/20/2024 [...] Talha Landa M.D. KH: SARAHI Report ID: [id number] Reading Location: [id number] us Alexei Lambert MD IMG CT PROCEDURES Final Result * (ABNORMAL) Troponin T high-sensitivity series (baseline, 2hr, 4hr, 6hr) (12/20/2024 3:03 PM ASSISTANT CENTER DIRECTOR) Trop T hs 32(H) <=22 ng/L Comment: Interpretive Data For further hscTnT resources including the diagnostic algorithm and an aid in interpretation, copy and paste this link: https://nrl.testcatalog.org/show/hsTrop Current Interpretive Data last revised 2020. Blood 12/20/2024 3:03 PM ASSISTANT CENTER DIRECTOR 12/20/2024 3:07 PM ASSISTANT CENTER DIRECTOR us Alexei Lambert MD LAB BLOOD ORDERABLES Final Res ult [facility] ([place]) 1 [facility] [place] [address] * eGFR (12/20/2024 3:03 PM ASSISTANT CENTER DIRECTOR) eGFR >90 >=60 mL/min/1. 73 m2 Comment: [...] last reviewed 2021. Blood 12/20/2024 3:03 PM ASSISTANT CENTER DIRECTOR 12/20/2024 3:07 PM ASSISTANT CENTER DIRECTOR Alexei Lambert MD LAB BLOOD ORDERABLES Final Res ult [facility] ([place]) 1 [facility] [place] [address] * (ABNORMAL) Differential, auto (12/20/2024 3:03 PM ASSISTANT CENTER DIRECTOR) Neutrophil abs 8.0(H) 1.5 - 6.5 K/cumm Imm gran abs 0.1 0.0 - 0.1 K/cumm [facility] ([place]) Lymphocyte abs 1.1 0.8 - 3.3 K/cumm [facility] ([place]) Monocyte abs 0.5 0.2 - 0.8 K/cumm [...] revised on 2018. Blood 12/20/2024 3:03 PM ASSISTANT CENTER DIRECTOR 12/20/2024 3:07 PM ASSISTANT CENTER DIRECTOR us Alexei Lambert MD LAB BLOOD ORDERABLES Final Res ult [facility] ([place]) 1 [facility] [place] [address] * (ABNORMAL) CBC with auto differential (12/20/2024 3:03 PM ASSISTANT CENTER DIRECTOR) WBC 9.8 3.8 - 9.9 K/cumm Hgb [...] [facility] ([place]) Blood 12/20/2024 3:03 PM ASSISTANT CENTER DIRECTOR 12/20/2024 3:07 PM ASSISTANT CENTER DIRECTOR us Alexei Lambert MD LAB BLOOD ORDERABLES Final Res ult [facility] ([place]) 1 [facility] [place] [address] * (ABNORMAL) Comprehensive metabolic panel (12/20/2024 3:03 PM ASSISTANT CENTER DIRECTOR) Sodium 138 135 - 145 mmol/L Potassium, [...] Hemolyzed S pecimen Blood 12/20/2024 3:03 PM ASSISTANT CENTER DIRECTOR 12/20/2024 3:07 PM ASSISTANT CENTER DIRECTOR us Alexei Lambert MD LAB BLOOD ORDERABLES Final Res ult [facility] 1 [facility] [place] [address] * XR Chest 1 Vw Portable (12/20/2024 3:02 PM ASSISTANT CENTER DIRECTOR) Anatomical Region Laterality Modality Body, Chest N/A Computed Radiogr aphy 12/20/2024 3:08 PM ASSISTANT CENTER DIRECTOR Narrative 12/20/2024 3:09 PM ASSISTANT CENTER DIRECTOR EXAM DESCRIPTION: XR CHEST 1 VIEW REASON FOR STUDY: Other (type) Pt to Ed via EMS from home with complaint of rapid heart rate (178bpm). Pt treated with Adenosine 6mg and 12mg PORTER SAMPLE CASE. Pt Given Versed 2mg and Cardioverted PORTER SAMPLE CASE. Pt alert and oriented x4 VSS upon [...] Lucrecia Fink D.O. PS: PS Report ID: [id number] Reading Location: [id number] Procedure Note Lucrecia Fink, DO - 12/20/2024 EXAM DESCRIPTION: XR CHEST 1 VIEW REASON FOR STUDY: Other (type) Pt to Ed via EMS from home with complaint of rapid heart rate (178bpm). Pt treated with Adenosine 6mg and 12mg PORTER SAMPLE CASE. Pt Given Versed 2mg andCardioverted PORTER SAMPLE CASE. Pt alert and oriented x4 VSS upon [...] Lucrecia Fink D.O. PS: PS Report ID: [id number] Reading Location: [id number] Alexei Lambert MD IMG XR PROCEDURES Final Result * ECG 12 lead (12/20/2024 2:51 PM ASSISTANT CENTER DIRECTOR) 12/20/2024 2:51 PM ASSISTANT CENTER DIRECTOR Narrative [facility] - 12/21/2024 6:43 AM ASSISTANT CENTER DIRECTOR Vent Rate: 105 bpm RR Interval: 570 msec RI Interval: 128 msec QRS Duration: 96 msec QT Interval: 340 msec QTC Interval: 401 msec P-R-T [place]: 79 - 14 - 64 degrees IMPRESSION: SINUS TACHYCARDIA POSSIBLE LEFT ATRIAL ENLARGEMENT [-0.1mV P-WAVE IN V1/V2] ABNORMAL RHYTHM ECG Compared to prior EKG, heart rate has decreased Sinus rhythm replaced atrial flutter Electronically Signed By: Bryant Cavanaugh MD Alexei Lambert MD ECG ORDERABLES Final Result [facility] from Last 3 Months Insurance MEDICARE [employer] [facility] MEDICARE Address: [facility] [address] [place] [address] MEDICARE [employer] [facility] MEDIC[facility] Address: [facility] [address] [place] [address] Advance Directives For more information, please contact: [phone] * Full Code (Latest Code Status on File) Date Activated Date Inactivated Comments 12/20/2024 5:33 PM 12/23/2024 5:54 PM Care Teams Charge Nurse Relationship Specialty Start Date End Date No, Physician PCP - General 08/18/24 Manny Martines MD 08/18/24 Fariba Lozoya MD [address] [place] [address] [place] [address] Consulting Physician Sleep Medicine 12/23/24
[2025-01-10 17:37] LABS: NT Pro B Type Natriuretic Pept 899 pg/mL (19.9-100)
--- NOTE | 2025-01-10 18:13 | PCRCNOTE ---
ABGS done late due to therapist with critical pt.
[2025-01-10 18:16] LABS: Base Excess ABG 11.8 mEq/l (+/-2.0); Fractional Inspired Oxygen 36 %; HCO3 ABG 39.3 mEq/l (22.0-26.0); Oxygen Content ABG 15.7 %vol (16.0-22.0); Oxygen Saturation ABG 96.3 % (95.0-100.0); Oxyhemoglobin 95.4 % THb (90.0-100.0); PO2 ABG 88.2 mmHg (80.0-100.0); PO2 FiO2 Ratio Arterial Blood 2.45 %; Total Hemoglobin 11.6 g/dL (12.0-18.0); pH ABG 7.387 (7.350-7.450)
[2025-01-10 18:21] LABS: Device NASAL CANNULA; PCO2 ABG 66.8 mmHg (35.0-45.0); Site Drawn LEFT BRACHIAL
--- NOTE | 2025-01-10 19:52 | PC.NURSE ---
1944-PATIENT MOVED TO ED #1. PATIENT MAKES MULTIPLE DEMANDS-GET ME SOME FOOD. I HAVEN'T EATEN IN TWO DAYS; GET ME A PHONE-I HAVE CALLS TO MAKE; OPEN THE DOOR-IT IS HOT IN HERE.
--- NOTE | 2025-01-10 20:38 | P.HP_ITS ---
H&P: HPI History of Present Illness Date/Time: 01/10/25 20:38 Chief Complaint: 1. Shortness of breath 2. Chest pain/discomfort Narrative: Robson Farr this is a 69-year-old male with a medical history significant for coronary artery disease, nicotine dependence, Pneumothorax, marijuana use He presents after experiencing intermittent chest pain over the last few weeks; describes the pain as sharp, localized to left side of the chest, present at rest and on exertion, with no known modifying factors, it is has been associated with anxiety, malaise, dyspnea on exertion, and a restriction of his ADLs. He denies associated fevers, pedal swellings, cough, hemoptysis, dizziness, LOC, orthopnea or PND He smokes less than 1 pack per day of cigarettes; he drinks alcohol sparingly, he denies recreational/illicit drug use Work-up findings: CBC is remarkable for his pain 11.9, MCV 97.7, WBC 5.8 ABG: PH 7.3, pCO2 66, PO2 88 CMP significant for CO2 greater than 40, BUN 15, CR 0.7, GFR 96 Troponin 0.110 > > 0.100 BNP 899 CXR: Left mid to lower lung scarring. No focal infiltrate or effusion. CTA chest: No pulmonary embolus. No thoracic aortic dissection. Borderline enlargement of the main pulmonary artery. Severe panlobular emphysematous disease with large bulla formation within the bilateral upper lobes, left greater than right. Robson Farr will be admitted, evaluated, and managed for COPD exacerbation, NSTEMi, dyspnea with chest pain Review of Systems Review of Systems: All systems reviewed & are unremarkable except as noted in HPI and below [facility] Family History Family History Father Hypertension Cerebrovascular accident Family history of heart disease in male family member before age 55 Social History Social History Alcohol intake: never Meds Home Medications and Allergies Home Medications ?Medication ?Instructions ?Recorded ?Confirmed ?Type Unable to Obtain Home Medications 01/10/25 01/10/25 History Allergies Allergy/AdvReac Type Severity Reaction Status Date / Time No Known Allergies Allergy Verified 01/10/25 17:00 Vital Signs Vital Signs - 24 hr 01/10/25 16:03 01/10/25 16:44 01/10/25 16:54 Temperature 98.0 F Pulse Rate 90 103 H 101 H Respiratory Rate 20 32 H 24 H Blood Pressure 126/76 Pulse Oximetry 100 Oxygen Delivery Nasal Cannula Oxygen Flow Rate 4 Fraction of Inspired Oxygen 01/10/25 16:59 01/10/25 17:15 01/10/25 17:26 Temperature Pulse Rate 98 92 Respiratory Rate 30 H 28 H Blood Pressure 108/89 137/73 Pulse Oximetry 100 100 98 Oxygen Delivery Nasal Cannula Oxygen Flow Rate 4 Fraction of Inspired Oxygen 01/10/25 20:34 01/10/25 20:34 Temperature Pulse Rate 102 H Respiratory Rate 24 H Blood Pressure Pulse Oximetry 98 Oxygen Delivery Nasal Cannula Oxygen Flow Rate 2 Fraction of Inspired Oxygen 28 Exam Narrative: GENERAL: Well-appearing, well-nourished, and in no acute distress. HEAD: Normocephalic, atraumatic. EYES: PERRLA and EOMI. ENT: Nares clear, no rhinorrhea or epistaxis. Mucous membranes moist. NECK: Supple. CHEST: Reduced air entry bilaterally; no expiratory wheezes. No respiratory distress. HEART: Regular rate and rhythm. No murmur heard. Normal peripheral pulses. ABDOMEN: Soft, nontender, nondistended, normal active bowel sounds. EXTREMITIES: Normal range of motion. No edema. SKIN: Warm, dry, no rash. NEURO: No focal deficits. Alert and oriented x3. PSYCH: Normal mood and affect. H&P: Results Labs Labs: Short CBC 01/10/25 Range/Units 16:21 WBC 5.8 (4.5-10.0) K/mm3 Hgb 11.9 L (14.0-18.0) g/dL Hct 41.7 L (42.0-52.0) % Plt Count 164 (150-375) k/mm3 BMP 01/10/25 16:21 Sodium 140 Potassium 4.0 Chloride 89 L Carbon Dioxide > 40 H BUN 15 D Creatinine 0.70 Glucose 118 H Calcium 8.8 Cardiac Enzymes 01/10/25 01/10/25 Range/Units 16:21 19:19 Troponin I 0.110 H* 0.100 H* (0.000-0.034) ng/mL Liver Function 01/10/25 Range/Units 16:21 Total Bilirubin 0.7 (0.2-1.3) mg/dL AST 22 (17-59) U/L ALT 39 (6-50) U/L Alkaline Phosphatase 86 (38-126) U/L Albumin 3.9 (3.5-5.1) g/dL Assessment and Plan Assessment and plan (1) Elevated troponin: Code(s): R79.89 - Other specified abnormal findings of blood chemistry Status: Acute (2) Chest pain: Code(s): R07.9 - Chest pain, unspecified Status: Acute Plan Acute and principal conditions 1. NsTEMI; Elevated Troponin 2. COPD exacerbation. Rx: A. Trend troponin and ECG; Telemetry monitoring B. DuoNebs, Solumedrol, supplemental oxygen PRN C. Cardiology consulted Chronic and stable conditions 1. Nicotine dependence. 2. Marijuana user 3. CAD s/p PCI Miscellaneous care. 1. Code status. Full 2. VTE prophylaxis. SCDs; CLAIRE 3. Nutrition. NPO Hospitalist MIPS Advance Care Plan I have confirmed that the patient's Advanced Care Plan is present, code status is documented, or surrogate decision maker is listed in patient medical record.: Yes Medication Reconciliation I have utilized all available resources to obtain, update and review the patients current medications (includes all prescriptions, OTC, herbals, cannabis, and nutritional supplements).: Yes The patient is not eligible for med reconciliation; the patient is in a emergent medical situation where delaying treatment would jeopardize the patients health.: Yes
--- NOTE | 2025-01-10 21:24 | PC.NURSE ---
This RN tried to call pt caregiver but no answer.
--- NOTE | 2025-01-10 22:14 | ADMGEN ---
This patient, Robson Farr, was admitted to IMU Room 203-01 at 2133. Patient/family oriented to hospital policies and general routines including ID bracelet, bed and alarms, visiting hours, pain management, procedures, bathroom and other care routines, personal items, smoking policy, room service/diet, and visiting hours. Information on how to activate the Rapid Response Team has been discussed. Patient/Family are encouraged to report perceived risks to care and to ask questions if they do not understand what they are told or what they should do.
[2025-01-10] MEDS: HEPARIN SODIUM 5,000 UNITS/ML VIAL 5000 UNITS SUB-Q (23:26)
[2025-01-10] MEDS: methylPREDNISolone SOD SUCC 125 MG VIAL 60 MG IV PUSH (23:26)
[2025-01-11] VITALS (15 sets, daily range): BP systolic 148–166; BP diastolic 78–88; PULSE 76–103; RESP 20–22; TEMP 36.3–36.7; O2SAT 96–99
--- NOTE | 2025-01-11 | ECHO_ITS ---
Patient Info Name: Robson Farr Age: 69 years : 1955 Gender: Male Ht: 73 in Wt: 187 lbs BSA: 2.10 m2 HR: 91 bpm BP: 166 / 83 mmHg Heart Rhythm: Sinus Rhythm Technical Quality: Poor Exam Date: 01/11/2025 11:29 AM Exam Location: Echo Lab Patient Status: Inpatient Admit Date: 01/11/2025 Staff Ordering Physician: Anette Evans MD Hospitality Housekeeper: Haydee Faith RDCS Attending Provider: Jeff Goss MD Exam Type: CA echo dop color flow w con Study Info Indications - elevated troponin Complete two-dimensional, color flow and Doppler transthoracic echocardiogram is performed with contrast to opacify the left ventricle and to improve the deliniation of the left ventricle endocardial borders. Contrast/Agitated Saline Contrast/Ag. Saline: Definity Amount: 2.00 ml Administered By: Haydee Faith RDCS Existing IV Access: Yes IV Access Condition: patent with no signs of infiltration Summary 1. Left ventricular systolic function is normal, estimated at 65-70%. 2. There is moderately increased left ventricular wall thickness. 3. The left ventricular diastolic function is abnormal. 4. Technically difficult study. Left Ventricle Left ventricular chamber dimension is normal. Left ventricular systolic function is normal, estimated at 65-70%. There is moderately increased left ventricular wall thickness. Left ventricular septal wall motion is normal. The left ventricular diastolic function is abnormal. Right Ventricle Right ventricular chamber dimension is normal. Right ventricular systolic function is normal. Left Atria Left atrial chamber dimension is normal. Right Atria Right atrial chamber dimension is normal. Atrial Septum Intact interatrial septum visualized by color flow imaging. Aortic Valve The aortic valve is not well visualized. There is no aortic valve sclerosis. There is no aortic valve stenosis. There is no aortic valve regurgitation. Pulmonic Valve The pulmonic valve is normal. There is no pulmonic valve stenosis. There is no pulmonic regurgitation. Mitral Valve The mitral valve has normal leaflets. There is no mitral valve stenosis. There is no mitral valve regurgitation. Tricuspid Valve The tricuspid valve leaflets are normal. There is no significant tricuspid valve stenosis. There is no tricuspid valve regurgitation. Pericardium/Pleural The pericardium appears normal. There is no pericardial effusion. Inferior Vena Cava Dilated inferior vena cava with >50% collapse upon inspiration consistent with Empty right atrial pressure, 10 mmHg. Aorta The aortic root size at the sinus of Valsalva is not well visualized. The prox ascending aorta size is not well visualized. Left Ventricular Outflow Tract Name Value Normal LVOT Doppler LVOT Peak Gradient 7 mmHg LVOT Mean Gradient 3 mmHg LVOT VTI 21.89 cm LVOT VTI/AV VTI Ratio 0.75 Pulmonic Valve Name Value Normal RVOT Doppler RVOT Peak Gradient 1 mmHg PV Doppler PV Peak Gradient 3 mmHg Mitral Valve Name Value Normal MV Doppler MV Decel Sargent 429.48 cm/s2 MV PHT 0 s MV Area (PHT) 3.92 cm2 4.00-5.00 MV Diastolic Function MV E Peak Velocity 83.01 cm/s MV A Peak Velocity 115.31 cm/s MV E/A 0.72 MV Decel Time 0 s MV Annular TDI MV E/e' (Septal) 9.65 <=8.00 MV E/e' (Lateral) 11.02 <=8.00 MV E/e' (Average) 10.34 Tricuspid Valve Name Value Normal Estimated PAP/RSVP RA Pressure 10 mmHg <=5 Aorta Name Value Normal Ascending Aorta Ao Root Diameter (MM) 3.17 cm Ao Root Diam Index (MM) 1.51 cm/m2 Aortic Valve Name Value Normal AV Doppler AV Peak Velocity 190.67 cm/s AV Peak Gradient 15 mmHg AV Mean Gradient 6 mmHg AV VTI 29.04 cm Ventricles Name Value Normal LV Fractional Shortening/Ejection Fraction 2D/MM LV Diastolic Volume (4C MOD) 123.94 ml LV EF (4C MOD) 75 % LV Diastolic Volume (2C MOD) 88.10 ml LV EF (2C MOD) 65 % LV Diastolic Volume (BP MOD) 106.24 ml 62.00-150.00 LV Diastolic Volume Index (BP MOD) 0.05 l/m2 0.03-0.07 LV Systolic Volume (BP MOD) 31.68 ml 21.00-61.00 LV Systolic Volume Index (BP MOD) 0.02 l/m2 0.01-0.03 LV EF (BP MOD) 70 % 52-72 LV Diastolic Length (4C) 8.69 cm LV Systolic Length (4C) 6.49 cm LV Stroke Volume (4C MOD) 93.52 ml Atria Name Value Normal LA Dimensions LA Dimension (MM) 3.29 cm 3.00-4.10 LA Volume (4C A-L) 55.04 ml LA Volume (BP A-L) 57.11 ml RA Dimensions RA Area (4C) 15.18 cm2 <=18.00 Report Signatures
[2025-01-11 00:05] LABS: Influenza A QL RT-PCR Negative (Negative); Influenza B QL RT-PCR Negative (Negative); RSV RNA, RT-PCR Negative (Negative); SARS-CoV-2 RNA PCR Negative (Negative)
[2025-01-11] MEDS: IPRATROPIUM 0.5 MG/ALBUTEROL SULFATE 2.5 MG AMPUL.NEB 3 ML INHALATION ×4 (00:55→16:24)
[2025-01-11] MEDS: methylPREDNISolone SOD SUCC 125 MG VIAL 60 MG IV PUSH (05:48)
[2025-01-11 05:54] LABS: Hematocrit 37.5 % (42.0-52.0); Hemoglobin 10.8 g/dL (14.0-18.0); Immature Granulocyte Absolute 0.02 K/mm3 (0.00-0.031); Immature Granulocyte Percent A 0.6 % (0-0.5); Lymphocytes Absolute Auto 0.41 K/mm3 (0.9-3.2); Lymphocytes Percent Auto 12.6 % (18.3-44.2); Mean Corpuscular HGB Conc 28.8 g/dl (32-36); Mean Corpuscular Hemoglobin 27.3 pg (26-34); Mean Corpuscular Volume 94.9 fl (80-100); Mean Platelet Volume 10.1 fl (7.4-10.4); Monocytes Absolute Auto 0.1 K/mm3 (0.1-0.6); Monocytes Percent Auto 1.8 % (2.6-8.5); Neutrophils Absolute Auto 2.8 K/mm3 (1.3-6.7); Platelet Count Result 157 k/mm3 (150-375); Red Blood Count 3.95 M/mm3 (4.6-6.20); White Blood Count 3.3 K/mm3 (4.5-10.0)
[2025-01-11 06:10] LABS: Alanine Aminotransferase 31 U/L (6-50); Albumin Level 3.5 g/dL (3.5-5.1); Alkaline Phosphatase 80 U/L (38-126); Aspartate Amino Transferase 21 U/L (17-59); Bilirubin,Total 0.5 mg/dL (0.2-1.3); Blood Urea Nitrogen 21 mg/dL (9-20); Calcium 8.5 mg/dL (8.4-10.2); Carbon Dioxide > 40 mmol/L (22-30); Chloride 93 mmol/L (98-107); Estimated CRCL calculation 90 ml/min; Estimated Glomerular Filt Rate > 60; Glucose 158 mg/dL (65-110); Potassium 3.9 mmol/L (3.4-5.0); Sodium 141 mmol/L (137-145)
[2025-01-11 09:19] LABS: Troponin I 0.689 ng/mL (0.000-0.034)
[2025-01-11] MEDS: HEPARIN SODIUM 5,000 UNITS/ML VIAL 5000 UNITS SUB-Q (09:32)
[2025-01-11] MEDS: PERFLUTREN LIPID MICROSPHERES 1.5 ML VIAL DILUTED TO 10 ML TOTAL VOLUME IV PUSH (11:30)
--- NOTE | 2025-01-11 13:13 | PM.IMPN ---
Progress Note: A&P Assessment and Plan (1) Elevated troponin: Code(s): R79.89 - Other specified abnormal findings of blood chemistry Status: Acute (2) Chest pain: Code(s): R07.9 - Chest pain, unspecified Status: Acute Plan Acute and principal conditions 1. NsTEMI; Elevated Troponin Trend troponin and ECHO pending COntineu Aspirin, Lipitor and cardiology consulted 2. COPD exacerbation DuoNebs, Prednisone , supplemental oxygen PRN Patient now on baseline oxygen Chronic and stable conditions 1. Nicotine dependence. 2. Marijuana user 3. CAD s/p PCI Miscellaneous care. 1. Code status. Full 2. VTE prophylaxis. SCDs; CLARIE 3. Nutrition. NPO Patient threatening to leave AMA Subjective Date/time seen: 01/11/25 13:13 Interval history: Comfortable at bedside patient threatening to leave AMA Review of Systems Review of Systems: All systems reviewed & are unremarkable except as noted in HPI and below Exam Narrative: GENERAL: Well-appearing, well-nourished, and in no acute distress. HEAD: Normocephalic, atraumatic. EYES: PERRLA and EOMI. ENT: Nares clear, no rhinorrhea or epistaxis. Mucous membranes moist. NECK: Supple. CHEST: Reduced air entry bilaterally; no expiratory wheezes. No respiratory distress. HEART: Regular rate and rhythm. No murmur heard. Normal peripheral pulses. ABDOMEN: Soft, nontender, nondistended, normal active bowel sounds. EXTREMITIES: Normal range of motion. No edema. SKIN: Warm, dry, no rash. NEURO: No focal deficits. Alert and oriented x3. PSYCH: Normal mood and affect. Objective Data Vital Signs Vital Signs: Vital Signs - 24 hr 01/10/25 16:03 01/10/25 16:44 01/10/25 16:54 Temperature 98.0 F Pulse Rate 90 103 H 101 H Respiratory Rate 20 32 H 24 H Blood Pressure 126/76 Pulse Oximetry 100 Oxygen Delivery Nasal Cannula Oxygen Flow Rate 4 Fraction of Inspired Oxygen 01/10/25 16:59 01/10/25 17:15 01/10/25 17:26 Temperature Pulse Rate 98 92 Respiratory Rate 30 H 28 H Blood Pressure 108/89 137/73 Pulse Oximetry 100 100 98 Oxygen Delivery Nasal Cannula Oxygen Flow Rate 4 Fraction of Inspired Oxygen 01/10/25 20:34 01/10/25 20:34 01/10/25 20:43 Temperature Pulse Rate 102 H 98 Respiratory Rate 24 H 22 H Blood Pressure Pulse Oximetry 98 Oxygen Delivery Nasal Cannula Oxygen Flow Rate 2 Fraction of Inspired Oxygen 28 01/10/25 21:24 01/10/25 21:27 01/10/25 22:00 Temperature Pulse Rate 92 93 101 H Respiratory Rate 23 H 23 H Blood Pressure 125/67 125/67 Pulse Oximetry 97 97 Oxygen Delivery Oxygen Flow Rate Fraction of Inspired Oxygen 01/10/25 22:15 01/10/25 23:43 01/11/25 00:00 Temperature 97.3 F L Pulse Rate 97 103 H Respiratory Rate 20 Blood Pressure 152/83 H Pulse Oximetry 97 97 Oxygen Delivery Nasal Cannula Oxygen Flow Rate 4 Fraction of Inspired Oxygen 01/11/25 00:08 01/11/25 00:55 01/11/25 01:10 Temperature 97.3 F L Pulse Rate 101 H 102 H 100 Respiratory Rate 20 22 H 22 H Blood Pressure 150/88 H Pulse Oximetry 97 Oxygen Delivery Oxygen Flow Rate Fraction of Inspired Oxygen 01/11/25 03:34 01/11/25 04:00 01/11/25 04:28 Temperature 97.5 F L Pulse Rate 76 83 Respiratory Rate 20 Blood Pressure 148/82 H Pulse Oximetry 97 96 Oxygen Delivery Nasal Cannula Oxygen Flow Rate 4 Fraction of Inspired Oxygen 01/11/25 04:54 01/11/25 05:02 01/11/25 08:00 Temperature 97.5 F L Pulse Rate 98 96 83 Respiratory Rate 20 20 20 Blood Pressure 166/83 H Pulse Oximetry 99 Oxygen Delivery Oxygen Flow Rate Fraction of Inspired Oxygen 01/11/25 08:00 01/11/25 08:10 01/11/25 08:10 Temperature Pulse Rate 91 Respiratory Rate 20 Blood Pressure Pulse Oximetry 99 98 Oxygen Delivery Nasal Cannula Nasal Cannula Oxygen Flow Rate 4 3 Fraction of Inspired Oxygen 28 01/11/25 12:00 01/11/25 12:00 Temperature 98.1 F Pulse Rate 77 Respiratory Rate 20 Blood Pressure 152/78 H Pulse Oximetry 99 99 Oxygen Delivery Nasal Cannula Oxygen Flow Rate 4 Fraction of Inspired Oxygen Intake/Output Intake/Output: Intake & Output 01/08/25 01/09/25 01/10/25 01/11/25 23:59 23:59 23:59 23:59 Intake Total 100 500 Output Total 450 Balance 100 50 Meds/Results Medications: Active Medications Generic Name Dose Route Start Last Admin Trade Name Freq PRN Reason Stop Dose Admin Acetaminophen 650 mg 01/10/25 20:36 Acetaminophen 325 Mg Tablet PO Q4H PRN Mild Pain (1-3) or Fever Hydrocodone Bitart/Acetaminophen 1 tab 01/11/25 13:11 Hydrocodone/Acetaminophen (*Crx) 10-325 Mg Tablet PO Q6H PRN pain (scale score 7-10) Albuterol/Ipratropium 3 ml 01/11/25 00:00 01/11/25 08:09 Ipratropium 0.5 Mg/Albuterol Sulfate 2.5 Mg Ampul.Neb 3 Ml INHALATION 3 ml Q4HRT [facility] Administration Atorvastatin Calcium 40 mg 01/12/25 09:00 Atorvastatin 40 Mg Tablet PO DAILY [facility] Diltiazem HCl 240 mg 01/11/25 13:15 Diltiazem Hcl Cd 240 Mg Cap.24hr PO Q24H [facility] Heparin Sodium (Porcine) 5,000 units 01/10/25 21:00 01/11/25 09:32 Heparin Sodium 5,000 Units/Ml Vial SUB-Q 5,000 units Q12HR CLAIRE Administration Melatonin 5 mg 01/10/25 21:48 Melatonin 5 Mg Tablet PO HS PRN Insomnia Ondansetron HCl 4 mg 01/10/25 20:36 Ondansetron Inj 4 Mg/2 Ml Vial IV PUSH Q6H PRN Nausea And Vomiting Perflutren Lipid Microsphere 0 ml 01/11/25 08:22 Perflutren Lipid Microspheres 1.5 Ml Vial Diluted To 10 Ml Total Volume IV PUSH 01/14/25 08:22 ONCE PRN adequate visualization Protocol Prednisone 40 mg 01/12/25 08:00 Prednisone 20 Mg Tablet PO DAILY@0800 [facility] Radiology Results: ITS Impressions Chest X-Ray 01/10/25 16:58 IMPRESSION: Left mid to lower lung scarring. No focal infiltrate or effusion. Chest CTA 01/10/25 18:29 IMPRESSION: No pulmonary embolus. No thoracic aortic dissection. Borderline enlargement of the main pulmonary artery. Severe panlobular emphysematous disease with large bulla formation within the bilateral upper lobes, left greater than right. Labs Labs: Laboratory Results - last 24 hr 01/10/25 01/10/25 01/10/25 16:21 18:09 19:19 WBC 5.8 RBC 4.27 L Hgb 11.9 L Hct 41.7 L MCV 97.7 MCH 27.9 MCHC 28.5 L RDW 12.3 Plt Count 164 MPV 9.5 Immature Gran % (Auto) 0.3 Neut % (Auto) 70.6 Lymph % (Auto) 18.0 L [place] % (Auto) 7.7 Eos % (Auto) 2.7 Baso % (Auto) 0.7 Lymph # (Auto) 1.05 [place] # (Auto) 0.5 Eos # (Auto) 0.2 Baso # (Auto) 0.0 Abs Immat Gran (auto) 0.02 Absolute Neuts (auto) 4.1 Absolute Nucleated RBC 0.000 Nucleated RBC % 0.0 PT 12.4 INR 0.9 APTT 32.1 Puncture Site Left brachial ABG pH 7.387 ABG pCO2 66.8 H* ABG pO2 88.2 ABG PO2/FiO2 Ratio 2.45 ABG HCO3 39.3 H ABG O2 Saturation 96.3 ABG O2 Content 15.7 L ABG Base Excess 11.8 A-a Gradient 91.0 Oxyhemoglobin 95.4 Total Hemoglobin 11.6 L O2 Delivery Device Nasal cannula O2 Liters/Min 4.0 FiO2 36 Sodium 140 Potassium 4.0 Chloride 89 L Carbon Dioxide > 40 H Anion Gap BUN 15 D Creatinine 0.70 Estim Creat Clear Calc 96 Estimated GFR > 60 Glucose 118 H Calcium 8.8 Total Bilirubin 0.7 AST 22 ALT 39 Alkaline Phosphatase 86 Troponin I 0.110 H* 0.100 H* NT-Pro-B Natriuret Pep 899 H Total Protein 7.0 Albumin 3.9 Lipase 22 L Influenza A (RT-PCR) Influenza B (RT-PCR) RSV (RT-PCR) SARS-CoV-2 RNA (RT-PCR) 01/10/25 01/10/25 01/11/25 22:20 23:19 05:20 WBC RBC Hgb Hct MCV MCH MCHC RDW Plt Count MPV Immature Gran % (Auto) Neut % (Auto) Lymph % (Auto) [place] % (Auto) Eos % (Auto) Baso % (Auto) Lymph # (Auto) [place] # (Auto) Eos # (Auto) Baso # (Auto) Abs Immat Gran (auto) Absolute Neuts (auto) Absolute Nucleated RBC Nucleated RBC % PT INR APTT Puncture Site ABG pH ABG pCO2 ABG pO2 ABG PO2/FiO2 Ratio ABG HCO3 ABG O2 Saturation ABG O2 Content ABG Base Excess A-a Gradient Oxyhemoglobin Total Hemoglobin O2 Delivery Device O2 Liters/Min FiO2 Sodium Potassium Chloride Carbon Dioxide Anion Gap BUN Creatinine Estim Creat Clear Calc Estimated GFR Glucose Calcium Total Bilirubin AST ALT Alkaline Phosphatase Troponin I 0.066 H* D 0.689 H* D NT-Pro-B Natriuret Pep Total Protein Albumin Lipase Influenza A (RT-PCR) Negative Influenza B (RT-PCR) Negative RSV (RT-PCR) Negative SARS-CoV-2 RNA (RT-PCR) Negative 01/11/25 05:24 WBC 3.3 L RBC 3.95 L Hgb 10.8 L Hct 37.5 L MCV 94.9 MCH 27.3 MCHC 28.8 L RDW 12.0 Plt Count 157 MPV 10.1 Immature Gran % (Auto) 0.6 H Neut % (Auto) 85.0 H Lymph % (Auto) 12.6 L [place] % (Auto) 1.8 L Eos % (Auto) 0.0 Baso % (Auto) 0.0 L Lymph # (Auto) 0.41 L [place] # (Auto) 0.1 Eos # (Auto) 0.0 Baso # (Auto) 0.0 Abs Immat Gran (auto) 0.02 Absolute Neuts (auto) 2.8 Absolute Nucleated RBC 0.000 Nucleated RBC % 0.0 PT INR APTT Puncture Site ABG pH ABG pCO2 ABG pO2 ABG PO2/FiO2 Ratio ABG HCO3 ABG O2 Saturation ABG O2 Content ABG Base Excess A-a Gradient Oxyhemoglobin Total Hemoglobin O2 Delivery Device O2 Liters/Min FiO2 Sodium 141 Potassium 3.9 Chloride 93 L Carbon Dioxide > 40 H Anion Gap BUN 21 H Creatinine 0.75 Estim Creat Clear Calc 90 Estimated GFR > 60 Glucose 158 H Calcium 8.5 Total Bilirubin 0.5 AST 21 ALT 31 Alkaline Phosphatase 80 Troponin I NT-Pro-B Natriuret Pep Total Protein 6.0 L Albumin 3.5 Lipase Influenza A (RT-PCR) Influenza B (RT-PCR) RSV (RT-PCR) SARS-CoV-2 RNA (RT-PCR)
--- NOTE | 2025-01-11 13:54 | IVDEFINITY ---
Prior to administration of IV Definity the patient was educated on the risks and benefits of the imaging enhancing agent including potential adverse side effects. The patient verbalized understanding. Allergies were verified. No exclusion criteria were identified and at least one of the following inclusion criteria were met: 1) physician request, 2) patient technically difficult to image (per the [place] [employer] guidelines of two or more segments not discernable within the apical view), or 3) questionable left ventricular function. ?
[2025-01-11] MEDS: dilTIAZem HCL CD 240 MG CAP.24HR PO (14:11)
[2025-01-11] MEDS: predniSONE 20 MG TABLET 40 MG PO (14:11)
[2025-01-11] MEDS: HYDROcodone/acetaminophen (*CRX) 10-325 MG TABLET 1 TAB PO (14:15)
--- NOTE | 2025-01-11 15:01 | P.CONCA_ITS ---
<Statement entered by CARL Hernandez - 01/11/25 15:25> During my dictation of this document I was informed that the patient left the hospital AMA. Assessment and Plan Assessment and plan (1) Elevated troponin: Code(s): R79.89 - Other specified abnormal findings of blood chemistry Status: Acute Assessment and Plan: During my dictation of this document I was informed that the patient left the hospital AMA. History of Present Illness History of Present Illness Consult date/time: 01/11/25 15:01 Requesting physician: Anette Evans MD Consult reason: Other (elevated troponin) Reason For Visit: COPD, elevated troponin Narrative: Robson Farr is a 69 year old male with multivessel coronary artery disease status post complex stenting at [facility] in April of 2024. He comes to the hospital with a chief complaint of shortness of breath. He has been admitted for treatment of COPD exacerbation. Cardiology has been consulted because of elevated troponin levels. Patient denies having any chest pain. He actually states that he told multiple providers he unequivocally did NOT have chest pain, but when he gave a history of having stents they became fixated on chest pain. His history is somewhat confusing as he has trouble remembering names of hospitals and frequently has tangents about various hospital staff members he has not gotten along with. Regardless, he is able to tell me he had two stents placed in April of 2024 at [facility] and at that time was told he was, good as gold. Currently he is feeling much better than he did upon admission and has had significant improvement in his breathing. His only concern now is being able to get his home oxygen paid for and leaving the hospital as quickly as possible. Review of Systems 2 Review of Systems: All systems reviewed & are unremarkable except as noted in HPI and below PMFSH Family History Family History Father Hypertension Cerebrovascular accident Family history of heart disease in male family member before age 55 Social History Social History Smoking status: Current some day smoker Alcohol intake: never Substance use type: does not use Do You Feel Safe in your Home?: Yes Lack of Transportation: No Lack of Food: Never True Current Housing: I Have Housing Concerned About Future Housing: No Difficulty Paying Gas/Electric Bills: No Difficulty Paying for Meds: No Currently Unemployed: No Education: High School Diploma/GED Difficulty w/ Childcare or Family Care: No Spiritual care concerns: No Meds Home Medications and Allergies Home Medications ?Medication ?Instructions ?Recorded ?Confirmed ?Type apixaban 5 mg tablet (Eliquis) 5 mg PO Q12H 01/10/25 01/10/25 History atorvastatin 40 mg tablet 40 mg PO DAILY 01/10/25 01/10/25 History diltiazem HCl 240 mg 240 mg PO Q24H 01/10/25 01/10/25 History capsule,extended release 24 hr hydrocodone 10 mg-acetaminophen 1 tablet PO Q6H PRN pain (scale 01/10/25 01/10/25 History 325 mg tablet score 7-10) Allergies Allergy/AdvReac Type Severity Reaction Status Date / Time No Known Allergies Allergy Verified 01/10/25 17:00 Vital Signs Vital Signs - 24 hr 01/10/25 16:03 01/10/25 16:44 01/10/25 16:54 Temperature 36.7 C Pulse Rate 90 103 H 101 H Respiratory Rate 20 32 H 24 H Blood Pressure 126/76 Pulse Oximetry 100 Oxygen Delivery Nasal Cannula Oxygen Flow Rate 4 Fraction of Inspired Oxygen 01/10/25 16:59 01/10/25 17:15 01/10/25 17:26 Temperature Pulse Rate 98 92 Respiratory Rate 30 H 28 H Blood Pressure 108/89 137/73 Pulse Oximetry 100 100 98 Oxygen Delivery Nasal Cannula Oxygen Flow Rate 4 Fraction of Inspired Oxygen 01/10/25 20:34 01/10/25 20:34 01/10/25 20:43 Temperature Pulse Rate 102 H 98 Respiratory Rate 24 H 22 H Blood Pressure Pulse Oximetry 98 Oxygen Delivery Nasal Cannula Oxygen Flow Rate 2 Fraction of Inspired Oxygen 28 01/10/25 21:24 01/10/25 21:27 01/10/25 22:00 Temperature Pulse Rate 92 93 101 H Respiratory Rate 23 H 23 H Blood Pressure 125/67 125/67 Pulse Oximetry 97 97 Oxygen Delivery Oxygen Flow Rate Fraction of Inspired Oxygen 01/10/25 22:15 01/10/25 23:43 01/11/25 00:00 Temperature 36.3 C L Pulse Rate 97 103 H Respiratory Rate 20 Blood Pressure 152/83 H Pulse Oximetry 97 97 Oxygen Delivery Nasal Cannula Oxygen Flow Rate 4 Fraction of Inspired Oxygen 01/11/25 00:08 01/11/25 00:55 01/11/25 01:10 Temperature 36.3 C L Pulse Rate 101 H 102 H 100 Respiratory Rate 20 22 H 22 H Blood Pressure 150/88 H Pulse Oximetry 97 Oxygen Delivery Oxygen Flow Rate Fraction of Inspired Oxygen 01/11/25 03:34 01/11/25 04:00 01/11/25 04:28 Temperature 36.4 C L Pulse Rate 76 83 Respiratory Rate 20 Blood Pressure 148/82 H Pulse Oximetry 97 96 Oxygen Delivery Nasal Cannula Oxygen Flow Rate 4 Fraction of Inspired Oxygen 01/11/25 04:54 01/11/25 05:02 01/11/25 08:00 Temperature 36.4 C L Pulse Rate 98 96 83 Respiratory Rate 20 20 20 Blood Pressure 166/83 H Pulse Oximetry 99 Oxygen Delivery Oxygen Flow Rate Fraction of Inspired Oxygen 01/11/25 08:00 01/11/25 08:00 01/11/25 08:10 Temperature Pulse Rate 78 91 Respiratory Rate 20 Blood Pressure Pulse Oximetry 99 Oxygen Delivery Nasal Cannula Oxygen Flow Rate 4 Fraction of Inspired Oxygen 01/11/25 08:10 01/11/25 10:00 01/11/25 12:00 Temperature 36.7 C Pulse Rate 79 77 Respiratory Rate 20 Blood Pressure 152/78 H Pulse Oximetry 98 99 Oxygen Delivery Nasal Cannula Oxygen Flow Rate 3 Fraction of Inspired Oxygen 28 01/11/25 12:00 01/11/25 12:00 Temperature Pulse Rate 78 Respiratory Rate Blood Pressure Pulse Oximetry 99 Oxygen Delivery Nasal Cannula Oxygen Flow Rate 4 Fraction of Inspired Oxygen Exam 2 Const: General: comfortable, no acute distress, alert and awake O rientation/consciousness: patient oriented x3 HENMT: Head: normal to inspection Eyes: General: appearance normal, both eyes and all related structures P upils: Equal, round and reactive pupils present Neck: Neck: normal visual inspection, supple and no JVD Carotids: normal carotid upstroke Resp: Effort & Inspection: normal respiratory effort Auscultation: not clear to auscultation bilaterally, wheezes and diminished lung sounds Cardio: Rate: regular rate Rhythm: regular rhythm Heart sounds: S1 normal heart sound present, S2 normal heart sound present and no murmurs GI: Auscultation: normal bowel sounds Skin: General skin exam: normal color Neuro: General: patient oriented x3 Cranial nerves: Yes Equal, round and reactive pupils present Extrem: General: normal to inspection Psych: Appearance: grossly normal Mental Status: mental status grossly normal Results Labs and Meds 01/11/25 05:24 01/11/25 05:24 Lab results: Cardiac Enzymes 01/10/25 01/10/25 01/10/25 Range/Units 16:21 19:19 22:20 AST 22 (17-59) U/L Troponin I 0.110 H* 0.100 H* 0.066 H* D (0.000-0.034) ng/mL 01/11/25 01/11/25 Range/Units 05:20 05:24 AST 21 (17-59) U/L Troponin I 0.689 H* D (0.000-0.034) ng/mL Coagulation 01/10/25 Range/Units 16:21 PT 12.4 (11.1-14.7) Seconds APTT 32.1 (22.3-36.8) Seconds CBC 01/10/25 01/11/25 Range/Units 16:21 05:24 WBC 5.8 3.3 L (4.5-10.0) K/mm3 RBC 4.27 L 3.95 L (4.6-6.20) M/mm3 Hgb 11.9 L 10.8 L (14.0-18.0) g/dL Hct 41.7 L 37.5 L (42.0-52.0) % Plt Count 164 157 (150-375) k/mm3 Lymph # (Auto) 1.05 0.41 L (0.9-3.2) K/mm3 [place] # (Auto) 0.5 0.1 (0.1-0.6) K/mm3 Eos # (Auto) 0.2 0.0 (0-0.3) K/mm3 Baso # (Auto) 0.0 0.0 (0.0-0.1) K/mm3 Comprehensive Metabolic Panel 01/10/25 01/11/25 Range/Units 16:21 05:24 Sodium 140 141 (137-145) mmol/L Potassium 4.0 3.9 (3.4-5.0) mmol/L Chloride 89 L 93 L (98-107) mmol/L Carbon Dioxide > 40 H > 40 H (22-30) mmol/L BUN 15 D 21 H (9-20) mg/dL Creatinine 0.70 0.75 (0.7-1.3) mg/dL Glucose 118 H 158 H (65-110) mg/dL Calcium 8.8 8.5 (8.4-10.2) mg/dL AST 22 21 (17-59) U/L ALT 39 31 (6-50) U/L Alkaline Phosphatase 86 80 (38-126) U/L Total Protein 7.0 6.0 L (6.3-8.2) g/dL Albumin 3.9 3.5 (3.5-5.1) g/dL Intake and Output 01/10/25 01/11/25 01/11/25 23:59 07:59 15:59 Intake Total 100 500 0 Output Total 450 Balance 100 50 0 Intake: IV 100 Magnesium Sulf 1 gm/D5w 100 ml 100 1 gm In 100 ml @ 100 mls/hr IVPB ONCE STA Rx#:[id number] Oral 500 0 Output: Urine 450 Other: Number of Bowel Movements Today 1 Patient Weight 01/11/25 23:59 Weight 85.1 kg
--- NOTE | 2025-01-11 15:21 | PM.EVENT ---
Event Note Event Note Event Note: Patient left AMA despite recommendations against
[2025-01-12 04:55] LABS: Troponin I 0.066 ng/mL (0.000-0.034)
== END 2025-01-11 16:39 | disposition left against medical advice (07) | DRG 281 ==
LOC: ANHED 19:17 → ANHIMU 19:25
PROVIDERS: Internal Medicine; Physician Assistant; Admitting Provider Internal Medicine; Emergency Provider Emergency Medicine; PCP Family Medicine; Visit Provider Internal Medicine
DX: I21.4 Non-ST elevation (NSTEMI) myocardial infarction (principal); J44.1 Chronic obstructive pulmonary disease with (acute) exacerbation; I25.10 Atherosclerotic heart disease of native coronary artery without angina pectoris; R79.89 Other specified abnormal findings of blood chemistry; Z20.822 Contact with and (suspected) exposure to COVID-19; Z99.81 Dependence on supplemental oxygen; Z79.01 Long term (current) use of anticoagulants; Z72.0 Tobacco use
CPT/HCPCS: 36415; 36600; 71045; 71275; 80053; 82805; 83690; 83880; 84484; 85018; 85025; 85610; 85730; 87637; 93005; 94640; 96365; 96375; 96376; 99285; A9270; C8929; G0378; J1644; J2919; J3475; J7512; Q9957; Q9967